=== PATIENT | male | born 1960 | race African-American/Black ===

== ENCOUNTER 2018-05-08 11:59 | Observation (INO) ==
[2018-05-08] MEDS ORDERED: SODIUM CHLORIDE 0.9% 1000ML 1,000 ML IV ONE (12:41)
[2018-05-08 13:14] LABS: Mean Corpuscular Hgb Conc 33.6 g/dL (32-36)
[2018-05-08 13:21] LABS: Hematocrit (blood only) 40.8 % (42-52); Hemoglobin 13.7 g/dL (14.0-18.0); Mean Corpuscular Volume 80.6 fL (80-100); RDW Coefficient of Variation 14.5 % (11.5-14.5); RDW Standard Deviation 42.2 fL (36.4-46.3); Red Blood Count 5.06 M/uL (4.7-6.1); White Blood Count 4.34 K/uL (4.8-10.8)
[2018-05-08 13:29] LABS: Basophils # (auto) 0.01 K/uL (0-0.2); Basophils % (auto) 0.2 %; Eosinophils # (auto) 0.16 K/uL (0-0.5); Eosinophils % (auto) 3.7 %; Giant Platelets 1+; Immature Granulocytes # (auto) 0.01 K/uL (0.00-0.02); Immature Granulocytes % (auto) 0.2 %; Lymphocytes # (auto) 1.26 K/uL (1.2-3.4); Monocytes # (auto) 0.36 K/uL (0.11-0.59); Monocytes % (auto) 8.3 %; Neutrophils # (auto) 2.54 K/uL (1.4-6.5); Neutrophils % (auto) 58.6 %; Platelet Count 57 K/uL (130-400); Platelet Estimate Decreased (Normal)
[2018-05-08 13:32] LABS: Albumin Level 3.3 gm/dl (3.4-5.0); BUN Creatinine Ratio 5.2 (10-20); Calcium 8.5 mg/dl (8.5-10.1); Creatinine Clr Calc Pharmacy 68.1 ml/min; Est GFR (African American) 62.3; Est GFR (Non-African American) 53.8; Potassium 2.7 mmol/L (3.5-5.1)
[2018-05-08 13:33] LABS: Globulin 3.4 gm/dl (2.5-4.0); Total Protein 6.7 gm/dl (6.4-8.2)
--- NOTE | 2018-05-08 13:42 | XRay Report ---
XR chest 1V portable CLINICAL HISTORY: 58 years-old Male presenting with pain, dysphagia. TECHNIQUE: PA view of the chest was obtained. COMPARISON: 09/24/2013. FINDINGS: Cardiac silhouette top normal in size. Lungs and pleural spaces clear. Osseous structures normal. Upp er abdomen normal. IMPRESSION: 1. No acute cardiopulmonary disease. Electronically signed by: Miguel Angel Sanchez M.D. 05/08/2018 1:40 PM
--- NOTE | 2018-05-08 13:50 | XRay Report ---
XR soft tissue neck CLINICAL HISTORY: dysphagia COMPARISON STUDY: No previous studies for comparison. FINDINGS: The retropharyngeal soft tissues appear normal. The epiglottis appears normal. Degenerative changes are present within the cervical spine most pronounced at the IMPRESSION: No significant soft tissue abnormalities identified on conventional radiographic imaging Electronically signed by: Mehul Hermosillo M.D. 05/08/2018 1:48 PM
--- NOTE | 2018-05-08 14:41 | Emergency Department Note ---
History of Present Illness General Chief Complaint: Throat Pain Stated Complaint: TROUBLE SWALLOWING Source: patient Mode of arrival: ambulatory Limitations: no limitations History of Present Illness Provider Complaint: other (dysphagia) Onset (ago): 3 week(s) Pain Consistency: intermittent Maximum Pain Intensity: 8 Current Pain Intensity: 8 Quality: + dull Exacerbated By: + eating Associated Symptoms: + nausea and + vomiting This 58-year-old male patient presents emergency department today from [facility]. The patient has been experiencing dysphagia for the past 2-3 weeks. He states he is having difficulty swallowing water and food and feels that he is choking with eating or drinking. He reports a 40 pound weight loss in the past 2 months. He reports pain in the back of his throat with attempts at swallowing. He states it feels "like needles or extremely bad heartburn". The patient was admitted to the [facility] week for IV fluids due to dehydration from the inability to swallow. He was switched to a liquid diet, but continued to have difficulty keeping down liquids. The patient states he has been successful with some food and liquids and ate cream of wheat this morning without difficulty. The patient reports history of similar symptoms back in 2003. He states he had an EGD done at that time which was negative. He states the symptoms ultimately got better on his own, does not recall needing any further workup or medications. The patient states he has not been on any medications for heartburn or reflux. He rates his pain 8/10. He has been unable to get scheduled with gastroenterology for an EGD until July, per the group home system providers. Home Medications Home Medications Medication Instructions Recorded Confirmed Type amlodipine 10 mg PO QAM 05/08/18 05/08/18 History aspirin 81 mg PO HS 05/08/18 05/08/18 History atorvastatin 40 mg PO HS 05/08/18 05/08/18 History levothyroxine 50 mcg PO QAM 05/08/18 05/08/18 History risperidone 3 mg PO BID 05/08/18 05/08/18 History sulfamethoxazole-trimethoprim 10 ml PO QID 05/08/18 05/08/18 History [Sulfatrim] trazodone 50 mg PO HS 05/08/18 05/08/18 History Allergies Allergy/AdvReac Type Severity Reaction Status Date / Time No Known Allergies Allergy Unverified 05/08/18 13:29 Past Med/Surg History Medical History Hepatitis C Paranoid schizophrenia (Chronic) HTN (hypertension) (Chronic) Surgical History History of shoulder surgery Family History Other Family history non-contributory Social History Current Living Situation Comment: incarcerated- [facility] Feels Safe at Home: Yes Smoking Status: Former smoker Hx Alcohol Use: No Hx Substance Use: No Preferred Language: Chinese Review of Systems A total of 10 systems reviewed and were otherwise negative Physical Exam Vital Signs: Vital Signs - 24 hr 05/08/18 12:08 05/08/18 12:12 05/08/18 13:13 Temperature 37.1 C Temperature Source Oral Sepsis Recent Feve r Within 48 Hours No Sepsis New/Unexpla ined Change in Men varghese Status No Sepsis Action Take n by Nursing No Action Required Pulse Rate 141 H Pulse Rate [Left F mir] Respiratory Rate 18 Respiratory Effort / Characteristics Non-Labored Sponta neous Respiratory Depth Normal Respiratory Patter n Regular Blood Pressure 114/88 Blood Pressure [Le ft Arm] Blood Pressure [Ri ght Arm] Blood Pressure Stephanie n 96 Blood Pressure Stephanie n [Left Arm] Blood Pressure Stephanie n [Right Arm] Blood Pressure Pos ition Sitting Blood Pressure Pos ition [Right Arm] Pulse Oximetry 97 97 94 Oxygen Delivery Me thod Room Air Room Air 05/08/18 13:14 05/08/18 16:00 05/08/18 19:09 Temperature Temperature Source Sepsis Recent Feve r Within 48 Hours Sepsis New/Unexpla ined Change in Men varghese Status Sepsis Action Take n by Nursing Pulse Rate 81 Pulse Rate [Left F mir] 95 H 80 Respiratory Rate 18 20 20 Respiratory Effort / Characteristics Respiratory Depth Respiratory Patter n Blood Pressure 174/114 H Blood Pressure [Le ft Arm] 142/96 H 153/114 H Blood Pressure [Ri ght Arm] Blood Pressure Stephanie n Blood Pressure Stephanie n [Left Arm] 111 127 Blood Pressure Stephanie n [Right Arm] Blood Pressure Pos ition Blood Pressure Pos ition [Right Arm] Pulse Oximetry 95 95 96 Oxygen Delivery Me thod Room Air Room Air Room Air 05/08/18 19:39 Temperature 36.7 C Temperature Source Oral Sepsis Recent Feve r Within 48 Hours Sepsis New/Unexpla ined Change in Men varghese Status Sepsis Action Take n by Nursing Pulse Rate Pulse Rate [Left F mir] 83 Respiratory Rate 18 Respiratory Effort / Characteristics Respiratory Depth Respiratory Patter n Blood Pressure Blood Pressure [Le ft Arm] Blood Pressure [Ri ght Arm] 160/114 H Blood Pressure Stephanie n Blood Pressure Stephanie n [Left Arm] Blood Pressure Stephanie n [Right Arm] 129 Blood Pressure Pos ition Blood Pressure Pos ition [Right Arm] Lying Pulse Oximetry 98 Oxygen Delivery Me thod Room Air Physical Exam: VITALS: Vitals are noted on the nurse's note and reviewed by myself. Vital signs stable. GENERAL: This is a 4-year-old black male, in no acute distress, nondiaphoretic, well-developed well-nourished. SKIN: The skin was without rashes, erythema, edema, or bruising. There is no tenting of the skin. Capillary reflex less than 2 seconds. HEAD: Normocephalic atraumatic. EARS: External auditory canals clear, tympanic membranes pearly pelaez without erythema or effusion bilaterally. EYES: Pupils equal round and reactive to light and accommodation. Conjunctivae without injection, sclerae without icterus. Extraocular movements intact. NOSE: Patent, turbinates without inflammation or discharge. No sinus tenderness. MOUTH: Mucous membranes moist. Tonsils are not enlarged. Pharynx without erythema or exudate. Uvula midline. Airway patent. Tongue does not deviate. NECK: Supple without nuchal rigidity. No lymphadenopathy. Cervical spine is nontender. No JVD. HEART: Regular rate and rhythm without murmurs gallops or rubs. LUNGS: Clear to auscultation bilaterally without wheezes, rales or rhonchi. No dullness to percussion. No retractions or accessory muscle use. ABDOMEN: Positive bowel sounds x 4. Normal tympanic percussion. Soft, nontender, without masses or organomegaly. Proctor sign negative. No guarding or rebound tenderness. MUSCULOSKELETAL: No muscle atrophy, erythema, or edema noted. Full range of motion without joint tenderness in all extremities. No tenderness to palpation. Normal gait. Strength 5/5 throughout. NEURO: Patient was alert and oriented to person place and time. Normal sensation to light and sharp touch. No focal neurological deficits. Course The patient was seen and evaluated as above. IV access obtained, labs drawn. Imaging performed and reviewed by myself and radiologist as above. Labs reviewed by myself. I discussed the findings with the patient at bedside. I consulted with GI configuration manager. Spoke with Phyllis Jaimes. She did agree to see and evaluate the patient. GI recommended outpatient EGD, but does not feel that the patient requires admission. They did request a RUQ ultrasound to evaluate for cirrhosis. The patient was given IV Protonix. I contacted Dr. Cueto, the Physician at [facility]. He became extremely agitated that the patient would not be admitted because "he was extremely dehydrated over the weekend" and feels that he will not be able to manage the patient's fluid status at the group home to await an outpatient EGD, though it was suggested that this would likely happen soon. He advised that the patient has not tolerated any food or fluids, despite the patient telling us he tolerated Cream of wheat and fluids just prior to arrival at the ED without vomiting. He did speak with Dr. Flanagan who advised him that the patient does not meet admission criteria. He insists that I speak with the internal medicine physician regarding a PICC line for admission. I discussed the case with Dr. Orozco. She agrees that the patient does not meet admission criteria. Dr. Cueto called back and expresses irritation that he called [facility] and was told there was no order for the EGD, so the patient could not be scheduled. He would like me to speak with GI and ask that they place the order. He did speak with Dr. Orozco regarding patient condition. I spoke with HEAVEN Olson again. She contacted the outpatient office and asked if an order could be placed and the patient scheduled. She was having difficulty getting the patient scheduled outpatient and asked that the patient be admitted overnight for outpatient EGD. I discussed the case with Dr. Orozco. She does agree to the admission. I called Dr. Cueto back to advise him that the patient would be admitted. I discussed the case with my attending. The patient's potassium and Magnesium were replaced. Please see hospitalist dictation regarding ongoing management. Administered Medications Discontinued Medications Sodium Chloride (Nss 1000ml) 1,000 mls @ 999 mls/hr IV .Q1H1M ONE Stop: 05/08/18 13:41 Last Infusion: 05/08/18 14:16 Dose: 0 mls/hr Admin: 05/08/18 13:12 Dose: 999 mls/hr Pantoprazole Sodium 40 mg/ (Syringe) 10 mls @ 5 mls/min IV NOW ONE Stop: 05/08/18 15:33 Last Admin: 05/08/18 16:28 Dose: 5 mls/min Potassium Chloride (K Tc / Wtr) 10 meq in 100 mls @ 100 mls/hr IV Q1H PRATEEK Stop: 05/08/18 19:29 Last Infusion: 05/08/18 19:51 Dose: 0 mls/hr Admin: 05/08/18 18:18 Dose: 100 mls/hr Potassium Chloride (Klor-Con M10) 20 meq PO NOW STA Stop: 05/08/18 15:33 Last Admin: 05/08/18 16:15 Dose: Not Given Medical Decision Making Differential Diagnosis + peptic ulcer disease, + biliary pathology, + UTI, + obstruction, + mesenteric ischemia, + aortic pathology, + infections, + inflammatory bowel disease, + renal colic, + torsion (male), + epididymitis (male), + pelvic inflammatory disease (female), + abdominal pain, + appendicitis, + calculus of kidney, + constipation, + diverticulitis, + endometriosis, + gastroenteritis, + pancreatitis and + small bowel obstruction Food bolus, achalasia, reflux, malignancy, and others Medical Records Attestation: I reviewed the patient's medical records. Home Medications Current Medication List: was personally reviewed by me Laboratory Data Attestation: I reviewed the patient's lab results. Mild anemia with a hemoglobin of 13.7. No leukocytosis. No thrombocytopenia. The patient's renal, hepatic function without significant abnormality. The patient was hypokalemic with potassium of 2.7. Magnesium 1.7. Lipase 100. Urinalysis without evidence of blood or infection. Positive for 1+ protein and 2+ ketones. Result diagrams: 05/08/18 13:00 05/08/18 13:00 Lab Results 05/08/18 05/08/18 05/08/18 Range/Units 13:00 13:00 13:00 WBC 4.34 L (4.8-10.8) K/uL RBC 5.06 (4.7-6.1) M/uL Hgb 13.7 L (14.0-18.0) g/dL Hct 40.8 L (42-52) % MCV 80.6 (80-100) fL MCH 27.1 (25-34) pg MCHC 33.6 (32-36) g/dL RDW Std Deviation 42.2 (36.4-46.3) fL RDW Coeff of Franck 14.5 (11.5-14.5) % Plt Count 57 L (130-400) K/uL Immature Gran % (Auto) 0.2 % Neut % (Auto) 58.6 % Lymph % (Auto) 29.0 % Toole % (Auto) 8.3 % Eos % (Auto) 3.7 % Baso % (Auto) 0.2 % Immature Gran # (Auto) 0.01 (0.00-0.02) K/uL Neut # (Auto) 2.54 (1.4-6.5) K/uL Lymph # (Auto) 1.26 (1.2-3.4) K/uL Toole # (Auto) 0.36 (0.11-0.59) K/uL Eos # (Auto) 0.16 (0-0.5) K/uL Baso # (Auto) 0.01 (0-0.2) K/uL Platelet Estimate Decreased (Normal) Giant Platelets 1+ Sodium 138 (136-145) mmol/L Potassium 2.7 L (3.5-5.1) mmol/L Chloride 103 (98-107) mmol/L Carbon Dioxide 28 (21-32) mmol/L Anion Gap 7.0 (3-11) BUN 7 (7-18) mg/dl Creatinine 1.41 H (0.6-1.4) mg/dl Est Cr Clr Drug Dosing 68.1 ml/min Est GFR ( Amer) 62.3 Est GFR (Non-Af Amer) 53.8 BUN/Creatinine Ratio 5.2 L (10-20) Glucose 128 H (70-99) mg/dl Calcium 8.5 (8.5-10.1) mg/dl Phosphorus Magnesium 1.7 L Cancelled (1.8-2.4) mg/dl Total Bilirubin 1.0 (0.2-1) mg/dl AST 32 (15-37) U/L ALT 43 (12-78) U/L Alkaline Phosphatase 76 (45-117) U/L Total Protein 6.7 (6.4-8.2) gm/dl Albumin 3.3 L (3.4-5.0) gm/dl Globulin 3.4 (2.5-4.0) gm/dl Albumin/Globulin Ratio 1.0 (0.9-2) Lipase 100 (73-393) U/L Urine Color Urine Appearance (Clear) Urine pH (4.5-7.5) Ur Specific [place]vue (1.000-1.030) Urine Protein (Negative) Urine Glucose (UA) (Negative) Urine Ketones (Negative) Urine Blood (Negative) Urine Nitrite (Negative) Urine Bilirubin (Negative) Urine Urobilinogen (Negative) Ur Leukocyte Esterase (Negative) Urine WBC (Auto) (0-5) /hpf Urine RBC (Auto) (0-4) /hpf U Hyaline Cast (Auto) (0-5) /lpf U Epithel Cells (Auto) (0-5) /lpf Urine Bacteria (Auto) (Negative) 05/08/18 05/08/18 Range/Units 13:00 14:30 WBC (4.8-10.8) K/uL RBC (4.7-6.1) M/uL Hgb (14.0-18.0) g/dL Hct (42-52) % MCV (80-100) fL MCH (25-34) pg MCHC (32-36) g/dL RDW Std Deviation (36.4-46.3) fL RDW Coeff of Franck (11.5-14.5) % Plt Count (130-400) K/uL Immature Gran % (Auto) % Neut % (Auto) % Lymph % (Auto) % Toole % (Auto) % Eos % (Auto) % Baso % (Auto) % Immature Gran # (Auto) (0.00-0.02) K/uL Neut # (Auto) (1.4-6.5) K/uL Lymph # (Auto) (1.2-3.4) K/uL Toole # (Auto) (0.11-0.59) K/uL Eos # (Auto) (0-0.5) K/uL Baso # (Auto) (0-0.2) K/uL Platelet Estimate (Normal) Giant Platelets Sodium (136-145) mmol/L Potassium (3.5-5.1) mmol/L Chloride (98-107) mmol/L Carbon Dioxide (21-32) mmol/L Anion Gap (3-11) BUN (7-18) mg/dl Creatinine (0.6-1.4) mg/dl Est Cr Clr Drug Dosing ml/min Est GFR ( Amer) Est GFR (Non-Af Amer) BUN/Creatinine Ratio (10-20) Glucose (70-99) mg/dl Calcium (8.5-10.1) mg/dl Phosphorus Cancelled Magnesium (1.8-2.4) mg/dl Total Bilirubin (0.2-1) mg/dl AST (15-37) U/L ALT (12-78) U/L Alkaline Phosphatase (45-117) U/L Total Protein (6.4-8.2) gm/dl Albumin (3.4-5.0) gm/dl Globulin (2.5-4.0) gm/dl Albumin/Globulin Ratio (0.9-2) Lipase (73-393) U/L Urine Color Yellow Urine Appearance Clear (Clear) Urine pH 6.5 (4.5-7.5) Ur Specific [place] 1.020 (1.000-1.030) Urine Protein 1+ H (Negative) Urine Glucose (UA) Negative (Negative) Urine Ketones 2+ H (Negative) Urine Blood Negative (Negative) Urine Nitrite Negative (Negative) Urine Bilirubin Negative (Negative) Urine Urobilinogen Negative (Negative) Ur Leukocyte Esterase Negative (Negative) Urine WBC (Auto) 1-5 (0-5) /hpf Urine RBC (Auto) 0-4 (0-4) /hpf U Hyaline Cast (Auto) 1-5 (0-5) /lpf U Epithel Cells (Auto) 10-20 H (0-5) /lpf Urine Bacteria (Auto) Negative (Negative) Imaging Data Radiologist's Impression: XR soft tissue neck CLINICAL HISTORY: dysphagia COMPARISON STUDY: No previous studies for comparison. FINDINGS: The retropharyngeal soft tissues appear normal. The epiglottis appears normal. Degenerative changes are present within the cervical spine most pronounced at the IMPRESSION: No significant soft tissue abnormalities identified on conventional radiographic imaging Electronically signed by: Mehul Hermosillo M.D. 05/08/2018 1:48 PM XR chest 1V portable CLINICAL HISTORY: 58 years-old Male presenting with pain, dysphagia. TECHNIQUE: PA view of the chest was obtained. COMPARISON: 09/24/2013. FINDINGS: Cardiac silhouette top normal in size. Lungs and pleural spaces clear. Osseous structures normal. Upper abdomen normal. IMPRESSION: 1. No acute cardiopulmonary disease. Electronically signed by: Miguel Angel Sanchez M.D. 05/08/2018 1:40 PM ULTRASOUND RIGHT UPPER QUADRANT ABDOMEN CLINICAL HISTORY: Right upper quadrant abdominal pain. COMPARISON STUDY: No priors. TECHNIQUE: Real-time, grayscale, and color flow sonography of the right upper quadrant of the abdomen was performed. Images are reviewed in the transverse and longitudinal planes. FINDINGS: Liver: The liver is normal in size and echotexture. There is no intrahepatic biliary ductal dilatation. The main portal vein is patent. Gallbladder: The gallbladder is normal in appearance. No gallstones are identified. There is no gallbladder wall thickening or pericholecystic fluid. A sonographic Proctor's sign is reportedly absent. The common bile duct measures up to 0.5 cm in diameter. Pancreas: Not well visualized due to overlying bowel gas. Right kidney: Survey images of the right kidney demonstrate normal size and echotexture. There is no hydronephrosis. Ascites: None. IMPRESSION: Unremarkable sonographic assessment of the right upper quadrant. No gallstones are identified. Electronically signed by: Dionte Franklin M.D. 05/08/2018 5:18 PM ECG Data Attestation: I personally reviewed and interpreted this ECG as follows: Indication: other (hypokalemia) Rate (beats per minute): 68 Rhythm: normal sinus Findings: no acute ischemic change and no ectopy Comparison ECG Date: from (09/26/13) Change: no significant change Blood Pressure Blood Pressure Findings: Elevated blood pressure Blood Pressure Disposition: elevated BP felt to be situational MDM Narrative This 58-year-old male patient [facility] evaluation of 2-3-week long history of dysphasia. The patient was apparently severely dehydrated over the weekend and [place] IV fluids in [place]. He has been feeling better since the IV fluids, however continues to experience intermittent dysphasia. He states he was able to tolerate cream of wheat earlier today without vomiting it up. The patient was seen and evaluated by gastroenterology who felt that the patient could be appropriately worked up as an outpatient with an EGD. When I advised the infirmary physician of this recommendation, he became extremely agitated and requests that the patient be admitted under the internal medicine/hospitalist team due to the dehydration last week and inability to swallow. I did discuss this with the medicine team, who did not feel that the patient will require admission. Ultimately, there was difficulty getting the patient scheduled for the outpatient EGD and the [facility] physician called back multiple times into the emergency department advising that the order was not placed and he would like the order placed within the next 15 minutes. This was not possible. The gastroenterology team ultimately decided that the patient could be admitted and added onto the schedule for an EGD tomorrow. The patient was ultimately admitted under the medicine service and will be scheduled for EGD tomorrow. While here in the ED, the patient's potassium and magnesium were replaced due to hypokalemia and slight hypomagnesemia. The patient did not tolerate the IV K+ well, and it needed to be slowed. The patient's electrolytes will continue to be replaced through the night per the hospitalist team. The chart was completed utilizing [id number] Speech voice recognition software. Grammatical errors, random word insertions, pronoun errors, and incomplete sentences are an occasional consequence of this system due to software limitations, ambient noise, and hardware issues. Any formal questions or concerns about the content, text, or information contained within the body of this dictation should be directly addressed to the provider for clarification. Impression & Plan Dysphagia, Hypokalemia, Hypomagnesemia Discharge Plan Visit Data *Final* Discharge Date/Time: 05/08/18 19:09 Chief Complaint: Throat Pain Stated Complaint: TROUBLE SWALLOWING ED Provider: Erick Lewis ED Midlevel Provider: Thea Martinez Discharge Problem: Dysphagia, Hypokalemia, Hypomagnesemia Patient Disposition: Admitted As Inpatient Condition: Good Discharge Instructions Interventions: ED Discharge Assessment Last Done: 05/08/18 19:09
[2018-05-08 15:04] LABS: Appearance Urine Clear (Clear); Bacteria Urine Automated Negative (Negative); Bilirubin Urine Negative (Negative); Blood Urine Negative (Negative); Color Urine Yellow; Glucose Urine UA Negative (Negative); Ketones Urine 2+ (Negative); Leukocyte Esterase Urine Negative (Negative); Nitrite Urine Negative (Negative); Protein Urine 1+ (Negative); RBC Urine Automated 0-4 /hpf (0-4); Urobilinogen Urine Negative (Negative); pH Urine 6.5 (4.5-7.5)
--- NOTE | 2018-05-08 15:15 | Gastrointestinal Consultation ---
Date of Consultation May 08, 2018 Assessment & Plan (1) Dysphagia: Dysphagia, likely esophageal spasm or esophagitis though malignancy should also be ruled out in light of weight loss. EGD later this week at [facility]. Soft food and liquids until then. BID PPI, po Our office will call [facility] to arrange. (2) Odynophagia: Supervising Physician Co-Signing Physician Notes I discussed the patient's management with HEAVEN Olson. 58 yo male, prisoner, chronic dysphagia reportedly- prior egd in 2003 in [facility] is normal, now here today for reported dysphagia. No difficulty swallowing currently and able to tolerate liquids. Slightly low K, ckdz - stable cr, low platelets. Abd sundar. Outpt EGD PPI twice daily. Discussed with the alf doctor. History of Present Illness Reason for Consultation: Dysphagia, weight loss Requesting Physician: Dr. Marie Attending Physician: Dr. Flanagan History of Present Illness Mr. Osmani Thompson is a 58 yr old male inmate at [facility] who was brought to the ED on 05/04, 05/06, and again today for dysphagia, vomiting, weight loss. He reports that he has had these symptoms intermittently, in 2010. He also recalls undergoing EGD in 2003 in [place] w/o abnormalities. He describes his symptoms, "as soon as I try to eat something, it feels like it gets stuck, hurts like a needle and comes back up."He also sometimes gets this feeling o f upper chest/lower throat sharp knife like pain that he induced vomiting, with mostly liquid emesis. When asked, he reports that two weeks ago, he had constipation then BMs with bright red black. No loose black BMs. He reports loosing about 40 lbs in the past month. Sometimes LLQ abdomen pain but does not mention any epigastric pain. On arrival, Hb 13.7, Hct 40.8. BUN 7, Cr 1.1. He is AAO and hemodynamically stable. Allergies Allergy/AdvReac Type Severity Reaction Status Date / Time No Known Allergies Allergy Unverified 05/08/18 13:29 Home Medications Home Medications Medication Instructions Recorded Confirmed Type amlodipine 10 mg PO QAM 05/08/18 05/08/18 History aspirin 81 mg PO HS 05/08/18 05/08/18 History atorvastatin 40 mg PO HS 05/08/18 05/08/18 History levothyroxine 50 mcg PO QAM 05/08/18 05/08/18 History risperidone 3 mg PO BID 05/08/18 05/08/18 History sulfamethoxazole-trimethoprim 10 ml PO QID 05/08/18 05/08/18 History [Sulfatrim] trazodone 50 mg PO HS 05/08/18 05/08/18 History Patient History Medical History Hepatitis C Paranoid schizophrenia (Chronic) HTN (hypertension) (Chronic) Social History Feels Safe at Home: Yes Smoking Status: Former smoker Preferred Language: Mexican Review of Systems Constitutional: + body aches (lower back); no fever, no chills and no sweats Ear, Nose, Mouth, Throat: + dry mouth and + sore throat (sometimes ); no dizziness Respiratory: + cough and + chest congestion (sometimes chest pressure); no pain with cough Cardiovascular: + chest pain (sometimes with eating - not currently); no syncope and no edema Gastrointestinal: + abdominal pain (intermittent LLQ discomfort ); no bloating and no nausea Genitourinary (Male): no dysuria, no difficulty urinating and no hematuria no jaundice Neurologic: + unsteadiness (sometimes "off balance"); no falls severe headaches (not currently) Hematologic / Lymphatic: no easy bleeding, no easy bruising, no coagulopathy and no lymphadenopathy Physical Exam 2 Vital Signs (Past 24 Hours): Last Vital Signs Temp 37.1 C 05/08/18 12:08 Pulse 95 H 05/08/18 13:14 Resp 18 05/08/18 13:14 BP 142/96 H 05/08/18 13:14 Pulse Ox 95 05/08/18 13:14 Constitutional: WD/WN, vitals as above well developed, well nourished and healthy appearing; no acute distress some figitingy motions Eyes: PERRL, conjunctivae normal, anicteric sclerae EOMS intact w/o nystagmus Neck: trachea midline, no thyromegaly Respiratory: mild wheeze on forced exp, otherwise normal w/o crackes Cardiovascular: RRR, no murmur, no edema Gastrointestinal (Abdomen): normal bowel sounds, soft, nontender, no hepatosplenomegaly Neurologic: PERRL, EOMI, accommodation nl, no face palsy, no dysarthria Psychiatric: Orientation: oriented x 3 Eye Contact: good eye contact Affect: + depressed affect (slightly) Results & Data Laboratory Results WBC 4.34, Hb 13.7, Hct 48, Platelets 57, BUN 7. Cr 1.41, K 2.7. Diagnostic Findings Neck US: No significant soft tissue abnormalities identified on conventional radiographic imaging CXR: No acute cardiopulmonary disease.
[2018-05-08] MEDS ORDERED: PANTOprazole 40 MG in SYRINGE 0 ML IV ONE (15:32)
[2018-05-08] MEDS ORDERED: POTASSIUM CHLORIDE 10 MEQ TABCR PO STA (15:32)
[2018-05-08 17:15] LABS: Magnesium 1.7 mg/dl (1.8-2.4)
--- NOTE | 2018-05-08 17:19 | Ultrasound Report ---
ULTRASOUND RIGHT UPPER QUADRANT ABDOMEN CLINICAL HISTORY: Right upper quadrant abdominal pain. COMPARISON STUDY: No priors. TECHNIQUE: Real-time, grayscale, and color flow sonography of the right upper quadrant of the abdomen was performed. Images are reviewed in the transverse and longitudinal planes. FINDINGS: Liver: The liver is normal in size and echotexture. There is no intrahepatic biliary ductal dilatatio n. The main portal vein is patent. Gallbladder: The gallbladder is normal in appearance. No gallstones are identified. There is no gallb ladder wall thickening or pericholecystic fluid. A sonographic Proctor's sign is reportedly absent. Th e common bile duct measures up to 0.5 cm in diameter. Pancreas: Not well visualized due to overlying bowel gas. Right kidney: Survey images of the right kidney demonstrate normal size and echotexture. There is no hydronephrosis. Ascites: None. IMPRESSION: Unremarkable sonographic assessment of the right upper quadrant. No gallstones are identi fied. Electronically signed by: Dionte Franklin M.D. 05/08/2018 5:18 PM
[2018-05-08] MEDS ORDERED: MAGNESIUM SULFATE / D5W 1 GM/100 ML BAG IV ONE ×2 (17:25→20:00)
[2018-05-08] MEDS: POTASSIUM CHLORIDE / WTR 10 MEQ/100 ML PLCT IV SCH ×3 (18:18→21:37)
[2018-05-08] MEDS ORDERED: ONDANSETRON INJ 2 MG/ML 2 ML VIAL IV PRN (19:38)
[2018-05-08] MEDS ORDERED: POTASSIUM CHLORIDE PWD 20 MEQ PACK PO ONE (19:45)
--- NOTE | 2018-05-08 20:04 | History & Physical Report ---
Date of Service May 08, 2018 Assessment & Plan (1) Dysphagia: Patient with reported dysphagia to solids and liquids associated with a 40 # unintentional weight loss. Also with reported odynophagia. Patient with history of similar presentation in the past. Ddx to include GERD, stricture, esophageal spasm, malignancy is a concern given weight loss and pancytopenia. May consider infectious etiology, esophagitis as well. Patient was initially to be discharged to [facility] with plans for outpatient EGD, however, this was difficult to coordinate so it was recommended by GI to admit patient for EGD inpatient. -Observation to medical floor -Protonix 40mg IV daily -Full liquid diet as tolerated -NPO after midnight -GI consultation - appreciate assistance with this case. Possible EGD in AM (2) Odynophagia: Patient reports occasional sharp pain with swallowing. Denies mouth sores /thrush. OP exam unremarkable -workup as above (3) Pancytopenia: Patient with pancytopenia. Normochromic/normocytic anemia, Plt=57, WBC= 4.34. He had leukopenia and thrombocytopenia in the past. Broad differential to include infectious etiology, autoimmune, malignancy. -Will order iron studies -Peripheral smear -Consider HIV and autoimmune labs -Consider Hematology consultation (4) HTN (hypertension): Blood pressure mildly elevated at present -Continue Amlodipine (5) Paranoid schizophrenia: Chronic. Stable -Continue Risperdal -Continue Trazodone (6) Dehydration: Patient with VERONICA now improved -LR at 125mL/hr x 2 liters -Electrolyte repletion with Mag and K -Continue to monitor (7) Hypothyroid: Chronic -Continue Synthroid (8) UTI (urinary tract infection): Patient is on Bactrim for suspected UTI -Continue 20mL po BID F/E/N - LR at 125mL/hr, monitor electrolytes and replete as needed, full liquid diet as tolerated, NPO after midnight for possible procedure in AM Ppx - SCDs, Protonix 40mg IV daily Code - Full Dispo - Observation to floor History of Present Illness Chief Complaint: dysphagia Primary Care Provider: [facility] Mr. Thompson is a 58yo AA male presenting with dysphagia and odynophagia x 3 weeks. Patient states that his symptoms occur intermittently. Unable to swallow solids or liquids. Also with occasional sharp pain and burning in his throat and globus sensation. He reports vomiting almost immediately after eating - undigested food. Patient is an inmate at [facility]. Spoke with Dr. Cueto who reports that patient has lost approximately 40# since February with this issue. Patient reports not tolerating food for 6-7 days at a time. He was recently in the [facility] for IVF and electrolyte repletion. Patient states that he had similar symptoms in 2003 - he was evaluated at [facility] in [place] with what sounds to be an EGD. Patient reports that they didn't explain the findings or start any new medications at that time. He reports similar episode in 2010 that resolved on its own. ER Course: KCl 10mEq, Protonix 40mg, KCL 20meq PO, NSS Allergies Allergy/AdvReac Type Severity Reaction Status Date / Time No Known Allergies Allergy Unverified 05/08/18 13:29 Home Medications Home Medications Medication Instructions Recorded Confirmed Type amlodipine 10 mg PO QAM 05/08/18 05/08/18 History aspirin 81 mg PO HS 05/08/18 05/08/18 History atorvastatin 40 mg PO HS 05/08/18 05/08/18 History levothyroxine 50 mcg PO QAM 05/08/18 05/08/18 History risperidone 3 mg PO BID 05/08/18 05/08/18 History sulfamethoxazole-trimethoprim 10 ml PO QID 05/08/18 05/08/18 History [Sulfatrim] trazodone 50 mg PO HS 05/08/18 05/08/18 History Past Med/Surg History Medical History Hepatitis C Paranoid schizophrenia (Chronic) HTN (hypertension) (Chronic) Dysphagia Pancytopenia UTI (urinary tract infection) Surgical History History of shoulder surgery Family History Other Family history non-contributory Social History Current Living Situation Comment: incarcerated- [facility] Feels Safe at Home: Yes Smoking Status: Former smoker Hx Alcohol Use: No Hx Substance Use: No Preferred Language: Sinhala Review of Systems All systems reviewed & are unremarkable except as noted in HPI & below Patient reports occasional constipation, nausea and dry cough Denies mouth sores, thrush, fevers, chills, sweats Physical Exam 2 Vital Signs (Past 24 Hours): Last Vital Signs Temp 36.7 C 05/08/18 19:39 Pulse 83 05/08/18 19:39 Resp 18 05/08/18 19:39 BP 160/114 H 05/08/18 19:39 Pulse Ox 98 05/08/18 19:39 Physical Exam: General: patient resting comfortably, NAD, non-toxic in appearance, AA&O x 4 Skin: warm, dry, intact, no rashes or lesions HEENT: NC/AT, PERRL, EOMI, anicteric sclera, conjunctiva without injection, external ear normal to inspection and nontender, nares patent, moist mucus membranes, dentition intact, no oropharyngeal lesions, neck supple, trachea midline, no LAD, no thyromegaly, no JVD Heart: +S1/S2, regular, no m/r/g Lungs: equal air entry bilaterally, no rales/rhonchi/wheezes Abd: +BS, soft, NT/ND, no masses/organomegaly/ascites Ext: warm, 2+ pulses in UE/LE bilaterally, no clubbing/cyanosis or edema Neuro: nonfocal, patient AA&O x 4, speech intact, no facial droop, moving all extremities on command with equal strength 5/5 Results & Data Laboratory Results Lab Results 05/08/18 05/08/18 05/08/18 Range/Units 13:00 13:00 13:00 WBC 4.34 L (4.8-10.8) K/uL RBC 5.06 (4.7-6.1) M/uL Hgb 13.7 L (14.0-18.0) g/dL Hct 40.8 L (42-52) % MCV 80.6 (80-100) fL MCH 27.1 (25-34) pg MCHC 33.6 (32-36) g/dL RDW Std Deviation 42.2 (36.4-46.3) fL RDW Coeff of Franck 14.5 (11.5-14.5) % Plt Count 57 L (130-400) K/uL Immature Gran % (Auto) 0.2 % Neut % (Auto) 58.6 % Lymph % (Auto) 29.0 % Grand % (Auto) 8.3 % Eos % (Auto) 3.7 % Baso % (Auto) 0.2 % Immature Gran # (Auto) 0.01 (0.00-0.02) K/uL Neut # (Auto) 2.54 (1.4-6.5) K/uL Lymph # (Auto) 1.26 (1.2-3.4) K/uL Grand # (Auto) 0.36 (0.11-0.59) K/uL Eos # (Auto) 0.16 (0-0.5) K/uL Baso # (Auto) 0.01 (0-0.2) K/uL Platelet Estimate Decreased (Normal) Giant Platelets 1+ Sodium 138 (136-145) mmol/L Potassium 2.7 L (3.5-5.1) mmol/L Chloride 103 (98-107) mmol/L Carbon Dioxide 28 (21-32) mmol/L Anion Gap 7.0 (3-11) BUN 7 (7-18) mg/dl Creatinine 1.41 H (0.6-1.4) mg/dl Est Cr Clr Drug Dosing 68.1 ml/min Est GFR ( Amer) 62.3 Est GFR (Non-Af Amer) 53.8 BUN/Creatinine Ratio 5.2 L (10-20) Glucose 128 H (70-99) mg/dl Calcium 8.5 (8.5-10.1) mg/dl Phosphorus 1.6 L (2.5-4.9) mg/dl Magnesium 1.7 L Cancelled (1.8-2.4) mg/dl Total Bilirubin 1.0 (0.2-1) mg/dl AST 32 (15-37) U/L ALT 43 (12-78) U/L Alkaline Phosphatase 76 (45-117) U/L Total Protein 6.7 (6.4-8.2) gm/dl Albumin 3.3 L (3.4-5.0) gm/dl Globulin 3.4 (2.5-4.0) gm/dl Albumin/Globulin Ratio 1.0 (0.9-2) Lipase 100 (73-393) U/L Urine Color Urine Appearance (Clear) Urine pH (4.5-7.5) Ur Specific [place] (1.000-1.030) Urine Protein (Negative) Urine Glucose (UA) (Negative) Urine Ketones (Negative) Urine Blood (Negative) Urine Nitrite (Negative) Urine Bilirubin (Negative) Urine Urobilinogen (Negative) Ur Leukocyte Esterase (Negative) Urine WBC (Auto) (0-5) /hpf Urine RBC (Auto) (0-4) /hpf U Hyaline Cast (Auto) (0-5) /lpf U Epithel Cells (Auto) (0-5) /lpf Urine Bacteria (Auto) (Negative) 05/08/18 05/08/18 Range/Units 13:00 14:30 WBC (4.8-10.8) K/uL RBC (4.7-6.1) M/uL Hgb (14.0-18.0) g/dL Hct (42-52) % MCV (80-100) fL MCH (25-34) pg MCHC (32-36) g/dL RDW Std Deviation (36.4-46.3) fL RDW Coeff of Franck (11.5-14.5) % Plt Count (130-400) K/uL Immature Gran % (Auto) % Neut % (Auto) % Lymph % (Auto) % Grand % (Auto) % Eos % (Auto) % Baso % (Auto) % Immature Gran # (Auto) (0.00-0.02) K/uL Neut # (Auto) (1.4-6.5) K/uL Lymph # (Auto) (1.2-3.4) K/uL Grand # (Auto) (0.11-0.59) K/uL Eos # (Auto) (0-0.5) K/uL Baso # (Auto) (0-0.2) K/uL Platelet Estimate (Normal) Giant Platelets Sodium (136-145) mmol/L Potassium (3.5-5.1) mmol/L Chloride (98-107) mmol/L Carbon Dioxide (21-32) mmol/L Anion Gap (3-11) BUN (7-18) mg/dl Creatinine (0.6-1.4) mg/dl Est Cr Clr Drug Dosing ml/min Est GFR ( Amer) Est GFR (Non-Af Amer) BUN/Creatinine Ratio (10-20) Glucose (70-99) mg/dl Calcium (8.5-10.1) mg/dl Phosphorus Cancelled (2.5-4.9) mg/dl Magnesium (1.8-2.4) mg/dl Total Bilirubin (0.2-1) mg/dl AST (15-37) U/L ALT (12-78) U/L Alkaline Phosphatase (45-117) U/L Total Protein (6.4-8.2) gm/dl Albumin (3.4-5.0) gm/dl Globulin (2.5-4.0) gm/dl Albumin/Globulin Ratio (0.9-2) Lipase (73-393) U/L Urine Color Yellow Urine Appearance Clear (Clear) Urine pH 6.5 (4.5-7.5) Ur Specific [place] 1.020 (1.000-1.030) Urine Protein 1+ H (Negative) Urine Glucose (UA) Negative (Negative) Urine Ketones 2+ H (Negative) Urine Blood Negative (Negative) Urine Nitrite Negative (Negative) Urine Bilirubin Negative (Negative) Urine Urobilinogen Negative (Negative) Ur Leukocyte Esterase Negative (Negative) Urine WBC (Auto) 1-5 (0-5) /hpf Urine RBC (Auto) 0-4 (0-4) /hpf U Hyaline Cast (Auto) 1-5 (0-5) /lpf U Epithel Cells (Auto) 10-20 H (0-5) /lpf Urine Bacteria (Auto) Negative (Negative) Diagnostic Findings XR chest 1V portable CLINICAL HISTORY: 58 years-old Male presenting with pain, dysphagia. TECHNIQUE: PA view of the chest was obtained. COMPARISON: 09/24/2013. FINDINGS: Cardiac silhouette top normal in size. Lungs and pleural spaces clear. Osseous structures normal. Upper abdomen normal. IMPRESSION: 1. No acute cardiopulmonary disease. Electronically signed by: Miguel Angel Sanchez M.D. 05/08/2018 1:40 PM Dictated: 05/08/18 1339 Transcribed: 05/08/18 1339 XR soft tissue neck CLINICAL HISTORY: dysphagia COMPARISON STUDY: No previous studies for comparison. FINDINGS: The retropharyngeal soft tissues appear normal. The epiglottis appears normal. Degenerative changes are present within the cervical spine most pronounced at the IMPRESSION: No significant soft tissue abnormalities identified on conventional radiographic imaging Electronically signed by: Mehul Hermosillo M.D. 05/08/2018 1:48 PM Dictated: 05/08/18 1339 Transcribed: 05/08/18 1339 ULTRASOUND RIGHT UPPER QUADRANT ABDOMEN CLINICAL HISTORY: Right upper quadrant abdominal pain. COMPARISON STUDY: No priors. TECHNIQUE: Real-time, grayscale, and color flow sonography of the right upper quadrant of the abdomen was performed. Images are reviewed in the transverse and longitudinal planes. FINDINGS: Liver: The liver is normal in size and echotexture. There is no intrahepatic biliary ductal dilatation. The main portal vein is patent. Gallbladder: The gallbladder is normal in appearance. No gallstones are identified. There is no gallbladder wall thickening or pericholecystic fluid. A sonographic Proctor's sign is reportedly absent. The common bile duct measures up to 0.5 cm in diameter. Pancreas: Not well visualized due to overlying bowel gas. Right kidney: Survey images of the right kidney demonstrate normal size and echotexture. There is no hydronephrosis. Ascites: None. IMPRESSION: Unremarkable sonographic assessment of the right upper quadrant. No gallstones are identified. Electronically signed by: Dionte Franklin M.D. 05/08/2018 5:18 PM Dictated: 05/08/18 1717 Transcribed: 05/08/18 171 ECG Additional Comments: The study shows NSR at 68bpm, normal axis and intervals, no evidence of acute ischemia Code Status & VTE Plan Code Status full VTE Prophylaxis Plan VTE Prophylaxis will be ordered: Yes Critical Care Time Critical Care Time: No _ (1) Dysphagia Dysphagia type: unspecified Qualified Code(s): R13.10 - Dysphagia, unspecified (2) HTN (hypertension) Hypertension type: essential hypertension Qualified Code(s): I10 - Essential (primary) hypertension (3) Hypothyroid Hypothyroidism type: unspecified Qualified Code(s): E03.9 - Hypothyroidism, unspecified
[2018-05-08 20:12] LABS: Phosphorus 1.6 mg/dl (2.5-4.9)
[2018-05-08] MEDS: LACTATED RINGER'S 1,000 ML IV SCH (20:29)
[2018-05-08] MEDS: risperiDONE 3 MG TABLET PO SCH (20:42)
[2018-05-08] MEDS: SULFA/TRIMETH SUSP 800/160MG 20ML UDC PO SCH (20:50)
[2018-05-08] MEDS ORDERED: SULFA/TRIMETH SUSP 800/160MG 20ML UDC PO SCH (21:00)
[2018-05-08] MEDS ORDERED: TRAZODONE HCL 50 MG TAB PO SCH (21:00)
[2018-05-08] MEDS ORDERED: ATORVASTATIN 40 MG TAB PO SCH (21:00)
[2018-05-09] MEDS: POTASSIUM CHLORIDE / WTR 10 MEQ/100 ML PLCT IV SCH (00:49)
[2018-05-09] MEDS: LACTATED RINGER'S 1,000 ML IV SCH (04:33)
[2018-05-09] MEDS ORDERED: LEVOTHYROXINE SODIUM 50 MCG TABLET PO SCH (06:30)
[2018-05-09 07:52] LABS: Hematocrit (blood only) 37.9 % (42-52); Hemoglobin 12.6 g/dL (14.0-18.0); Mean Corpuscular Hgb Conc 33.2 g/dL (32-36); Mean Corpuscular Volume 82.6 fL (80-100); RDW Coefficient of Variation 14.7 % (11.5-14.5); RDW Standard Deviation 44.1 fL (36.4-46.3); Red Blood Count 4.59 M/uL (4.7-6.1); White Blood Count 3.97 K/uL (4.8-10.8)
[2018-05-09] MEDS: risperiDONE 3 MG TABLET PO SCH (08:14)
[2018-05-09] MEDS: SULFA/TRIMETH SUSP 800/160MG 20ML UDC PO SCH (08:15)
[2018-05-09 08:21] LABS: Platelet Count 70 K/uL (130-400)
[2018-05-09 08:23] LABS: Eosinophils # (auto) 0.19 K/uL (0-0.5); Eosinophils % (auto) 4.8 %; Giant Platelets 2+; Lymphocytes # (auto) 1.34 K/uL (1.2-3.4); Lymphocytes % (auto) 33.8 %; Monocytes # (auto) 0.46 K/uL (0.11-0.59); Monocytes % (auto) 11.6 %; Neutrophils # (auto) 1.98 K/uL (1.4-6.5); Neutrophils % (auto) 49.8 %
[2018-05-09 08:26] LABS: BUN Creatinine Ratio 4.5 (10-20); Calcium 8.2 mg/dl (8.5-10.1); Creatinine Clr Calc Pharmacy 78.1 ml/min; Est GFR (African American) 73.5; Est GFR (Non-African American) 63.4; Potassium 3.2 mmol/L (3.5-5.1)
[2018-05-09 08:30] LABS: Ferritin 244.3 ng/ml (8-388)
[2018-05-09] MEDS ORDERED: AMLODIPINE BESYLATE 5 MG TAB PO SCH (09:00)
[2018-05-09] MEDS ORDERED: PANTOprazole 40 MG in SYRINGE 0 ML IV SCH (11:00)
--- NOTE | 2018-05-09 11:53 | Anesthesiology Consultation ---
Date of Service May 09, 2018 Assessment & Plan (1) Encounter for pre-operative examination: Chart Review Chart Review: Acceptable Risk for Surgery and Patient NOT seen in Pre Admission Testing Consults Requested none ASA ASA2 Proposed Anesthesia Anesthesia Type: MAC NPO Date Last Intake of Fluids: 05/08/18 Time Last Intake of Fluids: 22:00 Date Last Intake of Solids: 05/08/18 Time Last Intake of Solids: 22:00 History Surgery Operation Date: 05/09/18 10:00 Proposed Procedures p Esophagogastroduodenoscopy Dr. Panchito Flanagan M.D. Height/Weight Height: 6 ft Weight: 99.8 kg Allergies Allergy/AdvReac Type Severity Reaction Status Date / Time No Known Allergies Allergy Verified 05/09/18 11:35 Medications Home Medications Medication Instructions Recorded Confirmed Last Taken amlodipine 10 mg PO QAM 05/08/18 05/08/18 05/08/18 aspirin 81 mg PO HS 05/08/18 05/08/18 05/07/18 atorvastatin 40 mg PO HS 05/08/18 05/08/18 05/07/18 levothyroxine 50 mcg PO QAM 05/08/18 05/08/18 05/08/18 risperidone 3 mg PO BID 05/08/18 05/08/18 05/08/18 sulfamethoxazole-trimethoprim 10 ml PO QID 05/08/18 05/08/18 05/08/18 [Sulfatrim] trazodone 50 mg PO HS 05/08/18 05/08/18 05/07/18 Active Medications Generic Name Dose Route Start Last Admin Trade Name Roqueq PRN Reason Stop Dose Admin Amlodipine Besylate 10 mg 05/09/18 09:00 05/09/18 08:14 Norvasc PO 06/08/18 08:59 10 mg QAM PRATEEK Administration Atorvastatin Calcium 40 mg 05/08/18 21:00 05/08/18 20:42 Lipitor PO 06/07/18 20:59 40 mg HS PRATEEK Administration Pantoprazole Sodium 40 mg/ 10 mls @ 5 mls/min 05/09/18 11:00 05/09/18 11:14 Syringe IV 06/08/18 10:59 5 mls/min DAILY@1100 PRATEEK Administration Levothyroxine Sodium 50 mcg 05/09/18 06:30 05/09/18 05:51 Synthroid PO 06/08/18 06:29 50 mcg DAILYBB PRATEEK Administration Risperidone 3 mg 05/08/18 21:00 05/09/18 08:14 Risperdal PO 06/07/18 20:59 3 mg BID PRATEEK Administration Trazodone HCl 50 mg 05/08/18 21:00 05/08/18 20:42 Desyrel PO 06/07/18 20:59 50 mg HS PRATEEK Administration Trimethoprim/Sulfamethoxazole 20 ml 05/08/18 21:00 05/09/18 08:15 Septra Susp 200mg/40mg/5ml PO 05/13/18 20:59 20 ml BID PRATEEK Administration Past Medical History Medical History Hepatitis C Paranoid schizophrenia (Chronic) HTN (hypertension) (Chronic) Dysphagia Pancytopenia UTI (urinary tract infection) Past Family History Family History Other Family history non-contributory Past Surgical History Surgical History History of shoulder surgery Social History Smoking Status: Former smoker Hx Alcohol Use: No Hx Substance Use: No Physical Exam Vital Signs Last Vital Signs Temp 36.8 C 05/09/18 11:46 Pulse 79 05/09/18 11:46 Resp 16 05/09/18 11:46 BP 145/83 H 05/09/18 11:46 Pulse Ox 97 05/09/18 11:46 Testing Laboratory Results 05/09/18 07:27 05/09/18 07:27 Urine Color Yellow 05/08/18 14:30 Urine Appearance Clear (Clear) 05/08/18 14:30 Urine pH 6.5 (4.5-7.5) 05/08/18 14:30 Ur Specific [place] 1.020 (1.000-1.030) 05/08/18 14:30 Urine Protein 1+ (Negative) H 05/08/18 14:30 Urine Glucose (UA) Negative (Negative) 05/08/18 14:30 Urine Ketones 2+ (Negative) H 05/08/18 14:30 Urine Nitrite Negative (Negative) 05/08/18 14:30 Ur Leukocyte Esterase Negative (Negative) 05/08/18 14:30 Urine WBC (Auto) 1-5 /hpf (0-5) 05/08/18 14:30 Urine RBC (Auto) 0-4 /hpf (0-4) 05/08/18 14:30 U Hyaline Cast (Auto) 1-5 /lpf (0-5) 05/08/18 14:30 U Epithel Cells (Auto) 10-20 /lpf (0-5) H 05/08/18 14:30 Urine Bacteria (Auto) Negative (Negative) 05/08/18 14:30
[2018-05-09] MEDS ORDERED: ePHEDrine sulfate 50 MG/ML AMP IV PRN (11:56)
[2018-05-09] MEDS ORDERED: ATROPINE SULFATE 0.1 MG/ML 10ML SYR IV PRN (11:56)
[2018-05-09] MEDS ORDERED: MIDAZOLAM HCL 1 MG/ML 2ML VIAL ONE (12:02)
--- NOTE | 2018-05-09 12:02 | History & Physical Bridge Note ---
Date of Service May 09, 2018 History & Physical Bridge Note I have examined the patient, reviewed the History & Physical and in the interval since the performance of the History & Physical I have noted the following changes of clinical significance: no changes noted EGD for evaluation of dysphagia
[2018-05-09] MEDS ORDERED: ONDANSETRON INJ 2 MG/ML 2 ML VIAL ONE (12:18)
[2018-05-09] MEDS ORDERED: LIDOCAINE HCL 2% 2 ML VIAL/AMP(20MG/ML) INFIL ONE (12:18)
[2018-05-09] MEDS ORDERED: PROPOFOL IV EMULSION 10 MG/ML 20 ML VIAL IV ONE (12:18)
--- NOTE | 2018-05-09 12:18 | GI REPORT ---
Patient Name: Osmani Thompson Procedure Date: 05/09/2018 11:56 AM Date of : 1960 Admit Type: Inpatient Age: 58 Gender: Male Attending MD: Lucy Flanagan M.d. Procedure: Upper GI endoscopy Providers: Lucy Flanagan M.d. Referring MD: Robin Quiles Indications: Dysphagia Medicines: Per anesthesia record Complications: No immediate complications. Estimated Blood Loss: Estimated blood loss: none. Procedure: Pre-Anesthesia Assessment: - Patient identification and proposed procedure were verified prior to the procedure by the physician and the nurse. The procedure was verified in the pre-procedure area. - Prior to the procedure, a History and Physical was performed, and patient medications, allergies and sensitivities were reviewed. The patient's tolerance of previous anesthesia was reviewed. - The risks and benefits of the procedure and the sedation options and risks were discussed with the patient. All questions were answered and informed consent was obtained. - ASA Grade Assessment: II - A patient with mild systemic disease. After obtaining informed consent, the endoscope was passed under direct vision. Throughout the procedure, the patient's blood pressure, pulse, and oxygen saturations were monitored continuously. The scope was introduced through the mouth, and advanced to the second part of duodenum. The upper GI endoscopy was accomplished without difficulty. The patient tolerated the procedure well. Findings: The examined esophagus appeared normal. LA Grade A (one or more mucosal breaks less than 5 mm, not extending between tops of 2 mucosal folds) esophagitis without bleeding was found in the distal esophagus. No evidence of narrowing or a ring was noted. The scope passed quite easily into the stomach. Th examined stomach appeared normal. The duodenal bulb and second portion of the duodenum appeared normal. Impression: - Normal esophagus. - LA Grade A esophagitis. - Normal stomach. - Normal duodenal bulb and second portion of the duodenum. - No specimens collected. Recommendation: - PPI twice daily (40 mg for 8 weeks, then once daily thereafter). - Return to the floor. Jyoti Agustin M.d. 05/09/2018 12:17:25 PM This report has been signed electronically. Note Initiated On: 05/09/2018 11:56 AM Number of Addenda: 0 I attest to the content of the Intraoperative Record and orders documented therein, exceptions below {[id number]}
--- NOTE | 2018-05-09 14:11 | Anesthesiology Progress Note ---
Date of Service May 09, 2018 Anesthesia Post Procedure Vital Signs Vital Signs: Temp Pulse Pulse Resp BP BP BP 05/09/18 13:46 36.8 C 92 H 18 145/108 H 145/108 H 05/09/18 13:33 98 H 20 136/103 H 05/09/18 12:51 92 H 18 145/108 H 145/108 H 05/09/18 12:37 94 H 18 100/70 100/70 05/09/18 11:46 36.8 C 79 16 145/83 H 05/09/18 07:25 36.8 C 74 18 148/98 H 05/08/18 19:39 36.7 C 83 18 160/114 H 05/08/18 19:09 81 20 174/114 H 05/08/18 16:00 80 20 153/114 H Pulse Ox 05/09/18 13:46 94 05/09/18 13:33 99 05/09/18 12:51 94 05/09/18 12:37 95 05/09/18 11:46 97 05/09/18 07:25 94 05/08/18 19:39 98 05/08/18 19:09 96 05/08/18 16:00 95 Notes Mental Status: alert / awake / arousable Patient Amnestic to Procedure: Yes Nausea / Vomiting: adequately controlled Pain: adequately controlled Airway Patency, RR, SpO2: stable & adequate BP & HR: stable & adequate Hydration State: stable & adequate Anesthetic Complications: no major complications apparent and Pt Satisfied with anesthetic care
--- NOTE | 2018-05-09 23:34 | Discharge Summary ---
Date of Service May 09, 2018 Admission HPI Per Admitting Provider Mr. Thompson is a 58yo AA male presenting with dysphagia and odynophagia x 3 weeks. Patient states that his symptoms occur intermittently. Unable to swallow solids or liquids. Also with occasional sharp pain and burning in his throat and globus sensation. He reports vomiting almost immediately after eating - undigested food. Patient is an inmate at [facility]. Spoke with Dr. Cueto who reports that patient has lost approximately 40# since February with this issue. Patient reports not tolerating food for 6-7 days at a time. He was recently in the [facility] for IVF and electrolyte repletion. Patient states that he had similar symptoms in 2003 - he was evaluated at [facility] in [place] with what sounds to be an EGD. Patient reports that they didn't explain the findings or start any new medications at that time. He reports similar episode in 2010 that resolved on its own. ER Course: KCl 10mEq, Protonix 40mg, KCL 20meq PO, NSS Admission Exam Per Admitting Provider General: patient resting comfortably, NAD, non-toxic in appearance, AA&O x 4 Skin: warm, dry, intact, no rashes or lesions HEENT: NC/AT, PERRL, EOMI, anicteric sclera, conjunctiva without injection, external ear normal to inspection and nontender, nares patent, moist mucus membranes, dentition intact, no oropharyngeal lesions, neck supple, trachea midline, no LAD, no thyromegaly, no JVD Heart: +S1/S2, regular, no m/r/g Lungs: equal air entry bilaterally, no rales/rhonchi/wheezes Abd: +BS, soft, NT/ND, no masses/organomegaly/ascites Ext: warm, 2+ pulses in UE/LE bilaterally, no clubbing/cyanosis or edema Neuro: nonfocal, patient AA&O x 4, speech intact, no facial droop, moving all extremities on command with equal strength 5/5 Principal Diagnosis Esophagitis Discharge Exam Constitutional WD/WN, vitals as above Eyes PERRL, conjunctivae normal, anicteric sclerae ENMT external ear and nose normal, oropharynx normal Neck trachea midline, no thyromegaly Respiratory normal respiratory effort, lungs clear to auscultation Cardiovascular RRR, no murmur, no edema Gastrointestinal (Abdomen) normal bowel sounds, soft, nontender, no hepatosplenomegaly Musculoskeletal no cyanosis or clubbing, extremities motor strength 5/5 Skin no rashes, warm and dry Neurologic patellar DTR's 2+ bilat, sensation intact and PERRL, EOMI, accommodation nl, no face palsy, no dysarthria Psychiatric A+Ox3, euthymic affect Lymphatic no cervical or axillary lymphadenopathy Discharge Data Allergies Allergy/AdvReac Type Severity Reaction Status Date / Time No Known Allergies Allergy Verified 05/09/18 11:35 Consultations 05/08/18 19:38 Consult Gastroenterology Routine Procedures Performed Operation Date: 05/09/18 10:00 Actual Procedures p Esophagogastroduodenoscopy - Lucy Flanagan M.D. Ordered Studies 05/08/18 15:32 US abdomen limited Stat Hospital Course (1) Dysphagia: Patient with reported dysphagia to solids and liquids associated with a 40 # unintentional weight loss. Also with reported odynophagia. Patient with history of similar presentation in the past. Ddx to include GERD, stricture, esophageal spasm, malignancy is a concern given weight loss and pancytopenia. May consider infectious etiology, esophagitis as well. Patient was initially to be discharged to [facility] with plans for outpatient EGD, however, this was difficult to coordinate so it was recommended by GI to admit patient for EGD inpatient. EGD on 05/09 showed esophagitis in distal third, mild no mass, no stricture, no ring stomach and duodenum normal recommend PPI BID x 8 weeks then daily afterwards (2) Odynophagia: Patient reports occasional sharp pain with swallowing. Denies mouth sores /thrush. OP exam unremarkable likely due to esophagitis, no other etiologies seen treat with PPI BID as above (3) Pancytopenia: Patient with pancytopenia. Normochromic/normocytic anemia, Plt=57, WBC= 4.34. He had leukopenia and thrombocytopenia in the past. Broad differential to include infectious etiology, autoimmune, malignancy. - iron studies normal -Peripheral smear: counts have been stable since 2014 possible MDS? lack of dysplasia argues against this medications could also be considered as a cause thus, condition stable, can consider hematology referral as outpatient but not urgent WBC 3.9, Hb 12.6, plts 70 on discharge (4) HTN (hypertension): -Continue Amlodipine (5) Paranoid schizophrenia: Chronic. Stable -Continue Risperdal -Continue Trazodone (6) Dehydration: Patient with VERONICA, resolved, Cr down to 1.23 K is 3.4 (7) Hypothyroid: Chronic -Continue Synthroid (8) UTI (urinary tract infection): Patient is on Bactrim for suspected UTI -Continue 20mL po BID Total Time Total Time Spent Total Time Spent (In Minutes): 31 minutes Total Time Includes: Examination of the Patient, Discharge Planning, Medication Reconciliation and Communication With Other Providers (gastroenterology) Discharge Plan Discharge Items [facility]position[facility] Reason For Visit: DYSPHAGIA/ODYNOPHAGIA Discharge Diagnosis: Mild esophagitis Condition: Good Discharge Goals: Decrease discomfort and Improve function Activity: Resume your previous activity Lifting: None Bathing: No limitations Exercise/Sports: None Non-emergency contact: Primary Care Provider Call non-emergency contact if: you have any medication questions, your symptoms worsen and you have a fever Diet: Regular Addtl Provider Instructions: Medications: - PROTONIX: new medication, take twice a day for 8 weeks and then once a day after that Dysphagia, painful swallowing EGD on 05/09 showed no stricture, no rings, no mass in esophagus there was mild esophagitis at the distal portion, stomach and duodenum were normal GI recommends Protonix twice a day for 8 weeks and then continue daily Pancytopenia: counts are low but stable ferritin, iron levels normal continue to monitor, can consider referral to hematology as outpatient, no need for inpatient consultation Prescriptions: New pantoprazole [Protonix] 40 mg tablet,delayed release (DR/EC) 40 mg PO BID Qty: 60 RF: 2 Continue atorvastatin 40 mg Tablet 40 mg PO HS RF: 0 trazodone 50 mg Tablet 50 mg PO HS RF: 0 aspirin 81 mg Tablet,Delayed Release (Dr/Ec) 81 mg PO HS RF: 0 risperidone 3 mg Tablet 3 mg PO BID RF: 0 amlodipine 10 mg Tablet 10 mg PO QAM RF: 0 levothyroxine 50 mcg Tablet 50 mcg PO QAM RF: 0 sulfamethoxazole-trimethoprim [Sulfatrim] 200-40 mg/5 mL Suspension 10 ml PO QID RF: 0 Admission Data Admit Date/Time: 05/08/18 18:56 Attending Provider: Robin Jaimes Admit Provider: Kell Orozco Primary Care Provider: Artur FLANAGAN Other Providers: Phyllis Jaimesameto,Genci ; Zulay Cruz ; Jalil Ramos ; Dolores Tripp ; Yoselyn Cardona ; Twyla Peña ; Emanuel Lopez ; Lacho Cantu ; Diane Mendez ; Mariam Shi ; Hannah Nguyen ; Lucy Flanagan ; Rickie Johnston Service: Medical Other Interventions: Discharge Summary Assessment (RN) Last Done: 05/09/18 13:46 DC Date/Time DO NOT enter until pt leaves facility: 05/09/18 14:45
== END 2018-05-09 14:45 ==
LOC: ED 11:59 → 4W 11:59 → SUATTDRO 18:56 → 4W 19:09

== ENCOUNTER 2019-08-12 13:05 | Inpatient (IN) ==
[2019-08-12] MEDS ORDERED: SODIUM CHLORIDE 0.9% 1000ML 2,000 ML IV ONE (13:19)
[2019-08-12] MEDS ORDERED: cefTRIAXone SODIUM 1,000 MG/50 ML BAG IV STA (13:19)
--- NOTE | 2019-08-12 13:53 | XRay Report ---
XR chest 1V portable CLINICAL HISTORY: SEPSIS dyspnea COMPARISON STUDY: 05/08/2018 FINDINGS: Diffuse interstitial prominence throughout both hemithoraces. No well-defined focal infiltr ate. Diaphragms are smooth. IMPRESSION: Nonspecific interstitial change throughout both hemithoraces. ACT 112: Negative or not required by law. The above report was generated using voice recognition software. It may contain grammatical, syntax or spelling errors. Electronically signed by: Ziggy Ferguson M.D. 08/12/2019 1:52 PM
[2019-08-12 13:56] LABS: Mean Corpuscular Hgb Conc 32.2 g/dL (32-36)
[2019-08-12 14:00] LABS: Hematocrit (blood only) 48.1 % (42-52); Hemoglobin 15.5 g/dL (14.0-18.0); Mean Corpuscular Hemoglobin 27.7 pg (25-34); RDW Coefficient of Variation 14.6 % (11.5-14.5); Red Blood Count 5.59 M/uL (4.7-6.1); White Blood Count 8.58 K/uL (4.8-10.8)
[2019-08-12 14:03] LABS: iSTAT Creatinine 1.7 mg/dl (0.6-1.3); iSTAT Ionized Calcium 1.21 mmol/l (1.12-1.32); iSTAT Potassium 3.8 mmol/L (3.3-5.0)
[2019-08-12] MEDS ORDERED: IOVERSOL 100ml IV PRN (14:04)
[2019-08-12 14:07] LABS: INR 1.1 (0.9-1.1); Partial Thromboplastin Time 27.9 Seconds (21.0-31.0); Prothrombin Time 11.1 Seconds (9.0-12.0)
[2019-08-12 14:08] LABS: Appearance Urine Clear (Clear); Bacteria Urine Automated Negative (Negative); Blood Urine Negative (Negative); Cast Urine Automated 0 /lpf (0-5); Color Urine Dark Yellow; Epithelial Cell Urine Auto 0-5 /lpf (0-5); Glucose Urine UA Negative (Negative); Ketones Urine 2+ (Negative); Leukocyte Esterase Urine Negative (Negative); Nitrite Urine Negative (Negative); Protein Urine 2+ (Negative); RBC Urine Automated 0-4 /hpf (0-4); Specific Gravity Urine 1.039 (1.000-1.030); Urobilinogen Urine Negative (Negative); WBC Urine Automated 0 /hpf (0-5)
--- NOTE | 2019-08-12 14:11 | Emergency Department Note ---
Impression & Plan VERONICA (acute kidney injury), Abdominal pain, Vomiting, Weakness, Fever ED Provider Note NAME: FALGUNI [id number] GARCIA AGE: 59 SEX: M : 1960 ARRIVES VIA: Ambulance INFORMANT: Patient ED PROVIDER(S): Salazar Sibley DO CHIEF COMPLAINT: Confusion HPI: Patient is a 59-year-old male with extensive psychiatric history that presents the ER for generalized weakness. They note that he was last known normal was earlier this morning. He has been confused with tremors and the concern for possible tardive Dyskinesia as he is on psychiatric meds. He has been unable to walk. He was found to be febrile to present. He also has been having nausea and vomiting for the past 3 days. Patient complains of diffuse abdominal pain. Notes that he threw up just prior to coming in here. He denies any headache change in vision chest pain shortness of breath dysuria urgency or frequency. ROS: See above HPI for pertinent positives & negatives. A total of 10 systems reviewed and were otherwise negative. PAST MEDICAL HISTORY:See Below PAST SURGICAL HISTORY:See Below FAMILY HISTORY:See Below SOCIAL HISTORY:See Below HOME MEDICATIONS:See Below ALLERGIES:See Below VITALS:See Below PHYSICAL EXAMINATION: GENERAL: Sitting up in bed, alert, chronically ill-appearing with tremors in the upper and lower extremities, upper and lower extremities are shackled together EYE EXAM: normal conjunctiva. PERRL and EOM's grossly intact. OROPHARYNX: no exudate, no erythema, lips, buccal mucosa, and tongue normal and mucous membranes are moist NECK: supple, no nuchal rigidity, no adenopathy, non-tender LUNGS: Clear to auscultation. Normal chest wall mechanics HEART: no murmurs, S1 normal and S2 normal ABDOMEN: abdomen soft, non-tender, normo-active bowel sounds, no masses, no r ebound or guarding. BACK: Back is symmetrical on inspection and there is no deformity, no midline t enderness, no CVA tenderness. SKIN: no rashes and no bruising UPPER EXTREMITIES: upper extremities are grossly normal. LOWER EXTREMITIES: No pitting edema. NEURO EXAM: Normal sensorium, oriented to person, place and year as well as the day, cranial nerves II-XII grossly intact, normal speech, no gross weakness of arms, no gross weakness of legs. MEDICAL DECISION MAKING: Patient is a 59-year-old male with extensive psychiatric history who presents the ER for altered mental status associated with weakness and fever. He is oriented to person place and time during my exam. He denies any headache or neck pain. There is no signs of meningitis. IV was established blood work was obtained. Labs show no significant leukocytosis or anemia. INR was unremarkable. BMP with a slightly elevated sodium. Creatinine was up 1.7. Baseline appears to be slightly lower. Lactate was normal. LFTs bilirubin was unremarkable. Troponin was detectable but not positive. UA with ketones but no signs of infection. Chest x-ray with some peribronchial thickening. CT abdomen pelvis was unremarkable. Patient denies any cough congestion or upper respiratory symptoms. Present has no history of any COVID. Patient was discussed with hospitalist for further evaluation of the weakness as well as his fever and abdominal pain. Triage Nursing notes reviewed. Prior medical records reviewed Vital Signs: reviewed and remarkable for febrile and hypertensive Differential diagnosis: Differential diagnosis includes etiologies such as sepsis, UTI, pneumonia, metabolic, electrolyte abnormalities, cardiac sources, intracerebral event, toxicologic, neurological, as well as others were entertained. ER treatment provided: See below Diagnostics interpreted by me: ECG: Sinus rhythm rate 82 Normal axis Incomplete right bundle branch block No PVCs Normal QTC Cardiac Monitoring: An order was placed for continuous cardiac monitoring. The monitor shows a rate of 85 with sinus rhythm. Laboratory studies: As stated above and show below. Imaging studies: CT abdomen pelvis was unremarkable for any acute pathology. Portable AP upright 1 view of the chest shows no focal infiltrate. Consultation(s): Discussed with Dr. Hubert quiles. ED COURSE: Procedures: none Critical Care: None Past Med/Surg History Social History Preferred Language: Tristanian Communication Ability: Effective Sampler Pickup Required: No Beliefs That Will Affect Care: None Current Living Situation: Other Current Living Situation Comment: inmate at [facility] Other Information That Helps Us Care for You: No Feels Safe at Home: Yes Safety Concerns: Feels Safe At This Time Smoking Status: Former smoker Do You Dip or Chew Tobacco: No ; Second Hand Exposure: No ; Tobacco Cessation Education Requested by Patient: No Hx Alcohol Use: No Hx Substance Use: No Allergies Allergies Allergy/AdvReac Type Severity Reaction Status Date / Time No Known Allergies Allergy Verified 08/12/19 15:05 Home Meds Home Medications Medication Instructions Recorded Confirmed amlodipine [Norvasc] 10 mg PO HS 05/08/18 08/12/19 aspirin 81 mg PO HS 05/08/18 08/12/19 atorvastatin [Lipitor] 40 mg PO HS 05/08/18 08/12/19 levothyroxine [Synthroid] 50 mcg PO QAM 05/08/18 08/12/19 aripiprazole [Abilify] 15 mg PO QAM 07/28/19 08/12/19 mirtazapine [Remeron] 15 mg PO HS 07/28/19 08/12/19 Results & Data (ED) Vital Signs Vital Signs - 24 hr 08/12/19 13:12 08/12/19 13:13 08/12/19 13:15 Temperature 38.0 C H Temperature Source Oral Pulse Rate 93 H 96 H 90 Pulse Rate from SpO2 Sensor 92 H 96 H Respiratory Rate 29 H 24 18 Blood Pressure 122/87 122/87 Blood Pressure Mean 92 98 Blood Pressure Position Lying Pulse Oximetry 94 94 94 Oxygen Delivery Method Room Air Sepsis Recent Fever Within 48 Hours Yes Sepsis New/Unexplained Change in Mental Status No Sepsis Action Taken by Nursing No Action Required 08/12/19 13:20 08/12/19 13:30 08/12/19 13:40 Temperature Temperature Source Pulse Rate 87 78 89 Pulse Rate from SpO2 Sensor 87 81 90 Respiratory Rate 23 19 26 H Blood Pressure Blood Pressure Mean Blood Pressure Position Pulse Oximetry 95 95 94 Oxygen Delivery Method Sepsis Recent Fever Within 48 Hours Sepsis New/Unexplained Change in Mental Status Sepsis Action Taken by Nursing 08/12/19 13:47 08/12/19 13:50 Temperature Temperature Source Pulse Rate 77 73 Pulse Rate from SpO2 Sensor 76 73 Respiratory Rate 20 21 Blood Pressure 141/95 H Blood Pressure Mean 101 Blood Pressure Position Pulse Oximetry 92 94 Oxygen Delivery Method Sepsis Recent Fever Within 48 Hours Sepsis New/Unexplained Change in Mental Status Sepsis Action Taken by Nursing Laboratory Data Result diagrams: 08/12/19 13:40 08/12/19 13:40 Lab Results 08/12/19 08/12/19 08/12/19 Range/Units 13:38 13:40 13:40 WBC 8.58 (4.8-10.8) K/uL RBC 5.59 (4.7-6.1) M/uL Hgb 15.5 (14.0-18.0) g/dL POC Hgb (14.0-18.0) g/dl Hct 48.1 (42-52) % POC Hct (42-52) % MCV 86.0 (80-100) fL MCH 27.7 (25-34) pg MCHC 32.2 (32-36) g/dL RDW Std Deviation 46.0 (36.4-46.3) fL RDW Coeff of Franck 14.6 H (11.5-14.5) % Plt Count 148 (130-400) K/uL Immature Gran % (Auto) 0.2 % Neut % (Auto) 73.4 % Lymph % (Auto) 15.5 % [place] % (Auto) 9.8 % Eos % (Auto) 1.0 % Baso % (Auto) 0.1 % Immature Gran # (Auto) 0.02 (0.00-0.02) K/uL Neut # (Auto) 6.29 (1.4-6.5) K/uL Lymph # (Auto) 1.33 (1.2-3.4) K/uL [place] # (Auto) 0.84 H (0.11-0.59) K/uL Eos # (Auto) 0.09 (0-0.5) K/uL Baso # (Auto) 0.01 (0-0.2) K/uL Platelet Estimate Normal (Normal) PT 11.1 (9.0-12.0) Seconds INR 1.1 (0.9-1.1) APTT 27.9 (21.0-31.0) Seconds PTT Ratio 1.0 POC Sodium (135-144) mmol/L Sodium (136-145) mmol/L POC Potassium (3.3-5.0) mmol/L Potassium (3.5-5.1) mmol/L POC Chloride (101-112) mmol/L Chloride (98-107) mmol/L Carbon Dioxide (21-32) mmol/L POC Total CO2 (24-31) mmol/L Anion Gap (3-11) POC Anion Gap (16-25) mmol/L POC BUN (7-18) mg/dl BUN (7-18) mg/dl Creatinine (0.6-1.4) mg/dl POC Creatinine (0.6-1.3) mg/dl Est Cr Clr Drug Dosing ml/min Est GFR ( Amer) Est GFR (Non-Af Amer) BUN/Creatinine Ratio (10-20) Glucose (70-99) mg/dl POC Glucose (other) (70-99) mg/dl Lactate (0.4-2.0) mmol/L Calcium (8.5-10.1) mg/dl POC Ioniz Calcium Harsh (1.12-1.32) mmol/l Magnesium (1.8-2.4) mg/dl Total Bilirubin (0.2-1) mg/dl AST (15-37) U/L ALT (12-78) U/L Alkaline Phosphatase (45-117) U/L Total Creatine Kinase (39-308) U/L Troponin I (0-0.045) ng/ml Total Protein (6.4-8.2) gm/dl Albumin (3.4-5.0) gm/dl Globulin (2.5-4.0) gm/dl Albumin/Globulin Ratio (0.9-2) Urine Color Dark Yellow Urine Appearance Clear (Clear) Urine pH 6.0 (4.5-7.5) Ur Specific [place] 1.039 H (1.000-1.030) Urine Protein 2+ H (Negative) Urine Glucose (UA) Negative (Negative) Urine Ketones 2+ H (Negative) Urine Blood Negative (Negative) Urine Nitrite Negative (Negative) Urine Bilirubin Negative (Negative) Urine Urobilinogen Negative (Negative) Ur Leukocyte Esterase Negative (Negative) Urine WBC (Auto) 0 (0-5) /hpf Urine RBC (Auto) 0-4 (0-4) /hpf U Hyaline Cast (Auto) 0 (0-5) /lpf U Epithel Cells (Auto) 0-5 (0-5) /lpf Urine Bacteria (Auto) Negative (Negative) SARS-CoV-2 RNA (RT-PCR) 08/12/19 08/12/19 08/12/19 Range/Units 13:40 13:40 13:51 WBC (4.8-10.8) K/uL RBC (4.7-6.1) M/uL Hgb (14.0-18.0) g/dL POC Hgb 17.0 (14.0-18.0) g/dl Hct (42-52) % POC Hct 50 (42-52) % MCV (80-100) fL MCH (25-34) pg MCHC (32-36) g/dL RDW Std Deviation (36.4-46.3) fL RDW Coeff of Franck (11.5-14.5) % Plt Count (130-400) K/uL Immature Gran % (Auto) % Neut % (Auto) % Lymph % (Auto) % [place] % (Auto) % Eos % (Auto) % Baso % (Auto) % Immature Gran # (Auto) (0.00-0.02) K/uL Neut # (Auto) (1.4-6.5) K/uL Lymph # (Auto) (1.2-3.4) K/uL [place] # (Auto) (0.11-0.59) K/uL Eos # (Auto) (0-0.5) K/uL Baso # (Auto) (0-0.2) K/uL Platelet Estimate (Normal) PT (9.0-12.0) Seconds INR (0.9-1.1) APTT (21.0-31.0) Seconds PTT Ratio POC Sodium 147 H (135-144) mmol/L Sodium 145 (136-145) mmol/L POC Potassium 3.8 (3.3-5.0) mmol/L Potassium 3.7 (3.5-5.1) mmol/L POC Chloride 108 (101-112) mmol/L Chloride 111 H (98-107) mmol/L Carbon Dioxide 27 (21-32) mmol/L POC Total CO2 24 (24-31) mmol/L Anion Gap 7.0 (3-11) POC Anion Gap 20.0 (16-25) mmol/L POC BUN 21 H (7-18) mg/dl BUN 21 H (7-18) mg/dl Creatinine 1.69 H (0.6-1.4) mg/dl POC Creatinine 1.7 H (0.6-1.3) mg/dl Est Cr Clr Drug Dosing 55.4 ml/min Est GFR ( Amer) 49.7 Est GFR (Non-Af Amer) 42.9 BUN/Creatinine Ratio 12.2 (10-20) Glucose 92 (70-99) mg/dl POC Glucose (other) 99 (70-99) mg/dl Lactate 1.5 (0.4-2.0) mmol/L Calcium 9.3 (8.5-10.1) mg/dl POC Ioniz Calcium Harsh 1.21 (1.12-1.32) mmol/l Magnesium 2.4 (1.8-2.4) mg/dl Total Bilirubin 1.0 (0.2-1) mg/dl AST 20 (15-37) U/L ALT 44 (12-78) U/L Alkaline Phosphatase 100 (45-117) U/L Total Creatine Kinase 59 (39-308) U/L Troponin I 0.019 (0-0.045) ng/ml Total Protein 7.9 (6.4-8.2) gm/dl Albumin 3.7 (3.4-5.0) gm/dl Globulin 4.2 H (2.5-4.0) gm/dl Albumin/Globulin Ratio 0.9 (0.9-2) Urine Color Urine Appearance (Clear) Urine pH (4.5-7.5) Ur Specific [place] (1.000-1.030) Urine Protein (Negative) Urine Glucose (UA) (Negative) Urine Ketones (Negative) Urine Blood (Negative) Urine Nitrite (Negative) Urine Bilirubin (Negative) Urine Urobilinogen (Negative) Ur Leukocyte Esterase (Negative) Urine WBC (Auto) (0-5) /hpf Urine RBC (Auto) (0-4) /hpf U Hyaline Cast (Auto) (0-5) /lpf U Epithel Cells (Auto) (0-5) /lpf Urine Bacteria (Auto) (Negative) SARS-CoV-2 RNA (RT-PCR) 08/12/19 Range/Units 15:35 WBC (4.8-10.8) K/uL RBC (4.7-6.1) M/uL Hgb (14.0-18.0) g/dL POC Hgb (14.0-18.0) g/dl Hct (42-52) % POC Hct (42-52) % MCV (80-100) fL MCH (25-34) pg MCHC (32-36) g/dL RDW Std Deviation (36.4-46.3) fL RDW Coeff of Franck (11.5-14.5) % Plt Count (130-400) K/uL Immature Gran % (Auto) % Neut % (Auto) % Lymph % (Auto) % [place] % (Auto) % Eos % (Auto) % Baso % (Auto) % Immature Gran # (Auto) (0.00-0.02) K/uL Neut # (Auto) (1.4-6.5) K/uL Lymph # (Auto) (1.2-3.4) K/uL [place] # (Auto) (0.11-0.59) K/uL Eos # (Auto) (0-0.5) K/uL Baso # (Auto) (0-0.2) K/uL Platelet Estimate (Normal) PT (9.0-12.0) Seconds INR (0.9-1.1) APTT (21.0-31.0) Seconds PTT Ratio POC Sodium (135-144) mmol/L Sodium (136-145) mmol/L POC Potassium (3.3-5.0) mmol/L Potassium (3.5-5.1) mmol/L POC Chloride (101-112) mmol/L Chloride (98-107) mmol/L Carbon Dioxide (21-32) mmol/L POC Total CO2 (24-31) mmol/L Anion Gap (3-11) POC Anion Gap (16-25) mmol/L POC BUN (7-18) mg/dl BUN (7-18) mg/dl Creatinine (0.6-1.4) mg/dl POC Creatinine (0.6-1.3) mg/dl Est Cr Clr Drug Dosing ml/min Est GFR ( Amer) Est GFR (Non-Af Amer) BUN/Creatinine Ratio (10-20) Glucose (70-99) mg/dl POC Glucose (other) (70-99) mg/dl Lactate (0.4-2.0) mmol/L Calcium (8.5-10.1) mg/dl POC Ioniz Calcium Harsh (1.12-1.32) mmol/l Magnesium (1.8-2.4) mg/dl Total Bilirubin (0.2-1) mg/dl AST (15-37) U/L ALT (12-78) U/L Alkaline Phosphatase (45-117) U/L Total Creatine Kinase (39-308) U/L Troponin I (0-0.045) ng/ml Total Protein (6.4-8.2) gm/dl Albumin (3.4-5.0) gm/dl Globulin (2.5-4.0) gm/dl Albumin/Globulin Ratio (0.9-2) Urine Color Urine Appearance (Clear) Urine pH (4.5-7.5) Ur Specific [place] (1.000-1.030) Urine Protein (Negative) Urine Glucose (UA) (Negative) Urine Ketones (Negative) Urine Blood (Negative) Urine Nitrite (Negative) Urine Bilirubin (Negative) Urine Urobilinogen (Negative) Ur Leukocyte Esterase (Negative) Urine WBC (Auto) (0-5) /hpf Urine RBC (Auto) (0-4) /hpf U Hyaline Cast (Auto) (0-5) /lpf U Epithel Cells (Auto) (0-5) /lpf Urine Bacteria (Auto) (Negative) SARS-CoV-2 RNA (RT-PCR) Cancelled Administered Medications Ioversol (Optiray 320 100ml) 94 ml IV ONCE PRN PRN Reason: Interaction Checking Stop: 08/16/19 14:03 Last Admin: 08/12/19 14:04 Dose: 94 ml Documented by: [id number] Discontinued Medications Sodium Chloride (Nss 1000ml) 2,000 mls @ 999 mls/hr IV .Q2H1M ONE Stop: 08/12/19 15:19 Last Infusion: 08/12/19 15:52 Dose: 0 mls/hr Documented by: [id number] Admin: 08/12/19 13:50 Dose: 999 mls/hr Documented by: [id number] Ceftriaxone Sodium (Rocephin) 1,000 mg in 50 mls @ 100 mls/hr IV NOW STA Stop: 08/12/19 13:48 Last Infusion: 08/12/19 14:41 Dose: 0 mls/hr Documented by: [id number] Admin: 08/12/19 13:50 Dose: 100 mls/hr Documented by: [id number] Discharge Plan Visit Data Chief Complaint: Illness ED Provider: Salazar Sibley Discharge Problem: VERONICA (acute kidney injury), Abdominal pain, Vomiting, Weakness, Fever Forms Stand Alone Forms: My [facility] Prescriptions Prescriptions: No Action atorvastatin [Lipitor] 40 mg Tablet 40 mg PO HS RF: 0 aspirin 81 mg Tablet,Delayed Release (Dr/Ec) 81 mg PO HS RF: 0 amlodipine [Norvasc] 10 mg Tablet 10 mg PO HS RF: 0 levothyroxine [Synthroid] 50 mcg Tablet 50 mcg PO QAM RF: 0 mirtazapine [Remeron] 15 mg Tablet 15 mg PO HS RF: 0 aripiprazole [Abilify] 15 mg Tablet 15 mg PO QAM RF: 0 Discharge Problem: Abdominal pain Qualifiers: Abdominal location: unspecified location Qualified Code(s): R10.9 - Unspecified abdominal pain Vomiting Qualifiers: Vomiting type: unspecified Vomiting Intractability: unspecified Nausea presence: unspecified Qualified Code(s): R11.10 - Vomiting, unspecified Fever Qualifiers: Fever type: unspecified Qualified Code(s): R50.9 - Fever, unspecified
--- NOTE | 2019-08-12 14:11 | CT Scan Report ---
CT abd pelvis IV con only CT DOSE: 518.68 mGy.cm HISTORY: Pain abd pain and febrile TECHNIQUE: Multiaxial CT images of the abdomen and pelvis were performed following the use of intrave nous contrast. A dose lowering technique was utilized adhering to the principles of ALARA. COMPARISON STUDY: 07/28/2019 FINDINGS: The lung bases are clear. The liver, spleen, gallbladder, pancreas, kidneys, and adrenal gl ands are within normal limits. No bowel wall thickening or obstruction. The pelvic organs are unremar kable. No suspicious lytic or blastic osseous lesions. IMPRESSION: No significant abnormality identified within the abdomen or pelvis. Nonobstructive bowel pattern. Nor mal appendix. ACT 112: Negative or not required by law. The above report was generated using voice recognition software. It may contain grammatical, syntax or spelling errors. Electronically signed by: Ziggy Ferguson M.D. 08/12/2019 2:10 PM
[2019-08-12 14:12] LABS: Bilirubin Urine Negative (Negative); Ictotest Urine Negative (Negative)
[2019-08-12 14:13] LABS: Albumin Level 3.7 gm/dl (3.4-5.0); BUN Creatinine Ratio 12.2 (10-20); Calcium 9.3 mg/dl (8.5-10.1); Creatinine Clr Calc Pharmacy 55.4 ml/min; Est GFR (African American) 49.7; Est GFR (Non-African American) 42.9; Magnesium 2.4 mg/dl (1.8-2.4); Potassium 3.7 mmol/L (3.5-5.1)
[2019-08-12 14:17] LABS: Basophils # (auto) 0.01 K/uL (0-0.2); Basophils % (auto) 0.1 %; Eosinophils # (auto) 0.09 K/uL (0-0.5); Immature Granulocytes # (auto) 0.02 K/uL (0.00-0.02); Immature Granulocytes % (auto) 0.2 %; Lymphocytes # (auto) 1.33 K/uL (1.2-3.4); Lymphocytes % (auto) 15.5 %; Monocytes # (auto) 0.84 K/uL (0.11-0.59); Monocytes % (auto) 9.8 %; Neutrophils # (auto) 6.29 K/uL (1.4-6.5); Neutrophils % (auto) 73.4 %; Platelet Count 148 K/uL (130-400); Platelet Estimate Normal (Normal)
[2019-08-12 14:18] LABS: Albumin Globulin Ratio 0.9 (0.9-2); Globulin 4.2 gm/dl (2.5-4.0); Total Protein 7.9 gm/dl (6.4-8.2); Troponin I 0.019 ng/ml (0-0.045)
[2019-08-12] MEDS ORDERED: ONDANSETRON INJ 2 MG/ML 2 ML VIAL IV STA (17:15)
--- NOTE | 2019-08-12 17:24 | History & Physical Report ---
Date of Service August 12, 2019 Assessment & Plan (1) Fever of unknown origin: CXR WNL although given recurrent vomiting high risk of aspiration UA not suggestive of infection (notable history of this) although given difficult to take a history will send for culture regardless No diarrhea, abdominal pain to suggest c. diff Possible NMS as below given this has come on with a movement disorder Ceftriaxone given in ER but will defer further antibiotics pending findings a source of infection (2) Neuroleptic malignant syndrome: Possible. Fits history of current fever with new movement disorder as per [facility] notes although history very difficult to take and patient feels his movements have been going on for much longer. CK normal. Consult psychiatry - will continue his usual medications for now. (3) Vomiting: Notable history of this with esophagitis on recent EGD. Ondansetron and Phenegran PRN for vomiting. Avoid Compazine given concern for NMS as above. Appears to resolve spontaneously on prior admissions (4) HTN (hypertension): Continue amlodipine 10mg PO HS (5) Paranoid schizophrenia: Continue Abilify pending psychiatry review (6) Dysphagia: Noted history of this. None reported recently by patient (7) Weakness: Generalized weakness reported by patient. Suddenly not able to move. Action tremor present with increased reflexes, clonus on right ankle but generally difficult to examine. No rigidity. PT eval (8) Hypothyroid: Continue levothyroxine 50 mcg PO daily (9) Dehydration: Free water deficit 1.3L. Recurrent issue due to patient not eating/drinking ?due to nausea vs. schizophrenia. D5W 125ml/hr for 2L Trend Na in AM (10) DVT prophylaxis: Lovenox 40mg SQ daily Admission and Anticipated Discharge Date Admission Date: 08/12/2019 History of Present Illness Chief Complaint: Unable to move Primary Care Provider: [facility] Osmani Thompson is a 59 year old male who present to the ER from [facility] due to movement disorder. Patient denies any problems moving at this time but does note am action tremor especially on his right side which he thinks has been present for around 9 months and he relates to his antipsychotics. As per written note provided with patient: unable to ambulate, poor historian, hand tremors, schizophrenia history, denies pain, poor speech is baseline. As discussed with [facility] at [facility] the patient was just about to end a 14 day quarantine after recent ER visit for hypernatremia, nausea and vomiting. Doctor asked the patient to come to the door and he said he couldn't move. He said he wasn't able to move for the last 3 days but was noted by nursing he was getting up and walking around without assistance the day before to get his medications. He was noticed to have decorticate posturing with rigidity at the correction. He had all his usual medications this morning. She reports the tremors are new for him. He was discharged from the ER on July 27 for hypernatremia, nausea and vomiting. At [facility] apparently the nausea and vomiting resolved and believe is occurred due to him not receiving his PPI after esophagitis diagnosed in April for the same intractable nausea and vomiting. The patient is currently in the ER have vomiting of a lot of mucus despite ondansetron use. He is generally a difficult historian as he gets timelines confused as per previously notes. Allergies Allergy/AdvReac Type Severity Reaction Status Date / Time No Known Allergies Allergy Verified 08/12/19 15:05 Home Medications Home Medications Medication Instructions Recorded Confirmed Type amlodipine [Norvasc] 10 mg PO HS 05/08/18 08/12/19 History aspirin 81 mg PO HS 05/08/18 08/12/19 History atorvastatin [Lipitor] 40 mg PO HS 05/08/18 08/12/19 History levothyroxine [Synthroid] 50 mcg PO QAM 05/08/18 08/12/19 History aripiprazole [Abilify] 15 mg PO QAM 07/28/19 08/12/19 History mirtazapine [Remeron] 15 mg PO HS 07/28/19 08/12/19 History Past Med/Surg History Medical History (Updated 08/13/19 @ 07:10 by Hubert Tena MD) Dysphagia Hepatitis C HTN (hypertension) (Chronic) Hypomagnesemia (Inactive) Pancytopenia Paranoid schizophrenia (Chronic) UTI (urinary tract infection) Surgical History History of shoulder surgery Social History Preferred Language: [place]guill[place] Communication Ability: Effective 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 Beliefs That Will Affect Care: None Current Living Situation: Other Current Living Situation Comment: inmate at [facility] Other Information That Helps Us Care for You: No Feels Safe at Home: Yes Safety Concerns: Feels Safe At This Time Smoking Status: Former smoker Do You Dip or Chew Tobacco: No ; Second Hand Exposure: No ; Tobacco Cessation Education Requested by Patient: No Hx Alcohol Use: No Hx Substance Use: No Review of Systems Review of Systems: All systems reviewed & are unremarkable except as noted in HPI & below Physical Exam Constitutional: + acute distress (vomiting) and + overweight Eyes: PERRL, conjunctivae normal, anicteric sclerae + conjunctival abnormality (injected b/l) Neck: trachea midline, no thyromegaly Respiratory: normal respiratory effort, lungs clear to auscultation (poor inspiratory effort) Cardiovascular: RRR, no murmur, no edema Gastrointestinal (Abdomen): normal bowel sounds, soft, nontender, no hepatosplenomegaly Skin: dry peeling skin on right hand Neurologic: moves all extremities and awake; no focal motor deficits and not confused Motor/Sensory: + tremor (intermittent action tremor RUE > LUE) Cranial Nerves: PERRL, EOM intact bilaterally, normal facial strength, able to rotate head bilaterally, able to elevate shoulders bilaterally and no nystagmus Comatose Patient: no decerebrate rigidity and no decorticate rigidity DTR of knees b/l 3+, ankle clonus on right, downgoing plantars, unable to perform adequate biceps/triceps reflex due to patient vomiting. Psychiatric: Orientation: alert; + not oriented x 3 (patient vomitinf limited exam, no longer was talking to me) Results & Data Results & Data ([facility]) Vital Signs (Past 12 Hours) Vital Signs Temp Pulse Resp BP Pulse Ox 08/12/19 16:31 80 19 90 08/12/19 16:30 84 18 160/105 H 94 08/12/19 16:20 81 17 08/12/19 16:10 81 20 94 08/12/19 16:01 80 23 95 08/12/19 16:00 81 17 133/96 96 08/12/19 15:50 87 18 98 08/12/19 15:40 78 19 96 08/12/19 15:31 80 13 97 08/12/19 15:30 75 19 160/100 H 08/12/19 15:20 81 19 93 08/12/19 15:10 78 19 94 05/31/20 15:01 71 17 95 08/12/19 15:00 75 21 148/94 H 96 08/12/19 14:50 81 16 93 08/12/19 14:40 80 20 94 08/12/19 14:31 71 22 98 08/12/19 14:30 78 18 159/103 H 97 08/12/19 14:20 74 17 96 08/12/19 14:10 74 21 95 08/12/19 14:09 74 23 149/89 H 96 08/12/19 14:08 79 21 95 08/12/19 13:50 73 21 94 08/12/19 13:47 77 20 141/95 H 92 08/12/19 13:40 89 26 H 94 08/12/19 13:30 78 19 95 08/12/19 13:20 87 23 95 08/12/19 13:15 38.0 C H 90 18 122/87 94 08/12/19 13:13 96 H 24 94 08/12/19 13:12 93 H 29 H 122/87 94 Diagnostic Findings XR chest 1V portable IMPRESSION: Nonspecific interstitial change throughout both hemithoraces. CT abd pelvis IV con only IMPRESSION: No significant abnormality identified within the abdomen or pelvis. Nonobst ructive bowel pattern. Normal appendix. ECG Indication: altered mental status Rate (beats per minute): 82 Rhythm: normal sinus Findings: no acute ischemic change Comparison ECG Date: from (05/08/2019) Change: no significant change Code Status & VTE Plan Code Status Full VTE Prophylaxis Plan VTE Prophylaxis will be ordered: Yes PG Care Time/CCT Total # of Minutes Spent Total Time Spent with Patient: Total time spent is greater than 50% in coordination of care (as documented) at patient's floor/unit and/or counseling patient: Coding Level of Care Code 23829 OBS Care - Level 3 Diagnoses Fever of unknown origin R50.9 Neuroleptic malignant syndrome G21.0 Vomiting R11.10 Nausea presence: unspecified Vomiting Intractability: unspecified Vomiting type: unspecified HTN (hypertension) I10 Hypertension type: essential hypertension Paranoid schizophrenia F20.0 Dysphagia R13.10 Dysphagia type: unspecified Weakness R53.1 Hypothyroid E03.9 Hypothyroidism type: unspecified Dehydration E86.0 DVT prophylaxis Z29.9 (1) Dysphagia Dysphagia type: unspecified Qualified Code(s): R13.10 - Dysphagia, unspecified (2) Hypothyroid Hypothyroidism type: unspecified Qualified Code(s): E03.9 - Hypothyroidism, unspecified (3) HTN (hypertension) Hypertension type: essential hypertension Qualified Code(s): I10 - Essential (primary) hypertension (4) Vomiting Nausea presence: unspecified Vomiting Intractability: unspecified Vomiting type: unspecified Qualified Code(s): R11.10 - Vomiting, unspecified
[2019-08-12] MEDS ORDERED: FAMOTIDINE 20MG IV PUSH 20 MG/5 ML SYR IV STA (18:02)
[2019-08-12] MEDS: PROMETHAZINE HCL 12.5 MG in SODIUM CHLORIDE 0.9% 50 ML IV PRN (18:14)
[2019-08-12] MEDS ORDERED: ACETAMINOPHEN 1,000 MG/100 ML VIAL IV PRN (21:41)
[2019-08-12] MEDS: ASPIRIN 81 MG ECTAB PO SCH (22:45)
[2019-08-12] MEDS: ATORVASTATIN 40 MG TAB PO SCH (22:45)
[2019-08-12] MEDS: MIRTAZAPINE TAB 15 MG TAB PO SCH (22:46)
[2019-08-12] MEDS: AMLODIPINE BESYLATE 5 MG TAB PO SCH (22:46)
[2019-08-12] MEDS: DEXTROSE 5% 1,000 ML IV SCH (22:57)
[2019-08-13] MEDS: LEVOTHYROXINE SODIUM 50 MCG TABLET PO SCH (05:38)
[2019-08-13] MEDS: DEXTROSE 5% 1,000 ML IV SCH (05:38)
[2019-08-13 07:24] LABS: Hematocrit (blood only) 46.5 % (42-52); Hemoglobin 14.9 g/dL (14.0-18.0); Mean Corpuscular Volume 87.4 fL (80-100); RDW Coefficient of Variation 14.9 % (11.5-14.5); RDW Standard Deviation 47.5 fL (36.4-46.3); Red Blood Count 5.32 M/uL (4.7-6.1); White Blood Count 7.52 K/uL (4.8-10.8)
[2019-08-13 07:57] LABS: Albumin Level 3.2 gm/dl (3.4-5.0); BUN Creatinine Ratio 8.2 (10-20); Calcium 8.3 mg/dl (8.5-10.1); Est GFR (African American) 60.3
[2019-08-13 08:00] LABS: Albumin Globulin Ratio 0.8 (0.9-2); Globulin 4.1 gm/dl (2.5-4.0); Platelet Count 129 K/uL (130-400); Thyroid Stimulating Hormone 3.01 uIu/ml (0.300-4.500); Total Protein 7.3 gm/dl (6.4-8.2)
[2019-08-13 08:01] LABS: Basophils # (auto) 0.01 K/uL (0-0.2); Basophils % (auto) 0.1 %; Eosinophils % (auto) 1.3 %; Giant Platelets 1+; Immature Granulocytes # (auto) 0.01 K/uL (0.00-0.02); Immature Granulocytes % (auto) 0.1 %; Lymphocytes # (auto) 1.42 K/uL (1.2-3.4); Lymphocytes % (auto) 18.9 %; Monocytes # (auto) 0.84 K/uL (0.11-0.59); Monocytes % (auto) 11.2 %; Neutrophils # (auto) 5.14 K/uL (1.4-6.5); Neutrophils % (auto) 68.4 %; Platelet Estimate Decreased (Normal)
[2019-08-13] MEDS ORDERED: POTASSIUM CHLORIDE 10 MEQ / 100ML WTR IV STA (08:25)
--- NOTE | 2019-08-13 08:25 | Hospitalist Progress Note ---
Date of Service August 13, 2019 Assessment & Plan (1) Fever of unknown origin: CXR WNL although given recurrent vomiting high risk of aspiration UA not suggestive of infection (notable history of this) although given difficult to take a history will send for culture regardless No diarrhea, abdominal pain to suggest c. diff Ceftriaxone given in ER but will defer further antibiotics pending findings a source of infection negative covid testing in er 08/11 Temperature is low-grade (2) Weakness: Generalized weakness reported by patient. Patient says is been unable to walk for the last few days. He denies recent trauma radicular pain or focal neurological deficits. Patient's tremors not classic for resting or action tremor but is present at rest. There is no other signs of parkinsonism such as cogwheeling or rigidity. Will check serology for Lyme B12 folic acid we will check a sed rate Given bilateral lower extremity weakness we will check an MRI of his lumbar spine May consider neurology evaluation PT eval (3) HTN (hypertension): Continue amlodipine 10mg PO HS (4) Paranoid schizophrenia: Continue Abilify And Remeron continue per psychiatric recommendations. 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 Pt has generalized weakness of lower extremities, no focal loss or radicular pain component Review of Systems Review of Systems: Mild distress and fatigue no headache, blurry or double vision no speech or swallowing issues no chest pain, pressure or palpitations no shortness of breath, cough or wheezes no abdominal pain, nausea or vomiting, diarrhea or constipation no dysuria, hematuria or frequency no focal joint pain or swelling no back pain, CVA tenderness or radicular pain no bruising, bleeding or rashes c/o weakness in legs and tremor no complaints or anxiety or depression Physical Exam Physical Exam: The patient appeared well nourished and normally developed. Vital signs as documented. Head exam is normocephalic atraumatic no scleral icterus Neck is without JVD, thyromegaly, or carotid bruits. Lungs are clear to auscultation, no focal loss of breath sounds Cardiac exam, Rhythm is regular.. No murmurs, rubs or gallops. Abdominal exam reveals normal bowel sounds, soft non tender, no masses Extremities are nonedematous and both pedal pulses are normal. Neurologic exam is alert and oriented, Patient has a resting tremor no cogwheeling or other rigidity does have fairly expressionless face and does have a weakness bilateral lower extremities without dermatomal or neurological distribution. Does have intact sensation Psychologically is without concerns for anxiety or depression Results & Data Results & Data ([facility]) Vital Signs (Past 12 Hours) Vital Signs Temp Pulse Pulse Resp BP Pulse Ox 08/13/19 08:12 99.5 F 74 18 133/90 97 08/13/19 07:37 77 08/13/19 03:52 99.5 F 76 16 136/92 94 08/13/19 00:09 92 H 08/12/19 23:27 99.7 F H 60 16 162/89 H 95 PG Care Time/CCT Total # of Minutes Spent Total Time Spent with Patient: Total time spent is greater than 50% in c oordination of care (as documented) at patient's floor/unit and/or counseling patient: Coding Level of Care Code 29798 Subseq Hosp Care Lvl 3 Diagnoses Fever of unknown origin R50.9 Weakness R53.1 HTN (hypertension) I10 Hypertension type: essential hypertension Paranoid schizophrenia F20.0 Hypothyroid E03.9 Hypothyroidism type: unspecified DVT prophylaxis Z29.9 (1) Hypothyroid Hypothyroidism type: unspecified Qualified Code(s): E03.9 - Hypothyroidism, unspecified (2) HTN (hypertension) Hypertension type: essential hypertension Qualified Code(s): I10 - Essential (primary) hypertension
[2019-08-13] MEDS: ARIPiprazole 15 MG TAB PO SCH (08:56)
[2019-08-13] MEDS: FAMOTIDINE 20 MG in SYRINGE 3 ML IV SCH ×2 (08:56→20:26)
[2019-08-13] MEDS ORDERED: MAGNESIUM SULFATE / D5W 1 GM/100 ML BAG IV ONE (09:00)
[2019-08-13] MEDS: POTASSIUM CHLORIDE 20 MEQ TABCR PO SCH ×2 (09:01→20:28)
[2019-08-13] MEDS: POTASSIUM CHLORIDE / WTR 10 MEQ/100 ML PLCT IV SCH ×3 (09:05→11:34)
[2019-08-13] MEDS: ENOXAPARIN INJ 40 MG/0.4 ML SYR SQ SCH (09:08)
--- NOTE | 2019-08-13 11:00 | Psychiatric Consultation ---
Date of Consultation August 13, 2019 Impression / Recommendations Impression Dr. Mela Fernadnez was directly involved in review and discussion of the patient's case and participated in medical decision making regarding treatment recommendations. RECOMMENDATIONS: 08/12 - Low suspicion for NMS as patient is lacking several diagnostic criteria for the condition. Patient's symptoms are not consistent with usual signs of the syndrome: fever (only low-grade, and brief episode), rigidity (intermittent tremor observed, but no rigidity), dysautonomia (episodes of tachycardia and hypertension, but not as marked as one would expect with NMS), and AMS ([facility] reporting limited change in mental status prior to hospital transfer). In addition, CK is not elevated to suggest breakdown of muscle tissue, another common feature of NMS. - In addition to limited criteria for NMS presently, aripiprazole is a partial agonist at D2 receptors making it unlikely to contribute to NMS when compared to antipsychotic medications with potent D2 receptor antagonists. Pt has also been on these medications for at least 4 months, if not longer - making NMS a less likely explanation. - It seems appropriate to continue aripiprazole and mirtazapine at this time, as they are unlikely to be significant contributing factors in patient's current presentation. - Recommend continuing to explore alternative causes to explain patient's presentation, as there is low likelihood patient is experiencing NMS. Ongoing monitoring of temperature, dysautonomia, rigidity, and AMS would be suggested. - Suggest ongoing psychiatric medication management when patient returns to [facility] (1) Paranoid schizophrenia: Psych History Identifying Data 59-year-old male admitted medically on 08/12/2019 after presenting to the ED from [facility] with report that he is "unable to move" - pt report an upper extremity tremor that he claims has been present for 9 months. Pt had recently presented to the ED on 07/28/2019 for recurrent nausea, vomiting, and hypernatremia. Psychiatric consultation was requested to evaluate patient for possible NMS based on low-grade fever and recent changes in motor movements. Chief Complaint "I'm terrible. I'm here because I couldn't keep nothing down." History of Present Illness Osmani Thompson is a 59-year-old male admitted medically on 08/12/2019 after presenting to the ED from [facility] with reports of inability to move. It was reported that patient had been demonstrating new motor movements including tremor and reported episodes of posturing by [facility] staff. Pt, however, reporting these have been ongoing for 9 months. Pt was recently seen in the ED on 07/28/2019 for recurrent nausea, vomiting, and hypernatremia and was discharged back to the [facility]. Pt does have a reported history of schizophrenia and is taking aripiprazole 15mg and mirtazapine 15mg daily. Psychiatric consultation was requested, as patient was found to have a low-grade fever. Input was requested to evaluate patient for possible NMS. Pt was cooperative with psychiatric assessment. He states that he is "terrible" today, reporting he is in the hospital because "I couldn't keep nothing down." Pt reports that this has been ongoing for the past month. When asked about the left sided arm/hand tremor that began during our conversations, patient states "this has been happening for about 9 months now, it just happens." Once we began discussing the tremor, it did resolve briefly - and restarted again when we moved on to another topic. Pt then demonstrated a similar tremor in his right arm, which was intermittent as well. Pt states that he was diagnosed with "paranoid schizophrenia" in 1977, stating he has been "on and off medications since I was 16." Pt does believe that his current medication regimen is helpful. Pt states "the medications have helped me be more stable, help me concentrate." He initially claims he has been taking aripiprazole since 04/2018, but then later says the year was 2017. Pt denies any perceived changes in his mental status, reporting he does not feel confused or clouded. Pt is alert and oriented to person, and time. He initially states the city is "[facility]", but later believes he is in "[place]. [place], [place]." Pt denies auditory/visual hallucinations. When he is unstable, patient states "I start to believe people are doing witchcraft on me. That people are trying to kill me. They know who they are." Pt reports feeling stable presently. He denies SI/HI. He states he has been hospitalized psychiatrically in the past, but is unable to recall the timeline of these events. He denies any history of NMS related to prior medication trials. He denies other needs or concerns at this time. Past Psychiatric History Current Psychiatric Diagnosis: Paranoid Schizophrenia Outpatient Services: Pt is followed by the team of psychiatric provider at [facility] Previous Psych Admissions: Reports 3-4 inpatient psychiatric admissions at [facility], the most recent lasting ~2 weeks. History of Previous Suicide Attempt: No Past Medication Trials: Per patient reports - includes, but not limited to: 1. Risperdal 2. Stelazine 3. Cogentin 4. Seroquel 5. Haldol 6. Abilify 7. Remeron Allergies Allergy/AdvReac Type Severity Reaction Status Date / Time No Known Allergies Allergy Verified 08/12/19 15:05 Home Medications Home Medications Medication Instructions Recorded Confirmed Type amlodipine [Norvasc] 10 mg PO HS 05/08/18 08/12/19 History aspirin 81 mg PO HS 05/08/18 08/12/19 History atorvastatin [Lipitor] 40 mg PO HS 05/08/18 08/12/19 History levothyroxine [Synthroid] 50 mcg PO QAM 05/08/18 08/12/19 History aripiprazole [Abilify] 15 mg PO QAM 07/28/19 08/12/19 History mirtazapine [Remeron] 15 mg PO HS 07/28/19 08/12/19 History Family History Pt reports schizophrenia "runs in my family" - notes his mother, nephew, nieces, and cousins have the disorder. Pt believes his brother is an alcoholic. Substance Abuse History Denies tobacco use. Denies getting ahold of or using illicit substances while in [facility]. Personal History Living Arrangements: [facility] Highest Grade Completed: Did Not Graduate High School (stopped schooling in the 10th grade) Marital Status: Single Number Of Children: 1 child History of Legal Problems: Presently incarcerated at [facility] - has been an inmate there since 10/2012. 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 Current Living Situation: Other Current Living Situation Comment: inmate at [facility] Other Information That Helps Us Care for You: No Feels Safe at Home: Yes Safety Concerns: Feels Safe At This Time Smoking Status: Former smoker Do You Dip or Chew Tobacco: No ; Second Hand Exposure: No ; Tobacco Cessation Education Requested by Patient: No Hx Alcohol Use: No Hx Substance Use: No Physical Exam Psychiatric: Orientation: alert, oriented to person, oriented to time and cooperative; + not oriented to place (Initially believes he is in the city "[facility]", then [place]) Apperance: appropriately dressed, + disheveled and appeared stated age Overweight-appearing male, laying in bed in no acute distress - right arm and both legs secured to bed with handcuffs. Pt appears unkempt, but appropriately dressed in a t-shirt underneath his hospital gown. Eye Contact: + fair eye contact Motor Behavior: + tremor (intermittent tremor observed in both arms/hands, severity fluctuates) Speech: normal rate/rhythm/volume of speech (somewhat muffled) Affect: + flat affect Mood: + depressed mood ("Terrible", reports this is related to recent medical issues) Thought Process: goal directed thought process and + concrete thought process Thought Content: + paranoid ([facility] reports this is somewhat increased from baseline) and + delusions (reports chronic delusions involving witchcraft ) Suicidal Thoughts: denies suicidal thoughts and denies suicidal intent Homicidal Thoughts: denies homicidal thoughts Hallucinations: no auditory hallucinations and no visual hallucinations Cognition: attention grossly intact and language grossly intact; + recent memory not intact (timelines reported are inconsistent) Insight: + limited insight Judgement: + limited judgement Vital Signs (Past 24 Hours): Last Vital Signs Temp 37.5 C 08/13/19 08:12 Pulse 74 08/13/19 08:12 Resp 18 08/13/19 08:12 BP 133/90 08/13/19 08:12 Pulse Ox 97 08/13/19 08:12 Review of Systems Constitutional: denied Cardiovascular: reports feeling as though his heart rate is elevated Respiratory: denied Gastrointestinal: denies nausea/vomiting - though COs report recent episodes of emesis Neurological: denied Psychiatric: denies symptoms other than stated above Total of at least 10 systems reviewed, pertinent positives as above and in HPI. Results & Data (PSY) Medications Administered Amlodipine Besylate (Norvasc) 10 mg PO [facility] Stop: 09/11/19 20:59 Last Admin: 08/12/19 22:46 Dose: Not Given Documented by: [id number] [facility]) [facility] Stop: 09/12/19 08:59 Last Admin: 08/13/19 08:56 Dose: 15 mg Documented by: [id number] Aspirin (Ecotrin Ectab) 81 mg PO [facility] Stop: 09/11/19 20:59 Last Admin: 08/12/19 22:45 Dose: Not Given Documented by: [id number] Atorvastatin Calcium (Lipitor) 40 mg PO [facility] Stop: 09/11/19 20:59 Last Admin: 08/12/19 22:45 Dose: Not Given Documented by: [id number] Enoxaparin Sodium (Lovenox) 40 mg SQ [facility] Stop: 09/12/19 08:59 Last Admin: 08/13/19 09:08 Dose: 40 mg Documented by: [id number] Promethazine HCl 12.5 mg/ (Sodium Chloride) 50.5 mls @ 202 mls/hr IV Q6H PRN PRN Reason: Nausea And Vomiting Stop: 09/11/19 18:14 Last Infusion: 08/12/19 18:34 Dose: 0 mls/hr Documented by: [id number] Admin: 08/12/19 18:14 Dose: 202 mls/hr Documented by: [id number] Dextrose (D5w) 1,000 mls @ 150 mls/hr IV .Q6H40M [facility] Stop: 08/13/19 11:04 Last Admin: 08/13/19 05:38 Dose: 150 mls/hr Documented by: [id number] Infusion: 08/13/19 05:38 Dose: 150 mls/hr Documented by: [id number] Admin: 08/12/19 22:57 Dose: 150 mls/hr Documented by: [id number] Famotidine 20 mg/ Syringe 5 mls @ 2.5 mls/min IV BID [facility] Stop: 09/12/19 08:59 Last Admin: 08/13/19 08:56 Dose: 2.5 mls/min Documented by: [id number] Potassium Chloride (K Tc / Wtr) 10 meq in 100 mls @ 100 mls/hr IV Q1H [facility] Stop: 08/13/19 11:59 Last Infusion: 08/13/19 10:58 Dose: 0 mls/hr Documented by: [id number] Admin: 08/13/19 09:55 Dose: 100 mls/hr Documented by: [id number] Infusion: 08/13/19 09:55 Dose: 100 mls/hr Documented by: [id number] Admin: 08/13/19 09:05 Dose: 100 mls/hr Documented by: [id number] Ioversol (Optiray 320 100ml) 94 ml IV ONCE PRN PRN Reason: Interaction Checking Stop: 08/16/19 14:03 Last Admin: 08/12/19 14:04 Dose: 94 ml Documented by: [id number] Levothyroxine Sodium (Synthroid) 50 mcg PO DAILYBB [facility] Stop: 09/12/19 06:29 Last Admin: 08/13/19 05:38 Dose: 50 mcg Documented by: [id number] Mirtazapine (Remeron) 15 mg PO HS [facility] Stop: 09/11/19 20:59 Last Admin: 08/12/19 22:46 Dose: Not Given Documented by: [id number] Potassium Chloride (Klor-Con M20) 20 meq PO BID [facility] Stop: 08/14/19 09:01 Last Admin: 08/13/19 09:01 Dose: 20 meq Documented by: [id number] Coding Level of Care Code 81027 U Intl Hosp Care Lvl 3 Diagnoses Paranoid schizophrenia F20.0
--- NOTE | 2019-08-13 16:11 | Electrocardiogram Report ---
Test Reason : Blood Pressure : / mmHG Vent. Rate : 082 BPM Atrial Rate : 082 BPM P-R Int : 134 ms QRS Dur : 094 ms QT Int : 390 ms P-R-T Axes : -10 053 031 degrees QTc Int : 455 ms Normal sinus rhythm Normal ECG When compared with ECG of 08-MAY-2018 16:16, No significant change was found Confirmed by Bandar Coronel ([id number]) on 08/13/2019 4:11:23 PM Referred By: [facility] Confirmed By:Bandar Coronel
[2019-08-13] MEDS ORDERED: LORazepam 0.5 MG TAB PO PRN (16:30)
[2019-08-13] MEDS: ASPIRIN 81 MG ECTAB PO SCH (20:27)
[2019-08-13] MEDS: AMLODIPINE BESYLATE 5 MG TAB PO SCH (20:28)
[2019-08-13] MEDS: ATORVASTATIN 40 MG TAB PO SCH (20:28)
[2019-08-13] MEDS: MIRTAZAPINE TAB 15 MG TAB PO SCH (20:28)
[2019-08-13] MEDS: PROMETHAZINE HCL 12.5 MG in SODIUM CHLORIDE 0.9% 50 ML IV PRN (21:44)
[2019-08-14] MEDS: LEVOTHYROXINE SODIUM 50 MCG TABLET PO SCH ×2 (05:36→05:44)
[2019-08-14 07:05] LABS: BUN Creatinine Ratio 7.3 (10-20); Calcium 8.9 mg/dl (8.5-10.1); Creatinine Clr Calc Pharmacy 71.5 ml/min; Est GFR (African American) 67.6; Est GFR (Non-African American) 58.3; Magnesium 2.4 mg/dl (1.8-2.4); Potassium 3.3 mmol/L (3.5-5.1)
[2019-08-14 07:42] LABS: Folate (Folic Acid) 16.89 ng/ml (>5.38)
--- NOTE | 2019-08-14 08:29 | Magnetic Resonance Report ---
MRI OF THE LUMBAR SPINE WITHOUT IV CONTRAST CLINICAL HISTORY: Lower extremity weakness. COMPARISON STUDY: Abdominal CT dated 08/12/2019. TECHNIQUE: MRI of the lumbar spine is performed utilizing various T1 and T2-weighted sequences in the axial and sagittal planes. IV contrast was not administered for this examination. FINDINGS: Lumbar spine: Marrow signal intensity is heterogeneous. There is a mild chronic superior endplate com pression deformity of L4. Vertebral body height is otherwise maintained throughout the lumbar spine. Alignment is preserved. Small anterior and lateral marginal osteophytes are seen throughout. Chronic degenerative endplate change is seen at all levels from L3 to L4 through L5-S1. Minimal endplate guevara a is noted at L4-L5. The transverse and spinous processes appear intact. There is no evidence of spon dylolysis. No destructive bony lesion is identified. Intervertebral discs: Degenerative disc desiccation is seen throughout the upper lumbar spine. There is moderate loss of height at L5-S1. Mild loss of height is seen at the remaining lumbar levels. Spinal cord: The partially imaged spinal cord is normal in morphology. The conus medullaris terminate s at the T12-L1 interspace. The nerve roots of the cauda equina are normal in morphology. L1-L2: Unremarkable. L2-L3: There is broad-based posterior disc bulge eccentric to the left with annular fissure. This cau ses mild acquired compromise of the central canal with a minimum AP diameter of 9 mm. There is left-s ided subarticular stenosis, and this likely impinges on the exiting left L2 nerve root. This also abu ts the transiting left-sided nerve root. In conjunction with facet arthropathy there is mild left-manny ed neural foraminal stenosis. L3-L4: There is broad-based posterior disc bulge. This causes minimal acquired compromise of the cent ral canal with a minimum AP diameter of 9 mm. There is bilateral subarticular stenosis, which may abu t the exiting bilateral L3 nerve roots. Facet arthropathy causes moderate right greater than left gissell ral foraminal narrowing. L4-L5: There is a tiny posterior disc osteophyte complex. The central canal is clear. There is mild b ilateral subarticular stenosis. Facet arthropathy causes moderate to severe right and mild left neura l foraminal stenosis. L5-S1: There is a small posterior disc osteophyte complex. The central canal is clear. Facet arthropa thy is of no consequence. The neural foramina are patent. Sacrum: The visualized sacrum is normal in morphology and signal intensity noting mild fatty change. Soft tissues: The paraspinous soft tissues are within normal limits. The partially imaged retroperito craig structures are grossly unremarkable but incompletely evaluated. Bladder distention is incidental ly noted. IMPRESSION: 1. Multilevel lumbosacral spondylosis as above. See discussion for detailed level by level analysis. 2. There is no high-grade central canal stenosis identified. 3. There is a chronic compression deformity of L4. Dictated: 08/14/2019 7:46 AM Transcribed: 08/14/2019 8:12 AM Rhonda [id number] [facility] Electronically signed by: Dionte Franklin M.D. 08/14/2019 8:27 AM
[2019-08-14] MEDS: ENOXAPARIN INJ 40 MG/0.4 ML SYR SQ SCH (09:09)
[2019-08-14] MEDS: POTASSIUM CHLORIDE 20 MEQ TABCR PO SCH ×3 (09:09→20:41)
[2019-08-14] MEDS: ARIPiprazole 15 MG TAB PO SCH (09:09)
[2019-08-14 09:21] LABS: Lyme Ab IgG w/WB Rflx Negative (Negative); Lyme Ab IgM w/WB Rflx Negative (Negative)
[2019-08-14] MEDS: FAMOTIDINE 20 MG in SYRINGE 3 ML IV SCH ×2 (09:41→20:38)
--- NOTE | 2019-08-14 16:38 | Hospitalist Progress Note ---
Date of Service August 14, 2019 Assessment & Plan (1) Fever: Resolved. Source of fever is questionable as patient had negative chest x-ray in the ER, negative urine analysis, negative COVID testing. We will continue to watch for signs and symptoms although since his fevers resolved this is suggestive this is transient could have been viral illness (2) Weakness: Generalized weakness reported by patient. Reportedly too weak to walk Patient says is been unable to walk for the last few days. He denies recent trauma radicular pain or focal neurological deficits. Patient's tremors not classic for resting or action tremor but is present at rest. There is no other signs of parkinsonism such as cogwheeling or rigidity. Lyme serology negative, B12 folic acid are appropriate, recent TSH is normal. And sed rate although elevated is not out of alignment for generalized inflammation MRI of his lumbar spine without focal canal narrowing or foraminal narrowing Potassium remains low this will be augmented may have some playing in his weakness. consider neurology evaluation PT eval (3) HTN (hypertension): Continue amlodipine 10mg PO HS (4) Paranoid schizophrenia: Continue Abilify And Remeron continue per psychiatric recommendations. If this is tardive dyskinesia may consider adding an agent to combat this (5) Hypothyroid: Continue levothyroxine 50 mcg PO daily (6) DVT prophylaxis: Lovenox 40mg SQ daily Admission and Anticipated Discharge Date Admission Date: August 12, 2019 Subjective Patient looks much improved today over 1 day prior. He still has masklike feces but much less resting tremor. He claims of lower extremity weakness which is difficult to gauge as he shackled in bed. He has no hyperreflexia noted he says he feels better. Review of Systems Review of Systems: Mild distress and fatigue no headache, blurry or double vision no speech or swallowing issues no chest pain, pressure or palpitations no shortness of breath, cough or wheezes no abdominal pain, patient did have some nausea and vomiting with breakfast no dysuria, hematuria or frequency no focal joint pain or swelling no back pain, CVA tenderness or radicular pain no bruising, bleeding or rashes Patient complains of lower extremity weakness with inability to walk and some shakiness which today is much less apparent no complaints or anxiety or depression Physical Exam Physical Exam: The patient appeared without facial expression does not volunteer much information Vital signs as documented. Blood pressure slightly elevated no longer febrile Head exam is normocephalic atraumatic no scleral icterus Neck is without JVD, thyromegaly, or carotid bruits. Lungs are clear to auscultation, no focal loss of breath sounds Cardiac exam, Rhythm is regular.. No murmurs, rubs or gallops. Abdominal exam reveals normal bowel sounds, soft non tender, no masses (despite having vomiting earlier in the day) Extremities are nonedematous and both pedal pulses are normal. Neurologic exam is alert and oriented, no focal loss of strength or sensation Skin is without bruises or rashes Results & Data Results & Data ([facility]) Vital Signs (Past 12 Hours) Vital Signs Temp Pulse Pulse Resp BP BP Pulse Ox 08/14/19 16:00 88 08/14/19 15:15 98.8 F 91 H 18 164/88 H 94 08/14/19 11:24 97.7 F 87 16 118/87 93 08/14/19 08:00 94 H 08/14/19 07:29 98.2 F 91 H 18 126/92 92 08/14/19 05:44 140/95 08/14/19 05:02 98.4 F 92 H 20 147/101 H 93 PG Care Time/CCT Total # of Minutes Spent Total Time Spent with Patient: Total time spent is greater than 50% in coordination of care (as documented) at patient's floor/unit and/or counseling patient: Coding Level of Care Code 55899 Subseq Hosp Care Lvl 2 Diagnoses Fever R50.9 Fever type: unspecified Weakness R53.1 HTN (hypertension) I10 Hypertension type: essential hypertension Paranoid schizophrenia F20.0 Hypothyroid E03.9 Hypothyroidism type: unspecified DVT prophylaxis Z29.9 (1) HTN (hypertension) Hypertension type: essential hypertension Qualified Code(s): I10 - Essential (primary) hypertension (2) Hypothyroid Hypothyroidism type: unspecified Qualified Code(s): E03.9 - Hypothyroidism, unspecified (3) Fever Fever type: unspecified Qualified Code(s): R50.9 - Fever, unspecified
--- NOTE | 2019-08-14 16:40 | Neurology Consultation ---
Date of Consultation August 14, 2019 Assessment & Plan (1) VERONICA (acute kidney injury): (2) Weakness: Osmani Thompson is a 59 yo man w/ PMH of treated HCV, HTN, hypothyroidism, paranoid schizophrenia and pancytopenia who p/t [facility] on 08/12/19 with generalized weakness, confusion, N/V x3 days, fever and difficulty ambulating. # Generalized weakness: symptoms appear to be localized to bilateral lower extremity proximal muscles with minimal upper extremity weakness observed. Ddx includes weakness 2/2 electrolyte abnormalities/poor PO intake vs myopathy (inflammatory vs medication induced) vs autoimmune cause - recommend send TERRIE screen, ANCA screen, HIV, hepatitis panel, A1c, cryoglobulin - continue supportive treatment repleting lytes prn -Obtain MRI cervical spine (preferably with contrast) -If persist on discharge, can have outpatient EMG -Does not have typical symptoms for statin induced myopathy with normal CK on 2 checks Thank you for this interesting consult. Plan of care discussed with primary team. Please call or text with questions. (3) Hepatitis C: (4) HTN (hypertension): (5) Paranoid schizophrenia: History of Present Illness Attending Physician: Theodore Demarco MD History of Present Illness Osmani Thompson is a 59 yo man w/ PMH of HCV, HTN, hypothyroidism, paranoid schizophrenia and pancytopenia who p/t [facility] on 08/12/19 with generalized weakness, confusion, N/V x3 days, fever and difficulty ambulating. In the ED, patient febrile to 38 Celsius, BP 122/87, heart rate 90, satting 94% on room air. Labs show WBC 8.58, hemoglobin 15.5, platelets 148, sodium 145, BUN 21, creatinine 1.69, glucose 92, INR 1.1, UA positive for protein and ketones but no infection. Calcium/magnesium within normal, troponin 0 0.019, CK 59, LFTs within normal. Is given IV fluids and started on ceftriaxone. He was seen by psychiatry who thinks that this is not NMS. Further testing this admission includes Lyme negative, B12 1050, folate 16.89, ESR 70, TSH WNL, COVID negative. MRI L-spine shows multilevel degenerative changes with minimal central canal stenosis at L2-L3, multilevel neuroforaminal stenosis most notably at R L4-L5, chronic compression deformity at L4, no clear presses lesion on the cauda equina however contrast not given. Incidental note of bladder distention. He recently had a CT head on 07/28/2019 showed no hemorrhage or hypodensity. Blood and urine cultures are no growth to date. On examination today, he reports that his biggest issues are inability to keep food down and back pain related to the hospital bed. He denied having any new numbness, tingling, saddle anesthesia, headache, dizziness or vision changes. He did endorse having generalized weakness in all muscle groups. Reports severe constipation (no BM for several weeks). Allergies Allergy/AdvReac Type Severity Reaction Status Date / Time No Known Allergies Allergy Verified 08/12/19 15:05 Home Medications Home Medications Medication Instructions Recorded Confirmed Type amlodipine [Norvasc] 10 mg PO HS 05/08/18 08/12/19 History aspirin 81 mg PO HS 05/08/18 08/12/19 History atorvastatin [Lipitor] 40 mg PO HS 05/08/18 08/12/19 History levothyroxine [Synthroid] 50 mcg PO QAM 05/08/18 08/12/19 History aripiprazole [Abilify] 15 mg PO QAM 07/28/19 08/12/19 History mirtazapine [Remeron] 15 mg PO HS 07/28/19 08/12/19 History Patient History Medical History Dysphagia Hepatitis C HTN (hypertension) (Chronic) Hypomagnesemia (Inactive) Pancytopenia Paranoid schizophrenia (Chronic) UTI (urinary tract infection) Surgical History History of shoulder surgery Family History Other Family history non-contributory Social History Preferred Language: [place] Communication Ability: Effective 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 Other Information That Helps Us Care for You: No Feels Safe at Home: Yes Safety Concerns: Feels Safe At This Time Smoking Status: Former smoker Do You Dip or Chew Tobacco: No ; Second Hand Exposure: No ; Tobacco Cessation Education Requested by Patient: No Hx Alcohol Use: No Hx Substance Use: No Review of Systems Review of Systems: 14 point review of systems completed and negative except as in HPI. Exam (Neuro) Physical Exam: General Exam: GEN: NAD, sitting in bed. HEENT: No conjunctival injection, no rhinorrhea. CV: RRR, no peripheral edema PULM: Nonlabored respirations on room air. Neuro Exam: MS: Awake and Alert. Oriented to person, place, and month/year. Speech fluent and appropriate without dysarthria or paraphasic errors. Language intact including naming, comprehension, repetition. Cognition and memory grossly intact. Attention intact. No neglect. CN: Visual harris full. No extinction to double simultaneous stimuli. Unable to perform fundoscopic exam (would not keep eyes open). PERRLA OU. EOMI without nystagmus. Facial sensation intact to LT. Facial muscles full and symmetric. Hearing intact to conversation. Uvula midline with symmetric palatal elevation. Shoulder shrug normal. Tongue midline. MOTOR: Normal bulk and tone. No pronator drift. BUE strength 5-/5 at deltoids, biceps, triceps, wrist flexors and extensors, and hand grasp bilaterally. BLE strength 2/5 at iliopsoas, 4/5 hamstrings, 4/5 quadriceps, 5/5 tibialis anterior, and 5/5 gastrocnemius bilaterally. REFLEXES: 2+ at biceps, triceps, brachioradialis, 1+ patella and trace Achilles bilaterally. Flexor plantar responses bilaterally. SENSORY: Intact to LT without extinction to double simultaneous stimuli. COORDINATION: No dysmetria or ataxia on [id number] in the LUE (RUE was attached to the bed with handcuff). Normal Mica bilaterally. GAIT: deferred, pt handcuffed to bed Results & Data ([facility]) Vital Signs (Past 12 Hours) Vital Signs Temp Pulse Pulse Resp BP BP Pulse Ox 08/14/19 16:00 88 08/14/19 15:15 37.1 C 91 H 18 164/88 H 94 08/14/19 11:24 36.5 C 87 16 118/87 93 08/14/19 08:00 94 H 08/14/19 07:29 36.8 C 91 H 18 126/92 92 08/14/19 05:44 140/95 06/02/20 05:02 36.9 C 92 H 20 147/101 H 93 PG Care Time/CCT Total # of Minutes Spent Total Time Spent with Patient: Total time spent is greater than 50% in coordination of care (as documented) at patient's floor/unit and/or counseling patient: Coding Level of Care Code 43769 Inpt Consult Level 5 Diagnoses VERONICA (acute kidney injury) N17.9 Weakness R53.1 Hepatitis C B19.20 HTN (hypertension) I10 Hypertension type: essential hypertension Paranoid schizophrenia F20.0 (1) HTN (hypertension) Hypertension type: essential hypertension Qualified Code(s): I10 - Essential (primary) hypertension
[2019-08-14] MEDS: ASPIRIN 81 MG ECTAB PO SCH (20:41)
[2019-08-14] MEDS: MIRTAZAPINE TAB 15 MG TAB PO SCH (20:42)
[2019-08-14] MEDS: AMLODIPINE BESYLATE 5 MG TAB PO SCH (20:42)
[2019-08-14] MEDS: ATORVASTATIN 40 MG TAB PO SCH (20:42)
[2019-08-15] MEDS: LEVOTHYROXINE SODIUM 50 MCG TABLET PO SCH (05:59)
--- NOTE | 2019-08-15 07:20 | Hospitalist Progress Note ---
Date of Service August 15, 2019 Assessment & Plan (1) Fever: Occasional low-grade fever source of fever is questionable as patient had negative chest x-ray in the ER, negative urine analysis, negative COVID testing. We will continue to watch for signs and symptoms although since his fevers Initially patient has Abilify and Remeron held these were restarted subsequently his symptoms have returned we will therefore stop his Remeron to see if this has any impact on his symptoms (2) Weakness: Generalized weakness reported by patient. Reportedly too weak to walk. PT evaluation Patient says is been unable to walk for the last few days. He denies recent trauma radicular pain or focal neurological deficits. Patient's tremors not classic for resting or action tremor but is present at rest. There is no other signs of parkinsonism such as cogwheeling or rigidity. Lyme serology negative, B12 folic acid are appropriate, recent TSH is normal. And sed rate although elevated is not out of alignment for generalized inflammation MRI of his lumbar spine without focal canal narrowing or foraminal narrowing Potassium remains low this will be augmented may have some playing in his weakness. Neurology evaluation does not feel there is any specific focal issue recommended some generalized testing most tests are sent to a test, preliminarily does have a positive hepatitis C (3) HTN (hypertension): Continue amlodipine 10mg PO HS, adding lisinpril for additional control (4) Paranoid schizophrenia: Continue Abilify And hold Remeron seems to have resume symptoms and fever with initiation of Remeron therapy (5) Hypothyroid: Continue levothyroxine 50 mcg PO daily (6) DVT prophylaxis: Lovenox 40mg SQ daily Admission and Anticipated Discharge Date Admission Date: August 12, 2019 Subjective Difficult case as patient is not forthright with coming to discussion of his physical ailments. Patient did have transient provement when his schizophrenic medications were held now he is back to about the same place. He complains of having nausea especially postprandially he did vomit some liquid material. An x-ray shows possibly a small ileus. However he had a fairly extensive work-up for infectious etiologies so far being negative. Subsequently considerations could be his psychiatric medications causing low-grade temperatures nausea and abdominal discomfort. Because the patient is already received his Abilify for the day we will focus on holding his mirtazapine in hopes that this will help improve his symptomatology while not unmasking worsened mental health behavior Review of Systems Review of Systems: Mild distress and fatigue mostly complaining of abdominal discomfort and nausea no headache, blurry or double vision no speech or swallowing issues no chest pain, pressure or palpitations no shortness of breath, cough or wheezes Generalized abdominal pain, plus associated nausea or vomiting, no dysuria, hematuria or frequency no focal joint pain or swelling no back pain, CVA tenderness or radicular pain no bruising, bleeding or rashes no focal signs of weakness or numbness or altered sensation no complaints or anxiety or depression. Physical Exam Physical Exam: The patient appeared well nourished and normally developed. He had flat affect and masklike faces Vital signs as documented. Head exam is normocephalic atraumatic no scleral icterus Neck is without JVD, thyromegaly, or carotid bruits. Lungs are clear to auscultation, no focal loss of breath sounds Cardiac exam, Rhythm is regular.. No murmurs, rubs or gallops. Abdominal exam reveals normal bowel sounds, soft non tender, no masses Extremities are nonedematous and both pedal pulses are normal. Neurologic exam is alert and oriented, no focal loss of strength or sensation Skin is without bruises or rashes Psychologically is without concerns for anxiety or depression Results & Data Results & Data ([facility]) Vital Signs (Past 12 Hours) Vital Signs Temp Pulse Pulse Resp BP Pulse Ox 08/15/19 07:11 98.6 F 100 H 16 150/100 H 92 08/14/19 22:20 94 H 08/14/19 22:15 99.3 F 08/14/19 19:49 99.7 F H 86 18 141/97 H 92 PG Care Time/CCT Total # of Minutes Spent Total Time Spent with Patient: Total time spent is greater than 50% in coordination of care (as documented) at patient's floor/unit and/or counseling patient: Coding Level of Care Code 91082 Subseq Hosp Care Lvl 3 Diagnoses Fever R50.9 Fever type: unspecified Weakness R53.1 HTN (hypertension) I10 Hypertension type: essential hypertension Paranoid schizophrenia F20.0 Hypothyroid E03.9 Hypothyroidism type: unspecified DVT prophylaxis Z29.9 (1) Fever Fever type: unspecified Qualified Code(s): R50.9 - Fever, unspecified (2) Hypothyroid Hypothyroidism type: unspecified Qualified Code(s): E03.9 - Hypothyroidism, unspecified (3) HTN (hypertension) Hypertension type: essential hypertension Qualified Code(s): I10 - Essential (primary) hypertension
[2019-08-15 07:49] LABS: Estimated Average Glucose 117 mg/dl; Hemoglobin A1C 5.7 % (4.5-5.6)
[2019-08-15 08:17] LABS: BUN Creatinine Ratio 9.7 (10-20); Calcium 8.7 mg/dl (8.5-10.1); Creatinine Clr Calc Pharmacy 74.7 ml/min; Est GFR (African American) 70.2; Est GFR (Non-African American) 60.6; Magnesium 2.3 mg/dl (1.8-2.4)
[2019-08-15 08:30] LABS: Hematocrit (blood only) 47.6 % (42-52); Hemoglobin 15.7 g/dL (14.0-18.0); Mean Corpuscular Hemoglobin 28.1 pg (25-34); Mean Corpuscular Volume 85.3 fL (80-100); RDW Coefficient of Variation 14.6 % (11.5-14.5); RDW Standard Deviation 45.7 fL (36.4-46.3); Red Blood Count 5.58 M/uL (4.7-6.1); White Blood Count 6.93 K/uL (4.8-10.8)
[2019-08-15 08:39] LABS: Platelet Count 138 K/uL (130-400); Platelet Estimate Decreased (Normal)
[2019-08-15 08:50] LABS: Hepatitis B Surface Antigen Neg (Neg)
[2019-08-15] MEDS: POTASSIUM CHLORIDE 20 MEQ TABCR PO SCH (08:50)
[2019-08-15] MEDS: ARIPiprazole 15 MG TAB PO SCH (08:50)
[2019-08-15] MEDS: FAMOTIDINE 20 MG in SYRINGE 3 ML IV SCH ×2 (08:51→21:27)
[2019-08-15] MEDS: ENOXAPARIN INJ 40 MG/0.4 ML SYR SQ SCH (08:51)
[2019-08-15] MEDS: lisinopriL 5 MG TAB PO SCH (10:23)
--- NOTE | 2019-08-15 12:46 | XRay Report ---
CHEST AND ABDOMEN 2 VIEWS HISTORY: eval for ileus pt is vomiting COMPARISON: Abdomen and pelvis CT 08/12/2019 and chest x-ray 08/12/2019. FINDINGS: The lungs are clear. The cardiomediastinal silhouette is borderline enlarged. This remains unchanged. There is no pneumoperitoneum or pneumatosis. Small to moderate amount of well-formed stool seen withi n the proximal colon and rectum. No renal or ureteral calculi. A few mildly dilated gas-filled loops of large and small bowel. The small bowel measures up to 4.3 cm in diameter. The colon measures up to 9 cm in diameter. IMPRESSION: 1. Stable borderline cardiac megaly. Otherwise, no acute process within the chest. 2. A few mildly dilated gas-filled loops of large or small bowel seen within the abdomen. This favors a mild ileus. ACT 112: Negative or not required by law. Electronically signed by: Bhavin Billings M.D. 08/15/2019 12:44 PM
--- NOTE | 2019-08-15 14:21 | Neurology Progress Note ---
Date of Service August 15, 2019 Assessment & Plan (1) EVRONICA (acute kidney injury): (2) Weakness: Osmani Thompson is a 59 yo man w/ PMH of treated HCV, HTN, hypothyroidism, paranoid schizophrenia and pancytopenia who p/t [facility] on 08/12/19 with generalized weakness, confusion, N/V x3 days, fever and difficulty ambulating. # Generalized weakness: symptoms appear to be localized to bilateral lower extremity proximal muscles with minimal upper extremity weakness observed. Ddx includes weakness 2/2 electrolyte abnormalities/poor PO intake vs myopathy (inflammatory vs medication induced) vs autoimmune cause vs functional. Also cannot rule out early GBS in setting of likely recent viral illness. Unlikely to be statin induced myopathy. Pending: TERRIE, ANCA, HAV/HBV/HCV viral load, cryoglobulins Workup thus far: A1c 5.7, hepatitis panel positive HCV antibody - continue supportive treatment repleting lytes prn - Obtain MRI cervical spine (preferably with contrast) given symptoms in upper extremities as well - PT evaluation - Recommend LP to r/o GBS (absent reflexes with new subacute onset of LE weakness following viral illness) - If persist on discharge and no other cause identified, can have outpatient EMG Thank you for this interesting consult. Plan of care discussed with primary team. Please call or text with questions. (3) Hepatitis C: (4) HTN (hypertension): (5) Paranoid schizophrenia: Admission and Anticipated Discharge Date Admission Date: August 15, 2019 Subjective NAEs overnight. He reports that he feels about the same in terms of weakness. Nausea a little better but has not eaten much. Review of Systems Review of Systems: 14 point review of systems completed and negative except as in HPI. Results & Data ([facility]) Vital Signs (Past 12 Hours) Vital Signs Temp Pulse Pulse Resp BP Pulse Ox 08/15/19 11:15 37.3 C 96 H 16 144/99 H 93 08/15/19 07:44 103 H 08/15/19 07:11 37 C 100 H 16 150/100 H 92 Exam (Neuro) Physical Exam: General Exam: GEN: NAD, lying in bed. HEENT: No conjunctival injection, no rhinorrhea. CV: RRR, no peripheral edema PULM: Nonlabored respirations on room air. Neuro Exam: MS: Awake and Alert. Oriented to person, place, and month/year. Speech fluent an d appropriate without dysarthria or paraphasic errors. Language intact including naming, comprehension, repetition. Cognition and memory grossly intact. Attention intact. No neglect. CN: Visual harris full. No extinction to double simultaneous stimuli. Unable to perform fundoscopic exam (would not keep eyes open). PERRLA OU. EOMI without nystagmus. Facial sensation intact to LT. Facial muscles full and symmetric. Hearing intact to conversation. Uvula midline with symmetric palatal elevation. Shoulder shrug normal. Tongue midline. MOTOR: Normal bulk and tone. No pronator drift. BUE strength 4+/5 at deltoids, 5/5 biceps, 5/5 triceps, and 5-/5 hand grasp bilaterally. BLE strength 3/5 at iliopsoas, 4/5 hamstrings, 4/5 quadriceps, 3/5 tibialis anterior, and 5/5 gastrocnemius bilaterally. REFLEXES: trace to 1+ at biceps, triceps, brachioradialis; absent patella and absent Achilles bilaterally. Flexor plantar responses bilaterally. SENSORY: Intact to LT/vibration/temperature without extinction to double simultaneous stimuli. COORDINATION: No dysmetria or ataxia on [id number] in BUEs. Normal Mica bilaterally. GAIT: deferred, pt handcuffed to bed PG Care Time/CCT Total # of Minutes Spent Total Time Spent with Patient: Total time spent is greater than 50% in coordination of care (as documented) at patient's floor/unit and/or counseling patient: Coding Level of Care Code 92830 Subseq Hosp Care Lvl 3 Diagnoses VERONICA (acute kidney injury) N17.9 Weakness R53.1 Hepatitis C B19.20 HTN (hypertension) I10 Hypertension type: essential hypertension Paranoid schizophrenia F20.0 (1) HTN (hypertension) Hypertension type: essential hypertension Qualified Code(s): I10 - Essential (primary) hypertension
[2019-08-15] MEDS: ASPIRIN 81 MG ECTAB PO SCH (20:47)
[2019-08-15] MEDS: AMLODIPINE BESYLATE 5 MG TAB PO SCH (20:47)
[2019-08-15] MEDS: NAPHAZOLIN/PHENIRAMIN OPH SOLN 75 DROPS/5 ML BTL OP SCH (20:47)
[2019-08-16] MEDS: LEVOTHYROXINE SODIUM 50 MCG TABLET PO SCH (05:24)
[2019-08-16 06:45] LABS: BUN Creatinine Ratio 11.3 (10-20); Creatinine Clr Calc Pharmacy 80.4 ml/min; Est GFR (African American) 76.7; Est GFR (Non-African American) 66.2; Potassium 3.6 mmol/L (3.5-5.1)
[2019-08-16] MEDS: ENOXAPARIN INJ 40 MG/0.4 ML SYR SQ SCH (09:05)
[2019-08-16] MEDS: NAPHAZOLIN/PHENIRAMIN OPH SOLN 75 DROPS/5 ML BTL OP SCH ×3 (09:07→21:46)
[2019-08-16] MEDS: lisinopriL 5 MG TAB PO SCH (09:07)
[2019-08-16] MEDS: ARIPiprazole 15 MG TAB PO SCH (09:07)
[2019-08-16 09:08] LABS: Basophils # (auto) 0.02 K/uL (0-0.2); Basophils % (auto) 0.3 %; Eosinophils # (auto) 0.23 K/uL (0-0.5); Hematocrit (blood only) 48.9 % (42-52); Immature Granulocytes # (auto) 0.01 K/uL (0.00-0.02); Immature Granulocytes % (auto) 0.1 %; Lymphocytes # (auto) 1.52 K/uL (1.2-3.4); Lymphocytes % (auto) 19.5 %; Mean Corpuscular Hemoglobin 27.9 pg (25-34); Mean Corpuscular Hgb Conc 32.7 g/dL (32-36); Mean Corpuscular Volume 85.2 fL (80-100); Monocytes # (auto) 0.66 K/uL (0.11-0.59); Monocytes % (auto) 8.5 %; Neutrophils # (auto) 5.34 K/uL (1.4-6.5); Neutrophils % (auto) 68.6 %; Platelet Count 152 K/uL (130-400); RDW Coefficient of Variation 14.6 % (11.5-14.5); RDW Standard Deviation 45.5 fL (36.4-46.3); Red Blood Count 5.74 M/uL (4.7-6.1); White Blood Count 7.78 K/uL (4.8-10.8)
[2019-08-16] MEDS: FAMOTIDINE 20 MG in SYRINGE 3 ML IV SCH ×2 (09:10→21:47)
[2019-08-16 10:35] LABS: Appearance CSF Clear; CSF Count Tube # 3; CSF Xanthrochromic No xanthochromia; Color CSF Colorless; Red Blood Cell CSF (A) 0 /uL (0-); Red Blood Cell CSF (B) 0 /uL (0-); White Blood Cell CSF (A) 0 /uL (0-5); White Blood Cell CSF (B) 0 /uL (0-5)
--- NOTE | 2019-08-16 11:37 | Fluoroscopy Report ---
FLUOROSCOPICALLY GUIDED LUMBAR PUNCTURE CLINICAL HISTORY: concern for progressive weakness, neurology FLUOROSCOPY TIME: 0.5 minutes. A single fluoroscopic spot images submitted. PROCEDURE: The procedure, risks and benefits were discussed with the patient including the risk of s gulshan headache, bleeding and infection. The patient agreed to the procedure and informed written cons ent was obtained. The procedure was performed by Dr. Billings following a timeout. The left L4-5 int erlaminar space was targeted. Skin overlying the space was prepped and draped in the usual sterile fa shion and local anesthesia was achieved with 1% lidocaine. Under intermittent fluoroscopic guidance, a 20-gauge x 3 1/2 in. Sprotte needle was inserted into the thecal sac. A total of 10 cc of clear, co lorless cerebral spinal fluid was obtained and spread amongst 4 vials. The patient tolerated the proc edure well. There were no immediate complications. The specimens were sent to the laboratory at the [facility] of the referring physician. IMPRESSION: Successful fluoroscopic guided lumbar puncture with removal of 10 cc of clear, colorless cerebral spinal fluid. No immediate complications. Opening pressure was 18 cm of H2O. ACT 112: Negative or not required by law. Electronically signed by: Bhavin Billings M.D. 08/16/2019 11:36 AM
[2019-08-16 12:04] LABS: Cryptococcus neoformans/ga PCR Not Detected (NotDetected); Cytomegalovirus PCR Not Detected (NotDetected); Enterovirus PCR Not Detected (NotDetected); Escherichia coli K1 PCR Not Detected (NotDetected); Haemophilius influenzae PCR Not Detected (NotDetected); Herpes Simplex Virus 1 PCR Not Detected (NotDetected); Herpes Simplex Virus 2 PCR Not Detected (NotDetected); Human Herpes Virus 6 PCR Not Detected (NotDetected); Human Parechovirus PCR Not Detected (NotDetected); Listeria monocytogenes PCR Not Detected (NotDetected); Neisseria meningitidis PCR Not Detected (NotDetected); Streptococcus agalactiae PCR Not Detected (NotDetected); Streptococcus pneumoniae PCR Not Detected (NotDetected); Varicella Zoster Virus PCR Not Detected (NotDetected)
--- NOTE | 2019-08-16 14:18 | Hospitalist Progress Note ---
Date of Service August 16, 2019 Assessment & Plan (1) Fever: Occasional low-grade fever source of fever is questionable as patient had negative chest x-ray in the ER, negative urine analysis, negative COVID testing. We will continue to watch for signs and symptoms although since his fevers Initially patient has Abilify and Remeron held these were restarted subsequently his symptoms have returned we will therefore stop his Remeron to see if this has any impact on his symptoms Pt had LP recommended by neurology, does not have elevated wbc, does have elevated protein( not diagnostically high but certainly abnormal) see neurologies recommendation below (2) Weakness: Generalized weakness reported by patient. Reportedly too weak to walk. PT evaluation Patient says is been unable to walk for the last few days. He denies recent trauma radicular pain or focal neurological deficits. Patient's tremors not classic for resting or action tremor but is present at rest. There is no other signs of parkinsonism such as cogwheeling or rigidity. Lyme serology negative, B12 folic acid are appropriate, recent TSH is normal. And sed rate although elevated is not out of alignment for generalized inflammation MRI of his lumbar spine without focal canal narrowing or foraminal narrowing Potassium remains low this will be augmented may have some playing in his weakness. does have a positive hepatitis C in light of csf higher protein level, Neurology recommends->MRI c spine and brain with contrast, CSF West Nile virus and send the following labs: SSA/SSB, serum DAVID, ESR/CRP, thiamine level (B1), copper level, vitamin E level, vitamin B6 level, heavy metal screen - if above workup unremarkable for GBS mimics or any new respiratory difficulties, would recommend starting IVIG 0.4mg/kg/day over 5 days (3) HTN (hypertension): Continue amlodipine 10mg PO HS, added lisinpril for additional control (4) Paranoid schizophrenia: Continue Abilify And hold Remeron seems to have resume symptoms and fever with initiation of Remeron therapy so holding at this time (5) Hypothyroid: Continue levothyroxine 50 mcg PO daily (6) DVT prophylaxis: Lovenox 40mg SQ daily Admission and Anticipated Discharge Date Admission Date: August 15, 2019 Subjective pt is complaining of some pain in his lower back after the LP. He does look somewhat brighter today with stopping remeron Review of Systems Review of Systems: Mild distress and fatigue mostly complaining of abdominal discomfort and nausea no headache, blurry or double vision no speech or swallowing issues no chest pain, pressure or palpitations no shortness of breath, cough or wheezes Generalized abdominal pain, plus associated nausea or vomiting, no dysuria, hematuria or frequency no focal joint pain or swelling no back pain, CVA tenderness or radicular pain no bruising, bleeding or rashes c/o weakness in lower extremities no complaints or anxiety or depression. Physical Exam Physical Exam: The patient appeared well nourished and normally developed. He had flat affect and masklike faces Vital signs as documented. Head exam is normocephalic atraumatic no scleral icterus Neck is without JVD, thyromegaly, or carotid bruits. Lungs are clear to auscultation, no focal loss of breath sounds Cardiac exam, Rhythm is regular.. No murmurs, rubs or gallops. Abdominal exam reveals normal bowel sounds, soft non tender, no masses Extremities are nonedematous and both pedal pulses are normal. Neurologic exam is alert and oriented, decreased strength to le and decreased reflexes Skin is without bruises or rashes Psychologically is without concerns for anxiety or depression Results & Data Results & Data ([facility]) Vital Signs (Past 12 Hours) Vital Signs Temp Pulse Resp BP Pulse Ox 08/16/19 10:30 97.5 F L 95 H 16 124/85 94 08/16/19 07:16 98.6 F 93 H 16 129/89 93 PG Care Time/CCT Total # of Minutes Spent Total Time Spent with Patient: Total time spent is greater than 50% in coordination of care (as documented) at patient's floor/unit and/or counseling patient: Coding Level of Care Code 74899 Subseq Hosp Care Lvl 2 Diagnoses Fever R50.9 Fever type: unspecified Weakness R53.1 HTN (hypertension) I10 Hypertension type: essential hypertension Paranoid schizophrenia F20.0 Hypothyroid E03.9 Hypothyroidism type: unspecified DVT prophylaxis Z29.9 (1) Fever Fever type: unspecified Qualified Code(s): R50.9 - Fever, unspecified (2) Hypothyroid Hypothyroidism type: unspecified Qualified Code(s): E03.9 - Hypothyroidism, unspecified (3) HTN (hypertension) Hypertension type: essential hypertension Qualified Code(s): I10 - Essential (primary) hypertension
--- NOTE | 2019-08-16 16:00 | Neurology Progress Note ---
Date of Service August 16, 2019 Assessment & Plan (1) VERONICA (acute kidney injury): (2) Weakness: Osmani Thompson is a 59 yo man w/ PMH of treated HCV, HTN, hypothyroidism, paranoid schizophrenia and pancytopenia who p/t [facility] on 08/12/19 with generalized weakness, confusion, N/V x3 days, fever and difficulty ambulating. Pending: TERRIE, ANCA, HAV/HBV/HCV viral load, cryoglobulins Workup thus far: - A1c 5.7, hepatitis panel positive HCV antibody - CSF: 0 WBC, 0 RBC, 50 glucose, 103 protein. CSF biofire negative. # Generalized weakness: symptoms appear to be localized to bilateral lower extremity proximal muscles with minimal upper extremity weakness observed. Ddx i ncludes weakness 2/2 electrolyte abnormalities/poor PO intake vs myopathy (inflammatory vs medication induced) vs autoimmune cause vs functional. Also cannot rule out early GBS in setting of likely recent viral illness. Unlikely to be statin induced myopathy. - continue supportive treatment repleting lytes prn - Obtain MRI cervical spine (preferably with contrast) given symptoms in upper extremities as well - PT evaluation to determine if rehab or SNF candidate - would add on CSF West Nile virus and send the following labs: SSA/SSB, serum DAVID, ESR/CRP, thiamine level (B1), copper level, vitamin E level, vitamin B6 level, heavy metal screen - if above workup unremarkable for GBS mimics or any new respiratory difficulties, would recommend starting IVIG 0.4mg/kg/day over 5 days - If persist on discharge and no other cause identified, can have outpatient EMG Thank you for this interesting consult. Plan of care discussed with primary team. Please call or text with questions. (3) Hepatitis C: (4) HTN (hypertension): (5) Paranoid schizophrenia: Admission and Anticipated Discharge Date Admission Date: August 15, 2019 Subjective NAEs overnight. Had LP this morning, results notable for elevated protein in the setting of zero WBC (cyto-albuminologic dissociation) which can be seen in GBS but not 100% diagnostic for this. CSF biofire negative. He continues to have a poor appetite and not eat much. Denies any new numbness, feels like weakness is about the same. No SOB. Review of Systems Review of Systems: 14 point review of systems completed and negative except as in HPI. Results & Data ([facility]) Vital Signs (Past 12 Hours) Vital Signs Temp Pulse Resp BP Pulse Ox 08/16/19 15:07 37.3 C 102 H 22 131/98 92 08/16/19 10:30 36.4 C L 95 H 16 124/85 94 08/16/19 07:16 37 C 93 H 16 129/89 93 Exam (Neuro) Physical Exam: General Exam: GEN: NAD, lying in bed. HEENT: No conjunctival injection, no rhinorrhea. CV: RRR, no peripheral edema PULM: Nonlabored respirations on room air. Neuro Exam: MS: Awake and Alert. Oriented to person, place, and month/year. Speech fluent and appropriate without dysarthria or paraphasic errors. Language intact includ ing naming, comprehension, repetition. Cognition grossly intact, poor historian. Attention intact. No neglect. CN: Visual harris full. No extinction to double simultaneous stimuli. Unable to perform fundoscopic exam (would not keep eyes open). PERRLA OU. Eyes moved minimally from midline but not clear if this is volitional or not as they moved during our conversation. Facial sensation intact to LT. Facial muscles full and symmetric. Hearing intact to conversation. Uvula midline with symmetric palatal elevation. Shoulder shrug normal. Tongue midline. MOTOR: Normal bulk and tone. No pronator drift. BUE strength 4+/5 at deltoids, 5-/5 biceps, 5-/5 triceps, and 5-/5 hand grasp bilaterally. BLE strength 3/5 at iliopsoas, 4/5 hamstrings, 4/5 quadriceps, 4/5 tibialis anterior, and 4/5 gastrocnemius bilaterally. REFLEXES: trace to 1+ at biceps, triceps, brachioradialis; absent patella and absent Achilles bilaterally. Flexor plantar responses bilaterally. SENSORY: Intact to LT/vibration/temperature without extinction to double simultaneous stimuli. COORDINATION: No dysmetria or ataxia on [id number] in BUEs. Normal Mica bilaterally. GAIT: deferred, pt handcuffed to bed PG Care Time/CCT Total # of Minutes Spent Total Time Spent with Patient: Total time spent is greater than 50% in coor dination of care (as documented) at patient's floor/unit and/or counseling patient: Coding Level of Care Code 41491 Subseq Hosp Care Lvl 3 Diagnoses VERONICA (acute kidney injury) N17.9 Weakness R53.1 Hepatitis C B19.20 HTN (hypertension) I10 Hypertension type: essential hypertension Paranoid schizophrenia F20.0 (1) HTN (hypertension) Hypertension type: essential hypertension Qualified Code(s): I10 - Essential (primary) hypertension
[2019-08-16] MEDS ORDERED: MoRPHine SULFATE 4 MG/ML 1 ML CARP\\VIAL IV PRN (16:24)
[2019-08-16] MEDS ORDERED: MoRPHine SULFATE 2 MG/ML CARP IV PRN (16:24)
[2019-08-16] MEDS: ONDANSETRON 4 MG OD TAB PO PRN (16:45)
[2019-08-16] MEDS: ASPIRIN 81 MG ECTAB PO SCH (21:46)
[2019-08-16] MEDS: AMLODIPINE BESYLATE 5 MG TAB PO SCH (21:46)
[2019-08-17] MEDS: GADOBUTROL 65ML VIAL IV PRN ×2 (02:07→22:57)
[2019-08-17] MEDS: LEVOTHYROXINE SODIUM 50 MCG TABLET PO SCH (05:52)
[2019-08-17 06:59] LABS: Hematocrit (blood only) 48.5 % (42-52); Hemoglobin 15.5 g/dL (14.0-18.0); Mean Corpuscular Hemoglobin 27.4 pg (25-34); Mean Corpuscular Volume 85.7 fL (80-100); Mean Platelet Volume 12.8 fL (7.4-10.4); Platelet Count 179 K/uL (130-400); RDW Coefficient of Variation 14.6 % (11.5-14.5); RDW Standard Deviation 46.6 fL (36.4-46.3); Red Blood Count 5.66 M/uL (4.7-6.1); White Blood Count 7.53 K/uL (4.8-10.8)
--- NOTE | 2019-08-17 07:01 | Magnetic Resonance Report ---
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 TECHNIQUE: Utilizing a 1.5 Chela magnet and dedicated coil, multiplanar, multiecho imaging of the br ain was performed pre and postcontrast administration. IV administration of [address] was uneventful. FINDINGS: Diffusion images are normal. No evidence for an acute ischemic process. Signal characteristics of the cerebellar as well as cerebral hemispheres are unremarkable. There are findings of mild age-related atrophy and chronic small vessel change. Postcontrast images are considered negative for enhancing lesion. IMPRESSION: Normal study. ACT 112: Negative or not required by law. The above report was generated using voice recognition software. It may contain grammatical, syntax or spelling errors. Electronically signed by: Ziggy Ferguson M.D. 08/17/2019 7:00 AM
[2019-08-17 07:32] LABS: BUN Creatinine Ratio 13.2 (10-20); Calcium 9.1 mg/dl (8.5-10.1); Creatinine Clr Calc Pharmacy 66.8 ml/min; Est GFR (African American) 61.3; Est GFR (Non-African American) 52.9; Potassium 3.8 mmol/L (3.5-5.1)
--- NOTE | 2019-08-17 08:43 | Hospitalist Progress Note ---
Date of Service August 17, 2019 Assessment & Plan (1) Fever: Occasional low-grade fever source of fever is questionable as patient had negative chest x-ray in the ER, negative urine analysis, negative COVID testing. We will continue to watch for signs and symptoms although since his fevers Initially patient has Abilify and Remeron held these were restarted subsequently his symptoms have returned. did stop his Remeron but pt remains with little facial expression Pt had LP recommended by neurology, does not have elevated wbc, does have elevated protein( not diagnostically high but certainly abnormal) see neurologies recommendation below (2) Weakness: Generalized weakness reported by patient. Reportedly too weak to walk. PT evaluation There is no other signs of parkinsonism such as cogwheeling or rigidity. Lyme serology negative, B12 folic acid are appropriate, recent TSH is normal. And sed rate although elevated is not out of alignment for generalized inflammation MRI of his lumbar spine without focal canal narrowing or foraminal narrowing MRI C spine also without changes to explain his issues does have a positive hepatitis C in light of csf higher protein level, Neurology recommends->MRI c spine and brain with contrast is normal 08/16 , CSF West Nile virus and send the following labs: SSA/SSB, serum DAVID, ESR/CRP, thiamine level (B1), copper level, vitamin E level, vitamin B6 level, heavy metal screen - if above workup unremarkable for GBS mimics or any new respiratory difficulties, would recommend starting IVIG 0.4mg/kg/day over 5 days (3) HTN (hypertension): Continue amlodipine 10mg PO HS, added lisinpril for additional control (4) Paranoid schizophrenia: Continue Abilify And hold Remeron seems to have resume symptoms and fever with initiation of Remeron therapy so holding at this time (5) Hypothyroid: Continue levothyroxine 50 mcg PO daily (6) DVT prophylaxis: Lovenox 40mg SQ daily Admission and Anticipated Discharge Date Admission Date: August 15, 2019 Subjective this pt has little interaction, he is grunting to speak, the long term guards at the bedside say he has coughing with some mucus production. So far there is no explanation of why he has poor appetite and some nausea, was on H2 blockers that are transitioned to ppi. Review of Systems Review of Systems: Mild distress and fatigue mostly complaining of abdominal discomfort and nausea no headache, blurry or double vision pt does not want to eat, coughing of mucus no chest pain, pressure or palpitations no shortness of breath, cough or wheezes continues with Generalized abdominal pain, plus associated nausea or vomiting, no dysuria, hematuria or frequency no focal joint pain or swelling no back pain, CVA tenderness or radicular pain no bruising, bleeding or rashes c/o weakness in lower extremities no complaints or anxiety or depression. Physical Exam Physical Exam: The patient appeared well nourished and normally developed. He had flat affect and masklike faces Vital signs as documented. Head exam is normocephalic atraumatic no scleral icterus Neck is without JVD, thyromegaly, or carotid bruits. Lungs are clear to auscultation, no focal loss of breath sounds Cardiac exam, Rhythm is regular.. No murmurs, rubs or gallops. Abdominal exam reveals normal bowel sounds, soft non tender, no masses Extremities are nonedematous and both pedal pulses are normal. Neurologic exam is alert and oriented, decreased strength to le and decreased reflexes Skin is without bruises or rashes Psychologically is without concerns for anxiety or depression Results & Data Results & Data ([facility]) Vital Signs (Past 12 Hours) Vital Signs Temp Pulse Resp BP BP Pulse Ox 08/17/19 05:47 98.1 F 100 H 18 134/91 91 08/16/19 22:17 76 18 121/85 95 PG Care Time/CCT Total # of Minutes Spent Total Time Spent with Patient: Total time spent is greater than 50% in coordination of care (as documented) at patient's floor/unit and/or counseling patient: Coding Level of Care Code 87404 Subseq Hosp Care Lvl 2 Diagnoses Fever R50.9 Fever type: unspecified Weakness R53.1 HTN (hypertension) I10 Hypertension type: essential hypertension Paranoid schizophrenia F20.0 Hypothyroid E03.9 Hypothyroidism type: unspecified DVT prophylaxis Z29.9 (1) Fever Fever type: unspecified Qualified Code(s): R50.9 - Fever, unspecified (2) Hypothyroid Hypothyroidism type: unspecified Qualified Code(s): E03.9 - Hypothyroidism, unspecified (3) HTN (hypertension) Hypertension type: essential hypertension Qualified Code(s): I10 - Essential (primary) hypertension
[2019-08-17] MEDS: ENOXAPARIN INJ 40 MG/0.4 ML SYR SQ SCH (09:05)
--- NOTE | 2019-08-17 09:07 | Magnetic Resonance Report ---
MRI OF THE CERVICAL SPINE WITHOUT IV CONTRAST CLINICAL HISTORY: Vomiting. COMPARISON STUDY: No priors. TECHNIQUE: MRI of the cervical spine is performed utilizing various T1 and T2-weighted sequences in t he axial and sagittal planes. IV contrast was not administered for this examination. The examination is degraded by motion artifact. FINDINGS: Cervical spine: Vertebral body height is maintained throughout the cervical spine. There is minimal r etrolisthesis at C4-C5 and C5-C6. Alignment is otherwise preserved. There is straightening of the cer vical lordosis. The atlantodental articulation is maintained. The spinous processes are intact. Chron ic degenerative endplate change is seen at C3-C4, C5-C6, and C6-C7. No destructive bony process is id entified. Intervertebral discs: Degenerative disc desiccation is noted throughout the cervical spine. There is mild to moderate loss of height at C6-C7. Minimal loss of height is seen at C3-C4. Spinal cord: The cervical spinal cord is normal in morphology and signal intensity. C2-C3: Predominant facet arthropathy causes mild right-sided neural foraminal stenosis. The central c anal is clear. C3-C4: A posterior disc osteophyte complex abuts the ventral cord. Prominent uncovertebral arthropath y causes mild right-sided neural foraminal stenosis. C4-C5: A posterior disc osteophyte complex eccentric to the right abuts the ventral cord. Uncovertebr al and facet arthropathy cause moderate right and minimal left-sided neural foraminal stenosis. C5-C6: A posterior disc osteophyte complex effaces the ventral subarachnoid space. Uncovertebral and facet arthropathy cause moderate right and mild left neural foraminal stenosis. C6-C7: A posterior disc osteophyte complex effaces the ventral subarachnoid space. Uncovertebral and facet arthropathy cause moderate to severe bilateral neural foraminal stenosis. C7-T1: Unremarkable. Soft tissues: The prevertebral and paraspinous soft tissues are normal as imaged. Brain parenchyma: Partially visualized brain parenchyma at the skull base is normal in appearance. Th e cerebellar tonsils are normal in configuration. IMPRESSION: 1. Mild multilevel cervical spondylosis as above. See discussion for detailed level by level analysis . 2. There is no high-grade central canal stenosis identified. 3. The cervical spinal cord is normal in morphology and signal intensity. Dictated: 08/17/2019 7:56 AM Transcribed: 08/17/2019 8:39 AM Rhonda [id number] CLAIRE_Sugar Electronically signed by: Dionte Franklin M.D. 08/17/2019 9:06 AM
[2019-08-17] MEDS: NAPHAZOLIN/PHENIRAMIN OPH SOLN 75 DROPS/5 ML BTL OP SCH ×3 (09:56→21:16)
[2019-08-17] MEDS: FAMOTIDINE 20 MG in SYRINGE 3 ML IV SCH (09:56)
[2019-08-17] MEDS: lisinopriL 5 MG TAB PO SCH (12:07)
[2019-08-17] MEDS: ARIPiprazole 15 MG TAB PO SCH (12:07)
[2019-08-17] MEDS: ONDANSETRON 4 MG OD TAB PO PRN (14:04)
[2019-08-17] MEDS: SODIUM CHLORIDE 0.9% 1000ML 1,000 ML IV SCH (17:36)
--- NOTE | 2019-08-17 18:15 | Neurology Progress Note ---
Date of Service August 17, 2019 Assessment & Plan (1) VERONICA (acute kidney injury): (2) Weakness: Osmani Thompson is a 59 yo man w/ PMH of treated HCV, HTN, hypothyroidism, paranoid schizophrenia and pancytopenia who p/t [facility] on 08/12/19 with generalized weakness, confusion, N/V x3 days, fever and difficulty ambulating. Pending: TERRIE, ANCA, HAV/HBV/HCV viral load, cryoglobulins, heavy metal scree, CSF Lyme/VDRL, vit E, DAVID, vit B1/B6 Workup thus far: - A1c 5.7, hepatitis panel positive HCV antibody, ESR 70 -> 63, B12 1050 - CSF: 0 WBC, 0 RBC, 50 glucose, 103 protein. CSF biofire negative. - MRI brain: Minimal small vessel disease, left medial temporal lobe cyst - MRI C-spine: Mild degenerative changes without cervical spinal stenosis, clear infarct or area of T2 hyperintensity # Generalized weakness: symptoms have been slowly varying day to day. Yesterday had more upper extremity weakness. Today he seems overall better. Ddx includes weakness 2/2 electrolyte abnormalities/poor PO intake vs myopathy (inflammatory vs medication induced) vs autoimmune cause vs functional. Despite elevated protein in CSF, given that his weakness has varied so much day to day and does not seem to be progressing, believe GBS to be less likely at this time. Unlikely to be statin induced myopathy. - continue supportive treatment repleting lytes prn - PT evaluation to determine if rehab or SNF candidate - Recommend outpatient EMG Thank you for this interesting consult. Plan of care discussed with primary team. Please call or text with questions. (3) Hepatitis C: (4) HTN (hypertension): (5) Paranoid schizophrenia: Admission and Anticipated Discharge Date Admission Date: August 15, 2019 Subjective No acute events overnight. Osmani reports that he actually feels a little bit better and a little bit stronger. He was unable to eat anything for lunch and had an episode of emesis after completion of examination. He denied any other complaints at this time. Review of Systems Review of Systems: 14 point review of systems completed and negative except as in HPI. Results & Data ([facility]) Vital Signs (Past 12 Hours) Vital Signs Temp Pulse Resp BP Pulse Ox 08/17/19 15:38 36.5 C 92 H 16 144/93 H 93 06/05/20 11:34 96 Exam (Neuro) Physical Exam: General Exam: GEN: NAD, lying in bed. HEENT: No conjunctival injection, no rhinorrhea. CV: RRR, no peripheral edema PULM: Nonlabored respirations on room air. Neuro Exam: MS: Awake and Alert. Oriented to person, place, and month/year. Speech fluent and appropriate without dysarthria or paraphasic errors. Language intact including naming, comprehension, repetition. Cognition grossly intact, poor historian. Attention intact. No neglect. CN: Visual harris full. No extinction to double simultaneous stimuli. Unable to perform fundoscopic exam (would not keep eyes open). PERRLA OU. Eyes moved minimally from midline but not clear if this is volitional or not as they moved during our conversation. Facial sensation intact to LT. Facial muscles full and symmetric. Hearing intact to conversation. Uvula midline with symmetric palatal elevation. Shoulder shrug normal. Tongue midline. MOTOR: Normal bulk and tone. No pronator drift. BUE strength 5-/5 at deltoids, 5-/5 biceps, 5-/5 triceps, and 5-/5 hand grasp bilaterally. BLE strength 4-/5 at iliopsoas, 4/5 hamstrings, 4/5 quadriceps, 4/5 tibialis anterior, and 4/5 gastrocnemius bilaterally. REFLEXES: trace to 1+ at biceps, triceps, brachioradialis; 1+ patella and absent Achilles bilaterally. Flexor plantar responses bilaterally. SENSORY: Intact to LT/vibration/temperature without extinction to double simultaneous stimuli. COORDINATION: No dysmetria or ataxia on [id number] in BUEs. Normal Mica bilaterally. GAIT: deferred, pt handcuffed to bed PG Care Time/CCT Total # of Minutes Spent Total Time Spent with Patient: Total time spent is greater than 50% in coordination of care (as documented) at patient's floor/unit and/or counseling patient: Coding Level of Care Code 07484 Subseq Hosp Care Lvl 3 Diagnoses VERONICA (acute kidney injury) N17.9 Weakness R53.1 Hepatitis C B19.20 HTN (hypertension) I10 Hypertension type: essential hypertension Paranoid schizophrenia F20.0 (1) HTN (hypertension) Hypertension type: essential hypertension Qualified Code(s): I10 - Essential (primary) hypertension
[2019-08-17] MEDS: PANTOprazole 40 MG in SYRINGE 0 ML IV SCH (21:15)
[2019-08-17] MEDS: AMLODIPINE BESYLATE 5 MG TAB PO SCH (21:16)
[2019-08-17] MEDS: ASPIRIN 81 MG ECTAB PO SCH (21:16)
[2019-08-18] MEDS: SODIUM CHLORIDE 0.9% 1000ML 1,000 ML IV SCH ×4 (01:58→20:28)
[2019-08-18] MEDS: LEVOTHYROXINE SODIUM 50 MCG TABLET PO SCH (06:03)
[2019-08-18 06:43] LABS: BUN Creatinine Ratio 13.5 (10-20); Calcium 8.4 mg/dl (8.5-10.1); Creatinine Clr Calc Pharmacy 78.4 ml/min; Est GFR (African American) 74.4; Est GFR (Non-African American) 64.2; Potassium 3.7 mmol/L (3.5-5.1)
--- NOTE | 2019-08-18 07:50 | Magnetic Resonance Report ---
MR thoracic spine wo/w con CLINICAL HISTORY: Weakness. Possible transverse myelitis. COMPARISON STUDY: No previous studies for comparison. FINDINGS: Imaging was performed with sagittal, and axial planes, before and after the administration of 10 cc of intravenous Gadavist. There is superior endplate T11 marrow edema which is felt to be secondary to a mild superior endplate T11 compression deformity. There are no areas of marrow replacement suspicious for metastatic diseas e. No intrinsic thoracic cord lesions are visualized. There is no evidence of spinal stenosis. No paraspinal masses are visualized. Postcontrast images reveal no pathologically enhancing epidural or cord lesions. There is mild enhanc ement of the superior T11 endplate, likely on a posttraumatic basis IMPRESSION: 1. Superior endplate T11 marrow edema, likely secondary to a compression fracture 2. No intrinsic cord lesions identified. No evidence of pathologic cord enhancement 3. No evidence of spinal stenosis ACT 112: Negative or not required by law. Electronically signed by: Mehul Hermosillo M.D. 08/18/2019 7:49 AM
[2019-08-18] MEDS: ARIPiprazole 15 MG TAB PO SCH (08:44)
[2019-08-18] MEDS: NAPHAZOLIN/PHENIRAMIN OPH SOLN 75 DROPS/5 ML BTL OP SCH ×3 (08:44→20:35)
[2019-08-18] MEDS: lisinopriL 5 MG TAB PO SCH (08:44)
[2019-08-18] MEDS: ENOXAPARIN INJ 40 MG/0.4 ML SYR SQ SCH (08:44)
[2019-08-18] MEDS: PANTOprazole 40 MG in SYRINGE 0 ML IV SCH ×2 (08:45→20:28)
--- NOTE | 2019-08-18 11:27 | Neurology Progress Note ---
Date of Service August 18, 2019 Assessment & Plan (1) VERONICA (acute kidney injury): (2) Weakness: Osmani Thompson is a 59 yo man w/ PMH of treated HCV, HTN, hypothyroidism, paranoid schizophrenia and pancytopenia who p/t [facility] on 08/12/19 with generalized weakness, confusion, N/V x3 days, fever and difficulty ambulating. Pending: TERRIE, ANCA, HAV/HBV/HCV viral load, cryoglobulins, heavy metal screen, CSF Lyme/VDRL, vit E, DAVID, vit B1/B6 Workup thus far: - A1c 5.7, hepatitis panel positive HCV antibody, ESR 70 -> 63, B12 1050 - CSF: 0 WBC, 0 RBC, 50 glucose, 103 protein. CSF biofire negative. - MRI brain: Minimal small vessel disease, left medial temporal lobe cyst - MRI C-spine: Mild degenerative changes without cervical spinal stenosis, clear infarct or area of T2 hyperintensity - MRI T-spine: Mild endplate edema associated with mild compression fracture at T11, no spinal cord lesions. # Generalized weakness: symptoms have been slowly varying day to day. Yesterday had more upper extremity weakness. Today he seems overall better. Ddx includes weakness 2/2 electrolyte abnormalities/poor PO intake vs myopathy (inflammatory vs medication induced) vs autoimmune cause vs functional. Despite elevated protein in CSF, given that his weakness has varied so much day to day and does not seem to be progressing, believe GBS to be less likely at this time. Unlikely to be statin induced myopathy. - continue supportive treatment repleting lytes prn - PT evaluation to determine if rehab or SNF candidate - Recommend outpatient EMG - Follow-up in neurology clinic in 6 to 8 weeks after completion of EMG Thank you for this interesting consult. Plan of care discussed with primary team. Please call or text with questions. (3) Hepatitis C: (4) HTN (hypertension): (5) Paranoid schizophrenia: Admission and Anticipated Discharge Date Admission Date: August 15, 2019 Subjective NAEs overnight. Reports that he is doing well this morning. Denies any back pain. Reports that he was able to get up and walk around the room with the help of a walker yesterday afternoon. Overall muscle strength has improved, however he is still having difficulties with taking p.o. Review of Systems Review of Systems: 10 point review of systems completed and negative except as in HPI. Results & Data ([facility]) Vital Signs (Past 12 Hours) Vital Signs Temp Pulse Resp BP Pulse Ox 08/18/19 08:27 37.0 C 88 16 144/92 H 95 Exam (Neuro) Physical Exam: General Exam: GEN: NAD, lying in bed. HEENT: No conjunctival injection, no rhinorrhea. CV: RRR, no peripheral edema PULM: Nonlabored respirations on room air. Neuro Exam: MS: Awake and Alert. Oriented to person, place, and month/year. Speech fluent and appropriate without dysarthria or paraphasic errors, +paucity of speech. Language intact including naming, comprehension, repetition. Cognition grossly intact, poor historian. Attention intact. No neglect. CN: Visual harris full. No extinction to double simultaneous stimuli. Unable to perform fundoscopic exam (would not keep eyes open). PERRLA OU. EOMI without nystagmus. Facial sensation intact to LT. Facial muscles full and symmetric. Hearing intact to conversation. Uvula midline with symmetric palatal elevation. Shoulder shrug normal. Tongue midline. MOTOR: Normal bulk and tone. No pronator drift. BUE strength 5-/5 at deltoids, 5/5 biceps, 5/5 triceps, and 5/5 hand grasp bilaterally. BLE strength 4-/5 at iliopsoas, 5-/5 hamstrings, 5-/5 quadriceps, 5/5 tibialis anterior, and 5/5 gastrocnemius bilaterally. REFLEXES: trace to 1+ at biceps, triceps, brachioradialis; 1+ patella and absent Achilles bilaterally. Flexor plantar responses bilaterally. SENSORY: Intact to LT/vibration without extinction to double simultaneous stimuli. COORDINATION: No dysmetria or ataxia on [id number] in BUEs. Normal Mica bilaterally. GAIT: deferred, pt handcuffed to bed PG Care Time/CCT Total # of Minutes Spent Total Time Spent with Patient: Total time spent is greater than 50% in coordination of care (as documented) at patient's floor/unit and/or counseling patient: Coding Level of Care Code 94599 Subseq Hosp Care Lvl 3 Diagnoses VERONICA (acute kidney injury) N17.9 Weakness R53.1 Hepatitis C B19.20 HTN (hypertension) I10 Hypertension type: essential hypertension Paranoid schizophrenia F20.0 (1) HTN (hypertension) Hypertension type: essential hypertension Qualified Code(s): I10 - Essential (primary) hypertension
[2019-08-18] MEDS ORDERED: methylPREDNISolone 125 MG in SYRINGE 0 ML IV ONE (16:00)
--- NOTE | 2019-08-18 16:10 | Hospitalist Progress Note ---
Date of Service August 18, 2019 Assessment & Plan (1) Fever: fever has now resolved, negative chest x-ray in the ER, negative urine analysis, negative COVID testing. Pt had LP recommended by neurology, does not have elevated wbc, does have elevated protein( not diagnostically high but certainly abnormal) see neurologies recommendation below negative lyme, two negative urine cultures, two negative blood cultures and negative LP culture including LP biofire panel and HIV initial abd/pelvis CT without suggestion of source or pathology, serial LFT and lipase had been normal also (2) Weakness: Generalized weakness reported by patient. Reportedly too weak to walk. PT evaluation does support weakness There is no other signs of parkinsonism such as cogwheeling or rigidity. Lyme serology negative, B12 folic acid are appropriate, recent TSH is normal. And sed rate although elevated is not out of alignment for generalized inflammation MRI of his lumbar spine without focal canal narrowing or foraminal narrowing t spine with age indeterminate t11 comp fracture c spine mri without stenosis does have a positive hepatitis C in light of csf higher protein level, Neurology recommends->MRI c spine and brain with contrast is normal 08/16 , CSF West Nile virus and send the following labs: SSA/SSB, serum DAVID, ESR/CRP, thiamine level (B1), copper level, vitamin E level, vitamin B6 level, heavy metal screen - if above workup unremarkable for GBS mimics or any new respiratory difficulties,neurolgoy is considering IVIG 0.4mg/kg/day over 5 days given lack of eating and progression to participate in his care will try one dose of steiods, marinol and restart remeron 08/18/19 dietary supplement (3) HTN (hypertension): Continue amlodipine 10mg PO HS, added lisinpril for additional control with good result (4) Paranoid schizophrenia: Continue Abilify And Remeron (5) Hypothyroid: Continue levothyroxine 50 mcg PO daily (6) DVT prophylaxis: Lovenox 40mg SQ daily Admission and Anticipated Discharge Date Admission Date: August 15, 2019 Subjective this pt has very different presentations to myself and the neurologist. According to the guards he has been more robust in the half-way system, I feel that he shuts down when I see and speak to him and maybe more forthcoming to the neurologist who is woman. I will try some maneuvers to encourage his appetite. Review of Systems Review of Systems: Mild to moderate distress and fatigue not eating and now concerned for constipation no headache, blurry or double vision pt does not want to eat,no longer coughing no chest pain, pressure or palpitations no shortness of breath, cough or wheezes no further abdominal pain, soft on exam now with complaints of constipation no dysuria, hematuria or frequency no focal joint pain or swelling no back pain, CVA tenderness or radicular pain no bruising, bleeding or rashes c/o weakness in lower extremities, no further tremor flat affect Physical Exam Physical Exam: The patient appeared well nourished and normally developed. He had flat affect and masklike faces Vital signs as documented. Head exam is normocephalic atraumatic no scleral icterus Neck is without JVD, thyromegaly, or carotid bruits. Lungs are clear to auscultation, no focal loss of breath sounds Cardiac exam, Rhythm is regular.. No murmurs, rubs or gallops. Abdominal exam reveals normal bowel sounds, soft non tender, no masses Extremities are nonedematous and both pedal pulses are normal. Neurologic exam is alert and oriented, decreased strength to le and decreased reflexes Skin is without bruises or rashes Psychologically is withextremely flat affect Results & Data Results & Data ([facility]) Vital Signs (Past 12 Hours) Vital Signs Temp Pulse Resp BP Pulse Ox 08/18/19 15:36 98.4 F 91 H 18 142/88 H 93 08/18/19 08:27 98.6 F 88 16 144/92 H 95 PG Care Time/CCT Total # of Minutes Spent Total Time Spent with Patient: Total time spent is greater than 50% in coordination of care (as documented) at patient's floor/unit and/or counseling patient: Coding Level of Care Code 21834 Subseq Hosp Care Lvl 3 Diagnoses Fever R50.9 Fever type: unspecified Weakness R53.1 HTN (hypertension) I10 Hypertension type: essential hypertension Paranoid schizophrenia F20.0 Hypothyroid E03.9 Hypothyroidism type: unspecified DVT prophylaxis Z29.9 (1) Fever Fever type: unspecified Qualified Code(s): R50.9 - Fever, unspecified (2) HTN (hypertension) Hypertension type: essential hypertension Qualified Code(s): I10 - Essential (primary) hypertension (3) Hypothyroid Hypothyroidism type: unspecified Qualified Code(s): E03.9 - Hypothyroidism, unspecified
[2019-08-18] MEDS: POLYETHYLENE (MIRALAX) 17 GM PACK PO SCH (17:08)
[2019-08-18] MEDS ORDERED: bisacodyL 10 MG SUPP PR STA (17:11)
[2019-08-18] MEDS: ONDANSETRON 4 MG OD TAB PO PRN (18:14)
[2019-08-18] MEDS: ASPIRIN 81 MG ECTAB PO SCH ×2 (20:34→20:36)
[2019-08-18] MEDS: MIRTAZAPINE SOLTAB 15 MG PO SCH ×2 (20:34→20:37)
[2019-08-18] MEDS: AMLODIPINE BESYLATE 5 MG TAB PO SCH ×2 (20:34→20:36)
[2019-08-19] MEDS: SODIUM CHLORIDE 0.9% 1000ML 1,000 ML IV SCH ×3 (04:13→20:28)
[2019-08-19 05:57] LABS: Hematocrit (blood only) 42.6 % (42-52); Mean Corpuscular Hgb Conc 32.9 g/dL (32-36); Mean Corpuscular Volume 85.2 fL (80-100); Mean Platelet Volume 12.7 fL (7.4-10.4); Platelet Count 154 K/uL (130-400); RDW Coefficient of Variation 14.4 % (11.5-14.5); White Blood Count 5.56 K/uL (4.8-10.8)
[2019-08-19 06:24] LABS: BUN Creatinine Ratio 14.6 (10-20); Calcium 8.5 mg/dl (8.5-10.1); Creatinine Clr Calc Pharmacy 86.3 ml/min; Est GFR (African American) 83.5; Est GFR (Non-African American) 72.1
[2019-08-19] MEDS: LEVOTHYROXINE SODIUM 50 MCG TABLET PO SCH (06:31)
[2019-08-19] MEDS: PANTOprazole 40 MG in SYRINGE 0 ML IV SCH ×2 (09:33→20:55)
[2019-08-19] MEDS: lisinopriL 5 MG TAB PO SCH ×2 (09:39→09:44)
[2019-08-19] MEDS: POLYETHYLENE (MIRALAX) 17 GM PACK PO SCH (09:40)
[2019-08-19] MEDS: ENOXAPARIN INJ 40 MG/0.4 ML SYR SQ SCH (09:41)
[2019-08-19] MEDS: NAPHAZOLIN/PHENIRAMIN OPH SOLN 75 DROPS/5 ML BTL OP SCH ×3 (09:41→20:54)
[2019-08-19] MEDS: ARIPiprazole 15 MG TAB PO SCH ×2 (09:42→09:44)
[2019-08-19] MEDS ORDERED: methylPREDNISolone 40 MG in SYRINGE 0 ML IV STA (13:25)
--- NOTE | 2019-08-19 13:32 | Hospitalist Progress Note ---
Date of Service August 19, 2019 Assessment & Plan (1) Fever: fever has now resolved, negative chest x-ray in the ER, negative urine analysis, negative COVID testing. Pt had LP recommended by neurology, does not have elevated wbc, does have elevated protein( not diagnostically high but certainly abnormal) see neurologies recommendation below negative lyme, two negative urine cultures, two negative blood cultures and negative LP culture including LP biofire panel and HIV initial abd/pelvis CT without suggestion of source or pathology, serial LFT and lipase had been normal also (2) Weakness: Generalized weakness reported by patient. Reportedly too weak to walk. PT evaluation does support weakness There is no other signs of parkinsonism such as cogwheeling or rigidity. Lyme serology negative, B12 folic acid are appropriate, recent TSH is normal. And sed rate although elevated is not out of alignment for generalized inflammation MRI of his lumbar spine without focal canal narrowing or foraminal narrowing t spine MRI with age indeterminate t11 comp fracture c spine mri without stenosis does have a positive hepatitis C in light of csf higher protein level, Neurology recommends->MRI c spine and brain with contrast is normal 08/16 , CSF West Nile virus and send the following labs: SSA/SSB, serum DAVDI, ESR/CRP, thiamine level (B1), copper level, vitamin E level, vitamin B6 level, heavy metal screen - if above workup unremarkable for GBS mimics or any new respiratory difficulties,neurolgoy is considering IVIG 0.4mg/kg/day over 5 days. HOwever given lack of progress I did give one dose of solumedrol 125 in the pm of 08/17, h e is improved on am of 08/18, will check am cortisol on 08/19 and then order po prednisione given lack of eating and progression to participate in his care will try one dose of steroids, marinol and restart remeron 08/18/19 dietary supplement (3) HTN (hypertension): Continue amlodipine 10mg PO HS, added lisinpril for additional control with good result (4) Paranoid schizophrenia: Continue Abilify And Remeron (5) Hypothyroid: Continue levothyroxine 50 mcg PO daily (6) DVT prophylaxis: Lovenox 40mg SQ daily Admission and Anticipated Discharge Date Admission Date: August 15, 2019 Subjective this pt previously has very different presentations to myself and the neurologist. According to the guards he has been more robust in the correction system, I feel that he shuts down when I see and speak to him. after one dose of solumedrol the pt is not speaking to me but still only has variable po intake, nursing feels his lack of eating maybe more volutional Review of Systems Review of Systems: Mild distress and fatigue in the am of 08/18 he says he pearl "try to eat" no headache, blurry or double vision pt does not want to eat,no longer coughing no chest pain, pressure or palpitations no shortness of breath, cough or wheezes no further abdominal pain, soft on exam no dysuria, hematuria or frequency no focal joint pain or swelling no back pain, CVA tenderness or radicular pain no bruising, bleeding or rashes c/o weakness in lower extremities, no further tremor flat affect Physical Exam Physical Exam: The patient appeared well nourished and normally developed. He had flat affect and masklike faces Vital signs as documented. Head exam is normocephalic atraumatic no scleral icterus Neck is without JVD, thyromegaly, or carotid bruits. Lungs are clear to auscultation, no focal loss of breath sounds Cardiac exam, Rhythm is regular.. No murmurs, rubs or gallops. Abdominal exam reveals normal bowel sounds, soft non tender, no masses Extremities are nonedematous and both pedal pulses are normal. Neurologic exam is alert and oriented, decreased strength to le and decreased reflexes Skin is without bruises or rashes Psychologically is withextremely flat affect Results & Data Results & Data ([facility]) Vital Signs (Past 12 Hours) Vital Signs Temp Pulse Resp BP Pulse Ox 08/19/19 07:54 98.1 F 82 16 150/99 H 96 PG Care Time/CCT Total # of Minutes Spent Total Time Spent with Patient: Total time spent is greater than 50% in coordination of care (as documented) at patient's floor/unit and/or counseling patient: Coding Level of Care Code 08764 Subseq Hosp Care Lvl 3 Diagnoses Fever R50.9 Fever type: unspecified Weakness R53.1 HTN (hypertension) I10 Hypertension type: essential hypertension Paranoid schizophrenia F20.0 Hypothyroid E03.9 Hypothyroidism type: unspecified DVT prophylaxis Z29.9 (1) Fever Fever type: unspecified Qualified Code(s): R50.9 - Fever, unspecified (2) HTN (hypertension) Hypertension type: essential hypertension Qualified Code(s): I10 - Essential (primary) hypertension (3) Hypothyroid Hypothyroidism type: unspecified Qualified Code(s): E03.9 - Hypothyroidism, unspecified
[2019-08-19] MEDS: ASPIRIN 81 MG ECTAB PO SCH (20:52)
[2019-08-19] MEDS: MIRTAZAPINE SOLTAB 15 MG PO SCH (20:52)
[2019-08-19] MEDS: AMLODIPINE BESYLATE 5 MG TAB PO SCH (20:52)
[2019-08-19 22:46] LABS: ANCA Screen Negative (Negative); Anti Nuclear Antibody Screen NEGATIVE (NEGATIVE); Hepatitis A Antibody IgM NON-REACTIVE (NON-REACTIVE); Hepatitis B Core Antibody IgM NON-REACTIVE (NON-REACTIVE)
[2019-08-20] MEDS: SODIUM CHLORIDE 0.9% 1000ML 1,000 ML IV SCH (04:33)
[2019-08-20] MEDS: LEVOTHYROXINE SODIUM 50 MCG TABLET PO SCH (06:39)
[2019-08-20] MEDS: POLYETHYLENE (MIRALAX) 17 GM PACK PO SCH (08:35)
[2019-08-20] MEDS: ARIPiprazole 15 MG TAB PO SCH (08:36)
[2019-08-20] MEDS: lisinopriL 5 MG TAB PO SCH (08:36)
[2019-08-20] MEDS: ENOXAPARIN INJ 40 MG/0.4 ML SYR SQ SCH (08:37)
[2019-08-20] MEDS: NAPHAZOLIN/PHENIRAMIN OPH SOLN 75 DROPS/5 ML BTL OP SCH ×3 (08:38→21:00)
[2019-08-20] MEDS ORDERED: predniSONE 20 MG TAB PO SCH (09:00)
--- NOTE | 2019-08-20 15:01 | Hospitalist Progress Note ---
Date of Service August 20, 2019 Assessment & Plan (1) Weakness: Generalized weakness reported by patient. Reportedly too weak to walk initially, and PT evaluation does support weakness. There is no signs of Parkinsonism such as cogwheeling or rigidity. Lyme serology negative, B12 & folic acid are appropriate, recent TSH is normal. MRIs of his cervical, thoracic, and lumbar spines all without acute stenosis or issues. TERRIE and ANCA were both negative. - LP on 08/15 was notable only for high protein which is non-specific. - Cryoglobulin, acetylcholine receptor anti-bodies (for myasthenia gravis), and heavy metal toxins (lead, mercury, copper, and aresnic) all pending. - Plan for neurology to perform an outpatient EMG. - Improved on 08/19 with ability to walk around the halls. (2) Fever: Single fever on admission at 100.4. Now resolved. CXR, Covid, and UA all negative. Lyme negative. Blood cultures negative. CT a/p negative for acute pathology. - Uncertain cause (3) HTN (hypertension): BP 160/95 today. - Continue amlodipine & lisinopril (4) Paranoid schizophrenia: Appears controlled today. - Continue Abilify And Remeron (5) Hypothyroid: TSH on 08/12 was 3.0. - Continue levothyroxine 50 mcg PO daily (6) DVT prophylaxis: Lovenox 40mg SQ daily Admission and Anticipated Discharge Date Admission Date: August 15, 2019 Subjective Feels fairly well today. Overall, he is stronger and feels better. Was able to walk around some. Reports no fevers/chills, chest pain, shortness of breath, abdominal pain, nausea, or vomiting. Physical Exam Constitutional: WD/WN, vitals as above Eyes: EOM intact bilaterally; no conjunctival abnormality ENMT: external ear and nose normal, oropharynx normal Neck: trachea midline, no thyromegaly normal visual inspection Respiratory: normal respiratory effort, lungs clear to auscultation no respiratory distress Cardiovascular: RRR, no murmur, no edema Gastrointestinal (Abdomen): Inspection/Auscultation: abdomen normal to inspection; abdomen not distended Musculoskeletal: no cyanosis or clubbing, extremities motor strength 5/5 Skin: no rashes, warm and dry Neurologic: moves all extremities and awake Psychiatric: Orientation: alert, oriented to person and cooperative Results & Data Results & Data ([facility]) Vital Signs (Past 12 Hours) Vital Signs Temp Pulse Resp BP Pulse Ox 08/20/19 07:51 36.8 C 95 H 18 158/95 H 95 PG Care Time/CCT Total # of Minutes Spent Total Time Spent with Patient: Total time spent is greater than 50% in coordination of care (as documented) at patient's floor/unit and/or counseling patient: Coding Level of Care Code 42373 Subseq Hosp Care Lvl 2 Diagnoses Weakness R53.1 Fever R50.9 Fever type: unspecified HTN (hypertension) I10 Hypertension type: essential hypertension Paranoid schizophrenia F20.0 Hypothyroid E03.9 Hypothyroidism type: unspecified DVT prophylaxis Z29.9 (1) Fever Fever type: unspecified Qualified Code(s): R50.9 - Fever, unspecified (2) HTN (hypertension) Hypertension type: essential hypertension Qualified Code(s): I10 - Essential (primary) hypertension (3) Hypothyroid Hypothyroidism type: unspecified Qualified Code(s): E03.9 - Hypothyroidism, unspecified
[2019-08-20] MEDS: AMLODIPINE BESYLATE 5 MG TAB PO SCH (20:58)
[2019-08-20] MEDS: ASPIRIN 81 MG ECTAB PO SCH (20:58)
[2019-08-20] MEDS: MIRTAZAPINE SOLTAB 15 MG PO SCH (21:00)
[2019-08-21] MEDS: HydrALAZINE HCL 20 MG/ML VIAL IV PRN ×2 (02:05→07:43)
[2019-08-21] MEDS: lisinopriL 5 MG TAB PO SCH (03:30)
[2019-08-21] MEDS: LEVOTHYROXINE SODIUM 50 MCG TABLET PO SCH (05:51)
[2019-08-21] MEDS: ARIPiprazole 15 MG TAB PO SCH (08:19)
[2019-08-21] MEDS: POLYETHYLENE (MIRALAX) 17 GM PACK PO SCH (08:19)
[2019-08-21] MEDS: ENOXAPARIN INJ 40 MG/0.4 ML SYR SQ SCH (08:19)
[2019-08-21] MEDS: NAPHAZOLIN/PHENIRAMIN OPH SOLN 75 DROPS/5 ML BTL OP SCH (08:20)
[2019-08-21] MEDS: ONDANSETRON 4 MG OD TAB PO PRN ×2 (10:15→13:40)
[2019-08-21] MEDS ORDERED: LORazepam 0.5 MG/1 ML VIAL IV PRN (14:43)
[2019-08-21 14:44] LABS: % Cryocrit DNR; Cryoglobulin, QL Negative (Negative)
--- NOTE | 2019-08-21 14:49 | Hospitalist Progress Note ---
Date of Service August 21, 2019 Assessment & Plan (1) Nausea & vomiting: Ongoing issue for him. EGD in 04/2018 only showed esophagitis. - On 08/20, he indicates that he feels like "he is going to swallow his tongue." and is dry heaving. - Will get gastric emptying study tomorrow as he reports sensation post- prandial. (2) Weakness: Generalized weakness reported by patient. Reportedly too weak to walk initially, and PT evaluation does support weakness. There is no signs of Parkinsonism such as cogwheeling or rigidity. Lyme serology negative, B12 & folic acid are appropriate, recent TSH is normal. MRIs of his cervical, thoracic, and lumbar spines all without acute stenosis or issues. TERRIE and ANCA were both negative. - LP on 08/15 was notable only for high protein which is non-specific. - Cryoglobulin, acetylcholine receptor anti-bodies (for myasthenia gravis), and heavy metal toxins (lead, mercury, copper, and aresnic) all pending. - Plan for neurology to perform an outpatient EMG. - Improved on 08/19 with ability to walk around the halls. Still able to walk on 08/20. (3) Fever: Single fever on admission at 100.4. Now resolved. CXR, Covid, and UA all negative. Lyme negative. Blood cultures negative. CT a/p negative for acute pathology. - Uncertain cause (4) HTN (hypertension): BP 160/95 today. - Continue amlodipine & lisinopril (5) Paranoid schizophrenia: Appears controlled today. - Continue Abilify And Remeron (6) Hypothyroid: TSH on 08/12 was 3.0. - Continue levothyroxine 50 mcg PO daily (7) Hepatitis C: HCV Ab was positive, but no RNA detected. Unclear whether he was treated or cleared on his own. - No inpatient needs (8) DVT prophylaxis: Lovenox 40mg SQ daily Admission and Anticipated Discharge Date Admission Date: August 15, 2019 Subjective Visited twice today; first in the morning. Was doing well in the morning. Had a mild amount of emesis after breakfast, but nothing major and was able to tolerate most of his food. Around 2:30pm was contacted that the patient felt he was going to "swallow his tongue." Returned to see the patient who has a new tremor on the left and is having dry heaving with mild, mucusy emesis. Denies abdominal pain and even kind of denies nausea, just repeating "I think I'm going to swallow my tongue. Has volitional movement of the tongue however and able to open his mouth and stick the tongue out. Physical Exam Constitutional: WD/WN, vitals as above Eyes: EOM intact bilaterally; no conjunctival abnormality ENMT: external ear and nose normal, oropharynx normal Neck: trachea midline, no thyromegaly normal visual inspection Respiratory: normal respiratory effort, lungs clear to auscultation no respiratory distress Cardiovascular: RRR, no murmur, no edema Gastrointestinal (Abdomen): Inspection/Auscultation: abdomen normal to inspection; abdomen not distended Musculoskeletal: no cyanosis or clubbing, extremities motor strength 5/5 Skin: no rashes, warm and dry Neurologic: moves all extremities and awake Psychiatric: Orientation: alert, oriented to person and cooperative Results & Data Results & Data ([facility]) Vital Signs (Past 12 Hours) Vital Signs Temp Pulse Pulse Pulse Resp BP BP 08/21/19 14:01 120 H 18 136/98 08/21/19 13:51 37.7 C H 142 H 20 132/95 08/21/19 08:37 112 H 08/21/19 08:20 118 H 136/88 08/21/19 07:52 36.6 C 107 H 18 156/106 H 08/21/19 05:52 103 H 14 140/92 08/21/19 04:31 105 H 148/94 H 08/21/19 03:08 181/125 H 168/134 H Pulse Ox 08/21/19 14:01 96 08/21/19 13:51 08/21/19 08:37 08/21/19 08:20 08/21/19 07:52 97 08/21/19 05:52 08/21/19 04:31 95 08/21/19 03:08 PG Care Time/CCT Total # of Minutes Spent Total Time Spent with Patient: Total time spent is greater than 50% in coordination of care (as documented) at patient's floor/unit and/or counseling patient: Coding Level of Care Code 44595 Subseq Hosp Care Lvl 3 Diagnoses Nausea & vomiting R11.2 Weakness R53.1 Fever R50.9 Fever type: unspecified HTN (hypertension) I10 Hypertension type: essential hypertension Paranoid schizophrenia F20.0 Hypothyroid E03.9 Hypothyroidism type: unspecified Hepatitis C B19.20 DVT prophylaxis Z29.9 (1) Fever Fever type: unspecified Qualified Code(s): R50.9 - Fever, unspecified (2) HTN (hypertension) Hypertension type: essential hypertension Qualified Code(s): I10 - Essential (primary) hypertension (3) Hypothyroid Hypothyroidism type: unspecified Qualified Code(s): E03.9 - Hypothyroidism, unspecified
--- NOTE | 2019-08-21 15:00 | Billing Data ---
Date of Service August 21, 2019 Coding Level of Care Code 26857 Prolonged Care (int'l) Comment In room with patient from 9:00am to 9:15am and 2:30pm to 2:50pm.
--- NOTE | 2019-08-21 17:20 | Electrocardiogram Report ---
Test Reason : Blood Pressure : / mmHG Vent. Rate : 106 BPM Atrial Rate : 106 BPM P-R Int : 142 ms QRS Dur : 080 ms QT Int : 396 ms P-R-T Axes : 027 041 016 degrees QTc Int : 526 ms Sinus tachycardia Prolonged QT Nonspecific T wave abnormality Abnormal ECG When compared with ECG of 12-AUG-2019 13:31, QT has lengthened Confirmed by Yazan Duran ([id number]) on 08/21/2019 5:20:05 PM Referred By: [facility] Confirmed By:Yazan Duran
[2019-08-21] MEDS ORDERED: NORMOSOL-R 500 ML IV ONE (18:30)
--- NOTE | 2019-08-21 18:40 | XRay Report ---
XR chest 1V portable HISTORY: Tachycardia, hypoxemia COMPARISON: Chest 08/15/2019. FINDINGS: No pneumothorax. No pleural effusions. The heart remains mildly enlarged. There is mild desi tral pulmonary vascular congestion without overt edema. No new focal lung consolidations to suggest p neumonia. A patient is slightly rotated on this study. IMPRESSION: Mild central pulmonary vascular congestion without overt edema. ACT 112: Negative or not required by law. Electronically signed by: Bhavin Billings M.D. 08/21/2019 6:39 PM
[2019-08-21 19:29] LABS: Base Excess VBG 5.1 mEq/L; pH VBG 7.46 (7.36-7.41)
[2019-08-21 19:49] LABS: BUN Creatinine Ratio 9.4 (10-20); Creatinine Clr Calc Pharmacy 59.3 ml/min; Est GFR (African American) 53.1; Est GFR (Non-African American) 45.8; Potassium 2.8 mmol/L (3.5-5.1)
[2019-08-21 19:53] LABS: Troponin I 0.04 ng/ml (0-0.045)
[2019-08-21] MEDS ORDERED: METOPROLOL TARTRATE 1 MG/ML VIAL IV STA (19:55)
[2019-08-21] MEDS: POTASSIUM CHLORIDE 40 MEQ in SODIUM CHLORIDE 0.9% 1000ML 1,000 ML IV SCH (21:41)
[2019-08-21] MEDS: AMLODIPINE BESYLATE 5 MG TAB PO SCH (21:42)
[2019-08-21] MEDS: POTASSIUM CHLORIDE 20 MEQ TABCR PO SCH (21:42)
[2019-08-21] MEDS: MIRTAZAPINE SOLTAB 15 MG PO SCH (21:42)
[2019-08-21] MEDS: ASPIRIN 81 MG ECTAB PO SCH (21:42)
[2019-08-21 23:25] LABS: Lyme DNA PCR CSF or Synovial Not detected (Not Detected); Lyme DNA Source CSF; Lyme IgG Band Pattern CSF DNR; Lyme IgG CSF NO BANDS DETECTED; Lyme IgM Band Pattern CSF DNR; Lyme IgM CSF NO BANDS DETECTED; VDRL Qualitative CSF Nonreactive (Nonreactive)
[2019-08-22] MEDS: HydrALAZINE HCL 20 MG/ML VIAL IV PRN (00:11)
[2019-08-22 01:50] LABS: Appearance Urine Clear (Clear); Bacteria Urine Automated Negative (Negative); Bilirubin Urine Negative (Negative); Blood Urine Negative (Negative); Color Urine Yellow; Glucose Urine UA Negative (Negative); Ketones Urine 1+ (Negative); Leukocyte Esterase Urine Negative (Negative); Nitrite Urine Negative (Negative); Protein Urine Trace (Negative); RBC Urine Automated 0-4 /hpf (0-4); Specific Gravity Urine 1.019 (1.000-1.030); Urobilinogen Urine Negative (Negative); pH Urine 6.5 (4.5-7.5)
[2019-08-22] MEDS: LEVOTHYROXINE SODIUM 50 MCG TABLET PO SCH (07:19)
[2019-08-22 07:42] LABS: Mean Corpuscular Hgb Conc 33.8 g/dL (32-36)
[2019-08-22] MEDS: POTASSIUM CHLORIDE 40 MEQ in SODIUM CHLORIDE 0.9% 1000ML 1,000 ML IV SCH (07:43)
[2019-08-22 07:53] LABS: Hematocrit (blood only) 40.5 % (42-52); Hemoglobin 13.7 g/dL (14.0-18.0); Mean Corpuscular Hemoglobin 28.1 pg (25-34); Mean Corpuscular Volume 83.2 fL (80-100); RDW Coefficient of Variation 14.3 % (11.5-14.5); RDW Standard Deviation 43.7 fL (36.4-46.3); Red Blood Count 4.87 M/uL (4.7-6.1); White Blood Count 5.21 K/uL (4.8-10.8)
[2019-08-22 08:07] LABS: Mean Platelet Volume 13.3 fL (7.4-10.4); Platelet Count 137 K/uL (130-400); Platelet Estimate Decreased (Normal)
[2019-08-22 08:21] LABS: Albumin Level 2.9 gm/dl (3.4-5.0); BUN Creatinine Ratio 11.3 (10-20); Calcium 8.6 mg/dl (8.5-10.1); Creatinine Clr Calc Pharmacy 79.1 ml/min; Est GFR (Non-African American) 65.5; Magnesium 1.9 mg/dl (1.8-2.4); Potassium 3.2 mmol/L (3.5-5.1)
[2019-08-22 08:24] LABS: Albumin Globulin Ratio 0.8 (0.9-2); Globulin 3.8 gm/dl (2.5-4.0); Phosphorus 2.5 mg/dl (2.5-4.9); Total Protein 6.7 gm/dl (6.4-8.2)
--- NOTE | 2019-08-22 09:39 | Gastrointestinal Consultation ---
Date of Consultation August 22, 2019 Assessment & Plan (1) Dysphagia: Pt is a 59 y/o inmate seen for emesis, dysphagia or odynophagia. He does report dysphagia symptoms but no n/v, or painful swallowing. He had hx of LA Grade A reflux esophagitis seen on previous EGD which was done for dysphagia last year. Dsyphagia resolved w PPI therapy. Symptoms similar this time per his report. - Restart Protonix 40mg BID x 4 weeks for suspected dysphagia then conitnue once daily - Avoid NSAIDs - GERD precautions - Obtain KUB to r/o any obstructive pathology - F/U GES results - If symptoms not improved in next few days can consider Video swallow study to r/o dysmotility. Defer EGD at this time - GI will sign off; pls recall prn Supervising Physician Co-Signing Physician Notes [place] seen and examined the patient with HEAVEN Meyer whose note reflects our findings and plan. History of Present Illness Reason for Consultation: Emesis, dysphagia, odynophagia Requesting Physician: Dr. Andrew Valenzuela Attending Physician: Dr. Mariam Shi History of Present Illness Pt is a 59 y/o male inmate seen for ongoing emesis, dysphagia and odynophagia. Pt currently in middle of having gastric emptying study. He reports that he is not having nausea however feels that whenever he eats, he would cough up/regurgitate foods as they get stuck on mid throat. Denies painful swallowing. He denies abd pain. Last BM 3-4 days ago. He said symptoms are similar to last year which he ended up getting EGD for. EGD 04/[address] Flanagan showed LA grade A reflux esophagitis. He was placed on PPI BID afterwards and reports his symptoms were gone within 2 weeks. He is currently not on antiacids. Allergies Allergy/AdvReac Type Severity Reaction Status Date / Time No Known Allergies Allergy Verified 08/12/19 15:05 Home Medications Home Medications Medication Instructions Recorded Confirmed Type amlodipine [Norvasc] 10 mg PO HS 05/08/18 08/12/19 History aspirin 81 mg PO HS 05/08/18 08/12/19 History atorvastatin [Lipitor] 40 mg PO HS 05/08/18 08/12/19 History levothyroxine [Synthroid] 50 mcg PO QAM 05/08/18 08/12/19 History aripiprazole [Abilify] 15 mg PO QAM 07/28/19 08/12/19 History mirtazapine [Remeron] 15 mg PO HS 07/28/19 08/12/19 History Patient History Medical History Dysphagia Hepatitis C HTN (hypertension) (Chronic) Hypomagnesemia (Inactive) Pancytopenia Paranoid schizophrenia (Chronic) UTI (urinary tract infection) Surgical History History of shoulder surgery Family History Other Family history non-contributory Social History Preferred Language: Irish Communication Ability: Effective Food Stylist Required: No Current Living Situation: Other Current Living Situation Comment: inmate at [facility] Feels Safe at Home: Yes Smoking Status: Former smoker Second Hand Exposure: No ; Hx Alcohol Use: No Hx Substance Use: No Review of Systems Review of Systems: All systems reviewed & are unremarkable except as noted in HPI & below Physical Exam Constitutional: WD/WN, vitals as above well groomed, cooperative and comfortable Eyes: PERRL, conjunctivae normal, anicteric sclerae ENMT: external ear and nose normal, oropharynx normal Respiratory: normal respiratory effort, lungs clear to auscultation Cardiovascular: RRR, no murmur, no edema Gastrointestinal (Abdomen): normal bowel sounds, soft, nontender, no hepatosplenomegaly Skin: no rashes, warm and dry no jaundice Psychiatric: A+Ox3, euthymic affect Lymphatic: no lymphedema Results & Data ([facility]) Vital Signs (Past 12 Hours) Vital Signs Temp Pulse Pulse Pulse Resp BP Pulse Ox 08/22/19 06:58 36.9 C 93 H 19 132/89 94 08/22/19 04:07 36.8 C 85 18 124/84 95 08/22/19 01:44 90 08/22/19 00:51 36.8 C 97 H 18 114/77 94 08/21/19 23:00 37.1 C 98 H 20 155/106 H 96 (1) Dysphagia Dysphagia type: unspecified Qualified Code(s): R13.10 - Dysphagia, unspecified
[2019-08-22 10:09] LABS: Angiotensin Converting Enzyme 6 U/L (9-67); Arsenic Blood <3 mcg/L (<23); Copper, Serum 123 mcg/dL (70-175); Lead Blood 2 mcg/dL (<5); Mercury, blood <4 mcg/L (<=10); Vitamin E Beta-Gam Tocopherol <1.0 mg/L (<=4.3)
--- NOTE | 2019-08-22 12:51 | Nuclear Medicine Report ---
Nuclear gastric emptying study: CLINICAL HISTORY: Post-prandial nausea/emesis COMPARISON STUDY: CT of the abdomen and pelvis June 12, 2019. TECHNIQUE: Following the oral administration of 1.038 mCi of technetium 99m sulfur colloid in egg rodarte dwich and 8 ounces of water, static abdominal images were obtained anteriorly and posteriorly at 0 mi nutes, 1 hour, 2 hour, and 4 hour time intervals. Gastric emptying was calculated utilizing the geome tric mean method. FINDINGS: There is approximately 47% gastric activity remaining at the 1 hour time interval (normal i s less than 90%), 15% at the 2 hour time interval (normal is less than 60%), and 0% remaining at the 4 hour time interval (normal is less than 10%). IMPRESSION: No evidence of delayed gastric emptying. ACT 112: Negative or not required by law. Electronically signed by: Jovanni Hand M.D. 08/22/2019 12:49 PM
--- NOTE | 2019-08-22 12:55 | Hospitalist Progress Note ---
Date of Service August 22, 2019 Assessment & Plan (1) Nausea & vomiting: Ongoing issue for him. EGD in 04/2018 only showed esophagitis. - On 08/20, he indicates that he feels like "he is going to swallow his tongue." and is dry heaving. - Gastric emptying study today with report pending. 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 Seen by GI with plan for PPI BID and possible video swallow in a few days if there's no improvement. (2) Weakness: Generalized weakness reported by patient. Reportedly too weak to walk initially, and PT evaluation does support weakness. There is no signs of Parkinsonism such as cogwheeling or rigidity. Lyme serology negative, B12 & folic acid are appropriate, recent TSH is normal. MRIs of his cervical, thoracic, and lumbar spines all without acute stenosis or issues. TERRIE and ANCA were both negative. - LP on 08/15 was notable only for high protein which is non-specific. - Cryoglobulin, acetylcholine receptor anti-bodies (for myasthenia gravis), and heavy metal toxins (lead, mercury, copper, and aresnic) all pending. - Plan for neurology to perform an outpatient EMG. - Improved on 08/19 with ability to walk around the halls. Still able to walk on 08/20. (3) Fever: Single fever on admission at 100.4. Now resolved. CXR, Covid, and UA all negative. Lyme negative. Blood cultures negative. CT a/p negative for acute pathology. - Uncertain cause -> Still resolved as of 08/21. (4) HTN (hypertension): BP 120/85 today. - Continue amlodipine & lisinopril (5) Paranoid schizophrenia: Appears controlled today. - Continue Abilify And Remeron (6) Hypothyroid: TSH on 08/12 was 3.0. - Continue levothyroxine 50 mcg PO daily (7) Hepatitis C: HCV Ab was positive, but no RNA detected. Unclear whether he was treated or cleared on his own. - No inpatient needs (8) DVT prophylaxis: Lovenox 40mg SQ daily Admission and Anticipated Discharge Date Admission Date: August 15, 2019 Subjective Less complaints of nausea today. No emesis. Has been getting his emptying studying for most of the morning. Reports no fevers/chills, chest pain, shortness of breath, abdominal pain, nausea, or vomiting. Physical Exam Constitutional: WD/WN, vitals as above Eyes: EOM intact bilaterally; no conjunctival abnormality ENMT: external ear and nose normal, oropharynx normal Neck: trachea midline, no thyromegaly normal visual inspection Respiratory: normal respiratory effort, lungs clear to auscultation no respiratory distress Cardiovascular: RRR, no murmur, no edema Gastrointestinal (Abdomen): Inspection/Auscultation: abdomen normal to inspection; abdomen not distended Musculoskeletal: no cyanosis or clubbing, extremities motor strength 5/5 Skin: no rashes, warm and dry Neurologic: moves all extremities and awake Psychiatric: Orientation: alert, oriented to person and cooperative Results & Data Results & Data ([facility]) Vital Signs (Past 12 Hours) Vital Signs Temp Pulse Pulse Resp BP Pulse Ox 08/22/19 11:20 37.0 C 98 H 20 118/85 94 08/22/19 06:58 36.9 C 93 H 19 132/89 94 08/22/19 04:07 36.8 C 85 18 124/84 95 08/22/19 01:44 90 PG Care Time/CCT Total # of Minutes Spent Total Time Spent with Patient: Total time spent is greater than 50% in coordination of care (as documented) at patient's floor/unit and/or counseling patient: Coding Level of Care Code 77447 Subseq Hosp Care Lvl 2 Diagnoses Nausea & vomiting R11.2 Weakness R53.1 Fever R50.9 Fever type: unspecified HTN (hypertension) I10 Hypertension type: essential hypertension Paranoid schizophrenia F20.0 Hypothyroid E03.9 Hypothyroidism type: unspecified Hepatitis C B19.20 DVT prophylaxis Z29.9 (1) Fever Fever type: unspecified Qualified Code(s): R50.9 - Fever, unspecified (2) HTN (hypertension) Hypertension type: essential hypertension Qualified Code(s): I10 - Essential (primary) hypertension (3) Hypothyroid Hypothyroidism type: unspecified Qualified Code(s): E03.9 - Hypothyroidism, unspecified
[2019-08-22] MEDS: ENOXAPARIN INJ 40 MG/0.4 ML SYR SQ SCH (13:11)
[2019-08-22] MEDS: ARIPiprazole 15 MG TAB PO SCH (13:12)
[2019-08-22] MEDS: lisinopriL 5 MG TAB PO SCH (13:12)
[2019-08-22] MEDS: POTASSIUM CHLORIDE 20 MEQ TABCR PO SCH ×2 (13:12→21:58)
[2019-08-22] MEDS: POLYETHYLENE (MIRALAX) 17 GM PACK PO SCH (13:13)
--- NOTE | 2019-08-22 14:18 | XRay Report ---
KUB HISTORY: Generalized abdominal pain. r/o constipation/ileus COMPARISON: Chest and abdominal series 08/15/2019. FINDINGS: Moderate well-formed stool seen throughout the colon. No dilated loops of bowel to suggest an obstruction. No renal calculi. No ureteral calculi. No pneumoperitoneum or pneumatosis. IMPRESSION: 1. No evidence for bowel obstruction. 2. Moderate well-formed stool seen throughout the colon. ACT 112: Negative or not required by law. Electronically signed by: Bhavin Billings M.D. 08/22/2019 2:17 PM
[2019-08-22] MEDS: PANTOprazole 40 MG TAB PO SCH (21:39)
[2019-08-22] MEDS ORDERED: BENZTROPINE MESYLATE 1 MG/ML 2 ML AMP IM STA (21:53)
[2019-08-22] MEDS: ASPIRIN 81 MG ECTAB PO SCH (21:57)
[2019-08-22] MEDS: MIRTAZAPINE SOLTAB 15 MG PO SCH (21:58)
[2019-08-22] MEDS: AMLODIPINE BESYLATE 5 MG TAB PO SCH (21:58)
--- NOTE | 2019-08-23 05:48 | Electrocardiogram Report ---
Test Reason : Blood Pressure : / mmHG Vent. Rate : 091 BPM Atrial Rate : 091 BPM P-R Int : 144 ms QRS Dur : 082 ms QT Int : 378 ms P-R-T Axes : 063 043 010 degrees QTc Int : 464 ms Normal sinus rhythm Normal ECG When compared with ECG of 21-AUG-2019 11:42, QT has shortened Confirmed by Yazan Duran ([id number]) on 08/23/2019 5:48:36 AM Referred By: [facility] Confirmed By:Yazan Duran
[2019-08-23] MEDS: LEVOTHYROXINE SODIUM 50 MCG TABLET PO SCH (05:57)
[2019-08-23] MEDS: PANTOprazole 40 MG TAB PO SCH (08:19)
[2019-08-23] MEDS: POTASSIUM CHLORIDE 20 MEQ TABCR PO SCH (08:20)
[2019-08-23] MEDS: lisinopriL 5 MG TAB PO SCH (08:20)
[2019-08-23] MEDS: ARIPiprazole 15 MG TAB PO SCH (08:20)
[2019-08-23] MEDS: ENOXAPARIN INJ 40 MG/0.4 ML SYR SQ SCH (08:21)
[2019-08-23 08:27] LABS: BUN Creatinine Ratio 12.9 (10-20); Calcium 8.8 mg/dl (8.5-10.1); Creatinine Clr Calc Pharmacy 82.2 ml/min; Est GFR (African American) 79.2; Est GFR (Non-African American) 68.3; Magnesium 1.9 mg/dl (1.8-2.4); Phosphorus 2.3 mg/dl (2.5-4.9); Potassium 3.4 mmol/L (3.5-5.1)
[2019-08-23] MEDS: POLYETHYLENE (MIRALAX) 17 GM PACK PO SCH (08:32)
--- NOTE | 2019-08-23 16:15 | Discharge Summary ---
Date of Service August 23, 2019 Admission HPI Per Admitting Provider Osmani Thompson is a 59 year old male who present to the ER from [facility] due to movement disorder. Patient denies any problems moving at this time but does note am action tremor especially on his right side which he thinks has been present for around 9 months and he relates to his antipsychotics. As per written note provided with patient: unable to ambulate, poor historian, hand tremors, schizophrenia history, denies pain, poor speech is baseline. As discussed with [facility] Plaza at [facility] the patient was just about to end a 14 day quarantine after recent ER visit for hypernatremia, nausea and vomiting. Doctor asked the patient to come to the door and he said he couldn't move. He said he wasn't able to move for the last 3 days but was noted by nursing he was getting up and walking around without assistance the day before to get his medications. He was noticed to have decorticate posturing with rigidity at the mcc. He had all his usual medications this morning. She reports the tremors are new for him. He was discharged from the ER on July 27 for hypernatremia, nausea and vomiting. At [facility] apparently the nausea and vomiting resolved and believe is occurred due to him not receiving his PPI after esophagitis diagnosed in April for the same intractable nausea and vomiting. The patient is currently in the ER have vomiting of a lot of mucus despite ondansetron use. He is generally a difficult historian as he gets timelines confused as per previously notes. Principal Diagnosis Weakness -> Possible myasthenia gravis vs. other cause Trouble swallowing thought to be related to his antipsychotic Discharge Exam Constitutional WD/WN, vitals as above Eyes EOM intact bilaterally; no conjunctival abnormality ENMT external ear and nose normal, oropharynx normal Neck trachea midline, no thyromegaly normal visual inspection Respiratory normal respiratory effort, lungs clear to auscultation no respiratory distress Cardiovascular RRR, no murmur, no edema Gastrointestinal (Abdomen) Inspection/Auscultation: abdomen normal to inspection; abdomen not distended Musculoskeletal no cyanosis or clubbing, extremities motor strength 5/5 Skin no rashes, warm and dry Neurologic moves all extremities and awake Psychiatric Orientation: alert, oriented to person and cooperative Discharge Data Allergies Allergy/AdvReac Type Severity Reaction Status Date / Time No Known Allergies Allergy Verified 08/12/19 15:05 Consultations 05/31/20 14:25 ED Decision to Admit Stat 08/12/19 17:58 Consult Psychiatry Routine 08/14/19 12:12 Consult Neurology Routine 08/21/19 20:28 Consult Gastroenterology Routine Ordered Studies 08/12/19 13:19 CT abd pelvis IV con only Stat 08/13/19 16:30 MR lumbar spine wo con Routine 08/16/19 08:04 FL lumbar puncture diagnostic Routine 08/17/19 00:05 MR brain wo/w con Routine MR cervical spine wo con Routine 08/17/19 16:22 MR thoracic spine wo/w con Routine Hospital Course (1) Nausea & vomiting: Ongoing issue for him. EGD in 04/2018 only showed esophagitis. - Gastric emptying study on 08/21 was normal without any evidence of delayed transit from the stomach. - Seen by speech pathology who feel his tongue movements are slow and mildly limited, but overall chewing and swallowing well. However, he did subjectively tell the ROAD MENDER that he couldn't eat food which she then encouraged him to try and he did. We started him on a pureed diet which seemed to get less stuck in his mouth and allowed him to eat and drink more easily and with more confidence. - Also seen by GI who encourage a repeat trial of PPI PO BID for 4 weeks in case esophagitis or gastritis is playing a role. (2) Weakness: Generalized weakness reported by patient. Reportedly too weak to walk initially, and PT evaluation does support weakness. There is no signs of Parkinsonism such as cogwheeling or rigidity. Lyme serology negative, B12 & folic acid are appropriate, recent TSH is normal. MRIs of his cervical, thoracic, and lumbar spines all without acute stenosis or issues. TERRIE and ANCA were both negative. - LP on 08/15 was notable only for high protein which is non-specific. - Cryoglobulin, acetylcholine receptor anti-bodies (for myasthenia gravis), and heavy metal toxins (lead, mercury, copper, and aresnic) all pending. - Improved on 08/19 with ability to walk around the halls. Still able to walk on 08/22. - Plan for neurology to perform an outpatient EMG. (3) Fever: Single fever on admission at 100.4. Now resolved. CXR, Covid, and UA all negative. Lyme negative. Blood cultures negative. CT a/p negative for acute pathology. - Uncertain cause -> Still resolved as of 08/22. (4) HTN (hypertension): BP 120/85 today. - Continue amlodipine & lisinopril (5) Paranoid schizophrenia: Appears controlled today. - Continue Abilify And Remeron (6) Hypothyroid: TSH on 08/12 was 3.0. - Continue levothyroxine 50 mcg PO daily (7) Hepatitis C: HCV Ab was positive, but no RNA detected. Unclear whether he was treated or cleared on his own. - No inpatient needs (8) DVT prophylaxis: Lovenox 40mg SQ daily Total Time Total Time Spent Total Time Spent (In Minutes): 35 Discharge Plan Discharge Items [facility] Reason For Visit: FEVER, UNABLE TO AMBULATE Discharge Diagnosis: Weakness; nausea and vomiting Activity: Resume your previous activity Non-emergency contact: Primary Care Provider and Neurologist Call non-emergency contact if: your symptoms worsen Follow-up/Referrals: Christine Obrien MD [Physician] - 09/11/19 1:15 pm (Please, follow up at [facility] Neurology Office with Dr. Christine Obrien on TuesdaySeptember 10 at 1:15 pm. *This appointment will be for an electromyography (EMG). This is a diagnostic pr ocedure to assess the health of muscles and the nerve cells that control them. The office is located at [address] [place] [address] in [place]. If this appointment needs to be changed, the office phone number is [phone]. ) [facility] [Primary Care Provider] - Diet: Heart Healthy Diet Texture: Pureed (blended smooth) Addtl Attending Provider Instructions: Mr. Thompson was admitted to the hospital with weakness. The source of weakness was not entirely clear, but improved during admission. Testing for myasthenia gravis is outstanding, and the neurology team would like Mr. Thompson to get an EMG to better elucidate potential causes. He also had nausea and vomiting in the hospital. GI was consulted and recommended a twice-a-day PPI for him for at least 4 weeks, then daily after that. We had our speech team see him, and he was able to chew and swallow effectively without aspiration. He did have slow tongue movements (possibly due to his anti- psychotic medication) and a subjective sensation of not being able to swallow; however, with coaching, he was able to eat and drink without any issues. For the next few days, it is probably a good idea to do a pured diet, then can probably advance to a mechanical soft. Medications may need to be crushed and put in a carrier such as applesauce or pudding for ease of taking. Anything that can be a dissolvable tablet or chewable might be a good idea as well. Finally, a BMP should be check in about a week to be sure his potassium is remaining stable. It was low-normal here, and he needed a day or two of repletion to be sure it was ok. Pending Studies at Discharge: Yes Studies:: Myasthenia gravis labs; EMG scheduled, but not done yet. Stand-Alone Forms: [facility] Skilled Items Patient informed of condition?: Yes Discharge Level of Care: Other Communicable Disease: No Discharge Prognosis: Stable Lines: None Urinary Catheter: No Medications and DC Order Prescriptions: New pantoprazole 40 mg Tablet,Delayed Release (Dr/Ec) 40 mg PO BID Qty: 1 RF: 0 lisinopril [Zestril] 5 mg Tablet 5 mg PO QAM Qty: 1 RF: 0 Continued atorvastatin [Lipitor] 40 mg Tablet 40 mg PO HS RF: 0 aspirin 81 mg Tablet,Delayed Release (Dr/Ec) 81 mg PO HS RF: 0 amlodipine [Norvasc] 10 mg Tablet 10 mg PO HS RF: 0 levothyroxine [Synthroid] 50 mcg Tablet 50 mcg PO QAM RF: 0 mirtazapine [Remeron] 15 mg Tablet 15 mg PO HS RF: 0 aripiprazole [Abilify] 15 mg Tablet 15 mg PO QAM RF: 0 Discharge Orders: Discharge Order (Routine); Ordered 08/23/19 Ordered By: Andrew Valenzuela Admission Data Admit Date/Time: 08/15/19 13:44 Attending Provider: Andrew Valenzuela Admit Provider: Hubert Tena Primary Care Provider: Artur FLANAGAN Other Providers: Andrew Valenzuela ; Hubert Tena ; Mela Fernandez ; Christine Obrien ; Lucy Flanagan Other Interventions: Discharge Summary Assessment (RN) Last Done: 08/23/19 12:54 DC Date/Time DO NOT enter until pt leaves facility: 08/23/19 15:14 Coding Level of Care Code D/C Day Management >30 mins Diagnoses Nausea & vomiting R11.2 Weakness R53.1 Fever R50.9 Fever type: unspecified HTN (hypertension) I10 Hypertension type: essential hypertension Paranoid schizophrenia F20.0 Hypothyroid E03.9 Hypothyroidism type: unspecified Hepatitis C B19.20 DVT prophylaxis Z29.9
--- NOTE | 2019-08-23 23:08 | Electrocardiogram Report ---
Test Reason : Blood Pressure : / mmHG Vent. Rate : 103 BPM Atrial Rate : 103 BPM P-R Int : 142 ms QRS Dur : 080 ms QT Int : 412 ms P-R-T Axes : 037 068 001 degrees QTc Int : 539 ms Sinus tachycardia with occasional Premature ventricular complexes Nonspecific T wave abnormality Prolonged QT Abnormal ECG When compared with ECG of 22-AUG-2019 07:43, Premature ventricular complexes are now Present QT has lengthened Confirmed by Yazan Duran ([id number]) on 08/23/2019 11:08:10 PM Referred By: [facility] Confirmed By:Yazan Duran
[2019-09-05 20:22] LABS: Acetylcholine Recep Modulating 20; Acetylcholine Recept Blocking <15 (<15); Receptor Binding Ab <0.30 nmol/L
== END 2019-08-23 15:14 | DRG 948 ==
LOC: 2N 13:05 → ED 13:05 → SUATTDRO 16:54 → 2N 17:30 → SUATTDRO 08-15 13:44 → 3E 08-17 05:42 → 2W 08-21 15:48

== ENCOUNTER 2019-08-27 00:01 | Observation (INO) ==
[2019-08-27 01:09] LABS: Mean Corpuscular Hgb Conc 32.6 g/dL (32-36)
[2019-08-27 01:22] LABS: Albumin Level 3.3 gm/dl (3.4-5.0); Calcium 8.4 mg/dl (8.5-10.1); Creatinine Clr Calc Pharmacy 78.5 ml/min; Est GFR (Non-African American) 65.5; Magnesium 1.8 mg/dl (1.8-2.4)
[2019-08-27 01:27] LABS: Hematocrit (blood only) 43.8 % (42-52); Hemoglobin 14.3 g/dL (14.0-18.0); Mean Corpuscular Hemoglobin 27.5 pg (25-34); Mean Corpuscular Volume 84.2 fL (80-100); RDW Coefficient of Variation 14.3 % (11.5-14.5); RDW Standard Deviation 44.5 fL (36.4-46.3); White Blood Count 5.79 K/uL (4.8-10.8)
[2019-08-27 01:33] LABS: Albumin Globulin Ratio 0.8 (0.9-2); Bilirubin,Total 1.1 mg/dl (0.2-1); Globulin 3.9 gm/dl (2.5-4.0); Thyroid Stimulating Hormone 5.55 uIu/ml (0.300-4.500); Total Protein 7.2 gm/dl (6.4-8.2); Troponin I 0.041 ng/ml (0-0.045)
[2019-08-27 01:37] LABS: Platelet Count 140 K/uL (130-400)
[2019-08-27 01:44] LABS: Basophils # (auto) 0.01 K/uL (0-0.2); Basophils % (auto) 0.2 %; Echinocytes 1+; Eosinophils # (auto) 0.13 K/uL (0-0.5); Eosinophils % (auto) 2.2 %; Giant Platelets 1+; Immature Granulocytes # (auto) 0.03 K/uL (0.00-0.02); Immature Granulocytes % (auto) 0.5 %; Lymphocytes # (auto) 1.24 K/uL (1.2-3.4); Lymphocytes % (auto) 21.4 %; Monocytes # (auto) 0.68 K/uL (0.11-0.59); Monocytes % (auto) 11.7 %; Ovalocytes 1+; Platelet Estimate Normal (Normal)
[2019-08-27 01:46] LABS: T4 Free Thyroxine 1.49 ng/dl (0.8-1.6)
--- NOTE | 2019-08-27 02:02 | Emergency Department Note ---
History of Present Illness General Chief complaint: Recheck/Abnormal Lab/Rx Stated complaint: LOW POTASSIOUM/HASN'T BEEN EATING Time Seen by Provider: 08/27/19 00:49 History of Present Illness This is a 59-year-old male that presents to the emergency department via police officer crime prevention escort from [facility] where the patient currently is incarcerated with complaints of "low potassium, has not been eating". The patient states that for the past 4 days he has not been able to eat or drink anything and noting that when he swallows the drink comes right back up. He states that he has had this happen before in the past, last of which was about 1 year ago and he states that he had an endoscopy done at that time. The patient feels as though if he swallows anything he begins to choke. He was referred here from the [facility] noting he had a potassium decreased from 3.83.2 in the setting of not eating or drinking anything despite IV fluids. Patient notes that last time he ate or drank anything was on Tuesday and was chicken and mashed potatoes. The patient denies any oral trauma or injury. He denies any pain at this time. No history of esophageal impaction that he is aware of. No fevers, chills, chest pain, shortness of breath, speech trouble or weakness. Home Medications Home Medications Medication Instructions Recorded Confirmed Type amlodipine [Norvasc] 10 mg PO HS 05/08/18 08/27/19 History aspirin 81 mg PO HS 05/08/18 08/27/19 History atorvastatin [Lipitor] 40 mg PO HS 05/08/18 08/27/19 History levothyroxine [Synthroid] 50 mcg PO QAM 05/08/18 08/27/19 History mirtazapine [Remeron] 15 mg PO HS 07/28/19 08/27/19 History pantoprazole 40 mg PO BID #1 tab 08/23/19 08/27/19 Rx aripiprazole 20 mg PO DAILY 08/27/19 08/27/19 History lactulose 30 g PO TID PRN 08/27/19 08/27/19 History Allergies Allergy/AdvReac Type Severity Reaction Status Date / Time No Known Allergies Allergy Verified 08/27/19 00:38 Past Med/Surg History Medical History Dysphagia Hepatitis C HTN (hypertension) (Chronic) Hypomagnesemia (Inactive) Pancytopenia Paranoid schizophrenia (Chronic) UTI (urinary tract infection) Surgical History History of shoulder surgery Family History Other Family history non-contributory Social History Preferred Language: [place]orese Communication Ability: Effective 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 Current Living Situation: Other Current Living Situation Comment: inmate at [facility] Feels Safe at Home: Yes Smoking Status: Unknown if ever smoked Hx Alcohol Use: No Hx Substance Use: No Review of Systems A total of 10 systems reviewed and were otherwise negative Physical Exam Vital Signs Vital Signs - 24 hr 08/27/19 00:14 08/27/19 01:08 08/27/19 02:52 Temperature 37 C Temperature Source Oral Pulse Rate 90 Pulse Rate [Right Finger] 85 68 Pulse Rhythm [Right Finger] Regular Pulse Strength [Right Finger] Normal Respiratory Rate 19 21 16 Respiratory Effort / Characteristics Non-Labored Spontaneous Respiratory Depth Normal Blood Pressure 159/113 H Blood Pressure [Right Arm] 146/87 H 151/99 H Blood Pressure Mean 128 Blood Pressure Mean [Right Arm] 106 116 Blood Pressure Position [Right Arm] Lying Pulse Oximetry 95 95 98 Oxygen Delivery Method Room Air Sepsis Recent Fever Within 48 Hours No Sepsis Action Taken by Nursing No Action Required VITAL SIGNS - Vital signs and nursing notes were reviewed. Stable and afebrile. GENERAL -59-year-old male appearing his stated age who is in no acute distress. Communicates well with provider and answers questions appropriately. SKIN - Without rashes. No meningeal or petechial rash HEAD - NC/AT. EYES - PERRL with EOMI bilaterally. Sclera anicteric. EARS - No deformities of external structures noted on gross examination bilaterally. NOSE - Midline and without cyanosis. No epistaxis or purulent drainage noted. MOUTH/OROPHARYNX - Without perioral cyanosis. Buccal mucosa pink and moist and without leukoplakia. Tongue midline with equal elevation of palate bilaterally. No tonsillar hypertrophy, erythema, or exudates noted. [] dentition noted. The patient does have oral secretions building up in the mouth noting saliva pooling around the tongue as the patient is not swallowing. NECK - Neck with FROM. Supple to palpation. No lymphadenopathy noted. No nuchal rigidity. LUNGS - Chest wall symmetric without accessory muscle use, intercostals retractions, or central cyanosis. Normal vesicular breath sounds CTA B/L. No wheezes, rales, or rhonchi appreciated. CARDIAC - RRR with S1/S2. No murmur, rubs, or gallops appreciated. ABDOMEN - Abdominal contour normal without pulsations or visible masses. BS normoactive all four quadrants. No tenderness, palpable masses, hepatosplenomegaly, or ascites noted. EXTREMITIES - No clubbing or peripheral cyanosis. No pretibial edema present. +5/5 strength noted in UE/LE bilaterally. NEUROLOGIC - Cranial nerves II through XII grossly intact. Sensory intact to light touch throughout. PSYCH - A&O, and cooperates fully with examiner. Pt is very pleasant and interacts well with examiner. Course Administered Medications Discontinued Medications Sodium Chloride (Nss 1000ml) 1,000 mls @ 999 mls/hr IV .Q1H1M PRATEEK Stop: 08/27/19 03:45 Last Infusion: 08/27/19 03:54 Dose: 0 mls/hr Documented by: [id number] Admin: 08/27/19 02:52 Dose: 999 mls/hr Documented by: [id number] Medical Decision Making Laboratory Data Result diagrams: 08/27/19 00:10 08/27/19 00:10 Lab Results 08/27/19 08/27/19 Range/Units 00:10 00:10 WBC 5.79 (4.8-10.8) K/uL RBC 5.20 (4.7-6.1) M/uL Hgb 14.3 (14.0-18.0) g/dL Hct 43.8 (42-52) % MCV 84.2 (80-100) fL MCH 27.5 (25-34) pg MCHC 32.6 (32-36) g/dL RDW Std Deviation 44.5 (36.4-46.3) fL RDW Coeff of Franck 14.3 (11.5-14.5) % Plt Count 140 (130-400) K/uL Immature Gran % (Auto) 0.5 % Neut % (Auto) 64.0 % Lymph % (Auto) 21.4 % Lamb % (Auto) 11.7 % Eos % (Auto) 2.2 % Baso % (Auto) 0.2 % Immature Gran # (Auto) 0.03 H (0.00-0.02) K/uL Neut # (Auto) 3.70 (1.4-6.5) K/uL Lymph # (Auto) 1.24 (1.2-3.4) K/uL Lamb # (Auto) 0.68 H (0.11-0.59) K/uL Eos # (Auto) 0.13 (0-0.5) K/uL Baso # (Auto) 0.01 (0-0.2) K/uL Platelet Estimate Normal (Normal) Giant Platelets 1+ Ovalocytes 1+ Echinocytes 1+ Sodium 139 (136-145) mmol/L Potassium 3.0 L (3.5-5.1) mmol/L Chloride 105 (98-107) mmol/L Carbon Dioxide 26 (21-32) mmol/L Anion Gap 8.0 (3-11) BUN 6 L (7-18) mg/dl Creatinine 1.19 (0.6-1.4) mg/dl Est Cr Clr Drug Dosing 78.5 ml/min Est GFR ( Amer) 76.0 Est GFR (Non-Af Amer) 65.5 BUN/Creatinine Ratio 5.0 L (10-20) Glucose 87 (70-99) mg/dl Calcium 8.4 L (8.5-10.1) mg/dl Magnesium 1.8 (1.8-2.4) mg/dl Total Bilirubin 1.1 H (0.2-1) mg/dl AST 46 H (15-37) U/L ALT 66 (12-78) U/L Alkaline Phosphatase 93 (45-117) U/L Troponin I 0.041 (0-0.045) ng/ml Total Protein 7.2 (6.4-8.2) gm/dl Albumin 3.3 L (3.4-5.0) gm/dl Globulin 3.9 (2.5-4.0) gm/dl Albumin/Globulin Ratio 0.8 L (0.9-2) Lipase 119 (73-393) U/L TSH 5.550 H (0.300-4.500) uIu/ml Free T4 1.49 (0.8-1.6) ng/dl Imaging Data My Impression: No change compared to previous. No acute process ECG Data Additional Comments: EKG per my interpretation reveals normal sinus rhythm at a rate of 79 bpm. No ectopy or ischemic change. QTc is elongated and 497. No evidence of STEMI. When compared to previous EKG QTC is improved. MDM Narrative Patient was seen and evaluated as above in room B9. Review was performed of nursing notes and vital signs. I did review pertinent previous visits and patient history. After obtaining a thorough history and physical examination the above work up was performed. He presents to us today with trouble swallowing. Specifically I will note that the patient is able to swallow but once he swallows food and drink come back up. Presentation is similar to that of esophageal impaction. Vital signs stable. CBC reveals no leukocytosis or anemia. No emergent metabolic disturbance other than potassium 3.0, calcium 8.4, T bili 1.1 with AST of 46. TSH 5.5 with free T4 1.49. Patient was given 1 L of normal saline here. P.o. fluid trial was attempted but I would note that the patient did swallow and then a few seconds later the water seem to come back up and he spit this out. I do believe that further evaluation and management is warranted here in the inpatient setting and I will note that I did thoroughly review his previous visits and consultations. I do believe the patient could benefit from GI assessment. I also discussed patient presentation with the [facility] and verified his symptoms. Case discussed with the hospitalist as well as attending physician. Please refer to further documentation regarding his stay. In the evaluation and treatment of this patient the following differential diagnoses were entertained: Esophageal impaction, esophageal dysmotility, esophageal stricture, achalasia, among others. Impression & Plan Dysphagia Discharge Plan Visit Data Chief Complaint: Recheck/Abnormal Lab/Rx Stated Complaint: LOW POTASSIOUM/HASN'T BEEN EATING ED Provider: Humaira Rangel ED Midlevel Provider: Isaac Augustin Discharge Problem: Dysphagia Patient Disposition: Admitted As Inpatient Condition: Good Discharge Instructions Interventions: ED Discharge Assessment Last Done: 08/27/19 03:54
[2019-08-27] MEDS ORDERED: SODIUM CHLORIDE 0.9% 1000ML 1,000 ML IV SCH (02:45)
--- NOTE | 2019-08-27 03:30 | History & Physical Report ---
Date of Service August 27, 2019 Assessment & Plan (1) Dysphagia: 59 yo M PMHx HTN, hypothyroidism, Hepatitis C here for continued dysphagia causing 4 days of poor to no PO intake following discharge 4 days ago. Dysphagia and Malnutrition: - Ongoing issue for him. EGD in 04/2018 only showed esophagitis. - Gastric emptying study on 08/21 was normal without any evidence of delayed transit from the stomach. - Given patient unable to tolerate PO, will hold home medications at this time, make NPO. - NSS with KCl 20 meq added @ 150cc/hr. - Speech consult, may need swallow study. Pending that may need GI evaluation. - last admission GI started on PPI BID for presumed esophagitis without imp rovement of symptoms. - Zofran PRN nausea, though pt not currently nauseous. - aripiprazole has ADR of dysphagia, pt currently on high dose in outpatient setting. Possible this is contributing to dysphagia. - Can consider parenteral nutrition given 3-4 days of poor to no PO intake and hypokalemia (though mild) this admission. Weakness: - Generalized weakness reported by patient on last admission and without significant change since discharge, however able to walk since discharge after several days of PT. No signs of Parkinsonism such as cogwheeling or rigidity. Lyme serology negative, B12 & folic acid are appropriate, recent TSH is normal. MRIs of his cervical, thoracic, and lumbar spines all without acute stenosis or issues. TERRIE and ANCA were both negative. - LP on 08/15 was notable only for high protein which is non-specific. - Cryoglobulin and heavy metal levels negative / within normal limits, acetylcholine receptor anti-bodies (for myasthenia gravis) pending. - Plan for neurology to perform an outpatient EMG. HTN: - hold PO meds now. - continue to monitor BP. Schizophrenia: - in outpatient setting on aripiprzole 20mg daily, mirtazapine 15mg daily. - hold PO meds at this time as patient cannot tolerate PO. - possible his antipsychotics are contributing to his dysphagia. Hypothyroidism: - on levothyroxine 50 mcg daily in outpatient setting. - TSH elevated on admission to 5.5, T4 normal. - holding PO meds at this time. Hypokalemia: - K 3.0 today. - NSS with KCl 20 meq @ 150cc/hr. - continue to follow BMP. Code Status: FULL CODE FEN/GI: NPO, NSS with KCl 20 meq @ 150cc/hr DVT ppx: Heparin 5000u SQ q12h Dispo: med/surg (2) Malnutrition: (3) Hypothyroid: History of Present Illness Chief Complaint: dysphagia, malnutrition Primary Care Provider: MASHA Siddiqui 59 yo M PMHx hypothyroidism, HTN, Hepatitis C, schizophrenia presenting from [facility] with 4 days of poor PO intake due to difficulty swallowing. Recently discharged from [facility] 08/22 for weakness and difficulty swallowing with plan for outpatient follow up and PPI for presumed esophagitis. States that since then has been unable to tolerate PO intake because whenever he swallows anything he "feels like the food just sits there and gets stuck and he will choke". Has had issues swallowing for "over 20 years", in April 2018 was found to have esophagitis and started on BID PPI with relief. Patient notes that his current symptoms have been worsening over the last several months first with solids and now to the point that he has to spit his saliva as it "will not go down". In the ED was trialed on PO liquid and vomited. Reports no nausea, just a sense of "stuck fluid". No fevers or chills, no abdominal pain, diarrhea, constipation. No worsening of the weakness he reported last admission. No chest pain, SOB, dizziness, headaches. No visual changes, incontinence of bowels or bladder. Has been on antipsychotic medication for several years for a history of schizophrenia. No sick contacts at the correctional facility to his knowledge. Endorses increasing fatigue 2/2 not being able to tolerate food. Allergies Allergy/AdvReac Type Severity Reaction Status Date / Time No Known Allergies Allergy Verified 08/27/19 00:38 Home Medications Home Medications Medication Instructions Recorded Confirmed Type amlodipine [Norvasc] 10 mg PO HS 05/08/18 08/27/19 History aspirin 81 mg PO HS 05/08/18 08/27/19 History atorvastatin [Lipitor] 40 mg PO HS 05/08/18 08/27/19 History levothyroxine [Synthroid] 50 mcg PO QAM 05/08/18 08/27/19 History mirtazapine [Remeron] 15 mg PO HS 07/28/19 08/27/19 History pantoprazole 40 mg PO BID #1 tab 08/23/19 08/27/19 Rx aripiprazole 20 mg PO DAILY 08/27/19 08/27/19 History lactulose 30 g PO TID PRN 08/27/19 08/27/19 History Past Med/Surg History Medical History Dysphagia Hepatitis C HTN (hypertension) (Chronic) Hypomagnesemia (Inactive) Pancytopenia Paranoid schizophrenia (Chronic) UTI (urinary tract infection) Surgical History History of shoulder surgery Family History Other Family history non-contributory Social History Preferred Language: Sami Communication Ability: Effective Neon Pumper Required: No Beliefs That Will Affect Care: None marital status: Single Current Living Situation: Other Current Living Situation Comment: [facility] Other Information That Helps Us Care for You: No Feels Safe at Home: Yes Safety Concerns: Feels Safe At This Time Smoking Status: Former smoker Do You Dip or Chew Tobacco: No ; Second Hand Exposure: No ; Tobacco Cessation Education Requested by Patient: No Hx Alcohol Use: No Hx Substance Use: No Review of Systems Review of Systems: All systems reviewed & are unremarkable except as noted in HPI & below Constitutional: no fever, no chills and no malaise Eyes: no diplopia and no worsening vision Ear, Nose, Mouth, Throat: + dysphagia; no mouth lesions and no dental pain Respiratory: no cough, no dyspnea and no wheezing Cardiovascular: no chest pain, no palpitations, no syncope and no edema Gastrointestinal: + vomiting (due to sensation of food/fluids getting stuck); no abdominal pain, no nausea, no constipation and no diarrhea/loose stools Genitourinary: no dysuria and no hematuria Musculoskeletal: no back pain and no muscle weakness Integumentary: no rash Neurologic: + tremor(s) (resting, chronic); no dizziness and no headache(s) Psychiatric: no behavioral changes Endocrine: + fatigue Physical Exam Constitutional: WD/WN, vitals as above Eyes: PERRL, conjunctivae normal, anicteric sclerae ENMT: external ear and nose normal, oropharynx normal Neck: normal visual inspection Respiratory: normal respiratory effort, lungs clear to auscultation Cardiovascular: RRR, no murmur, no edema Gastrointestinal (Abdomen): normal bowel sounds, soft, nontender, no hepatosplenomegaly Musculoskeletal: no cyanosis or clubbing, extremities motor strength 5/5 Skin: no rashes, warm and dry Neurologic: AAOx3, normal speech. PERRLA, EOMI, no nystagmus. Normal visual acuity bilaterally. Bilateral UE, LE, and face without sensory or motor deficits. II-XII intact bilaterally. No pronator drift. Resting tremor. Psychiatric: A+Ox3, euthymic affect Results & Data Results & Data ([facility]) Vital Signs (Past 12 Hours) Vital Signs Temp Pulse Pulse Resp BP BP Pulse Ox 08/27/19 02:52 68 16 151/99 H 98 08/27/19 01:08 85 21 146/87 H 95 08/27/19 00:14 37 C 90 19 159/113 H 95 Code Status & VTE Plan VTE Prophylaxis Plan VTE Prophylaxis will be ordered: Yes Supervising Physician Co-Signing Physician Notes Attending addendum: I have physically seen this patient, have supervised the medical residents activities, and agree with the H&P unless as otherwise noted. Assessment and Plan: Severe dysphagia/generalized weakness Speech therapy consult for video swallow study. EGD on 05/02 showed grade 1 esophagitis. Gastric emptying study on 08/21/2018 was negative. Patient unable to tolerate oral intake since recent discharge on 08/23/2019. Consider adjustment of dose and/or stopping Zyprexa as potential side effect of severe dysphagia. NSS + KCl 20 mEq 150 mils per hour. Large work-up at previous hospitalization would not be repeated. Follow-up results of pending acetylcholine receptor antibody testing. Remainder of orders and notations as noted. Resident Activity Tracking Resident Involvement: Resident Care Provided Care Provided: Adult Hospital Medicine (1) Dysphagia Dysphagia type: unspecified Qualified Code(s): R13.10 - Dysphagia, unspecified (2) Hypothyroid Hypothyroidism type: unspecified Qualified Code(s): E03.9 - Hypothyroidism, unspecified
[2019-08-27] MEDS ORDERED: ONDANSETRON INJ 2 MG/ML 2 ML VIAL IV PRN (04:23)
[2019-08-27] MEDS: NSS + 20MEQ KCL 20 MEQ/1,000 ML BAG IV SCH ×3 (04:40→18:02)
[2019-08-27 06:34] LABS: Appearance Urine Clear (Clear); Bilirubin Urine Negative (Negative); Blood Urine Negative (Negative); Color Urine Yellow; Glucose Urine UA Negative (Negative); Ketones Urine 1+ (Negative); Leukocyte Esterase Urine Negative (Negative); Nitrite Urine Negative (Negative); Protein Urine Negative (Negative); Specific Gravity Urine 1.012 (1.000-1.030); Urobilinogen Urine Negative (Negative); pH Urine 7.5 (4.5-7.5)
--- NOTE | 2019-08-27 07:20 | XRay Report ---
XR chest 1V portable CLINICAL HISTORY: cannot swallow COMPARISON STUDY: 08/21/2019 FINDINGS: The heart is mildly enlarged. There is mild central vascular prominence without evidence of overt failure. There is no lobar consolidation. There are no significant pleural effusions. Indistin ctness the left heart border remains unchanged.[ IMPRESSION: Mild central vascular prominence without evidence of overt failure. No evidence of lobar consolidation. No evidence of pneumomediastinum. ACT 112: Negative or not required by law. Electronically signed by: Mehul Hermosillo M.D. 08/27/2019 7:19 AM
[2019-08-27] MEDS: HEPARIN SOD 5,000 UNIT/0.5 ML VIAL SQ SCH ×2 (09:04→20:59)
[2019-08-27] MEDS: POTASSIUM CHLORIDE / WTR 10 MEQ/100 ML PLCT IV SCH ×4 (11:13→15:24)
--- NOTE | 2019-08-27 11:18 | Gastrointestinal Consultation ---
Date of Consultation August 27, 2019 Assessment & Plan (1) Dysphagia: 59 year old male with chronic dysphagia without sensation of food sticking with swallowing or odynophagia, no GERD symptoms. Video swallow Barium swallow Repeat EGD +/- dilation pending swallow studies Start pantoprazole 40 mg daily Start a bowel regimen colace 10 mg twice daily miralax 1 capful daily Colonoscopy per OP recall Thank you for allowing us to participate in the care of this patient. Please call with any acute changes, questions or concerns. Please see addendum below with additional recommendation from my supervising physician. Attg add: I interviewed and examined pt, reviewed chart and labs. Pt with long history of dysphagia localized to mouth - pr reports that he has difficulty swallowing both liquids and solids. He also has reflux. On exam, he has a resting tremor of both hands and mild resting tremor of tongue. Suspect oropharyngeal rather than esophageal dysphagia (given h/o schizophrenia, possible drug induced Parkinsonism?). Plan as above. History of Present Illness Reason for Consultation: dysphagia Requesting Physician: Nagi Attending Physician: Fabiola Lazar MD History of Present Illness 59 year old male with history of HTN, hypothyroidism, schizophrenia, HCV admitted through the ED w/ weakness, difficulty swallowing. Of note she was recently admitted with similar and underwent GES at that time. He notes he has had chronic dysphagia dating back to 4/5 years. Has been worsening over the past 1-2 years. Specifically in the past few months. Suggests he has difficulty moving bolus of food in his mouth. He denies to me any painful swallowing. Denies any sensation of food sticking. No GERD type symptoms. He does tell me he will have emesis post-prandial. Feels like this is stuck in the back of his throat blocking airway so will self induce emesis. No abdominal pain. Moving bowels okay - has had some constipation. No black or bloody stools. No weight loss. No fever, chills, CP, SOB No family history of GI malignancy He denies any history of CVA, TIA or MN in himself KUB 2020: moderate stool GES 2020: normal EGD 2019: reflux esophagitis Allergies Allergy/AdvReac Type Severity Reaction Status Date / Time No Known Allergies Allergy Verified 08/27/19 00:38 Home Medications Home Medications Medication Instructions Recorded Confirmed Type amlodipine [Norvasc] 10 mg PO HS 05/08/18 08/27/19 History aspirin 81 mg PO HS 05/08/18 08/27/19 History atorvastatin [Lipitor] 40 mg PO HS 05/08/18 08/27/19 History levothyroxine [Synthroid] 50 mcg PO QAM 05/08/18 08/27/19 History mirtazapine [Remeron] 15 mg PO HS 07/28/19 08/27/19 History pantoprazole 40 mg PO BID #1 tab 08/23/19 08/27/19 Rx aripiprazole 20 mg PO DAILY 08/27/19 08/27/19 History lactulose 30 g PO TID PRN 08/27/19 08/27/19 History Patient History Medical History Dysphagia Hepatitis C HTN (hypertension) (Chronic) Hypomagnesemia (Inactive) Pancytopenia Paranoid schizophrenia (Chronic) UTI (urinary tract infection) Surgical History History of shoulder surgery Family History Other Family history non-contributory Social History Preferred Language: Khmer Communication Ability: Effective 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 Other Information That Helps Us Care for You: No Feels Safe at Home: Yes Safety Concerns: Feels Safe At This Time Smoking Status: Former smoker Do You Dip or Chew Tobacco: No ; Second Hand Exposure: No ; Tobacco Cessation Education Requested by Patient: No Hx Alcohol Use: No Hx Substance Use: No Review of Systems Constitutional: no fever and no chills Respiratory: no cough and no dyspnea Cardiovascular: no chest pain and no dyspnea Gastrointestinal: + vomiting and + dysphagia; no abdominal pain, no nausea, no blood in stools and no melena Physical Exam Constitutional: well developed and well nourished; no acute distress Neck: trachea midline Respiratory: normal respiratory effort, lungs clear to auscultation Gastrointestinal (Abdomen): normal bowel sounds, soft, nontender, no hepatosplenomegaly Results & Data ([facility]) Vital Signs (Past 12 Hours) Vital Signs Temp Pulse Pulse Resp BP BP Pulse Ox 08/27/19 10:48 83 161/107 H 96 08/27/19 07:55 36.8 C 76 18 164/105 H 95 08/27/19 04:11 37.2 C 78 16 152/96 H 96 08/27/19 02:52 68 16 151/99 H 98 08/27/19 01:08 85 21 146/87 H 95 08/27/19 00:14 37 C 90 19 159/113 H 95 Laboratory Results 08/27/19 08/27/19 08/27/19 Range/Units Unknown 06:25 00:10 WBC (4.8-10.8) K/uL RBC (4.7-6.1) M/uL Hgb (14.0-18.0) g/dL Hct (42-52) % MCV (80-100) fL MCH (25-34) pg MCHC (32-36) g/dL RDW Std Deviation (36.4-46.3) fL RDW Coeff of Franck (11.5-14.5) % Plt Count (130-400) K/uL Immature Gran % (Auto) % Neut % (Auto) % Lymph % (Auto) % Price % (Auto) % Eos % (Auto) % Baso % (Auto) % Immature Gran # (Auto) (0.00-0.02) K/uL Neut # (Auto) (1.4-6.5) K/uL Lymph # (Auto) (1.2-3.4) K/uL Price # (Auto) (0.11-0.59) K/uL Eos # (Auto) (0-0.5) K/uL Baso # (Auto) (0-0.2) K/uL Platelet Estimate (Normal) Giant Platelets Ovalocytes Echinocytes Sodium 139 (136-145) mmol/L Potassium 3.0 L (3.5-5.1) mmol/L Chloride 105 (98-107) mmol/L Carbon Dioxide 26 (21-32) mmol/L Anion Gap 8.0 (3-11) BUN 6 L (7-18) mg/dl Creatinine 1.19 (0.6-1.4) mg/dl Est Cr Clr Drug Dosing 78.5 ml/min Est GFR ( Amer) 76.0 Est GFR (Non-Af Amer) 65.5 BUN/Creatinine Ratio 5.0 L (10-20) Glucose 87 (70-99) mg/dl Calcium 8.4 L (8.5-10.1) mg/dl Magnesium 1.8 (1.8-2.4) mg/dl Total Bilirubin 1.1 H (0.2-1) mg/dl AST 46 H (15-37) U/L ALT 66 (12-78) U/L Alkaline Phosphatase 93 (45-117) U/L Troponin I 0.041 (0-0.045) ng/ml Total Protein 7.2 (6.4-8.2) gm/dl Albumin 3.3 L (3.4-5.0) gm/dl Globulin 3.9 (2.5-4.0) gm/dl Albumin/Globulin Ratio 0.8 L (0.9-2) Lipase 119 (73-393) U/L TSH 5.550 H (0.300-4.500) uIu/ml Free T4 1.49 (0.8-1.6) ng/dl Urine Color Yellow Urine Appearance Clear (Clear) Urine pH 7.5 (4.5-7.5) Ur Specific [place] 1.012 (1.000-1.030) Urine Protein Negative (Negative) Urine Glucose (UA) Negative (Negative) Urine Ketones 1+ H (Negative) Urine Blood Negative (Negative) Urine Nitrite Negative (Negative) Urine Bilirubin Negative (Negative) Urine Urobilinogen Negative (Negative) Ur Leukocyte Esterase Negative (Negative) Nasal Screen MRSA (PCR) Negative (Negative) 08/27/19 Range/Units 00:10 WBC 5.79 (4.8-10.8) K/uL RBC 5.20 (4.7-6.1) M/uL Hgb 14.3 (14.0-18.0) g/dL Hct 43.8 (42-52) % MCV 84.2 (80-100) fL MCH 27.5 (25-34) pg MCHC 32.6 (32-36) g/dL RDW Std Deviation 44.5 (36.4-46.3) fL RDW Coeff of Franck 14.3 (11.5-14.5) % Plt Count 140 (130-400) K/uL Immature Gran % (Auto) 0.5 % Neut % (Auto) 64.0 % Lymph % (Auto) 21.4 % Price % (Auto) 11.7 % Eos % (Auto) 2.2 % Baso % (Auto) 0.2 % Immature Gran # (Auto) 0.03 H (0.00-0.02) K/uL Neut # (Auto) 3.70 (1.4-6.5) K/uL Lymph # (Auto) 1.24 (1.2-3.4) K/uL Price # (Auto) 0.68 H (0.11-0.59) K/uL Eos # (Auto) 0.13 (0-0.5) K/uL Baso # (Auto) 0.01 (0-0.2) K/uL Platelet Estimate Normal (Normal) Giant Platelets 1+ Ovalocytes 1+ Echinocytes 1+ Sodium (136-145) mmol/L Potassium (3.5-5.1) mmol/L Chloride (98-107) mmol/L Carbon Dioxide (21-32) mmol/L Anion Gap (3-11) BUN (7-18) mg/dl Creatinine (0.6-1.4) mg/dl Est Cr Clr Drug Dosing ml/min Est GFR ( Amer) Est GFR (Non-Af Amer) BUN/Creatinine Ratio (10-20) Glucose (70-99) mg/dl Calcium (8.5-10.1) mg/dl Magnesium (1.8-2.4) mg/dl Total Bilirubin (0.2-1) mg/dl AST (15-37) U/L ALT (12-78) U/L Alkaline Phosphatase (45-117) U/L Troponin I (0-0.045) ng/ml Total Protein (6.4-8.2) gm/dl Albumin (3.4-5.0) gm/dl Globulin (2.5-4.0) gm/dl Albumin/Globulin Ratio (0.9-2) Lipase (73-393) U/L TSH (0.300-4.500) uIu/ml Free T4 (0.8-1.6) ng/dl Urine Color Urine Appearance (Clear) Urine pH (4.5-7.5) Ur Specific [place] (1.000-1.030) Urine Protein (Negative) Urine Glucose (UA) (Negative) Urine Ketones (Negative) Urine Blood (Negative) Urine Nitrite (Negative) Urine Bilirubin (Negative) Urine Urobilinogen (Negative) Ur Leukocyte Esterase (Negative) Nasal Screen MRSA (PCR) (Negative) (1) Dysphagia Dysphagia type: unspecified Qualified Code(s): R13.10 - Dysphagia, unspecified
[2019-08-27] MEDS: THIAMINE HCL 200 MG in SODIUM CHLORIDE 0.9% 50 ML IV SCH ×2 (12:18→21:01)
--- NOTE | 2019-08-27 12:31 | Electrocardiogram Report ---
Test Reason : Blood Pressure : / mmHG Vent. Rate : 079 BPM Atrial Rate : 079 BPM P-R Int : 138 ms QRS Dur : 092 ms QT Int : 434 ms P-R-T Axes : 051 022 023 degrees QTc Int : 497 ms Normal sinus rhythm Prolonged QT Abnormal ECG When compared with ECG of 23-AUG-2019 07:30, Premature ventricular complexes are no longer Present Minimal criteria for Inferior infarct are no longer Present Nonspecific T wave abnormality no longer evident in Lateral leads Confirmed by Fredi Abdul ([id number]) on 08/27/2019 12:31:08 PM Referred By: [facility] Confirmed By:Jim Abdul
--- NOTE | 2019-08-27 14:18 | Fluoroscopy Report ---
FL barium swallow CLINICAL HISTORY: 59 years-old Male with dysphagia. TECHNIQUE: Barium contrast and effervescent crystals were administered to the patient under fluorosco pic examination. Multiple images were obtained and submitted for review. FLUOROSCOPY TIME: 0.5 minutes. 17 images were submitted. Comparison: Chest radiograph 08/27/2019 Findings: During deglutition, contrast material flowed freely through the cervical esophagus. No filling defec t or mucosal abnormality is identified. No abnormal stricturing or mass effect is seen. The mid to distal esophagus is well coated and distended. No abnormal stricturing or mucosal abnormality is tom ntified. No significant reflux or hiatal hernia was demonstrated during the exam. The GE junction i s normal in appearance. Mild distal esophageal dysmotility. The study was only partially completed. T he patient refused to continue the exam. The study was then terminated. Impression: Limited esophagram secondary to patient unable to complete the exam. Mild esophageal dys motility is noted with otherwise unremarkable study. ACT 112: Negative or not required by law. The above report was generated using voice recognition software. It may contain grammatical, syntax o r spelling errors. Electronically signed by: Ahmet Kirby M.D. 08/27/2019 2:17 PM
--- NOTE | 2019-08-27 17:10 | History & Physical Bridge Note ---
Date of Service August 27, 2019 History & Physical Bridge Note I have examined the patient, reviewed the History & Physical and in the interval since the performance of the History & Physical I have noted the following changes of clinical significance: Discussed case with GI and Speech Therapy and reviewed chart. Pt reports he walked around [facility][1] and feels stronger than his previous hospitalization, but just cannot tolerate any po.He went for his barium swallow today and could not complete the test due to trouble swallowing. He had barium down the front of his gown when I saw him. Plan is for EGD tomorrow. Replace K+ with IV KCl -ok to restart home po meds but will hold Remeron in case making too drowsy or difficulty with swallowing. -also, thiamine is undetectable from previous admission----> start IV thiamine 200mg bid -follow lytes and magnesium in the AM -NPO after midnight but can trial pureed diet now -f/u Anti-muscuranic abs for MG workup which are still pending from previous
[2019-08-27] MEDS ORDERED: LACTULOSE SYRUP 30 GM/45 ML UDP PO PRN (19:46)
[2019-08-27] MEDS: PANTOprazole 40 MG TAB PO SCH ×2 (20:59→21:09)
[2019-08-27] MEDS: ASPIRIN 81 MG ECTAB PO SCH ×2 (20:59→21:09)
[2019-08-27] MEDS: ATORVASTATIN 40 MG TAB PO SCH ×2 (20:59→21:09)
[2019-08-27] MEDS: amLODIPine BESYLATE 5 MG TAB PO SCH (21:09)
--- NOTE | 2019-08-27 23:10 | Billing Data ---
Date of Service August 27, 2019 Coding Level of Care Code 16771 Initial Inpt Care Lvl 3
--- NOTE | 2019-08-27 23:19 | Communication Note ---
Date of Service: August 27, 2019 Notified that pt was unable to take his nightly meds due to his dysphagia. Switched his protonix to IV form, held home PO version. Ordered PRN IV Hydralazine 10mg q4h with BP parameters as he was unable to take his nightly amlodipine. 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
[2019-08-28] MEDS ORDERED: hydrALAZINE HCL 20 MG/ML VIAL IV PRN (00:07)
[2019-08-28] MEDS ORDERED: hydrALAZINE HCL 20 MG/ML VIAL ONE (00:25)
[2019-08-28] MEDS: PANTOprazole 40 MG in SYRINGE 0 ML IV SCH ×2 (00:27→08:52)
[2019-08-28] MEDS: NSS + 20MEQ KCL 20 MEQ/1,000 ML BAG IV SCH ×4 (01:44→21:22)
[2019-08-28 06:22] LABS: Creatinine Clr Calc Pharmacy 102.6 ml/min; Est GFR (African American) 105.1; Est GFR (Non-African American) 90.6; Magnesium 1.8 mg/dl (1.8-2.4); Potassium 3.4 mmol/L (3.5-5.1)
[2019-08-28] MEDS: LEVOTHYROXINE SODIUM 50 MCG TABLET PO SCH (06:22)
[2019-08-28 07:12] LABS: Basophils # (auto) 0.01 K/uL (0-0.2); Basophils % (auto) 0.2 %; Echinocytes 1+; Eosinophils # (auto) 0.08 K/uL (0-0.5); Eosinophils % (auto) 1.4 %; Hematocrit (blood only) 40.6 % (42-52); Hemoglobin 13.4 g/dL (14.0-18.0); Lymphocytes % (auto) 20.9 %; Mean Corpuscular Hemoglobin 27.5 pg (25-34); Mean Corpuscular Volume 83.4 fL (80-100); Monocytes # (auto) 0.59 K/uL (0.11-0.59); Monocytes % (auto) 10.3 %; Neutrophils # (auto) 3.86 K/uL (1.4-6.5); Neutrophils % (auto) 67.2 %; Platelet Count 130 K/uL (130-400); Platelet Estimate Decreased (Normal); RDW Coefficient of Variation 14.5 % (11.5-14.5); RDW Standard Deviation 44.3 fL (36.4-46.3); Red Blood Count 4.87 M/uL (4.7-6.1); White Blood Count 5.74 K/uL (4.8-10.8)
--- NOTE | 2019-08-28 08:09 | Gastroenterology Progress Note ---
Date of Service August 28, 2019 Assessment & Plan (1) Dysphagia: 59 year old male with chronic dysphagia without sensation of food sticking with swallowing or odynophagia, no GERD symptoms. NPO for EGD Start pantoprazole 40 mg daily Start a bowel regimen colace 10 mg twice daily miralax 1 capful daily Colonoscopy per OP recall Work up of resting tremor, new x 3 months Thank you for allowing us to participate in the care of this patient. Please call with any acute changes, questions or concerns. Please see addendum below with additional recommendation from my supervising physician. Attg add: I interviewed and examined pt, reviewed chart and labs. Pt with long history of dysphagia localized to mouth - pr reports that he has difficulty swallowing both liquids and solids. He also has reflux. On exam, he has a resting tremor of both hands and mild resting tremor of tongue. Suspect oropharyngeal rather than esophageal dysphagia (given h/o schizophrenia, possible drug induced Parkinsonism?). Plan as above. Admission and Anticipated Discharge Date Admission Date: August 27, 2019 Subjective Pt was seen and evaluated, chart reviewed. No acute concerns overnight. No change in symptoms. Esophagram reviewed. Review of Systems Constitutional: no fever and no fatigue Respiratory: no cough and no dyspnea Cardiovascular: no chest pain and no dyspnea Gastrointestinal: + dysphagia; no abdominal pain, no coffee ground emesis, no hematemesis, no blood in stools and no melena Physical Exam Constitutional: no acute distress Neck: trachea midline Respiratory: normal respiratory effort Cardiovascular: Rate/Rhythm: regular rate and regular rhythm Gastrointestinal (Abdomen): normal bowel sounds, soft, nontender, no hepatosplenomegaly Results & Data ([facility]) Vital Signs (Past 12 Hours) Vital Signs Temp Pulse Resp BP BP Pulse Ox 08/28/19 06:57 36.9 C 81 18 153/99 H 97 08/28/19 03:57 137/94 146/96 H 08/28/19 01:08 133/91 142/94 H 08/28/19 00:49 82 159/96 H 155/106 H 08/28/19 00:00 37.1 C 84 16 176/118 H 158/115 H 97 Laboratory Results 08/28/19 08/28/19 Range/Units 05:34 05:34 WBC 5.74 (4.8-10.8) K/uL RBC 4.87 (4.7-6.1) M/uL Hgb 13.4 L (14.0-18.0) g/dL Hct 40.6 L (42-52) % MCV 83.4 (80-100) fL MCH 27.5 (25-34) pg MCHC 33.0 (32-36) g/dL RDW Std Deviation 44.3 (36.4-46.3) fL RDW Coeff of Franck 14.5 (11.5-14.5) % Plt Count 130 (130-400) K/uL Immature Gran % (Auto) 0.0 % Neut % (Auto) 67.2 % Lymph % (Auto) 20.9 % [place] % (Auto) 10.3 % Eos % (Auto) 1.4 % Baso % (Auto) 0.2 % Immature Gran # (Auto) 0.00 (0.00-0.02) K/uL Neut # (Auto) 3.86 (1.4-6.5) K/uL Lymph # (Auto) 1.20 (1.2-3.4) K/uL [place] # (Auto) 0.59 (0.11-0.59) K/uL Eos # (Auto) 0.08 (0-0.5) K/uL Baso # (Auto) 0.01 (0-0.2) K/uL Platelet Estimate Decreased L (Normal) Echinocytes 1+ Sodium 139 (136-145) mmol/L Potassium 3.4 L (3.5-5.1) mmol/L Chloride 108 H (98-107) mmol/L Carbon Dioxide 24 (21-32) mmol/L Anion Gap 7.0 (3-11) BUN 5 L (7-18) mg/dl Creatinine 0.91 (0.6-1.4) mg/dl Est Cr Clr Drug Dosing 102.6 ml/min Est GFR ( Amer) 105.1 Est GFR (Non-Af Amer) 90.6 BUN/Creatinine Ratio 5.0 L (10-20) Glucose 69 L (70-99) mg/dl Calcium 8.0 L (8.5-10.1) mg/dl Magnesium 1.8 (1.8-2.4) mg/dl (1) Dysphagia Dysphagia type: unspecified Qualified Code(s): R13.10 - Dysphagia, unspecified
[2019-08-28] MEDS: ARIPiprazole 10 MG TAB PO SCH (08:52)
[2019-08-28] MEDS: HEPARIN SOD 5,000 UNIT/0.5 ML VIAL SQ SCH ×2 (08:52→21:24)
[2019-08-28] MEDS: THIAMINE HCL 200 MG in SODIUM CHLORIDE 0.9% 50 ML IV SCH ×2 (09:07→21:23)
[2019-08-28] MEDS ORDERED: MAGNESIUM SULFATE / D5W 1 GM/100 ML BAG IV ONE (10:15)
[2019-08-28] MEDS: POTASSIUM CHLORIDE / WTR 10 MEQ/100 ML PLCT IV SCH ×2 (10:24→11:39)
[2019-08-28] MEDS ORDERED: LIDOCAINE 2% 2 ML VIAL/AMP(20MG/ML) INFIL ONE (12:51)
[2019-08-28] MEDS ORDERED: MIDAZOLAM HCL 1 MG/ML 2ML VIAL ONE (12:51)
[2019-08-28] MEDS ORDERED: PROPOFOL IV EMULSION 10 MG/ML 20 ML VIAL IV ONE (12:51)
--- NOTE | 2019-08-28 13:00 | Anesthesiology Consultation ---
Date of Service August 28, 2019 Assessment & Plan Chart Review Chart Review: Acceptable Risk for Surgery Consults Requested none History Surgery Operation Date: 08/28/19 16:00 Proposed Procedures p Esophagogastroduodenoscopy Dr Juwan Cardona Height/Weight Height: 6 ft Weight: 96.3 kg Allergies Allergy/AdvReac Type Severity Reaction Status Date / Time No Known Allergies Allergy Verified 08/27/19 00:38 Medications Home Medications Medication Instructions Recorded Confirmed Last Taken amlodipine [Norvasc] 10 mg PO HS 05/08/18 08/27/19 08/11/19 18:30 aspirin 81 mg PO HS 05/08/18 08/27/19 08/11/19 18:30 atorvastatin [Lipitor] 40 mg PO HS 05/08/18 08/27/19 08/11/19 18:30 levothyroxine [Synthroid] 50 mcg PO QAM 05/08/18 08/27/19 08/12/19 06:30 mirtazapine [Remeron] 15 mg PO HS 07/28/19 08/27/19 08/11/19 18:30 pantoprazole 40 mg PO BID #1 tab 08/23/19 08/27/19 Unknown aripiprazole 20 mg PO DAILY 08/27/19 08/27/19 Unknown lactulose 30 g PO TID PRN 08/27/19 08/27/19 Unknown Active Medications Generic Name Dose Route Start Last Admin Trade Name Freq PRN Reason Stop Dose Admin Amlodipine Besylate 10 mg 08/27/19 21:00 08/27/19 21:09 Norvasc PO 09/26/19 20:59 Not Given HS PRATEEK Aripiprazole 20 mg 08/28/19 09:00 08/28/19 08:52 Abilify PO 09/27/19 08:59 20 mg DAILY PRATEEK Administration Aspirin 81 mg 08/27/19 21:00 08/27/19 21:09 Ecotrin Ectab PO 09/26/19 20:59 Not Given HS PRATEEK Atorvastatin Calcium 40 mg 08/27/19 21:00 08/27/19 21:09 Lipitor PO 09/26/19 20:59 Not Given HS PRATEEK Heparin Sodium (Porcine) 5,000 units 08/27/19 09:00 08/28/19 08:52 Heparin Sodium (Porcine) SQ 09/26/19 08:59 5,000 units Q12 PRATEEK Administration Hydralazine HCl 10 mg 08/28/19 00:07 08/28/19 00:27 Hydralazine Hcl IV 09/27/19 00:06 10 mg Q4H PRN Administration Hypertension Potassium Chloride/Sodium Chloride 20 meq in 1,000 mls @ 150 mls/hr 08/27/19 04:23 08/28/19 07:32 Normal Saline W/20 Meq Kcl IV 09/26/19 04:22 150 mls/hr .Q6H40M PRATEEK Administration Thiamine HCl 200 mg/ Sodium 52 mls @ 208 mls/hr 08/27/19 11:00 08/28/19 09:22 Chloride IV 09/26/19 10:59 Infused BID PRATEEK Infusion Pantoprazole Sodium 40 mg/ 10 mls @ 5 mls/min 08/27/19 23:15 08/28/19 08:52 Syringe IV 09/26/19 23:14 5 mls/min BID PRATEEK Administration Levothyroxine Sodium 50 mcg 08/28/19 06:30 08/28/19 06:22 Synthroid PO 09/27/19 06:29 50 mcg DAILYBB PRATEEK Administration Pantoprazole Sodium 40 mg 08/27/19 21:00 08/27/19 21:09 Protonix PO 09/26/19 20:59 Not Given BID PRATEEK NPO Date Last Intake of Fluids: 08/28/19 Time Last Intake of Fluids: 00:01 Date Last Intake of Solids: 09/03/19 Time Last Intake of Solids: 14:00 Past Medical History Medical History Dysphagia (Acute) Hepatitis C HTN (hypertension) (Chronic) Hypomagnesemia (Inactive) Pancytopenia Paranoid schizophrenia (Chronic) UTI (urinary tract infection) Past Family History Family History Other Family history non-contributory Past Surgical History Surgical History History of shoulder surgery Social History Smoking Status: Former smoker Do You Dip or Chew Tobacco: No Hx Alcohol Use: No Hx Substance Use: No substance use type: does not use Physical Exam Vital Signs Last Vital Signs Temp 36.7 C 08/28/19 12:43 Pulse 86 08/28/19 12:43 Resp 16 08/28/19 12:43 BP 164/107 H 08/28/19 12:43 Pulse Ox 97 08/28/19 12:43 Testing Laboratory Results 08/28/19 05:34 08/28/19 05:34 Urine Color Yellow 08/27/19 06:25 Urine Appearance Clear (Clear) 08/27/19 06:25 Urine pH 7.5 (4.5-7.5) 08/27/19 06:25 Ur Specific [place] 1.012 (1.000-1.030) 08/27/19 06:25 Urine Protein Negative (Negative) 08/27/19 06:25 Urine Glucose (UA) Negative (Negative) 08/27/19 06:25 Urine Ketones 1+ (Negative) H 08/27/19 06:25 Urine Nitrite Negative (Negative) 08/27/19 06:25 Ur Leukocyte Esterase Negative (Negative) 08/27/19 06:25
[2019-08-28] MEDS ORDERED: ATROPINE SULFATE 0.1 MG/ML 10ML SYR IV PRN (13:09)
[2019-08-28] MEDS ORDERED: ePHEDrine sulfate 50 MG/ML AMP IV PRN (13:09)
[2019-08-28] MEDS ORDERED: ONDANSETRON INJ 2 MG/ML 2 ML VIAL IV PRN (13:09)
--- NOTE | 2019-08-28 13:41 | GI REPORT ---
Patient Name: Osmani Thompson Procedure Date: 08/28/2019 12:46 PM Date of : 1960 Admit Type: Inpatient Age: 59 Gender: Male Attending MD: Yoselyn Cardona MD Procedure: Upper GI endoscopy Providers: Yoselyn Cardona MD Referring MD: Artur FLANAGAN Indications: Dysphagia Medicines: See the Anesthesia note for documentation of the administered medications Complications: No immediate complications. Estimated Blood Loss: Estimated blood loss: none. Procedure: Pre-Anesthesia Assessment: - ASA Grade Assessment: III - A patient with severe systemic disease. After obtaining informed consent, the endoscope was passed under direct vision. Throughout the procedure, the patient's blood pressure, pulse, and oxygen saturations were monitored continuously. The Endoscope was introduced through the mouth, and advanced to the second part of duodenum. The upper GI endoscopy was accomplished without difficulty. The patient tolerated the procedure well. Findings: The body of the esophagus was normal. The GE junction was at 40 cm. There was LA Class A esophagitis. There was a small hiatal hernia. The gastroesophageal flap valve was visualized endoscopically and classified as Hill Grade II (fold present, opens with respiration). The stomach was normal. Biopsies were taken with a cold forceps in the entire examined stomach for histology. There was a small clean based punctate ulcer in the duodenal bulb. The remainder of the duodenum was normal. The GE junction was biopsied. A guidewire was placed and the scope was withdrawn. Dilation was performed at the gastroesophageal junction with a Savary dilator with no resistance at 18 mm. There was a mucosal disruption in the proximal esophagus after passage of the Savary dilator, suggesting a possible web. Impression: Mucosal disruption proximal esophagus with passage of large bore dilator, suggesting a proximal web. Suspect that his report of dysphagia may be by a somatoform disorder; alternatively, he may have oropharyngeal dysphagia, related to Parkinsonism (med related?). It may be possible that he has esophageal dysfunction, related to reflux, contributing to his symptoms as well. Small clean based duodenal ulcer. Recommendation: Discharge pt to floor. Given absence of aspiration on speech pathology evaluation, would give pt trial of "easy to chew" diet. BID PPI for 8 weeks, then once daily PPI indefinitely, for treatment of duodenal ulcer and reflux esophagitis. This also will serve as trial of therapy to see if reflux is causing his globus and dysphagia. Yoselyn Cardona M.D. Yoselyn Cardona MD 08/28/2019 1:40:54 PM This report has been signed electronically. Note Initiated On: 08/28/2019 12:46 PM Number of Addenda: 0 I attest to the content of the Intraoperative Record and orders documented therein, exceptions below {[id number]}
--- NOTE | 2019-08-28 13:54 | Anesthesiology Progress Note ---
Date of Service August 28, 2019 Anesthesia Post Procedure Vital Signs Vital Signs: Temp Pulse Resp BP BP Pulse Ox 08/28/19 12:43 36.7 C 86 16 164/107 H 97 08/28/19 06:57 36.9 C 81 18 153/99 H 97 08/28/19 03:57 137/94 146/96 H 08/28/19 01:08 133/91 142/94 H 08/28/19 00:49 82 159/96 H 155/106 H 08/28/19 00:00 37.1 C 84 16 176/118 H 158/115 H 97 08/27/19 16:31 37.1 C 92 H 18 131/90 97 Transfer of Care Handoff Completed per policy Notes Mental Status: alert / awake / arousable and participated in evaluation Patient Amnestic to Procedure: Yes Nausea / Vomiting: adequately controlled Pain: adequately controlled Airway Patency, RR, SpO2: stable & adequate BP & HR: stable & adequate Hydration State: stable & adequate Anesthetic Complications: no major complications apparent and Pt Satisfied with anesthetic care
--- NOTE | 2019-08-28 15:30 | Hospitalist Progress Note ---
Date of Service August 28, 2019 Assessment & Plan (1) Dysphagia: This pt is a 59 yo M PMHx HTN, hypothyroidism, Hepatitis C, paranoid schizophrenia here for continued dysphagia causing 4 days of poor to no PO intake following discharge 4 days prior. He was previously admitted for 11 days for significant lower extremity weakness and poor po intake. He had a fever then and had a very thorough workup for neurological disorders including multiple MRIs and LP, labs. Dysphagia and Malnutrition: - Ongoing issue for him. EGD in 04/2018 only showed esophagitis. - Gastric emptying study on 08/21 was normal without any evidence of delayed transit from the stomach. Barium swallow here with mild esophageal dysmotility but could not complete study after he felt like he couldn't swallow the barium -EGD with class A esophagitis, possible web and had esophagus dilatation, small nonbleeding duodenal ulcer -now improved since esophageal dilation, tolerating easy to chew diet -suspect a psychogenic component as well and could also be difficulty swallowing due to medication side effect, Parkinsonism. Also with severe thiamine deficiency which may be contributing Appreciate GI and Speech Therapy evaluations -continue IVFs but decrease rate to 75mL/hr - last admission GI started on PPI BID for presumed esophagitis --now GI recommends continuing on PPI bid x 8 weeks - aripiprazole has possible side effect of dysphagia; pt currently on high dose in outpatient setting. Possible this is contributing to dysphagia, but given schizophrenia, would not hold this medication -hold Remeron in case worsening condition -started IV thiamine (2) Duodenal ulcer: small and nonbleeding, found on EGD -continue PPI bid x 8 weeks (3) Thiamine deficiency: B1 level undetectable from last admission could explain his significant weakness -started IV thiamine 200mg IV bid and then convert to po meds upon discharge (4) Hypokalemia: Improving with replacement; 2/2 poor po intake -replace again today with IV KCL 20meq - continue NSS with KCl 20 meq - continue to follow BMP (5) Weakness: - Generalized weakness reported by patient on last admission, however able to walk now after several days of PT.Lyme serology negative, B12 & folic acid are appropriate, recent TSH is normal. MRIs of his cervical, thoracic, and lumbar spines all without acute stenosis or issues. TERRIE and ANCA were both negative. - LP on 08/15 was notable only for high protein which is non-specific. BioFire of CSF negative - Cryoglobulin and heavy metal levels negative / within normal limits, acetylcholine receptor anti-bodies (for myasthenia gravis) pending. -Vitamin B1 levels severely low and now being replaced Overall strength is much improved - Plan for neurology to perform an outpatient EMG. (6) Hypertension: refusing hs dose of amlodipine -change amlodipine to AM dose IV hydralazine prn BPs currently controlled to high at times (7) Paranoid schizophrenia: - in outpatient setting on aripiprzole 20mg daily, mirtazapine 15mg daily. - possible his antipsychotics are contributing to his dysphagia as above -continue Abilify, hold Remeron (8) Tremor: resting tremor, both hands x 9 months -possibly medication related -f/u with Neuro or Psych (9) Hypothyroid: - on levothyroxine 50 mcg daily in outpatient setting. - TSH elevated on admission to 5.5, T4 normal. - give po LT4 (10) Malnutrition: Has not been eating -encourage po intake today (11) DVT prophylaxis: Code Status: FULL CODE DVT ppx: Heparin 5000u SQ q12h Dispo: med/surg Admission and Anticipated Discharge Date Admission Date: August 27, 2019 Anticipated date of discharge: 08/29/19 Subjective Pt seen right after returning from his EGD. He was found to have a possible web, had small nonbleeding ulcer in duodenum, class A esophagitis, and had esophagus dilated. He reports since then, he has had no problems eating his dinner. Denies chest pain or SOB, no abd pain. No BM in many days but has not eaten much. Feels weak in his legs but is able to walk around. Has been refusing evening medications. He reports he has had the tremor in his hands for about 9 months now. Review of Systems Review of Systems: All systems reviewed & are unremarkable except as noted in HPI & below Physical Exam Constitutional: WD/WN, vitals as above Eyes: + anicteric sclerae ENMT: external ear and nose normal, oropharynx normal Neck: trachea midline, no thyromegaly Respiratory: normal respiratory effort, lungs clear to auscultation Cardiovascular: RRR, no murmur, no edema Chest (Breasts): Chest: normal inspection of chest Gastrointestinal (Abdomen): normal bowel sounds, soft, nontender, no hepatosplenomegaly Musculoskeletal: Extremities: extremities normal to inspection; no cyanosis and no clubbing Skin: no rashes, warm and dry Neurologic: moves all extremities and awake; no focal motor deficits (5/5 sterngth in UEs and LEs throughout bilat) and not confused Psychiatric: A+Ox3, euthymic affect Lymphatic: no lymphedema Results & Data Results & Data ([facility]) Vital Signs (Past 12 Hours) Vital Signs Temp Pulse Resp BP BP Pulse Ox 08/28/19 15:10 36.6 C 86 16 137/95 99 08/28/19 14:36 36.3 C L 81 18 126/87 97 08/28/19 14:19 95 H 16 129/88 98 08/28/19 14:04 96 H 16 117/86 95 08/28/19 13:49 95 H 15 106/72 94 08/28/19 12:43 36.7 C 86 16 164/107 H 97 08/28/19 06:57 36.9 C 81 18 153/99 H 97 08/28/19 03:57 137/94 146/96 H Laboratory Results 08/28/19 08/28/19 Range/Units 05:34 05:34 WBC 5.74 (4.8-10.8) K/uL RBC 4.87 (4.7-6.1) M/uL Hgb 13.4 L (14.0-18.0) g/dL Hct 40.6 L (42-52) % MCV 83.4 (80-100) fL MCH 27.5 (25-34) pg MCHC 33.0 (32-36) g/dL RDW Std Deviation 44.3 (36.4-46.3) fL RDW Coeff of Frankc 14.5 (11.5-14.5) % Plt Count 130 (130-400) K/uL Immature Gran % (Auto) 0.0 % Neut % (Auto) 67.2 % Lymph % (Auto) 20.9 % Otero % (Auto) 10.3 % Eos % (Auto) 1.4 % Baso % (Auto) 0.2 % Immature Gran # (Auto) 0.00 (0.00-0.02) K/uL Neut # (Auto) 3.86 (1.4-6.5) K/uL Lymph # (Auto) 1.20 (1.2-3.4) K/uL Otero # (Auto) 0.59 (0.11-0.59) K/uL Eos # (Auto) 0.08 (0-0.5) K/uL Baso # (Auto) 0.01 (0-0.2) K/uL Platelet Estimate Decreased L (Normal) Echinocytes 1+ Sodium 139 (136-145) mmol/L Potassium 3.4 L (3.5-5.1) mmol/L Chloride 108 H (98-107) mmol/L Carbon Dioxide 24 (21-32) mmol/L Anion Gap 7.0 (3-11) BUN 5 L (7-18) mg/dl Creatinine 0.91 (0.6-1.4) mg/dl Est Cr Clr Drug Dosing 102.6 ml/min Est GFR ( Amer) 105.1 Est GFR (Non-Af Amer) 90.6 BUN/Creatinine Ratio 5.0 L (10-20) Glucose 69 L (70-99) mg/dl Calcium 8.0 L (8.5-10.1) mg/dl Magnesium 1.8 (1.8-2.4) mg/dl PG Care Time/CCT Total # of Minutes Spent Total Time Spent with Patient: Total time spent is greater than 50% in coordination of care (as documented) at patient's floor/unit and/or counseling patient: Coding Level of Care Code 96960 Subseq Hosp Care Lvl 3 Diagnoses Dysphagia R13.10 Dysphagia type: unspecified Duodenal ulcer K26.9 Thiamine deficiency E51.9 Hypokalemia E87.6 Weakness R53.1 Hypertension I10 Paranoid schizophrenia F20.0 Tremor R25.1 Hypothyroid E03.9 Hypothyroidism type: unspecified Malnutrition E46 DVT prophylaxis Z29.9 (1) Dysphagia Dysphagia type: unspecified Qualified Code(s): R13.10 - Dysphagia, unspecified (2) Hypothyroid Hypothyroidism type: unspecified Qualified Code(s): E03.9 - Hypothyroidism, unspecified
[2019-08-28] MEDS ORDERED: PANTOprazole 40 MG TAB PO SCH (21:00)
[2019-08-28] MEDS: ATORVASTATIN 40 MG TAB PO SCH (21:23)
[2019-08-28] MEDS: amLODIPine BESYLATE 5 MG TAB PO SCH (21:23)
--- NOTE | 2019-08-28 22:24 | Communication Note ---
Date of Service: August 28, 2019 Notified once more overnight, pt refusing PO meds due to dysphagia. PO protonix held once more and pt transitioned to IV Protonix. 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
[2019-08-28] MEDS ORDERED: PANTOprazole 40 MG in SYRINGE 0 ML IV SCH (22:30)
--- NOTE | 2019-08-28 23:17 | Communication Note ---
Date of Service: August 28, 2019 Notified by nursing that pt was having a penile bleed. No Hx of almonte use. Held his heparin. Also ordered a UA with reflex culture. Placed AM consult to urology. 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
[2019-08-29 01:47] LABS: Appearance Urine Clear (Clear); Bacteria Urine Automated Negative (Negative); Bilirubin Urine Negative (Negative); Blood Urine 2+ (Negative); Color Urine Yellow; Glucose Urine UA Negative (Negative); Ketones Urine 1+ (Negative); Leukocyte Esterase Urine Negative (Negative); Nitrite Urine Negative (Negative); Protein Urine Negative (Negative); Specific Gravity Urine 1.012 (1.000-1.030); Urobilinogen Urine Negative (Negative)
[2019-08-29] MEDS: LEVOTHYROXINE SODIUM 50 MCG TABLET PO SCH (04:54)
[2019-08-29 05:13] LABS: Mean Corpuscular Hgb Conc 33.2 g/dL (32-36)
[2019-08-29 05:24] LABS: Hematocrit (blood only) 39.5 % (42-52); Hemoglobin 13.1 g/dL (14.0-18.0); Mean Corpuscular Hemoglobin 27.9 pg (25-34); RDW Coefficient of Variation 14.9 % (11.5-14.5); RDW Standard Deviation 45.5 fL (36.4-46.3); White Blood Count 5.59 K/uL (4.8-10.8)
[2019-08-29 05:33] LABS: Platelet Count 136 K/uL (130-400)
[2019-08-29 05:34] LABS: Basophils # (auto) 0.01 K/uL (0-0.2); Basophils % (auto) 0.2 %; Echinocytes 1+; Eosinophils # (auto) 0.12 K/uL (0-0.5); Eosinophils % (auto) 2.1 %; Giant Platelets 1+; Immature Granulocytes # (auto) 0.02 K/uL (0.00-0.02); Immature Granulocytes % (auto) 0.4 %; Lymphocytes # (auto) 1.12 K/uL (1.2-3.4); Monocytes # (auto) 0.66 K/uL (0.11-0.59); Monocytes % (auto) 11.8 %; Neutrophils # (auto) 3.66 K/uL (1.4-6.5); Neutrophils % (auto) 65.5 %; Ovalocytes 1+; Platelet Estimate Decreased (Normal)
[2019-08-29 05:45] LABS: BUN Creatinine Ratio 5.3 (10-20); Calcium 8.2 mg/dl (8.5-10.1); Creatinine Clr Calc Pharmacy 77.2 ml/min; Est GFR (African American) 74.4; Est GFR (Non-African American) 64.2; Magnesium 2.1 mg/dl (1.8-2.4); Potassium 3.8 mmol/L (3.5-5.1)
--- NOTE | 2019-08-29 08:17 | Anesthesiology Progress Note ---
Date of Service August 29, 2019 Anesthesia Post Procedure Vital Signs Vital Signs: Temp Pulse Resp BP BP Pulse Ox 08/29/19 08:05 36.4 C L 82 16 160/101 H 94 08/29/19 04:08 36.9 C 87 16 141/93 H 98 08/29/19 00:41 37.2 C 83 16 152/103 H 160/111 H 97 08/28/19 21:42 86 133/85 08/28/19 15:10 36.6 C 86 16 137/95 99 08/28/19 14:36 36.3 C L 81 18 126/87 97 08/28/19 14:19 95 H 16 129/88 98 08/28/19 14:04 96 H 16 117/86 95 08/28/19 13:49 95 H 15 106/72 94 08/28/19 12:43 36.7 C 86 16 164/107 H 97 Notes Mental Status: alert / awake / arousable and participated in evaluation Patient Amnestic to Procedure: Yes Nausea / Vomiting: adequately controlled Pain: adequately controlled Airway Patency, RR, SpO2: stable & adequate BP & HR: stable & adequate Hydration State: stable & adequate Anesthetic Complications: no major complications apparent
[2019-08-29] MEDS: ATORVASTATIN 40 MG TAB PO SCH (10:08)
[2019-08-29] MEDS: PANTOprazole 40 MG TAB PO SCH ×2 (10:08→21:37)
[2019-08-29] MEDS: amLODIPine BESYLATE 5 MG TAB PO SCH (10:08)
[2019-08-29] MEDS: ARIPiprazole 10 MG TAB PO SCH (10:08)
[2019-08-29] MEDS: THIAMINE HCL 200 MG in SODIUM CHLORIDE 0.9% 50 ML IV SCH ×2 (10:12→21:37)
[2019-08-29] MEDS: NSS + 20MEQ KCL 20 MEQ/1,000 ML BAG IV SCH (10:13)
--- NOTE | 2019-08-29 12:11 | Urology Consultation ---
Date of Consultation August 29, 2019 Assessment & Plan (1) Gross hematuria: Gross hematuria? His urine is completely clear at present, he has microscopic blood on UA He has not experienced prior gross hematuria nor is he shown blood on prior UAs in the recent past He had a CT in July which was reviewedno kidney stones, no masses, no hydronephrosis, prostate is not massively enlarged Given the lack of current symptoms I think the best bet would be observation and a repeat UA in several weeks If persistent microscopic hematuria I would recommend completing the work-up with a cystoscopy This work-up can occur as an outpatient Please contact us if further inpatient assistance is required History of Present Illness Attending Physician: Fabiola Lazar MD History of Present Illness 59-year-old prisoner with a multitude of medical issues who is hospitalized for non- issues but developed some hematuria overnight He has never experienced gross hematuria previously He has a remote history of a UTI He has had numerous UAs over the past 1 to 2 yearsno blood in any of the UAs prior to todaymicroscopic blood only today He reports that there was some blood coming from the tip of the penis overnightno trauma, no recent catheterization It is somewhat unclear to me whether this was true hematuria with blood filling the urinal versus urethral or penile bleedinghe was not particularly clear in his history of this He has a condom catheter on at present and no blood visible within the urinecrystal-clear Allergies Allergy/AdvReac Type Severity Reaction Status Date / Time No Known Allergies Allergy Verified 08/27/19 00:38 Home Medications Home Medications Medication Instructions Recorded Confirmed Type amlodipine [Norvasc] 10 mg PO HS 05/08/18 08/27/19 History aspirin 81 mg PO HS 05/08/18 08/27/19 History atorvastatin [Lipitor] 40 mg PO HS 05/08/18 08/27/19 History levothyroxine [Synthroid] 50 mcg PO QAM 05/08/18 08/27/19 History mirtazapine [Remeron] 15 mg PO HS 07/28/19 08/27/19 History pantoprazole 40 mg PO BID #1 tab 08/23/19 08/27/19 Rx aripiprazole 20 mg PO DAILY 08/27/19 08/27/19 History lactulose 30 g PO TID PRN 08/27/19 08/27/19 History Patient History Medical History Duodenal ulcer Dysphagia (Acute) Hepatitis C HTN (hypertension) (Chronic) Hypomagnesemia (Inactive) Pancytopenia Paranoid schizophrenia (Chronic) Thiamine deficiency Tremor UTI (urinary tract infection) Surgical History History of shoulder surgery Family History Other Family history non-contributory Social History Preferred Language: Frisian Communication Ability: Effective Bag Bundler Required: No Beliefs That Will Affect Care: None marital status: Single Current Living Situation: Other Current Living Situation Comment: [facility] Other Information That Helps Us Care for You: No Feels Safe at Home: Yes Safety Concerns: Feels Safe At This Time Smoking Status: Former smoker Do You Dip or Chew Tobacco: No ; Second Hand Exposure: No ; Tobacco Cessation Education Requested by Patient: No Hx Alcohol Use: No Hx Substance Use: No Review of Systems Constitutional: no fever, no chills and no fatigue Eyes: no worsening vision Ear, Nose, Mouth, Throat: no facial pain and no pain with swallowing Respiratory: no cough and no dyspnea Cardiovascular: no chest pain and no palpitations Gastrointestinal: + abdominal pain and + nausea; no vomiting Genitourinary: no dysuria, no urinary frequency and no nocturia Musculoskeletal: no back pain Integumentary: no rash and no urticaria Neurologic: no gait abnormality and no unsteadiness Psychiatric: no behavioral changes and no depression Endocrine: no fatigue Physical Exam Physical Exam: Condom catheter in placeclear urine with no blood or discoloration No visible trauma to the external portion of the penis or meatus Abdomen soft, nontender, no rebound Constitutional: well developed and well nourished Neck: neck nontender Respiratory: normal respiratory effort; no respiratory distress and does not use accessory muscles Cardiovascular: Rate/Rhythm: regular rate Vessels: radial pulses present Extremities: no edema Gastrointestinal (Abdomen): Inspection/Auscultation: abdomen normal to inspection Percussion/Palpation: abdomen soft; abdomen nontender and no guarding Musculoskeletal: Head/Neck/Chest: normocephalic and head atraumatic Extremities: extremities normal to inspection Skin: no rashes and no lesions Trauma: no evidence of skin trauma Neurologic: awake; not obtunded Speech / Cognition: normal speech Motor/Sensory: no tremor Psychiatric: Orientation: alert and oriented x 3 Genitourinary: no CVA tenderness Lymphatic: no lymphadenopathy Results & Data Vital Signs (Past 12 Hours) Vital Signs Temp Pulse Resp BP BP Pulse Ox 08/29/19 08:05 36.4 C L 82 16 160/101 H 94 08/29/19 04:08 36.9 C 87 16 141/93 H 98 08/29/19 00:41 37.2 C 83 16 152/103 H 160/111 H 97 08/28/19 21:42 86 133/85 PG Care Time/CCT Total # of Minutes Spent Total Time Spent with Patient: Total time spent is greater than 50% in coordination of care (as documented) at patient's floor/unit and/or counseling patient: Coding Level of Care Code 47030 Inpt Consult Level 3 Diagnoses Gross hematuria R31.0
--- NOTE | 2019-08-29 12:52 | Psychiatric Consultation ---
Date of Consultation August 29, 2019 Impression / Recommendations Impression Dr. Mela Fernandez was directly involved in review and discussion of the patient's case and participated in medical decision making regarding treatment recommendations. RECOMMENDATIONS: 08/28 - Medical records obtained and reviewed from [facility], which outline patient's history of dysphagia and refusal to eat multiple times in the past. On two occasions, 04/2018 and 07/2019 patient was started on short course of clonazepam to assist with and anxiety related to eating. Records indicate that dysphagia likely stemmed from legitimate medical conditions (esophagitis) initially, but anxiety/paranoia further prolonged patient's symptoms and refusal to eat. 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 - Given this history, would suggest another short course of clonazepam 0.25mg TID prior to meals to reduce anxiety at mealtime. Recommend 5-days course as has been done previously, and patient can be reassessed to determine if there is need for further use based on progress. Would suggest coordination with the facility to determine if this process can be managed [facility] or if patient would require ongoing inpatient hospitalization. - As patient does reports paranoia/delusions as a contributing factor for his inability/unwillingness to eat or drink, would also recommend titration of aripiprazole to 25mg and change his dosing to HS for consistency with longterm records. As patient has been on these medications for over a year without significant incident, it seems very unlikely that his psychotropic medications are directly contributing to his dysphagia. Given concern for anxiety, it is appropriate to continue mirtazapine at bedtime and we will resume home dose of 15mg qHS. - Partial AIMS assessment completed (scoring does not account for repetitive/rhythmic tremors, which is observed in hands bilaterally) - patient scored a 1 for fasciculation of tongue, which was minimal and may be an extreme normal. No observation of abnormal perioral movements or abnormalities of muscles of facial expression. Full assessment could not be completed as patient 's lower extremities are restrained to the bed for security purposes. Psych History Identifying Data 59-year-old male inmate from [facility] admitted medically on 08/27/2019 after presenting to the ED from the longterm due to dysphagia and malnutrition. Pt was recently hospitalized for similar concerns from 08/12/2019 - 08/23/2019. Psychiatric consultation was requested to evaluate patient for possibility that psychotropic medications were contributing to dysphagia. Chief Complaint "I'm here for the same thing. I can't keep nothing down." History of Present Illness Osmani Thompson is a 59-year-old male inmate from [facility] who was admitted medically on 08/27/2019 after presenting to the ED from longterm due to dysphagia and malnutrition. Pt was hospitalized at [facility] for similar concerns from 08/12/2019 - 08/23/2019. Gastroenterology has been consulted for assistance. Psychiatric consultation was requested to evaluate patient for possibility that psychotropic medications were contributing to his dysphagia. Pt was superficially cooperative with psychiatric evaluation. He informed this provider that he is admitted to the hospital for "the same thing. I can't keep nothing down." Pt states that he has struggled with this concern intermittently for "25 years", but admits it has recently worsened in the last "month and a half." Pt does admit that his symptoms were improved yesterday, reporting he was able to eat lunch and dinner without any issues. Pt states "it got worse around 6am this morning, just bam, out of nowhere." This provider began asking the patient if he felt anxiety may be contributing to his difficulty swallowing, attempting to determine if there was fear related to choking sensation. Pt interrupted this provider mid-sentence, and stated "it's not a mental thing, it's a physical thing." Pt is initially unsure about what may be contributing to his physical symptoms, but later states "someone is doing this to me, I know someone is making this happen." Pt states "I don't know the guys, but I know of them", when asked who he believes is causing this. Pt then shares the only reason he was able to eat yesterday was "I was able to overpower them." This provider again clarified patient's belief that his symptoms are not related to his psychiatric diagnosis. Pt does confirm a diagnosis of schizophrenia, stating he was diagnosed at age 16 as "I believed there were people that were after me." Even with concrete prompting, patient is unable to recognize how those statements are similar to the statements he is making now. He denies any perceived delusions at this time, stating he believes him being targeted is "reality, it's fact." Pt denies auditory or visual hallucinations at this time. He denies SI/HI or current safety concerns. He again informs this provider that "I know this is true, this is reality!" Patient was educated on the topic of antipsychotic medications occasionally causing abnormal motor movements. He denies any previous concerns related to aripiprazole or other psychotropic medications and states "this isn't a medication thing, my medications are fine." Pt was initially compliant with a partial AIMS assessment - unable to complete full assessment as patient's lower extremities are restrained to the bed for security purposes. Pt was cooperative with requested oral movements, but was unwilling to allow this provider to examine any passive rage of motion. After denying this request, patient refused to answer any additional questions asked by this provider. Past Psychiatric History Current Psychiatric Diagnosis: Paranoid Schizophrenia Outpatient Services: Pt is followed by the psychiatric team of providers at [facility] - last evaluated on 08/01/2019. Previous Psych Admissions: 08/12 consultation, patient reported 3-4 inpatient psychiatric admissions at [facility], the most recent of these reportedly lasted ~2 weeks History of Previous Suicide Attempt: No Past Medication Trials: Per patient reports - includes, but not limited to: 1. Risperdal 2. Stelazine 3. Cogentin 4. Seroquel 5. Haldol 6. Abilify 7. Remeron Additional Notes: REVIEW OF RECENT PROGRESS NOTES FROM [facility]: 08/01/2019 - Psychiatric Assessment: Pt had reportedly been on his current regimen of aripiprazole 15mg and mirtazapine 15mg since April 2018. Pt was evaluated in 04/2018 for 30lb weight loss over the course of 2 months with suspicion for "somatoform spectrum type disorder." At that time, patient had been prescribed risperidone 3mg BID and trazodone 50mg qHS but was reportedly minimally compliant with these medications - taking only 30% and 19% of the time, respectively. It was reported in April 2018 that the patient was complaining of difficulty swallowing, which had reportedly occurred "off and on" for several years, but had worsened in the course of a few months. Statements made by the patient at that time led to suspicion of "anxiety associated with eating." It was believed that the esophagitis may have initially contributed to dysphagia, which led to increased anxiety which "ultimately led to the dysfunction being seen." Pt's medications were adjusted and he was started on aripiprazole 15mg and mirtazapine 15mg each evening. He was also started on a short-course of clonazepam 0.5mg in the morning and afternoon to assist with anxiety, which was later discontinued. Pt was assessed again on 08/01/2019 for similar concerns, as well as "patient seemed paranoid and was making odd statements." It was still believed that patient's inability to tolerate nutritional intake was related to "somatoform spectrum disorder." Aripiprazole was titrated to 20mg, mirtazapine was maintained at 15mg qHS, and patient was again started on a short course of clonazepam 0.25mg TID x 5 days for anxiety. 08/24/2019 - Medical Progress Note: No new concerns. Reported ability to swallow pills without choking. 08/25/2019 - Medial Progress Note: Seen due to "nursing concern that he's refusing to eat or drink or take meds x 1 day." Records from hospitalization were reviewed. Myasthenia gravis labs pending, as well as EMG study. Pt was observed to be "walking around with ease", but "next day reports he can't move at all." Protonix had recently been increased from 40mg qd to 40mg BID. Pt reported "he's doing alright." History reportedly limited. 08/26/2019 - Medical Progress Note: Seen again due to refusal to eat or drink. Patient stating he can't swallow. "This has been an intermittent issue dating back to at least 04/2019." EGD in 04/2019 "revealed severe gastritis." Reported that on 08/23 the patient started "to refuse to drink and eat or take meds due to concern of not being able to swallow." Pt was started on NSS for dehydration. Pt was reportedly agreeable to try to take his medications crushed during lunch. Allergies Allergy/AdvReac Type Severity Reaction Status Date / Time No Known Allergies Allergy Verified 08/27/19 00:38 Home Medications Home Medications Medication Instructions Recorded Confirmed Type amlodipine [Norvasc] 10 mg PO HS 05/08/18 08/27/19 History aspirin 81 mg PO HS 05/08/18 08/27/19 History atorvastatin [Lipitor] 40 mg PO HS 05/08/18 08/27/19 History levothyroxine [Synthroid] 50 mcg PO QA 05/08/18 08/27/19 History mirtazapine [Remeron] 15 mg PO HS 07/28/19 08/27/19 History pantoprazole 40 mg PO BID #1 tab 08/23/19 08/27/19 Rx aripiprazole 20 mg PO DAILY 08/27/19 08/27/19 History lactulose 30 g PO TID PRN 08/27/19 08/27/19 History Family History 08/12 consultation - patient reported schizophrenia "runs in my family" - reported his mother, nephew, nieces, and cousins have the disorder. Pt believes his brother is an alcoholic. Substance Abuse History 08/12 consultation - denies tobacco use, denies having access to alcohol or other illicit substances while incarcerated. Personal History Living Arrangements: Inmate at [facility] Highest Grade Completed: Did Not Graduate High School (stopped schooling in the 10th grade) Marital Status: Single Number Of Children: 1 child History of Legal Problems: Presently incarcerated at [facility] - has been an inmate at this facility since 10/2012 Psychological Trauma History Comment: Denied at 08/12 consultation Patient History Medical History Duodenal ulcer Dysphagia (Acute) Hepatitis C HTN (hypertension) (Chronic) Hypomagnesemia (Inactive) Pancytopenia Paranoid schizophrenia (Chronic) Thiamine deficiency Tremor UTI (urinary tract infection) Surgical History History of shoulder surgery Family History Other Family history non-contributory Social History Preferred Language: Icelandic Communication Ability: Effective Tonsorial Artist Required: No marital status: Single [facility] Sit[facility] Other Information That Helps Us Care for You: No Feels Safe at Home: Yes Safety Concerns: Feels Safe At This Time Smoking Status: Former smoker Do You Dip or Chew Tobacco: No ; Second Hand Exposure: No ; Tobacco Cessation Education Requested by Patient: No Hx Alcohol Use: No Hx Substance Use: No Physical Exam Psychiatric: Orientation: alert, oriented to person, oriented to place and cooperative Apperance: appropriately dressed, appropriately groomed and appeared stated age Eye Contact: + poor eye contact (generally avoids direct eye contact ) Motor Behavior: + tremor (observed in hands bilaterally) Speech: normal rate/rhythm/volume of speech (minimal, monotone) Affect: + flat affect and + irritable affect (when discussing believe he is being persecuted) Mood: no depressed mood and no anxious mood Thought Process: + concrete thought process Thought Content: + preoccupation (with perceived inability to eat/swallow), + paranoid, + delusions and + persecution; no hopelessness Suicidal Thoughts: denies suicidal thoughts, denies suicidal plan and denies suicidal intent Homicidal Thoughts: denies homicidal thoughts Hallucinations: no auditory hallucinations and no visual hallucinations Cognition: attention grossly intact and language grossly intact Insight: + limited insight (seems to be chronic) Judgement: + impaired judgement (seems to be chronic) Vital Signs (Past 24 Hours): Last Vital Signs Temp 36.8 C 08/29/19 10:35 Pulse 76 08/29/19 10:35 Resp 16 08/29/19 10:35 BP 143/94 H 08/29/19 10:35 Pulse Ox 97 08/29/19 10:35 Review of Systems Constitutional: denied HEENT: reports difficulty with eating/swallowing Cardiovascular: denied Respiratory: denied Gastrointestinal: denied Neurological: denied Psychiatric: denies symptoms other than stated above Total of at least 10 systems reviewed, pertinent positives as above and in HPI. Results & Data (PSY) Medications Administered [facility]odip[facility] ([facility]) [facility] [place]: 09/28/19 08:59 Last Admin: 08/29/19 10:08 Dose: Not Given Documented by: [id number] Aripiprazole (Abilify) 20 mg PO DAILY [facility] Stop: 09/27/19 08:59 Last Admin: 08/29/19 10:08 Dose: Not Given Documented by: [id number] Admin: 08/28/19 08:52 Dose: 20 mg Documented by: [id number] Atorvastatin Calcium (Lipitor) 40 mg PO QAM [facility] Stop: 09/28/19 08:59 Last Admin: 08/29/19 10:08 Dose: Not Given Documented by: [id number] Heparin Sodium (Porcine) (Heparin Sodium (Porcine)) 5,000 units SQ Q12 [facility] Stop: 09/26/19 08:59 Last Admin: 08/28/19 21:24 Dose: 5,000 units Documented by: [id number] Cosigned by: [id number] Admin: 08/28/19 08:52 Dose: 5,000 units Documented by: [id number] Cosigned by: [id number] Admin: 08/27/19 20:59 Dose: 5,000 units Documented by: [id number] Cosigned by: [id number] Admin: 08/27/19 09:04 Dose: 5,000 units Documented by: [id number] Cosigned by: [id number] Hydralazine HCl (Hydralazine Hcl) 10 mg IV Q4H PRN PRN Reason: Hypertension Stop: 09/27/19 00:06 Last Admin: 08/28/19 00:27 Dose: 10 mg Documented by: [id number] Potassium Chloride/Sodium Chloride (Normal Saline W/20 Meq Kcl) 20 meq in 1,000 mls @ 75 mls/hr IV .[id number] PRATEEK Stop: 09/26/19 04:22 Last Admin: 08/29/19 10:13 Dose: 75 mls/hr Documented by: [id number] Infusion: 08/29/19 10:13 Dose: 75 mls/hr Documented by: [id number] Infusion: 08/29/19 05:59 Dose: 75 mls/hr Documented by: [id number] Admin: 08/28/19 21:22 Dose: 75 mls/hr Documented by: [id number] Infusion: 08/28/19 21:22 Dose: 75 mls/hr Documented by: [id number] Infusion: 08/28/19 20:03 Dose: 75 mls/hr Documented by: [id number] Admin: 08/28/19 16:53 Dose: 150 mls/hr Documented by: [id number] Infusion: 08/28/19 16:53 Dose: 150 mls/hr Documented by: [id number] Infusion: 08/28/19 14:45 Dose: 150 mls/hr Documented by: [id number] Infusion: 08/28/19 12:00 Dose: 0 mls/hr Documented by: [id number] Admin: 08/28/19 07:32 Dose: 150 mls/hr Documented by: [id number] Infusion: 08/28/19 07:32 Dose: 150 mls/hr Documented by: [id number] Admin: 08/28/19 01:44 Dose: 150 mls/hr Documented by: [id number] Infusion: 08/28/19 00:43 Dose: 150 mls/hr Documented by: [id number] Admin: 08/27/19 18:02 Dose: 150 mls/hr Documented by: [id number] Infusion: 08/27/19 17:26 Dose: 150 mls/hr Documented by: [id number] Admin: 08/27/19 10:45 Dose: 150 mls/hr Documented by: [id number] Infusion: 08/27/19 10:45 Dose: 150 mls/hr Documented by: [id number] Infusion: 08/27/19 06:47 Dose: 150 mls/hr Documented by: [id number] Admin: 08/27/19 04:40 Dose: 150 mls/hr Documented by: [id number] Thiamine HCl 200 mg/ Sodium (Chloride) 52 mls @ 208 mls/hr IV BID PRATEEK Stop: 09/26/19 10:59 Last Infusion: 08/29/19 10:33 Dose: 0 mls/hr Documented by: [id number] Admin: 08/29/19 10:12 Dose: 208 mls/hr Documented by: [id number] Infusion: 08/28/19 21:57 Dose: 0 mls/hr Documented by: [id number] Admin: 08/28/19 21:23 Dose: 208 mls/hr Documented by: [id number] Infusion: 08/28/19 09:22 Dose: 0 mls/hr Documented by: [id number] Admin: 08/28/19 09:07 Dose: 208 mls/hr Documented by: [id number] Infusion: 08/27/19 21:42 Dose: 0 mls/hr Documented by: [id number] Admin: 08/27/19 21:01 Dose: 208 mls/hr Documented by: [id number] Infusion: 08/27/19 12:33 Dose: 0 mls/hr Documented by: [id number] Admin: 08/27/19 12:18 Dose: 208 mls/hr Documented by: [id number] Levothyroxine Sodium (Synthroid) 50 mcg PO DAILYBB PRATEEK Stop: 09/27/19 06:29 Last Admin: 08/29/19 04:54 Dose: Not Given Documented by: [id number] Admin: 08/28/19 06:22 Dose: 50 mcg Documented by: [id number] Pantoprazole Sodium (Protonix) 40 mg PO BID [facility] Stop: 09/28/19 08:59 Last Admin: 08/29/19 10:08 Dose: Not Given Documented by: [id number] Coding Level of Care Code 61253 [facility] Intl Hosp Care Lvl 2
[2019-08-29] MEDS ORDERED: ARIPiprazole 10 MG TAB PO SCH (16:30)
[2019-08-29] MEDS: clonazePAM 0.25 MG TAB PO SCH ×2 (17:16→18:36)
--- NOTE | 2019-08-29 18:49 | Hospitalist Progress Note ---
Date of Service August 29, 2019 Assessment & Plan (1) Dysphagia: This pt is a 59 yo M PMHx HTN, hypothyroidism, Hepatitis C, paranoid schizophrenia here for continued dysphagia causing 4 days of poor to no PO intake following discharge 4 days prior. He was previously admitted for 11 days for significant lower extremity weakness and poor po intake. He had a fever then and had a very thorough workup for neurological disorders including multiple MRIs and LP, labs. Dysphagia and Malnutrition: - Ongoing issue for him. EGD in 04/2018 only showed esophagitis. - Gastric emptying study on 08/21 was normal without any evidence of delayed transit from the stomach. Barium swallow here with mild esophageal dysmotility but could not complete study after he felt like he couldn't swallow the barium -EGD with class A esophagitis, possible web and had esophagus dilatation, small nonbleeding duodenal ulcer -was improved right after esophageal dilation, tolerating easy to chew diet on eveing of 08/27---> NOW refusing all food and drink and pills today -strongly suspect a psychogenic component and jail Psych notes a dx of somatoform disorder--> Psych here says not likely a side effect of medication. Conazepam has been beneficial in the past for his anxiety with swallowing Also with severe thiamine deficiency which may be contributing Appreciate GI and Speech Therapy evaluations -continue IVFs until taking better po - GI recommends continuing on PPI bid x 8 weeks - ok to continue Abilify and restart Remeron as per Psych -trial of clonazepam with meals but pt refusing all po meds right now -continue IV thiamine (2) Duodenal ulcer: small and nonbleeding, found on EGD -continue PPI bid x 8 weeks (3) Thiamine deficiency: B1 level undetectable from last admission could explain his significant weakness -started IV thiamine 200mg IV bid and then convert to po meds upon discharge (4) Hypokalemia: Improved with replacement; 2/2 poor po intake - continue NSS with KCl 20 meq - continue to follow BMP (5) Weakness: - Generalized weakness reported by patient on last admission, however able to walk now after several days of PT.Lyme serology negative, B12 & folic acid are appropriate, recent TSH is normal. MRIs of his cervical, thoracic, and lumbar spines all without acute stenosis or issues. TERRIE and ANCA were both negative. - LP on 08/15 was notable only for high protein which is non-specific. BioFire of CSF negative - Cryoglobulin and heavy metal levels negative / within normal limits, acetylcholine receptor anti-bodies (for myasthenia gravis) pending. -Vitamin B1 levels severely low and now being replaced Overall strength is much improved - Plan for neurology to perform an outpatient EMG. (6) Hypertension: refusing hs dose of amlodipine IV hydralazine prn BPs currently controlled to high at times (7) Paranoid schizophrenia: - in outpatient setting on aripiprzole 20mg daily, mirtazapine 15mg daily. -continue Abilify and Psych recommends increasing to 25mg, ok to restart Remeron -add clonazepam as above (8) Tremor: resting tremor, both hands x 9 months -possibly medication related -f/u with Neuro or Psych (9) Hypothyroid: - on levothyroxine 50 mcg daily in outpatient setting. - TSH elevated on admission to 5.5, T4 normal. - give po LT4 (10) Malnutrition: Has not been eating -encourage po intake today (11) Gross hematuria: small amount noted by nursing coming from [facility]atus on evening of 08/27 None since then. no sign of UTI or stones, recent abd imaging of abd/pel ok. -observe -hold heparin SQ -repeat UA in 3 weeks to see if persistent Appreciate Urol consult (12) DVT prophylaxis: Code Status: FULL CODE DVT ppx: Heparin 5000u SQ q12h placed on hold for hematuria Dispo: med/surg Admission and Anticipated Discharge Date Admission Date: August 28, 2019 Subjective Pt has been refusing to eat and refusing all pills today. He c/o SOB to the RN earlier but not when I saw him. Feels weak all over but is able to move all extremities. I discussed his care with the guest services ambassadoroperations liaison and reviewed Psych consultation which was very helpful. After I explained what the clonazepam was for to help him swallow, he told me he was agreeable to trying it. Then when the RN brought it to him to take, he again refused it. He apparently had some blood coming from his penis last night. No recent Jose catheterization since 2 weeks ago he reports. No dysuria. No abd or flank pain. Review of Systems Review of Systems: All systems reviewed & are unremarkable except as noted in HPI & below Physical Exam Constitutional: WD/WN, vitals as above Eyes: + anicteric sclerae Neck: trachea midline, no thyromegaly Respiratory: normal respiratory effort, lungs clear to auscultation Cardiovascular: RRR, no murmur, no edema Chest (Breasts): Chest: normal inspection of chest Gastrointestinal (Abdomen): normal bowel sounds, soft, nontender, no hepatosplenomegaly Musculoskeletal: Extremities: extremities normal to inspection; no cyanosis and no clubbing Skin: no rashes, warm and dry Neurologic: moves all extremities and awake; no focal motor deficits (5/5 sterngth in UEs and LEs throughout bilat) and not confused Psychiatric: Orientation: alert, oriented to person and cooperative Eye Contact: + fair eye contact Speech: normal rate/rhythm/volume of speech Affect: + flat affect Lymphatic: no lymphedema Results & Data Results & Data ([facility]) Vital Signs (Past 12 Hours) Vital Signs Temp Pulse Resp BP BP Pulse Ox 08/29/19 15:39 36.9 C 75 16 152/99 H 97 08/29/19 10:35 36.8 C 76 16 143/94 H 97 08/29/19 09:19 82 150/98 H 97 08/29/19 08:05 36.4 C L 82 16 160/101 H 94 Laboratory Results 08/29/19 08/29/19 08/29/19 Range/Units 04:51 04:51 00:15 WBC 5.59 (4.8-10.8) K/uL RBC 4.70 (4.7-6.1) M/uL Hgb 13.1 L (14.0-18.0) g/dL Hct 39.5 L (42-52) % MCV 84.0 (80-100) fL MCH 27.9 (25-34) pg MCHC 33.2 (32-36) g/dL RDW Std Deviation 45.5 (36.4-46.3) fL RDW Coeff of Franck 14.9 H (11.5-14.5) % Plt Count 136 (130-400) K/uL MPV 13.0 H (7.4-10.4) fL Immature Gran % (Auto) 0.4 % Neut % (Auto) 65.5 % Lymph % (Auto) 20.0 % [place] % (Auto) 11.8 % Eos % (Auto) 2.1 % Baso % (Auto) 0.2 % Immature Gran # (Auto) 0.02 (0.00-0.02) K/uL Neut # (Auto) 3.66 (1.4-6.5) K/uL Lymph # (Auto) 1.12 L (1.2-3.4) K/uL [place] # (Auto) 0.66 H (0.11-0.59) K/uL Eos # (Auto) 0.12 (0-0.5) K/uL Baso # (Auto) 0.01 (0-0.2) K/uL Platelet Estimate Decreased L (Normal) Giant Platelets 1+ Ovalocytes 1+ Echinocytes 1+ Sodium 141 (136-145) mmol/L Potassium 3.8 (3.5-5.1) mmol/L Chloride 109 H (98-107) mmol/L Carbon Dioxide 27 (21-32) mmol/L Anion Gap 5.0 (3-11) BUN 6 L (7-18) mg/dl Creatinine 1.21 D (0.6-1.4) mg/dl Est Cr Clr Drug Dosing 77.2 ml/min Est GFR ( Amer) 74.4 Est GFR (Non-Af Amer) 64.2 BUN/Creatinine Ratio 5.3 L (10-20) Glucose 79 (70-99) mg/dl Calcium 8.2 L (8.5-10.1) mg/dl Magnesium 2.1 (1.8-2.4) mg/dl Urine Color Yellow Urine Appearance Clear (Clear) Urine pH 6.0 (4.5-7.5) Ur Specific [place] 1.012 (1.000-1.030) Urine Protein Negative (Negative) Urine Glucose (UA) Negative (Negative) Urine Ketones 1+ H (Negative) Urine Blood 2+ H (Negative) Urine Nitrite Negative (Negative) Urine Bilirubin Negative (Negative) Urine Urobilinogen Negative (Negative) Ur Leukocyte Esterase Negative (Negative) Urine WBC (Auto) 1-5 (0-5) /hpf Urine RBC (Auto) 5-10 H (0-4) /hpf U Hyaline Cast (Auto) 1-5 (0-5) /lpf U Epithel Cells (Auto) 5-10 H (0-5) /lpf Urine Bacteria (Auto) Negative (Negative) PG Care Time/CCT Total # of Minutes Spent Total Time Spent with Patient: Total time spent is greater than 50% in coordination of care (as documented) at patient's floor/unit and/or counseling patient: Coding Level of Care Code 87163 Subseq Hosp Care Lvl 3 Diagnoses Dysphagia R13.10 Dysphagia type: unspecified Duodenal ulcer K26.9 Thiamine deficiency E51.9 Hypokalemia E87.6 Weakness R53.1 Hypertension I10 Paranoid schizophrenia F20.0 Tremor R25.1 Hypothyroid E03.9 Hypothyroidism type: unspecified Malnutrition E46 Gross hematuria R31.0 DVT prophylaxis Z29.9 (1) Dysphagia Dysphagia type: unspecified Qualified Code(s): R13.10 - Dysphagia, unspecified (2) Hypothyroid Hypothyroidism type: unspecified Qualified Code(s): E03.9 - Hypothyroidism, unspecified
[2019-08-29] MEDS: MIRTAZAPINE TAB 15 MG TAB PO SCH (21:37)
[2019-08-30] MEDS: NSS + 20MEQ KCL 20 MEQ/1,000 ML BAG IV SCH (00:19)
[2019-08-30 05:50] LABS: Albumin Level 3.1 gm/dl (3.4-5.0); BUN Creatinine Ratio 5.1 (10-20); Bilirubin Direct 0.2 mg/dl (0-0.2); Calcium 8.5 mg/dl (8.5-10.1); Creatinine Clr Calc Pharmacy 77.8 ml/min; Est GFR (African American) 75.2; Est GFR (Non-African American) 64.9; Magnesium 2.1 mg/dl (1.8-2.4); Potassium 3.8 mmol/L (3.5-5.1)
[2019-08-30 05:58] LABS: Bilirubin,Total 0.6 mg/dl (0.2-1); Prealbumin 14.1 mg/dl (20-40); Total Protein 6.7 gm/dl (6.4-8.2)
[2019-08-30] MEDS: LEVOTHYROXINE SODIUM 50 MCG TABLET PO SCH (06:18)
[2019-08-30] MEDS: clonazePAM 0.25 MG TAB PO SCH ×4 (07:39→17:30)
[2019-08-30] MEDS: THIAMINE HCL 200 MG in SODIUM CHLORIDE 0.9% 50 ML IV SCH ×2 (08:56→21:22)
[2019-08-30] MEDS: ATORVASTATIN 40 MG TAB PO SCH (09:00)
[2019-08-30] MEDS: amLODIPine BESYLATE 5 MG TAB PO SCH (09:00)
[2019-08-30] MEDS: PANTOprazole 40 MG TAB PO SCH ×2 (09:01→21:23)
--- NOTE | 2019-08-30 11:34 | Psychiatric Progress Note ---
Date of Service August 30, 2019 Impression / Recommendations Impression Dr. Mela Fernandez was directly involved in review and discussion of the patient's case and participated in medical decision making regarding treatment recommendations. RECOMMENDATIONS: 08/28 - Records obtained from [facility], outlining a history of similar events. Records indicate that dysphagia likely stemmed from legitimate medical conditions (esophagitis) initially, but anxiety/paranoia further prolonged patient's symptoms and refusal to eat. Pt was suspected to have "somatoform spectrum disorder" and medications were adjusted on 08/01/2019 at the intermediate to assist with this. - Suggest another short course of clonazepam 0.25mg TID x 5 days prior to meals to reduce anxiety at mealtime. Aripiprazole was titrated to 25mg qHS and mirtazapine was resumed at 15mg qHS. It is unlikely that his psychotropic medications are contributing directly to his dysphagia, but rather titration of his antipsychotic and initiation of anxiolytics may improve appetite and assist with fear/anxious surrounding eating. 08/29 - Continue current treatment plan at this time. Pt reportedly took HS meds last evening and at 75% of breakfast this morning despite refusing scheduled doses of clonazepam. - Aripiprazole titrated to 25mg qHS to assist with ongoing delusions/paranoia. - Recommend re-offering medications as needed if patient refuses initially offered dose. He has frequently verbalized willingness to take medications, but documentation suggests he refuses them at times they are offered. Interval History Identifying Information 59-year-old male inmate from [facility] admitted medically on 08/27/2019 after presenting to the ED from the intermediate due to dysphagia and malnutrition. Pt was recently hospitalized for similar concerns from 08/12/2019 - 08/23/2019. Psychiatric consultation was requested to evaluate patient for possibility that psychotropic medications were contributing to dysphagia. Initially evaluated on 08/29/2019, seen today for follow-up. Chief Complaint "I ate breakfast today." Review of Systems Notes Constitutional: denied HEENT: reports intermittent difficulty swallowing Cardiovascular: denied Respiratory: denied Gastrointestinal: denied Genitourinary: reports feeling of resistance when urinating Neurological: denied Psychiatric: denies symptoms other than stated above Total of at least 10 systems reviewed, pertinent positives as above and in HPI. Subjective Subjective Patient's case was reviewed and discussed during morning report with supervising psychiatrist and psychiatric nurse liaison. Pt was evaluated yesterday due to ongoing reports of dysphagia and concern that his psychotropic medications may be contributing to difficulty chewing/swallowing. It appears that patient's difficulty is that there is associated anxiety/paranoia surrounding eating at this time, as patient believes that there are people who are targeting him and causing him to be unable to swallow. Unfortunately, patient continues to intermittently refuse PO medications; however, it was recommended that aripiprazole be titrated to 25mg qHS, mirtazapine resumed at 15mg qHS, and a short-course of clonazepam 0.25mg TID before meals be initiated. At time of this encounter, patient has refused both scheduled doses of clonazepam but did reportedly eat 75% of his breakfast this morning. Pt is superficially cooperative with this morning's encounter. He reports "I ate breakfast today." When asked what allowed him to accomplish this task today, he states "I did it." Pt does admit that he continues to believe that he is being targeted and that people are causing him to be unable to swallow. Pt shares today that he has seen the individuals causing this, and that they are here in the hospital. He is unable to describe their appearance, states they do talk to him but is unable to recall what they say. Pt states "I don't even have the slighted idea" when asked if he believes others can also see these individuals. When reviewing ROS, patient admits to difficulty with urination, stating "it's like when I'm pushing, there are people pushing back against me." Pt clarifies that he means this in a literal sense, and that he believes the same people who are affecting his swallowing are also causing this concern with his urination. In addition, patient reports feeling as tough he is "about to go underwater", stating he feels as if his been is in water. Pt continues to be a limited historian and is brief in conversation. He denies other needs or con cerns from our service at this time. Procedures Performed Operation Date: 08/28/19 16:00 Actual Procedures p EGD Biopsy Dilatation - Irphan E [facility] Physical Exam Psychiatric Orientation: alert, oriented x 3 and + guarded (only superficially cooperative ) Apperance: appropriately dressed (wearing hospital gown), appropriately groomed and appeared stated age Eye Contact: + poor eye contact (looking away from this provider for majority of encounter) Motor Behavior: + tremor (observed in hands bilaterally) Speech: normal rate/rhythm/volume of speech (monotone, nonspontaneous, brief responses to questions) Affect: + flat affect Mood: no depressed mood ("fine") and no anxious mood Thought Process: + perseveration and + concrete thought process Thought Content: + preoccupation (with difficulty eating/swallowing), + paranoid, + delusions and + persecution Suicidal Thoughts: denies suicidal thoughts Homicidal Thoughts: denies homicidal thoughts Hallucinations: patient denies hallucinations when asked, but does state that he has seen the individuals who are affecting his swallowing here in the hospital and claims that they talk to him. He is unable to provide additional information and is not sure if he believes others can see these individuals. Cognition: attention grossly intact and language grossly intact Insight: + impaired insight Judgement: + impaired judgement Vital Signs (Past 24 Hours) Last Vital Signs Temp 37.1 C 08/30/19 06:59 Pulse 75 08/30/19 08:59 Resp 18 08/30/19 06:59 BP 148/94 H 08/30/19 08:59 Pulse Ox 92 08/30/19 06:59 Results & Data ([facility]) Laboratory Results Laboratory Results - last 24 hr 08/30/19 04:58 Sodium 141 Potassium 3.8 Chloride 109 H Carbon Dioxide 28 Anion Gap 4.0 BUN 6 L Creatinine 1.20 Est Cr Clr Drug Dosing 77.8 Est GFR ( Amer) 75.2 Est GFR (Non-Af Amer) 64.9 BUN/Creatinine Ratio 5.1 L Glucose 72 Calcium 8.5 Magnesium 2.1 Total Bilirubin 0.6 Direct Bilirubin 0.2 AST 34 ALT 59 Alkaline Phosphatase 100 Total Protein 6.7 Albumin 3.1 L Prealbumin 14.1 L Triglycerides 90 Current Inpatient Medications Current Inpatient Medications: Current Inpatient Medications Amlodipine Besylate (Norvasc) 10 mg PO QAM [facility] Stop: 09/28/19 08:59 Last Admin: 08/30/19 09:00 Dose: Not Given Documented by: Aripiprazole (Abilify) 25 mg PO PR[facility]EK Stop: 09/29/19 20:59 Atorvastatin Calcium (Lipitor) 40 mg PO QAM [facility] Stop: 09/28/19 08:59 Last Admin: 08/30/19 09:00 Dose: Not Given Documented by: Clonazepam (Klonopin) 0.25 mg PO AC [facility] Stop: 09/03/19 16:29 Last Admin: 08/30/19 07:48 Dose: Not Given Documented by: Heparin Sodium (Porcine) (Heparin Sodium (Porcine)) 5,000 units SQ Q12 [facility] Stop: 09/26/19 08:59 Last Admin: 08/28/19 21:24 Dose: 5,000 units Documented by: Hydralazine HCl (Hydralazine Hcl) 10 mg IV Q4H PRN PRN Reason: Hypertension Stop: 09/27/19 00:06 Last Admin: 08/28/19 00:27 Dose: 10 mg Documented by: Thiamine HCl 200 mg/ Sodium (Chloride) 52 mls @ 208 mls/hr IV BID [facility] Stop: 09/26/19 10:59 Last Infusion: 08/30/19 09:11 Dose: Infused Documented by: Lactulose (Chronulac) 30 gm PO TID PRN PRN Reason: CONSTIPATION Stop: 09/26/19 19:45 Levothyroxine Sodium (Synthroid) 50 mcg PO DAILYBB [facility] Stop: 09/27/19 06:29 Last Admin: 08/30/19 06:18 Dose: 50 mcg Documented by: Mirtazapine (Remeron) 15 mg PO HS [facility] Stop: 09/28/19 20:59 Last Admin: 08/29/19 21:37 Dose: 15 mg Documented by: Pantoprazole Sodium (Protonix) 40 mg PO BID [facility] Stop: 09/28/19 08:59 Last Admin: 08/30/19 09:01 Dose: Not Given Documented by:
--- NOTE | 2019-08-30 12:08 | Hospitalist Progress Note ---
Date of Service August 30, 2019 Assessment & Plan (1) Dysphagia: This pt is a 59 yo M PMHx HTN, hypothyroidism, Hepatitis C, paranoid schizophrenia here for continued dysphagia causing 4 days of poor to no PO intake following discharge 4 days prior. He was previously admitted for 11 days for significant lower extremity weakness and poor po intake. He had a fever then and had a very thorough workup for neurological disorders including multiple MRIs and LP, labs. Dysphagia and Malnutrition: - Ongoing issue for him. EGD in 04/2018 only showed esophagitis. - Gastric emptying study on 08/21 was normal without any evidence of delayed transit from the stomach. Barium swallow here with mild esophageal dysmotility but could not complete study after he felt like he couldn't swallow the barium -EGD with class A esophagitis, possible web and had esophagus dilatation, small nonbleeding duodenal ulcer -was improved right after esophageal dilation, tolerating easy to chew diet on eveing of 08/27---> then refusing all food and drink and pills intermittently Did discuss the possibility of placing a NGT if he continues to not be able to eat. Cannot force him to as a prisoner without a court mandate, but if he is willing to try, could do so. Will hold off on this today -strongly suspect a psychogenic component and [facility] Psych notes a dx of somatoform disorder--> Psych here says not likely a side effect of medication. Conazepam has been beneficial in the past for his anxiety with swallowing- encouraged him to try this today and later, he did take one dose Also with severe thiamine deficiency which may be contributing Appreciate GI and Speech Therapy evaluations -dc IVFs to see if will encourage po - GI recommends continuing on PPI bid x 8 weeks - ok to continue Abilify and Remeron as per Psych -trial of clonazepam with meals to help with swallowing--> he did take one dose -continue IV thiamine -consider NGT if continues to refuse to eat and nutritional status poor--> prealbumin low at 14 -appreciate Dietary recommendations for tube feeds if needed (2) Duodenal ulcer: small and nonbleeding, found on EGD -continue PPI bid x 8 weeks (3) Thiamine deficiency: B1 level undetectable from last admission could explain his significant weakness -started IV thiamine 200mg IV bid and then convert to po meds upon discharge (4) Hypokalemia: Improved with replacement; 2/2 poor po intake - dc IVFs as above - continue to follow BMP (5) Weakness: - Generalized weakness reported by patient on last admission, however able to walk now after several days of PT.Lyme serology negative, B12 & folic acid are appropriate, recent TSH is normal. MRIs of his cervical, thoracic, and lumbar spines all without acute stenosis or issues. TERRIE and ANCA were both negative. - LP on 08/15 was notable only for high protein which is non-specific. BioFire of CSF negative - Cryoglobulin and heavy metal levels negative / within normal limits, acetylcholine receptor anti-bodies (for myasthenia gravis) pending. -Vitamin B1 levels severely low and now being replaced Overall strength is much improved - Plan for neurology to perform an outpatient EMG. (6) Hypertension: refusing hs dose of amlodipine IV hydralazine prn BPs currently controlled to high at times (7) Paranoid schizophrenia: - in outpatient setting on aripiprzole 20mg daily, mirtazapine 15mg daily. -continue Abilify and Psych recommends increasing to 25mg, ok to restart Remeron -added clonazepam as above (8) Tremor: resting tremor, both hands x 9 months -possibly medication related -f/u with Neuro or Psych (9) Hypothyroid: - on levothyroxine 50 mcg daily in outpatient setting. - TSH elevated on admission to 5.5, T4 normal. - give po LT4-won't increase dose as this is likely secondary to refusing medication (10) Malnutrition: -encourage po intake today -as above, possible NGT (11) Gross hematuria: small amount noted by nursing coming from [facility] on evening of 08/27 None since then. no sign of UTI or stones, recent abd imaging of abd/pel ok. -observe -hold heparin SQ -repeat UA in 3 weeks to see if persistent Appreciate Urol consult (12) DVT prophylaxis: Code Status: FULL CODE DVT ppx: Heparin 5000u SQ q12h placed on hold for hematuria Dispo: med/surg Admission and Anticipated Discharge Date Admission Date: August 28, 2019 Subjective Pt ate all of his breakfast today but did refuse his medications. I discussed his care with [facility]. We discussed stopping his IVFs,the possibility of placing an NGT if pt continues to not be able to swallow. I discussed this with pt and again reiterated the importance of trying to take the clonazepam to help with his swallowing. I also discussed his case with Psych Dr. Fernandez and with the Biophysics Professor Jeremias in case of need for tube feeds. Pt understood about the possible need for NGT. Review of Systems Review of Systems: All systems reviewed & are unremarkable except as noted in HPI & below feels generally weak no further hematuria Physical Exam Constitutional: WD/WN, vitals as above Eyes: + anicteric sclerae Neck: trachea midline, no thyromegaly Respiratory: normal respiratory effort, lungs clear to auscultation Cardiovascular: RRR, no murmur, no edema Chest (Breasts): Chest: normal inspection of chest Gastrointestinal (Abdomen): normal bowel sounds, soft, nontender, no hepatosplenomegaly Musculoskeletal: Extremities: extremities normal to inspection; no cyanosis and no clubbing Skin: no rashes, warm and dry Neurologic: moves all extremities and awake; not confused Psychiatric: Orientation: alert, oriented to person and cooperative Eye Contact: + fair eye contact Speech: normal rate/rhythm/volume of speech Affect: + flat affect Lymphatic: no lymphedema Results & Data Results & Data ([facility]) Vital Signs (Past 12 Hours) Vital Signs Temp Pulse Resp BP BP Pulse Ox 08/30/19 08:59 75 148/94 H 08/30/19 06:59 37.1 C 67 18 162/104 H 92 PG Care Time/CCT Total # of Minutes Spent Total Time Spent with Patient: Total time spent is greater than 50% in coordination of care (as documented) at patient's floor/unit and/or counseling patient: Coding Level of Care Code 36868 Subseq Hosp Care Lvl 3 Diagnoses Dysphagia R13.10 Dysphagia type: unspecified Duodenal ulcer K26.9 Thiamine deficiency E51.9 Hypokalemia E87.6 Weakness R53.1 Hypertension I10 Paranoid schizophrenia F20.0 Tremor R25.1 Hypothyroid E03.9 Hypothyroidism type: unspecified Malnutrition E46 Gross hematuria R31.0 DVT prophylaxis Z29.9 (1) Dysphagia Dysphagia type: unspecified Qualified Code(s): R13.10 - Dysphagia, unspecified (2) Hypothyroid Hypothyroidism type: unspecified Qualified Code(s): E03.9 - Hypothyroidism, unspecified
[2019-08-30] MEDS: ARIPiprazole 5 MG TAB PO SCH (21:23)
[2019-08-30] MEDS: MIRTAZAPINE TAB 15 MG TAB PO SCH (21:24)
[2019-08-31] MEDS: LEVOTHYROXINE SODIUM 50 MCG TABLET PO SCH (05:57)
[2019-08-31 06:02] LABS: Basophils # (auto) 0.01 K/uL (0-0.2); Basophils % (auto) 0.2 %; Eosinophils # (auto) 0.11 K/uL (0-0.5); Hematocrit (blood only) 42.9 % (42-52); Immature Granulocytes # (auto) 0.01 K/uL (0.00-0.02); Immature Granulocytes % (auto) 0.2 %; Lymphocytes % (auto) 25.9 %; Mean Corpuscular Hemoglobin 27.3 pg (25-34); Mean Corpuscular Hgb Conc 32.6 g/dL (32-36); Mean Corpuscular Volume 83.8 fL (80-100); Mean Platelet Volume 12.9 fL (7.4-10.4); Monocytes # (auto) 0.46 K/uL (0.11-0.59); Monocytes % (auto) 8.5 %; Neutrophils # (auto) 3.42 K/uL (1.4-6.5); Neutrophils % (auto) 63.2 %; Platelet Count 154 K/uL (130-400); RDW Coefficient of Variation 15.2 % (11.5-14.5); RDW Standard Deviation 46.5 fL (36.4-46.3); Red Blood Count 5.12 M/uL (4.7-6.1); White Blood Count 5.41 K/uL (4.8-10.8)
[2019-08-31 06:39] LABS: Creatinine Clr Calc Pharmacy 78.4 ml/min; Est GFR (Non-African American) 65.5; Magnesium 2.1 mg/dl (1.8-2.4); Phosphorus 3.3 mg/dl (2.5-4.9); Potassium 3.6 mmol/L (3.5-5.1)
[2019-08-31] MEDS: ATORVASTATIN 40 MG TAB PO SCH (08:45)
[2019-08-31] MEDS: amLODIPine BESYLATE 5 MG TAB PO SCH (08:45)
[2019-08-31] MEDS: PANTOprazole 40 MG TAB PO SCH (08:46)
[2019-08-31] MEDS: clonazePAM 0.25 MG TAB PO SCH ×2 (08:48→11:55)
[2019-08-31] MEDS: THIAMINE HCL 200 MG in SODIUM CHLORIDE 0.9% 50 ML IV SCH (08:49)
[2019-08-31] MEDS: ARIPiprazole 5 MG TAB PO SCH (14:40)
--- NOTE | 2019-08-31 15:04 | Discharge Summary ---
Date of Service August 31, 2019 Admission HPI Per Admitting Provider 59 yo M PMHx hypothyroidism, HTN, Hepatitis C, schizophrenia presenting from [facility] with 4 days of poor PO intake due to difficulty swallowing. Recently discharged from [facility] 08/22 for weakness and difficulty swallowing with plan for outpatient follow up and PPI for presumed esophagitis. States that since then has been unable to tolerate PO intake because whenever he swallows anything he "feels like the food just sits there and gets stuck and he will choke". Has had issues swallowing for "over 20 years", in April 2018 was found to have esophagitis and started on BID PPI with relief. Patient notes that his current symptoms have been worsening over the last several months first with solids and now to the point that he has to spit his saliva as it "will not go down". In the ED was trialed on PO liquid and vomited. Reports no nausea, just a sense of "stuck fluid". No fevers or chills, no abdominal pain, diarrhea, constipation. No worsening of the weakness he reported last admission. No chest pain, SOB, dizziness, headaches. No visual changes, incontinence of bowels or bladder. Has been on antipsychotic medication for several years for a history of schizophrenia. No sick contacts at the correctional facility to his knowledge. Endorses increasing fatigue 2/2 not being able to tolerate food. Principal Diagnosis Dysphagia, hypokalemia, thiamine deficiency, esophagitis,duodenal ulcer Discharge Exam Constitutional WD/WN, vitals as above Eyes + anicteric sclerae Neck trachea midline, no thyromegaly Respiratory normal respiratory effort, lungs clear to auscultation Cardiovascular RRR, no murmur, no edema Chest (Breasts) Chest: normal inspection of chest Gastrointestinal (Abdomen) normal bowel sounds, soft, nontender, no hepatosplenomegaly Musculoskeletal Extremities: extremities normal to inspection; no cyanosis and no clubbing Skin no rashes, warm and dry Neurologic moves all extremities and awake; not confused Psychiatric Orientation: alert, oriented to person, oriented to place and cooperative Eye Contact: + fair eye contact Speech: normal rate/rhythm/volume of speech Affect: + flat affect Lymphatic no lymphedema Discharge Data Allergies Allergy/AdvReac Type Severity Reaction Status Date / Time No Known Allergies Allergy Verified 08/27/19 00:38 Consultations 08/27/19 02:33 ED Decision to Admit Stat 08/27/19 10:52 Consult Gastroenterology Routine 08/28/19 23:11 Consult Urology Routine 08/29/19 10:14 Consult Psychiatry Routine Procedures Performed Operation Date: 08/28/19 16:00 Actual Procedures p EGD Biopsy Dilatation - Yoselyn Cardona Ordered Studies 08/27/19 12:09 FL barium swallow Routine CXR Hospital Course (1) Dysphagia: This pt is a 59 yo M PMHx HTN, hypothyroidism, Hepatitis C, paranoid schizophrenia here for continued dysphagia causing 4 days of poor to no PO intake following discharge 4 days prior. He was previously admitted for 11 days for significant lower extremity weakness and poor po intake. He had a fever then and had a very thorough workup for neurological disorders including multiple MRIs and LP, labs. Dysphagia and Malnutrition: - Ongoing issue for him. EGD in 04/2018 only showed esophagitis. - Gastric emptying study on 08/21 was normal without any evidence of delayed transit from the stomach. Barium swallow here with mild esophageal dysmotility but could not complete study after he felt like he couldn't swallow the barium -EGD with class A esophagitis, possible web and had esophagus dilatation, small nonbleeding duodenal ulcer -was improved right after esophageal dilation, tolerating easy to chew diet on eveing of 08/27---> then refusing all food and drink and pills intermittently after that Did discuss the possibility of placing a NGT if he continues to not be able to eat. Cannot force him to as a prisoner without a court mandate, but if he is willing to try, could do so. After discussion regarding placing NGT, he began eating 100% of all meals and had no trouble with swallowing or spitting up. He was easily able to take all of his pills. -strongly suspect a psychogenic component and [facility] Psych notes a dx of somatoform disorder--> Psych here says not likely a side effect of medication. Clonazepam has been beneficial in the past for his anxiety with swallowing-cont inue 0.25mg po ac on discharge Also with severe thiamine deficiency which may be contributing Appreciate GI and Speech Therapy evaluations -discontinued IVFs and was not dehydrated afterwards as he is now taking po - GI recommends continuing on PPI bid x 8 weeks - ok to continue Abilify and Remeron as per Psych -trial of clonazepam with meals to help with swallowing-continue -continue po thiamine on discharge (2) Duodenal ulcer: small and nonbleeding, found on EGD -continue PPI bid x 8 weeks (3) Thiamine deficiency: B1 level undetectable from last admission could explain his significant weakness -started IV thiamine 200mg IV bid and then convert to po thiamine 200mg once daily upon discharge (4) Hypokalemia: Improved with replacement; 2/2 poor po intake - follow BMP as outpt (5) Weakness: - Generalized weakness reported by patient on last admission, however able to walk now after several days of PT.Lyme serology negative, B12 & folic acid are appropriate, recent TSH is normal. MRIs of his cervical, thoracic, and lumbar spines all without acute stenosis or issues. TERRIE and ANCA were both negative. - LP on 08/15 was notable only for high protein which is non-specific. BioFire of CSF negative - Cryoglobulin and heavy metal levels negative / within normal limits, acetylcholine receptor anti-bodies (for myasthenia gravis) pending. -Vitamin B1 levels severely low and now being replaced Overall strength is much improved - Plan for neurology to perform an outpatient EMG. (6) Hypertension: refusing dose of amlodipine throughout stay until the day of discharge BPs currently controlled to high at times (7) Paranoid schizophrenia: - in outpatient setting on aripiprzole 20mg daily, mirtazapine 15mg daily. -continue Abilify and Psych recommends increasing to 25mg, continue Remeron -added clonazepam as above F/u with Psychiatry at [facility] (8) Tremor: resting tremor, both hands x 9 months -possibly medication related -f/u with Neuro or Psych (9) Hypothyroid: - on levothyroxine 50 mcg daily in outpatient setting. - TSH elevated on admission to 5.5, T4 normal. - give po LT4-won't increase dose as this is likely secondary to refusing medication (10) Malnutrition: -encourage po intake today -as above, possible NGT if again refuses eating again in the future Prealbumin low here at 14, intermittently hypokalemic (11) Gross hematuria: small amount noted by nursing coming from meatus on evening of 08/27 None since then. no sign of UTI or stones, recent abd imaging of abd/pel ok. -held heparin SQ -repeat UA in 3 weeks to see if persistent and if so, refer to Urol as outpt Appreciate Urol consult (12) DVT prophylaxis: Heparin SQ but then held for hematuria Code Status: FULL Dispo-stable for dc back to [facility]. Discussed his care with [facility] PCP, Dr. Cueto, on the phone today Total Time Total Time Spent Total Time Spent (In Minutes): >30 min Total Time Includes: Examination of the Patient, Discharge Planning, Medication Reconciliation and Communication With Other Providers Discharge Plan Discharge Items [facility] Disposition: [facility] Reason For Visit: DYSPHAGIA, MALNUTRITION Discharge Diagnosis: Dysphagia, malnutrition, Thiamine deficiency Condition on Discharge: Good Activity: Resume your previous activity Non-emergency contact: Primary Care Provider and Psychiatrist Call non-emergency contact if: you have any medication questions and your symptoms worsen Follow-up/Referrals: Artur FLANAGAN [Primary Care Provider] - Diet: Regular Diet Texture: Easy to Chew Addtl Attending Provider Instructions: Continue clonazepam 0.25mg three times a day with meals to assist with anxiety related to swallowing. Continue protonix 40mg twice a day for small duodenal ulcer and esophagitis. Abilify dose was increased to 25mg once daily. Vitamin B1 levels (thiamine) were found to be undetectable and he should be continued on thiamine 200mg po once daily. He had one isolated episode of small amount of blood coming from the meatus of the penis. UA with microscopic hematuria. Please repeat UA in 3 weeks and refer to Urology if hematuria persists. Follow up with Psychiatry and Primary Care Physician. Pending Studies at Discharge: Yes Studies:: Myasthenia Gravis antibodies still pending from previous admission Stand-Alone Forms: [facility] Skilled Items Patient informed of condition?: Yes Discharge Level of Care: Other Communicable Disease: No Discharge Prognosis: Improving Lines: None Urinary Catheter: No Medications and DC Order Prescriptions: New clonazepam 0.5 mg Tablet 0.25 mg PO AC Qty: 10 RF: 0 aripiprazole [Abilify] 5 mg Tablet 25 mg PO DAILY Qty: 150 RF: 0 thiamine HCl (vitamin B1) 100 mg tablet 200 mg PO DAILY Qty: 60 RF: 0 Continued atorvastatin [Lipitor] 40 mg Tablet 40 mg PO HS RF: 0 aspirin 81 mg Tablet,Delayed Release (Dr/Ec) 81 mg PO HS RF: 0 amlodipine [Norvasc] 10 mg Tablet 10 mg PO HS RF: 0 levothyroxine [Synthroid] 50 mcg Tablet 50 mcg PO QAM RF: 0 mirtazapine [Remeron] 15 mg Tablet 15 mg PO HS RF: 0 pantoprazole 40 mg Tablet,Delayed Release (Dr/Ec) 40 mg PO BID Qty: 1 RF: 0 lactulose 10 gram/15 mL Solution 30 g PO TID PRN (Reason: Constipation) RF: 0 Discontinued aripiprazole 20 mg Tablet 20 mg PO DAILY RF: 0 Discharge Orders: Discharge Order (Routine); Ordered 08/31/19 Ordered By: Fabiola Lazar Admission Data Admit Date/Time: 08/28/19 16:10 Attending Provider: Fabiola Lazar Admit Provider: Alexia Munoz Primary Care Provider: Artur FLANAGAN Other Providers: Bayron Cazares ; Yoselyn Cardona ; Rafita Emerson ; Mela Fernandez Coding Level of Care Code D/C Day Management >30 mins Diagnoses Dysphagia R13.10 Dysphagia type: unspecified Duodenal ulcer K26.9 Thiamine deficiency E51.9 Hypokalemia E87.6 Weakness R53.1 Hypertension I10 Paranoid schizophrenia F20.0 Tremor R25.1 Hypothyroid E03.9 Hypothyroidism type: unspecified Malnutrition E46 Gross hematuria R31.0 DVT prophylaxis Z29.9
== END 2019-08-31 17:20 | DRG 391 ==
LOC: 3N 00:01 → ED 00:01 → SUATTDRO 03:29 → 3N 03:54

== ENCOUNTER 2019-09-08 09:09 | Observation (INO) ==
[2019-09-08] MEDS ORDERED: ONDANSETRON INJ 2 MG/ML 2 ML VIAL IV STA (09:33)
[2019-09-08] MEDS ORDERED: MoRPHine SULFATE 4 MG/ML 1 ML CARP\\VIAL IV STA (09:33)
--- NOTE | 2019-09-08 09:41 | Emergency Department Note ---
Impression & Plan Chest pain, VERONICA (acute kidney injury), Acute dehydration, Tachycardia ED Provider Note NAME: FALGUNI [id number] GARCIA AGE: 59 SEX: M : 1960 ARRIVES VIA: Ambulance INFORMANT: Patient, ED PROVIDER(S): Emanuel Barlow DO CHIEF COMPLAINT: Chest pain HPI: The patient is a 59-year-old male who presented to the emergency department for an evaluation of chest pain. The patient states that approximately 3:00 this morning he awoke with chest pain that he described as sharp. The pain is been constant but intermittently worsens. He describes it as a sharp stabbing pain into his back as well as a pressure around his chest. The pain is mostly located in the left side of the chest. He states that it is worsened with lying flat. The patient states he has difficulty eating but this is not new for him. He was seen here previously within the last few weeks for dysphasia and abnormal labs. [facility] The patient states his pain is moderate at this time. The patient refused any further aspirin at this time. He states his brother of heart related issues at age 60. He also complains of constipation and difficulty moving his bowels. ROS: See above HPI for pertinent positives & negatives. A total of 10 systems reviewed and were otherwise negative. PAST MEDICAL HISTORY: See Below PAST SURGICAL HISTORY: See Below FAMILY HISTORY: See Below SOCIAL HISTORY: See Below HOME MEDICATIONS: See Below ALLERGIES: See Below VITALS: See Below PHYSICAL EXAMINATION: GENERAL: Patient is awake alert in no acute distress patient is resting comfortably and showing no signs of anxiety EYES: The conjunctivae are clear. The pupils are round and reactive. EARS, NOSE, MOUTH AND THROAT: The nose is without any evidence of any deformity. Mucous membranes are moist. Tongue is midline. NECK: The neck is nontender and supple. RESPIRATORY: Normal respiratory effort is noted there is no evidence of wheezing rhonchi or rales CARDIOVASCULAR: Tachycardic rate with regular rhythm was noted. There is no definite murmur. GASTROINTESTINAL: The abdomen is moderately distended but nontender. There is no guarding or rigidity. MUSCULOSKELETAL/EXTREMITIES: There is no evidence of gross deformity full range of motion is noted in the hips and shoulders. SKIN: There is no obvious evidence of any rash. There are no petechiae, pallor or cyanosis noted. NEUROLOGIC: Patient is awake alert and oriented x3. MEDICAL DECISION MAKING: The patient is a 59-year-old male who presented to the emergency department from the senior living for an evaluation of chest pain. The patient describes left-sided chest pain. He was treated with aspirin previously but refused any further aspirin in the emergency department. The patient has a strong family history for coronary artery disease. I discussed the patient's laboratory and radiographic studies with him. I also discussed the limitations of the emergency department work-up for chest pain with him. He was initially very tachycardic so a d-dimer was sent which was positive. This led to a CT of the chest to rule out pulmonary venous thromboembolic disease. There was no signs of pulmonary embolism. He was treated with IV fluids in the emergency department. His creatinine was also elevated compared to baseline. Further reevaluation of the patient after IV hydration did reveal a significant improvement in his tachycardia. I discussed the patient's condition with the on-call [facility] hospitalist group. They have agreed to evaluate the patient in the emergency department for further management and disposition. Triage Nursing notes reviewed. Prior medical records reviewed Vital Signs: reviewed and remarkable for initial tachycardia Differential diagnosis: Cardiac ischemia, aortic dissection, pulmonary embolism, pneumothorax, pneumonia, pericarditis, myocarditis, esophageal rupture, GERD, cholecystitis, pancreatitis, musculoskeletal, as well as other pathologies. ER treatment provided: See below Diagnostics interpreted by me: ECG: EKG was obtained in the emergency department. My interpretation is sinus tachycardia at 127 bpm. There is no ectopy. There is no acute ST segment abnormalities noted. This was compared to a tracing from August 262019. There is an increase in the ventricular rate otherwise no significant changes were noted. Cardiac Monitoring: An order was placed for continuous cardiac monitoring. The monitor shows a rate of 115 with sinus tachycardia rhythm. Laboratory studies: As stated above and show below. Imaging studies: See below Consultation(s): 1245: I discussed this case with Dr. Tena with the [facility]ist group. He is agreed to evaluate the patient in the emergency department for further management and disposition. 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: No marital status: Single Current Living Situation: Other Current Living Situation Comment: Inmate artur Feels Safe at Home: Yes Smoking Status: Former smoker Second Hand Exposure: No ; Hx Alcohol Use: No Hx Substance Use: No Allergies Allergies Allergy/AdvReac Type Severity Reaction Status Date / Time No Known Allergies Allergy Verified 09/08/19 10:20 Home Meds Home Medications Medication Instructions Recorded Confirmed amlodipine [Norvasc] 10 mg PO HS 05/08/18 09/08/19 aspirin 81 mg PO HS 05/08/18 09/08/19 atorvastatin [Lipitor] 40 mg PO HS 05/08/18 09/08/19 levothyroxine [Synthroid] 50 mcg PO QAM 05/08/18 09/08/19 mirtazapine [Remeron] 15 mg PO HS 07/28/19 09/08/19 aripiprazole [Abilify] 20 mg PO HS 09/08/19 09/08/19 clonazepam 0.5 mg PO TID 09/08/19 09/08/19 Previous Rx's Medication Instructions Recorded pantoprazole 40 mg PO BID #1 tab 08/23/19 thiamine HCl (vitamin B1) 200 mg PO DAILY #60 tab 08/31/19 Results & Data (ED) Vital Signs Vital Signs - 24 hr 09/08/19 09:19 09/08/19 09:30 09/08/19 10:00 Temperature 37.5 C Temperature Source Oral Pulse Rate 122 H 117 H 110 H Pulse Rate from SpO2 Sensor 117 H 110 H Pulse Rhythm Regular Respiratory Rate 18 16 15 Respiratory Effort / Characteristics Non-Labored Spontaneous Respiratory Depth Normal Respiratory Pattern Regular Blood Pressure 129/97 122/91 103/77 Blood Pressure Mean 107 105 83 Pulse Oximetry 95 95 93 Oxygen Delivery Method Room Air Sepsis Recent Fever Within 48 Hours No Sepsis New/Unexplained Change in Mental Status No Sepsis Action Taken by Nursing No Action Required 09/08/19 10:30 09/08/19 11:00 09/08/19 11:30 Temperature Temperature Source Pulse Rate 103 H 111 H 101 H Pulse Rate from SpO2 Sensor 102 H 111 H 101 H Pulse Rhythm Respiratory Rate 20 18 17 Respiratory Effort / Characteristics Respiratory Depth Respiratory Pattern Blood Pressure 94/73 L 125/93 120/83 Blood Pressure Mean 78 98 92 Pulse Oximetry 93 94 96 Oxygen Delivery Method Sepsis Recent Fever Within 48 Hours Sepsis New/Unexplained Change in Mental Status Sepsis Action Taken by Nursing 09/08/19 12:00 09/08/19 12:30 09/08/19 13:30 Temperature Temperature Source Pulse Rate 89 85 87 Pulse Rate from SpO2 Sensor 93 H 88 88 Pulse Rhythm Respiratory Rate 15 17 15 Respiratory Effort / Characteristics Respiratory Depth Respiratory Pattern Blood Pressure 110/80 120/85 131/81 Blood Pressure Mean 93 94 98 Pulse Oximetry 95 95 95 Oxygen Delivery Method Sepsis Recent Fever Within 48 Hours Sepsis New/Unexplained Change in Mental Status Sepsis Action Taken by Prison Medications Current Medication List: was personally reviewed by me Laboratory Data Attestation: I reviewed the patient's lab results. Result diagrams: 09/08/19 09:20 09/08/19 09:20 Lab Results 09/08/19 09/08/19 09/08/19 Range/Units 09:20 09:20 09:20 WBC 6.96 (4.8-10.8) K/uL RBC 5.87 (4.7-6.1) M/uL Hgb 16.4 (14.0-18.0) g/dL Hct 49.9 (42-52) % MCV 85.0 (80-100) fL MCH 27.9 (25-34) pg MCHC 32.9 (32-36) g/dL RDW Std Deviation 48.0 H (36.4-46.3) fL RDW Coeff of Franck 15.3 H (11.5-14.5) % Plt Count 175 (130-400) K/uL Immature Gran % (Auto) 0.1 % Neut % (Auto) 77.3 % Lymph % (Auto) 15.8 % Sutter % (Auto) 6.3 % Eos % (Auto) 0.4 % Baso % (Auto) 0.1 % Neut # (Auto) 5.37 (1.4-6.5) K/uL Lymph # (Auto) 1.10 L (1.2-3.4) K/uL Sutter # (Auto) 0.44 (0.11-0.59) K/uL Eos # (Auto) 0.03 (0-0.5) K/uL Baso # (Auto) 0.01 (0-0.2) K/uL Immature Gran # (Auto) 0.01 (0.00-0.02) K/uL PT 11.2 (9.0-12.0) Seconds INR 1.1 (0.9-1.1) APTT 27.1 (21.0-31.0) Seconds PTT Ratio 1.0 D-Dimer 1140 H* (0-500) ug/L FEU Sodium 141 (136-145) mmol/L Potassium 4.3 (3.5-5.1) mmol/L Chloride 107 (98-107) mmol/L Carbon Dioxide 25 (21-32) mmol/L Anion Gap 9.0 (3-11) BUN 17 (7-18) mg/dl Creatinine 1.64 H (0.6-1.4) mg/dl Est Cr Clr Drug Dosing 56.3 ml/min Est GFR ( Amer) 51.5 Est GFR (Non-Af Amer) 44.5 BUN/Creatinine Ratio 10.4 (10-20) Glucose 108 H (70-99) mg/dl Calcium 9.6 (8.5-10.1) mg/dl Magnesium 2.1 (1.8-2.4) mg/dl Total Bilirubin 1.1 H (0.2-1) mg/dl AST 29 (15-37) U/L ALT 54 (12-78) U/L Alkaline Phosphatase 115 (45-117) U/L Total Creatine Kinase 99 (39-308) U/L CK-MB (CK-2) < 1.0 (0.5-3.6) ng/ml CK/CKMB % Calc TNP Troponin I < 0.015 (0-0.045) ng/ml Total Protein 8.0 (6.4-8.2) gm/dl Albumin 3.8 (3.4-5.0) gm/dl Globulin 4.2 H (2.5-4.0) gm/dl Albumin/Globulin Ratio 0.9 (0.9-2) Lipase 73 (73-393) U/L TSH 3.120 (0.300-4.500) uIu/ml Specimen Hemolysis Administered Medications Ioversol (Optiray 320 125ml) 118 ml IV ONCE PRN PRN Reason: Interaction Checking Stop: 09/12/19 10:11 Last Admin: 09/08/19 10:12 Dose: 118 ml Documented by: [id number] Discontinued Medications Sodium Chloride (Nss 1000ml) 1,000 mls @ 999 mls/hr IV .Q1H1M PRATEEK Stop: 09/08/19 10:45 Last Infusion: 09/08/19 10:41 Dose: 0 mls/hr Documented by: [id number] Admin: 09/08/19 09:38 Dose: 999 mls/hr Documented by: [id number] Sodium Chloride (Nss 1000ml) 1,000 mls @ 999 mls/hr IV .Q1H1M ONE Stop: 09/08/19 11:49 Last Infusion: 09/08/19 12:14 Dose: 0 mls/hr Documented by: [id number] Admin: 09/08/19 11:00 Dose: 999 mls/hr Documented by: [id number] Morphine Sulfate (Morphine Sulfate) 4 mg IV NOW STA Stop: 09/08/19 09:34 Last Admin: 09/08/19 09:38 Dose: 4 mg Documented by: [id number] Ondansetron HCl (Zofran) 4 mg IV NOW STA Stop: 09/08/19 09:34 Last Admin: 09/08/19 09:38 Dose: 4 mg Documented by: [id number] Imaging Data Radiologist's Impression: XR KUB/Abdomen 1 view CLINICAL HISTORY: pain pain COMPARISON STUDY: 08/22/2019 FINDINGS: The soft tissues, psoas shadows, renal outlines and intestinal gas pattern appear normal. There is no evidence for bowel obstruction. No abnormal abdominal calcifications are seen. Contrast identified throughout the colon as well as urinary tracts. IMPRESSION: No acute process. ACT 112: Negative or not required by law. The above report was generated using voice recognition software. It may contain grammatical, syntax or spelling errors. Electronically signed by: Ziggy Ferguson M.D. 09/08/2019 11:35 AM Dictated: 09/08/19 1135 Transcribed: 09/08/[address] angio chest PE protocol CT DOSE: 533.23 mGy.cm HISTORY: Dyspnea. Chest pain. PE TECHNIQUE: Multiaxial CT images of the chest were performed following the intravenous administration of contrast to evaluate the pulmonary arteries. Maximal intensity projection images were also obtained. A dose lowering technique was utilized adhering to the principles of ALARA. COMPARISON STUDY: None. FINDINGS: There is a normal caliber thoracic aorta with no evidence for dissection. There is no evidence for pulmonary embolus. No pleural effusions. No pneumothorax. The liver and spleen are unremarkable. No mediastinal or hilar lymphadenopathy. The central airways are patent. The lungs are clear. There is a suggestion of a small short segment filling defect distal right main pulmonary artery. This is best seen image 64. This is felt to be secondary to scatter artifact from the superior vena cava and associated contrast. Mild prominence of the proximal descending thoracic aorta with maximum diameter 3 cm. Lungs are considered clear. IMPRESSION: 1. No evidence for pulmonary embolus. 2. Lungs are considered clear. 3. Atherosclerotic change and ectasia of the descending thoracic aorta with a maximum diameter of 3 cm ACT 112: Negative or not required by law. The above report was generated using voice recognition software. It may contain grammatical, syntax or spelling errors. Electronically signed by: Ziggy Ferguson M.D. 09/08/2019 10:58 AM Dictated: 09/08/19 1053 Transcribed: 09/08/19 1053 Blood Pressure Blood Pressure Findings: Normal blood pressure Discharge Plan Visit Data Chief Complaint: Chest Pain ED Provider: Emanuel Barlow Discharge Problem: Chest pain, VERONICA (acute kidney injury), Acute dehydration, Tachycardia Patient Disposition: Being Evaluated by Hospitalist Condition: Good Forms Stand Alone Forms: My [facility] [employer] Prescriptions Prescriptions: No Action atorvastatin [Lipitor] 40 mg Tablet 40 mg PO HS RF: 0 aspirin 81 mg Tablet,Delayed Release (Dr/Ec) 81 mg PO HS RF: 0 amlodipine [Norvasc] 10 mg Tablet 10 mg PO HS RF: 0 levothyroxine [Synthroid] 50 mcg Tablet 50 mcg PO QAM RF: 0 aripiprazole [Abilify] 20 mg Tablet 20 mg PO HS RF: 0 clonazepam 0.5 mg tablet 0.5 mg PO TID RF: 0 mirtazapine [Remeron] 15 mg Tablet 15 mg PO HS RF: 0 pantoprazole 40 mg Tablet,Delayed Release (Dr/Ec) 40 mg PO BID Qty: 1 RF: 0 thiamine HCl (vitamin B1) 100 mg tablet 200 mg PO DAILY Qty: 60 RF: 0 Referrals Referrals: Artur FLANAGAN [Primary Care Provider] -
[2019-09-08] MEDS ORDERED: SODIUM CHLORIDE 0.9% 1000ML 1,000 ML IV SCH (09:45)
[2019-09-08 09:48] LABS: Basophils # (auto) 0.01 K/uL (0-0.2); Basophils % (auto) 0.1 %; Eosinophils # (auto) 0.03 K/uL (0-0.5); Eosinophils % (auto) 0.4 %; Hematocrit (blood only) 49.9 % (42-52); Hemoglobin 16.4 g/dL (14.0-18.0); Immature Granulocytes # (auto) 0.01 K/uL (0.00-0.02); Immature Granulocytes % (auto) 0.1 %; Lymphocytes % (auto) 15.8 %; Mean Corpuscular Hemoglobin 27.9 pg (25-34); Mean Corpuscular Hgb Conc 32.9 g/dL (32-36); Monocytes # (auto) 0.44 K/uL (0.11-0.59); Monocytes % (auto) 6.3 %; Neutrophils # (auto) 5.37 K/uL (1.4-6.5); Neutrophils % (auto) 77.3 %; Platelet Count 175 K/uL (130-400); RDW Coefficient of Variation 15.3 % (11.5-14.5); Red Blood Count 5.87 M/uL (4.7-6.1); White Blood Count 6.96 K/uL (4.8-10.8)
[2019-09-08 09:59] LABS: INR 1.1 (0.9-1.1); Partial Thromboplastin Time 27.1 Seconds (21.0-31.0); Prothrombin Time 11.2 Seconds (9.0-12.0)
[2019-09-08 10:01] LABS: Alanine Aminotransferase 54 U/L (12-78); Albumin Level 3.8 gm/dl (3.4-5.0); Aspartate Aminotransferase 29 U/L (15-37); BUN Creatinine Ratio 10.4 (10-20); Blood Urea Nitrogen 17 mg/dl (7-18); Calcium 9.6 mg/dl (8.5-10.1); Carbon Dioxide 25 mmol/L (21-32); Chloride 107 mmol/L (98-107); Creatinine Clr Calc Pharmacy 56.3 ml/min; Est GFR (African American) 51.5; Est GFR (Non-African American) 44.5; Glucose 108 mg/dl (70-99); Lipase 73 U/L (73-393); Magnesium 2.1 mg/dl (1.8-2.4); Potassium 4.3 mmol/L (3.5-5.1); Sodium 141 mmol/L (136-145)
[2019-09-08 10:04] LABS: D Dimer 1140 ug/L FEU (0-500)
[2019-09-08 10:09] LABS: Albumin Globulin Ratio 0.9 (0.9-2); Alkaline Phosphatase 115 U/L (45-117); Bilirubin,Total 1.1 mg/dl (0.2-1); Creatine Kinase 99 U/L (39-308); Creatine Kinase MB < 1.0 ng/ml (0.5-3.6); Globulin 4.2 gm/dl (2.5-4.0); Troponin I < 0.015 ng/ml (0-0.045)
[2019-09-08] MEDS ORDERED: OPTIRAY 320 125ml IV PRN (10:12)
[2019-09-08] MEDS ORDERED: SODIUM CHLORIDE 0.9% 1000ML 1,000 ML IV ONE (10:49)
--- NOTE | 2019-09-08 10:59 | Electrocardiogram Report ---
Test Reason : Blood Pressure : / mmHG Vent. Rate : 127 BPM Atrial Rate : 127 BPM P-R Int : 144 ms QRS Dur : 072 ms QT Int : 308 ms P-R-T Axes : 045 037 031 degrees QTc Int : 447 ms Poor data quality, interpretation may be adversely affected Sinus tachycardia Otherwise normal ECG When compared with ECG of 27-AUG-2019 00:12, Vent. rate has increased BY 48 BPM Confirmed by Fredi Abdul ([id number]) on 09/08/2019 10:59:28 AM Referred By: [facility] Confirmed By:Jim Abdul
--- NOTE | 2019-09-08 11:00 | CT Scan Report ---
CT angio chest PE protocol CT DOSE: 533.23 mGy.cm HISTORY: Dyspnea. Chest pain. PE TECHNIQUE: Multiaxial CT images of the chest were performed following the intravenous administration of contrast to evaluate the pulmonary arteries. Maximal intensity projection images were also obtaine d. A dose lowering technique was utilized adhering to the principles of ALARA. COMPARISON STUDY: None. FINDINGS: There is a normal caliber thoracic aorta with no evidence for dissection. There is no evide nce for pulmonary embolus. No pleural effusions. No pneumothorax. The liver and spleen are unremarkab le. No mediastinal or hilar lymphadenopathy. The central airways are patent. The lungs are clear. There is a suggestion of a small short segment filling defect distal right main pulmonary artery. Thi s is best seen image 64. This is felt to be secondary to scatter artifact from the superior vena cava and associated contrast. Mild prominence of the proximal descending thoracic aorta with maximum diam eter 3 cm. Lungs are considered clear. IMPRESSION: 1. No evidence for pulmonary embolus. 2. Lungs are considered clear. 3. Atherosclerotic change and ectasia of the descending thoracic aorta with a maximum diameter of 3 c m ACT 112: Negative or not required by law. The above report was generated using voice recognition software. It may contain grammatical, syntax or spelling errors. Electronically signed by: Ziggy Ferguson M.D. 09/08/2019 10:58 AM
--- NOTE | 2019-09-08 11:37 | XRay Report ---
XR KUB/Abdomen 1 view CLINICAL HISTORY: pain pain COMPARISON STUDY: 08/22/2019 FINDINGS: The soft tissues, psoas shadows, renal outlines and intestinal gas pattern appear normal. T here is no evidence for bowel obstruction. No abnormal abdominal calcifications are seen. Contrast id entified throughout the colon as well as urinary tracts. IMPRESSION: No acute process. ACT 112: Negative or not required by law. The above report was generated using voice recognition software. It may contain grammatical, syntax or spelling errors. Electronically signed by: Ziggy Ferguson M.D. 09/08/2019 11:35 AM
--- NOTE | 2019-09-08 13:16 | History & Physical Report ---
Date of Service September 08, 2019 Assessment & Plan (1) Chest pain: Left sided chest pain with cardiovascular risk factors. HEART score 3 - low. Although notable complex patient and history not always reliable. Trend troponins overnight TTE Observe on med/tele (2) Acute dehydration: Hemoconcentrated labs. Cr increased 1.19 -> 1.64. In setting of poor oral intake. 2L NSS bolus given in ER Continue IV hydration with 0.5NSS + 20 meq KCl @ 100 ml/hr Repeat CMP in AM (3) HTN (hypertension): Continue amlodipine 10mg PO HS (4) Paranoid schizophrenia: Abilify 20mg PO HS (noted previously on 25mg on last admission). No current visual/auditory hallucinations or paranoia. (5) Thiamine deficiency: Continue thiamine 100mg PO daily Repeat thiamine level due to ongoing ambulatory dysfunction (6) Constipation by delayed colonic transit: Contrast still present in colon. ?from barium swallow from . Suspect incontinence of stool noted on retirement HPI represents overflow diarrhea. MiraLAX 17g TID Sennakot 1 tab BID Hold once patient has had a large BM (7) Oropharyngeal dysphagia: Purree diet as per prior SLT assessment No prior video swallow, just incomplete barium swallow Repeat SLT assessment Aspiration precautions (8) Malnutrition: Continue thiamine supplementation Consult dietary (9) Nausea & vomiting: Unclear definitive diagnosis of this but extensive recent workup. Suspected to be from anxiety around meals and somatiform disorder. Currently listed as taking clonazepam 0.5mg TID before meals therefore will continue this. (10) Hypothyroid: TSH WNL Continue levothyroxine 50 mcg PO daily (11) DVT prophylaxis: Heparin 5000 units SQ Q8H Admission and Anticipated Discharge Date Admission Date: 09/08/2019 History of Present Illness Chief Complaint: Chest pain Primary Care Provider: MASHA Siddiqui Osmani Thompson is a 59 year old male who presents to the ER with left sided chest pain. The pain started at 3:30am this morning, 9/10 severity, sharp, came on while in bed but patient was awake, associated nausea and vomiting, no diaphoresis or shortness of breath. No radiation. Non positional, pleuritic, or change with eating. Lasted for hours but he cannot tell me about when it stopped or under what circumstances. He alerted the guards that he had chest pain when they came to get him for breakfast. The pain was 9/10 severity for hours. He has a notable recent history of hospitalizations for generalized weakness, i nability to move, ongoing nausea and vomiting with difficulty in eating. Extensive workup including lumbar puncture, MRI brain, c-spine, t-spine, EGD, barium swallow (mild esophageal dysmotility but couldn't complete this), myasthenia gravis screen (negative) with no clear cause for his symptoms. Planning on following up with neurology for outpatient EMG. Needs repeat UA for microscopic hematuria noted on last admission. Undetectable thiamine level detected and treated with IV thiamine on August 26. Allergies Allergy/AdvReac Type Severity Reaction Status Date / Time No Known Allergies Allergy Verified 09/08/19 10:20 Home Medications Home Medications Medication Instructions Recorded Confirmed Type amlodipine [Norvasc] 10 mg PO HS 05/08/18 09/08/19 History aspirin 81 mg PO HS 05/08/18 09/08/19 History atorvastatin [Lipitor] 40 mg PO HS 05/08/18 09/08/19 History levothyroxine [Synthroid] 50 mcg PO QAM 05/08/18 09/08/19 History mirtazapine [Remeron] 15 mg PO HS 07/28/19 09/08/19 History pantoprazole 40 mg PO BID #1 tab 08/23/19 09/08/19 Rx thiamine HCl (vitamin B1) 200 mg PO DAILY #60 tab 08/31/19 09/08/19 Rx aripiprazole [Abilify] 20 mg PO HS 09/08/19 09/08/19 History clonazepam 0.5 mg PO TID 09/08/19 09/08/19 History Past Med/Surg History Medical History (Updated 09/08/19 @ 14:20 by Hubert Tena MD) VERONICA (acute kidney injury) (Inactive 09/25/13) Duodenal ulcer Dysphagia (Acute) Gross hematuria Hepatitis C Treated HTN (hypertension) (Chronic) Hypomagnesemia (Inactive) Pancytopenia Paranoid schizophrenia (Chronic) Thiamine deficiency Tremor UTI (urinary tract infection) Surgical History History of shoulder surgery Family History Other Family history non-contributory Social History Preferred Language: [place] Communication Ability: Effective Hl7 Developer Required: No marital status: Single Current Living Situation: Other Current Living Situation Comment: Inmate princess Feels Safe at Home: Yes Smoking Status: Former smoker Second Hand Exposure: No ; Hx Alcohol Use: No Hx Substance Use: No Review of Systems Review of Systems: All systems reviewed & are unremarkable except as noted in HPI & below Constitutional: no fever, no chills, no fatigue, no weight loss, no weight gain and no increased appetite Gastrointestinal: + heartburn (started 25 minutes ago, different to his left chest pain), + nausea, + vomiting and + constipation (no BM in 2 weeks, pt reports eating very little in that time); no abdominal pain, no belching, no hematemesis and no blood in stools Physical Exam Constitutional: + disheveled; + not well nourished and no acute distress Eyes: + anicteric sclerae; normal pupil size ENMT: external ear and nose normal, oropharynx normal Neck: trachea midline Respiratory: normal respiratory effort, lungs clear to auscultation Cardiovascular: Rate/Rhythm: regular rate and regular rhythm Heart Sounds: no murmur Vessels: no JVD Extremities: normal capillary refill; no calf tenderness and no pedal edema Gastrointestinal (Abdomen): Inspection/Auscultation: + hypoactive bowel sounds; abdomen not distended Percussion/Palpation: abdomen soft; abdomen nontender, no guarding and abdomen not rigid Musculoskeletal: Generalized weakness lower extremities > upper extremities. Not lateralizing Skin: no rashes, warm and dry Neurologic: moves all extremities and awake; not confused Speech / Cognition: normal speech Motor/Sensory: + tremor (improved action tremor than when I previously admitted him on August 11); no pronator drift Psychiatric: Orientation: alert and oriented x 3 Apperance: + disheveled Eye Contact: + fair eye contact Motor Behavior: no abnormal motor movements Speech: normal rate/rhythm/volume of speech Affect: euthymic affect Thought Process: linear/logical thought process Thought Content: not paranoid and no delusions Hallucinations: no auditory hallucinations and no visual hallucinations Insight: + limited insight Genitourinary: no CVA tenderness Results & Data Results & Data ([facility]) Vital Signs (Past 12 Hours) Vital Signs Temp Pulse Resp BP Pulse Ox 06/27/20 12:30 85 17 120/85 95 09/08/19 12:00 89 15 110/80 95 09/08/19 11:30 101 H 17 120/83 96 09/08/19 11:00 111 H 18 125/93 94 09/08/19 10:30 103 H 20 94/73 L 93 09/08/19 10:00 110 H 15 103/77 93 09/08/19 09:30 117 H 16 122/91 95 09/08/19 09:19 37.5 C 122 H 18 129/[address] angio chest PE protocol IMPRESSION: 1. No evidence for pulmonary embolus. 2. Lungs are considered clear. 3. Atherosclerotic change and ectasia of the descending thoracic aorta with a maximum diameter of 3 cm ECG Indication: chest pain Rate (beats per minute): 127 Rhythm: sinus tachycardia Findings: no acute ischemic change Comparison ECG Date: from (August 27, 2019) Change: the following changes noted (ventricular rate increased by 8 bpm) Code Status & VTE Plan Code Status Full VTE Prophylaxis Plan VTE Prophylaxis will be ordered: Yes PG Care Time/CCT Total # of Minutes Spent Total Time Spent with Patient: Total time spent is greater than 50% in coordination of care (as documented) at patient's floor/unit and/or counseling patient: Coding Level of Care Code 90785 OBS Care - Level 3 Diagnoses Chest pain R07.9 Chest pain type: unspecified Acute dehydration E86.0 HTN (hypertension) I10 Hypertension type: essential hypertension Paranoid schizophrenia F20.0 Thiamine deficiency E51.9 Constipation by delayed colonic transit K59.01 Oropharyngeal dysphagia R13.12 Malnutrition E44.1 Malnutrition type: protein-calorie malnutrition Protein-calorie malnutrition severity: mild Nausea & vomiting R11.2 Hypothyroid E03.9 Hypothyroidism type: unspecified DVT prophylaxis Z29.9 (1) Chest pain Chest pain type: unspecified Qualified Code(s): R07.9 - Chest pain, unspecified (2) HTN (hypertension) Hypertension type: essential hypertension Qualified Code(s): I10 - Essential (primary) hypertension (3) Malnutrition Malnutrition type: protein-calorie malnutrition Protein-calorie malnutrition severity: mild Qualified Code(s): E44.1 - Mild protein-calorie malnutrition (4) Hypothyroid Hypothyroidism type: unspecified Qualified Code(s): E03.9 - Hypothyroidism, unspecified
[2019-09-08] MEDS ORDERED: ONDANSETRON INJ 2 MG/ML 2 ML VIAL IV PRN (15:40)
[2019-09-08] MEDS ORDERED: ALUMINUM/MAGNESIUM SUSP 30 ML UDC PO PRN (15:40)
[2019-09-08] MEDS ORDERED: MAGNESIUM HYDROXIDE SUSP 30 ML UDC PO PRN (15:40)
[2019-09-08] MEDS ORDERED: POLYETHYLENE (MIRALAX) 17 GM PACK PO PRN (15:40)
[2019-09-08] MEDS ORDERED: ACETAMINOPHEN 325 MG TAB PO PRN (15:40)
[2019-09-08] MEDS: SODIUM CHLOR 0.45% + 20MEQ KCL 20 MEQ/1,000 ML BAG IV SCH (16:24)
[2019-09-08] MEDS: POLYETHYLENE (MIRALAX) 17 GM PACK PO SCH ×2 (16:25→22:10)
[2019-09-08] MEDS: HEPARIN SOD 5,000 UNIT/0.5 ML VIAL SQ SCH ×2 (16:25→22:10)
[2019-09-08] MEDS: clonazePAM 0.5 MG TAB PO SCH (16:28)
[2019-09-08] MEDS: PANTOprazole 40 MG TAB PO SCH (22:12)
[2019-09-08] MEDS: DOCUSATE SODIUM/SENNA 50/8.6MG TAB PO SCH (22:13)
[2019-09-08] MEDS: ATORVASTATIN 40 MG TAB PO SCH (22:13)
[2019-09-08] MEDS: MIRTAZAPINE TAB 15 MG TAB PO SCH (22:14)
[2019-09-08] MEDS: ARIPiprazole 10 MG TAB PO SCH (22:15)
[2019-09-08] MEDS: ASPIRIN 81 MG ECTAB PO SCH (22:16)
[2019-09-08] MEDS: AMLODIPINE BESYLATE 5 MG TAB PO SCH (22:17)
[2019-09-09] MEDS: SODIUM CHLOR 0.45% + 20MEQ KCL 20 MEQ/1,000 ML BAG IV SCH (01:53)
[2019-09-09 04:34] LABS: Appearance Urine Clear (Clear); Bacteria Urine Automated Negative (Negative); Bilirubin Urine Negative (Negative); Blood Urine Negative (Negative); Color Urine Dark Yellow; Glucose Urine UA Negative (Negative); Ketones Urine 1+ (Negative); Leukocyte Esterase Urine Negative (Negative); Nitrite Urine Negative (Negative); Protein Urine Trace (Negative); Specific Gravity Urine > 1.045 (1.000-1.030); Urobilinogen Urine Negative (Negative); pH Urine 5.5 (4.5-7.5)
[2019-09-09] MEDS: LEVOTHYROXINE SODIUM 50 MCG TABLET PO SCH (06:35)
[2019-09-09] MEDS: HEPARIN SOD 5,000 UNIT/0.5 ML VIAL SQ SCH ×3 (06:35→21:50)
[2019-09-09 06:59] LABS: Hematocrit (blood only) 41.4 % (42-52); Hemoglobin 13.3 g/dL (14.0-18.0); Mean Corpuscular Hemoglobin 27.5 pg (25-34); Mean Corpuscular Hgb Conc 32.1 g/dL (32-36); Mean Corpuscular Volume 85.5 fL (80-100); Mean Platelet Volume 12.2 fL (7.4-10.4); Platelet Count 136 K/uL (130-400); RDW Coefficient of Variation 15.4 % (11.5-14.5); RDW Standard Deviation 48.9 fL (36.4-46.3); Red Blood Count 4.84 M/uL (4.7-6.1); White Blood Count 5.28 K/uL (4.8-10.8)
[2019-09-09 07:31] LABS: Albumin Level 2.8 gm/dl (3.4-5.0); Aspartate Aminotransferase 25 U/L (15-37); BUN Creatinine Ratio 11.6 (10-20); Bilirubin,Total 1.1 mg/dl (0.2-1); Blood Urea Nitrogen 16 mg/dl (7-18); Calcium 8.4 mg/dl (8.5-10.1); Carbon Dioxide 25 mmol/L (21-32); Chloride 112 mmol/L (98-107); Creatinine Clr Calc Pharmacy 68.8 ml/min; Est GFR (African American) 65.2; Est GFR (Non-African American) 56.3; Glucose 90 mg/dl (70-99); Potassium 3.8 mmol/L (3.5-5.1); Sodium 142 mmol/L (136-145)
[2019-09-09] MEDS: clonazePAM 0.5 MG TAB PO SCH ×3 (07:34→16:24)
[2019-09-09 07:40] LABS: Alanine Aminotransferase 41 U/L (12-78); Albumin Globulin Ratio 0.9 (0.9-2); Alkaline Phosphatase 91 U/L (45-117); Chol HDL Ratio 4; Cholesterol 103 mg/dl (0-200); Globulin 3.2 gm/dl (2.5-4.0); HDL Cholesterol 29 mg/dl; LDL Cholesterol Calculated 57 mg/dl; Triglycerides 86 mg/dl (0-150); Troponin I < 0.015 ng/ml (0-0.045); VLDL Cholesterol 17 mg/dl
[2019-09-09] MEDS: THIAMINE HCL 100 MG TAB PO SCH (09:03)
[2019-09-09] MEDS: POLYETHYLENE (MIRALAX) 17 GM PACK PO SCH ×3 (09:03→21:45)
[2019-09-09] MEDS: DOCUSATE SODIUM/SENNA 50/8.6MG TAB PO SCH ×2 (09:03→21:46)
[2019-09-09] MEDS: PANTOprazole 40 MG TAB PO SCH ×2 (09:03→21:48)
--- NOTE | 2019-09-09 12:13 | XCELERA ---
[id number]
--- NOTE | 2019-09-09 12:16 | Hospitalist Progress Note ---
Date of Service September 09, 2019 Assessment & Plan (1) Constipation by delayed colonic transit: Paola Thompson is a 59yo M inmate with a PMHx of chronic consitipation with delayed colonic transit, thiamine deficiency, malnutrition, paranoid schizophrenia, hypertension, hypothyroidism, HepC, and duodenal ulcer who presented from [facility] for several hous of 9/10 L sided chest pain. Chest Pain, suspect noncardiac - No associated diaphoresis/SOB - EKG sinus tach, no acute ST/T wave changes - Tropinin negative x3 - TTE EF 60-65%, no wall motion abnormality, borderline aortin root dilatation. No clinically significant valvular disease, - Pain resolved overnight Prerenal Azotemia 2/2 Volume depletion with inadequate PO intake - Cr elevated from bl~1-1.1 to 1.64 - 2L NSS given in ED, IVFM overnight - Cr downtrending to 1.35 - BMP daily - IVFM as below Constipation with delayed colonic transit - Last BM 2 weeks prior - Miralax TID + Senna/Docusate PO BID - Serial clinical exams - CT-Ab/Pelvis + contrast deferred as pt had improved BM - Fleet Enema as needed HTN - Amlodipine 10mg PO qHS Paranoid Schizophrenia - Ability 20mg PO qHS - No AH/VH on daily assessment - Pt affect flat, cooperative, answers questions appropriately today Thiamine Deficiency - Thiamine 100mg PO daily - Previously undetectable at last hospitalization, repeat level pending Oropharyngeal dysphagia: - Purree diet as per prior TECHNICAL INSTRUCTOR COURSE DEVELOPER assessment - No prior video swallow, incomplete barium swallow - Repeat TECHNICAL INSTRUCTOR COURSE DEVELOPER assessment - Aspiration precautions Hypothyroid: - TSH normal on admit - Continue levothyroxine 50 mcg PO daily IVFM: NSS+20KCL @ 100cc/hr DVT prophylaxis: Heparin 5000 units SQ Q8H (2) Oropharyngeal dysphagia: (3) Dehydration: (4) Chest pain: (5) Acute dehydration: (6) Tachycardia: (7) Tremor: (8) Thiamine deficiency: (9) Nausea & vomiting: (10) DVT prophylaxis: (11) Abdominal pain: (12) Hypothyroid: Admission and Anticipated Discharge Date Admission Date: September 08, 2019 Supervising Physician Co-Signing Physician Notes I personally examined the patient and verified all levine points of history and exam, discussed case, and agree with decision making with Dr Garcia. chest pain feeling better. was L upper chest, sharp, stabbing, worse w a deep breath. now ipmroved. also bowels starting to move some and belly feeling a little better vitals noted nad heent nc at mmm breathing unlabored no accessory muscles good effort skin no rashes no pallor or icterus neuro no focal deficits. abd soft mild distention nontender no guarding/rebound/rigidity. msk/ost - L upper chest wall area around L 4/5 rib high tone tender decreased ROM - direct myofascial - improved tissue texture changes - pt tolerated well chest pain - seems to have been rib related. OMT as above. voltaren gel. somatic dysfunction, ribcage region - OMT as above chronic constipation - fortunately starting to improve w current bowel regimen - continue for now, likely will need some degree of miralax dosing once ready for discharge dispo- anticipate dc probably tomorrow - but want to ensure CP is improving and bowel function improving more first. otherwise as above Subjective Mr. Thompson is seen at bedside this morning. He reports his chest pain has improved, and he does not have any chest pain, chest pressure, shortness of breath, or diaphoresis this morning. Denies fevers, chills, sweats overnight. Denies abdominal pain, endorses intermittent nausea without emesis. Review of Systems Review of Systems: Constitutional: Denies fever, chills Eyes: Denies vision change, visual hallucinations ENT: Denies cold like symptoms, Auditory hallucinations Cardiovascular: Denies chest pain, chest pressure, palpitations, extremity swelling Respiratory: Denies shortness of breath, cough, sputum production, difficulty breathing Gastrointestinal: Denies abdominal pain. Endorses constipation (last BM 2 weeks ago). Endorses nausea without emesis this AM. Genitourinary: Denies dysuria, urinary hesitancy, decreased UoP Musculoskeletal: Denies acute weakness, muscle aches/pain, joint aches/pain Integumentary:Denies acute rash, lesions, bruising Neurological: Denies headache, numbness, tingling, focal weakness Physical Exam Physical Exam: General: A&Ox3. NAD. Cooperative. HEENT: Atraumatic, normocephalic. Pulm: CTAB A&P. -wheezes, -rales, -rhonchi. Symmetrical chest rise. No increase work of breathing. No respiratory distress. Cardiac: RRR, -mrg. Radial pulses intact and symmetrical. Abdominal: Nontender, softly distended. BS present. Ext: No pedal edema. PT pulses intact bilaterally, moving all extremities equally. Results & Data Results & Data ([facility]) Vital Signs (Past 12 Hours) Vital Signs Temp Pulse Pulse Resp BP Pulse Ox 09/09/19 11:47 36.8 C 111 H 16 106/77 93 09/09/19 08:50 36.9 C 130 H 18 167/115 H 93 09/09/19 07:39 103 H 09/09/19 03:00 37 C 97 H 18 128/91 95 Resident Activity Tracking Resident Involvement: Resident Care Provided Care Provided: Adult Hospital Medicine (1) Hypothyroid Hypothyroidism type: unspecified Qualified Code(s): E03.9 - Hypothyroidism, unspecified (2) Abdominal pain Abdominal location: unspecified location Qualified Code(s): R10.9 - Unspecified abdominal pain (3) Chest pain Chest pain type: unspecified Qualified Code(s): R07.9 - Chest pain, unspec ified
[2019-09-09] MEDS ORDERED: SOD PHOSPHATE/SOD BIPHOSPHATE ENEMA 132 ML BTL PR ONE (16:00)
[2019-09-09] MEDS: DICLOFENAC SOD 1% GEL 100 GM TUBE EXT SCH ×2 (16:25→21:50)
--- NOTE | 2019-09-09 16:30 | Billing Data ---
Date of Service September 09, 2019 Coding Level of Care Code 87743 Subseq Obs Care Lvl 3
--- NOTE | 2019-09-09 16:30 | Hospitalist Progress Note ---
Date of Service September 09, 2019 Assessment & Plan Admission and Anticipated Discharge Date Admission Date: September 08, 2019 Results & Data Results & Data ([facility]) Vital Signs (Past 12 Hours) Vital Signs Temp Pulse Pulse Resp BP BP Pulse Ox 09/09/19 16:01 97.9 F 108 H 18 149/97 H 96 09/09/19 15:07 95 H 09/09/19 11:47 98.2 F 111 H 16 106/77 93 09/09/19 08:50 98.4 F 130 H 18 167/115 H 93 09/09/19 07:39 103 H PG Care Time/CCT Total # of Minutes Spent Total Time Spent with Patient: Total time spent is greater than 50% in coordination of care (as documented) at patient's floor/unit and/or counseling patient: Coding Level of Care Code None CPT Codes Musculoskeletal - Musculoskeletal: 30[address] Robbie Tr 1-2 Body regions ([id number])
[2019-09-09] MEDS: MIRTAZAPINE TAB 15 MG TAB PO SCH (21:46)
[2019-09-09] MEDS: ATORVASTATIN 40 MG TAB PO SCH (21:48)
[2019-09-09] MEDS: ASPIRIN 81 MG ECTAB PO SCH (21:49)
[2019-09-09] MEDS: ARIPiprazole 10 MG TAB PO SCH (21:49)
[2019-09-09] MEDS: AMLODIPINE BESYLATE 5 MG TAB PO SCH (21:49)
[2019-09-10] MEDS: HEPARIN SOD 5,000 UNIT/0.5 ML VIAL SQ SCH (06:16)
[2019-09-10] MEDS: LEVOTHYROXINE SODIUM 50 MCG TABLET PO SCH (06:16)
[2019-09-10 07:45] LABS: BUN Creatinine Ratio 5.3 (10-20); Calcium 8.7 mg/dl (8.5-10.1); Est GFR (African American) 66.4; Est GFR (Non-African American) 57.3; Potassium 3.6 mmol/L (3.5-5.1)
[2019-09-10] MEDS: DOCUSATE SODIUM/SENNA 50/8.6MG TAB PO SCH (08:12)
[2019-09-10] MEDS: DICLOFENAC SOD 1% GEL 100 GM TUBE EXT SCH (08:12)
[2019-09-10] MEDS: clonazePAM 0.5 MG TAB PO SCH ×2 (08:12→11:39)
[2019-09-10] MEDS: PANTOprazole 40 MG TAB PO SCH (08:12)
[2019-09-10] MEDS: POLYETHYLENE (MIRALAX) 17 GM PACK PO SCH (08:13)
--- NOTE | 2019-09-10 09:46 | Discharge Summary ---
Date of Service September 10, 2019 Admission HPI Per Admitting Provider Osmani Thompson is a 59 year old male who presents to the ER with left sided chest pain. The pain started at 3:30am this morning, 9/10 severity, sharp, came on while in bed but patient was awake, associated nausea and vomiting, no diaphoresis or shortness of breath. No radiation. Non positional, pleuritic, or change with eating. Lasted for hours but he cannot tell me about when it stopped or under what circumstances. He alerted the guards that he had chest pain when they came to get him for breakfast. The pain was 9/10 severity for hours. He has a notable recent history of hospitalizations for generalized weakness, inability to move, ongoing nausea and vomiting with difficulty in eating. Extensive workup including lumbar puncture, MRI brain, c-spine, t-spine, EGD, barium swallow (mild esophageal dysmotility but couldn't complete this), myasthenia gravis screen (negative) with no clear cause for his symptoms. Planning on following up with neurology for outpatient EMG. Needs repeat UA for microscopic hematuria noted on last admission. Undetectable thiamine level detected and treated with IV thiamine on August 26. Admission Exam Per Admitting Provider Constitutional: + disheveled; + not well nourished and no acute distress Eyes: + anicteric sclerae; normal pupil size ENMT: external ear and nose normal, oropharynx normal Neck: trachea midline Respiratory: normal respiratory effort, lungs clear to auscultation Cardiovascular: Rate/Rhythm: regular rate and regular rhythm Heart Sounds: no murmur Vessels: no JVD Extremities: normal capillary refill; no calf tenderness and no pedal edema Gastrointestinal (Abdomen): Inspection/Auscultation: + hypoactive bowel sounds; abdomen not distended Percussion/Palpation: abdomen soft; abdomen nontender, no guarding and abdomen not rigid Musculoskeletal: Generalized weakness lower extremities > upper extremities. Not lateralizing Skin: no rashes, warm and dry Neurologic: moves all extremities and awake; not confused Speech / Cognition: normal speech Motor/Sensory: + tremor (improved action tremor than when I previously admitted him on August 11); no pronator drift Psychiatric: Orientation: alert and oriented x 3 Apperance: + disheveled Eye Contact: + fair eye contact Motor Behavior: no abnormal motor movements Speech: normal rate/rhythm/volume of speech Affect: euthymic affect Thought Process: linear/logical thought process Thought Content: not paranoid and no delusions Hallucinations: no auditory hallucinations and no visual hallucinations Insight: + limited insight Genitourinary: no CVA tenderness Principal Diagnosis Chest pain Discharge Exam Constitutional WD/WN, vitals as above cooperative handcuffed to bed rail Eyes + anicteric sclerae ENMT external ear and nose normal, oropharynx normal Neck normal visual inspection and trachea midline Respiratory normal respiratory effort, lungs clear to auscultation Cardiovascular RRR, no murmur, no edema Heart Sounds: normal S1 and normal S2 Gastrointestinal (Abdomen) Inspection/Auscultation: + abdomen distended (mild) and normal bowel sounds Percussion/Palpation: abdomen soft; abdomen nontender, no guarding and no hepatosplenomegaly Skin no rashes, warm and dry Psychiatric A+Ox3, euthymic affect Discharge Data Allergies Allergy/AdvReac Type Severity Reaction Status Date / Time No Known Allergies Allergy Verified 09/08/19 10:20 Consultations 09/08/19 12:50 ED Decision to Admit Stat Ordered Studies 09/08/19 10:07 CT angio chest PE protocol Stat Hospital Course (1) Constipation by delayed colonic transit: Osmani Thompson is a 59yo M inmate with a PMHx of chronic constipation with delayed colonic transit, thiamine deficiency, malnutrition, paranoid schizophrenia, hypertension, hypothyroidism, HepC, and duodenal ulcer who presented from [facility] for several hours of 9/10 L sided chest pain. Chest Pain - No associated diaphoresis/SOB - EKG with sinus tach but no evidence of acute ST/T wave changes - Troponin negative x3 - TTE EF 60-65%, no wall motion abnormality, borderline aortic root dilatation. No clinically significant valvular disease. - Etiology likely GI origin due to dysmotility - resolved by discharge. - Continue home statin, ASA for primary prevention. Prerenal Azotemia 2/2 Volume depletion with inadequate PO intake - Cr elevated from baseline to 1.64 on admission - improved to 1.3 with IVF Constipation with delayed colonic transit - Last BM 2 weeks prior to admission - Patient had extensive work-up as an outpatient; etiology never elucidated. - Patient was treated with the following bowel regimen: Miralax TID + Senna/Docusate PO BID. Patient had 1 BM while in the hospital. We recommend continuing scheduled Miralax TID and Sennakot BID upon discharge. Titrate to 1 soft BM daily. Oropharyngeal dysphagia: - Patient reports difficulty swallowing. Speech therapy was consulted during his recent, prior admission who recommended a pureed diet. Speech was re-consulted during this admission and recommended pureed diet, advancing as tolerated and eating in a calm environment with minimal distractions. HTN - Continue Amlodipine 10mg PO qHS Paranoid Schizophrenia - Ability 20mg PO qHS - Patient without auditory or visual hallucinations on exam. Thiamine Deficiency - Thiamine 100mg PO daily - Previously undetectable at last hospitalization, repeat level pending; did not result by the time of discharge. Hypothyroid: - TSH normal on admission - Continue levothyroxine 50 mcg PO daily (2) Oropharyngeal dysphagia: (3) Dehydration: (4) Chest pain: (5) Acute dehydration: (6) Tachycardia: (7) Tremor: (8) Thiamine deficiency: (9) Nausea & vomiting: (10) DVT prophylaxis: (11) Abdominal pain: (12) Hypothyroid: Total Time Total Time Spent Total Time Spent (In Minutes): see attending attestation Discharge Plan Discharge Items [facility] Reason For Visit: CHEST PAIN RULE OUT [place] Discharge Diagnosis: Chest Pain Condition on Discharge: Good Activity: Resume your previous activity Non-emergency contact: Primary Care Provider Call non-emergency contact if: your symptoms worsen Follow-up/Referrals: Artur FLANAGAN [Primary Care Provider] - Diet: Heart Healthy Diet Texture: Pureed (blended smooth) Diet Comment: Advance as tolerated; Eat in quiet settings Addtl Attending Provider Instructions: You were hospitalized at [facility] for evaluation of chest pain. Testing showed no evidence of a heart attack. We recommend you continue to take your atorvastatin, aspirin, and amlodipine daily to minimize your chance of having a heart attack in the future. As for the cause of your chest, this was never determine, although it resolved by the time of discharge. You reported some abdominal discomfort that was thought to be related to constipation, as you had not had a BM in 2 weeks preceding this hospital admission. We treated your constipation with Miralax and Colace. Please continue to take Miralax 3 times daily and Colace twice daily until you are having 1 BM per day. After you bowel movements become regular, you may reduce the dose of both of the above (ie take each of the above once daily). If your bowel movements become more frequent (2-3 stools per day), you may stop both the Miralax and colace. As for your trouble with swallowing, this is thought to be related from your abilify medication (ie as a side effect). However, you need your Abilify for your schizophrenia. We had speech see you in the hospital, who recommended a pureed diet. You may advance your diet (to coarser textures) as tolerated. If you begin to have trouble swallowing with coarse foods, go back to smoother, or pureed foods. We also recommend you eat slowly (take you time) and in a quite area, if possible. Pending Studies at Discharge: Yes Studies:: Thiamine level Stand-Alone Forms: My [facility] Skilled Items Patient informed of condition?: Yes DNR: No Discharge Level of Care: Other Communicable Disease: No Discharge Prognosis: Stable Lines: None Urinary Catheter: No Medications and DC Order Prescriptions: New polyethylene glycol 3350 [Miralax] 17 gram Powder In Packet 17 g PO TID 30 Days RF: 0 sennosides-docusate sodium [Senokot-S] 8.6-50 mg Tablet 1 tab PO BID 30 Days Qty: 60 RF: 0 Continued atorvastatin [Lipitor] 40 mg Tablet 40 mg PO HS RF: 0 aspirin 81 mg Tablet,Delayed Release (Dr/Ec) 81 mg PO HS RF: 0 amlodipine [Norvasc] 10 mg Tablet 10 mg PO HS RF: 0 levothyroxine [Synthroid] 50 mcg Tablet 50 mcg PO QAM RF: 0 aripiprazole [Abilify] 20 mg Tablet 20 mg PO HS RF: 0 clonazepam 0.5 mg tablet 0.5 mg PO TID RF: 0 mirtazapine [Remeron] 15 mg Tablet 15 mg PO HS RF: 0 pantoprazole 40 mg Tablet,Delayed Release (Dr/Ec) 40 mg PO BID Qty: 1 RF: 0 thiamine HCl (vitamin B1) 100 mg tablet 200 mg PO DAILY Qty: 60 RF: 0 Admission Data Admit Date/Time: 09/08/19 13:22 Attending Provider: Jillian Hernandez Admit Provider: Hubert Tena Primary Care Provider: Artur FLANAGAN Other Providers: Hubert Tena ; Salazar Alexandre Other Interventions: Discharge Summary Assessment (RN) Last Done: 09/10/19 11:02 DC Date/Time DO NOT enter until pt leaves facility: 09/10/19 13:30 Supervising Physician Co-Signing Physician Notes Resident Physician Supervision Note: I independently interviewed and examined the patient and verified the levine history and physical, reviewed labs and image studies, discussed the case with the resident Dr. Noriega and agree with the findings and care plan. Resident Activity Tracking Resident Involvement: Resident Care Provided Care Provided: Adult Hospital Medicine
[2019-09-10] MEDS: THIAMINE HCL 100 MG TAB PO SCH (11:38)
== END 2019-09-10 13:30 ==
LOC: 2W 09:09 → ED 09:09 → SUATTDRO 13:22 → 2W 15:00

== ENCOUNTER 2021-05-24 16:54 | Inpatient (IN) ==
[2021-05-24] MEDS ORDERED: ACETAMINOPHEN 1,000 MG/100 ML VIAL IV STA (17:24)
[2021-05-24] MEDS ORDERED: ONDANSETRON INJ 2 MG/ML 2 ML VIAL IV STA (17:24)
[2021-05-24] MEDS ORDERED: SODIUM CHLORIDE 0.9% 1000ML 1,000 ML IV STA (17:24)
[2021-05-24] MEDS ORDERED: FAMOTIDINE 20MG IV PUSH 20 MG/5 ML SYR IV STA (17:28)
[2021-05-24 17:36] LABS: Mean Corpuscular Hgb Conc 32.6 g/dL (32-36)
[2021-05-24 17:46] LABS: Alanine Aminotransferase 30 U/L (7-52); Albumin Globulin Ratio 1.5 (0.9-2); Albumin Level 4.6 gm/dl (3.4-5.0); Alkaline Phosphatase 77 U/L (34-104); Anion Gap 8 (3-11); Aspartate Aminotransferase 29 U/L (13-39); Bilirubin,Total 1.4 mg/dl (0.2-1.0); Blood Urea Nitrogen 19 mg/dl (6-23); Calcium 9.5 mg/dl (8.5-10.1); Carbon Dioxide 27 mmol/L (21-32); Chloride 107 mmol/L (98-107); Est GFR (African American) 69.2 ml/min; Est GFR (Non-African American) 59.7 ml/min; Globulin 3.1 gm/dl (2.5-4.0); Glucose 85 mg/dl (70-99(Fasting)); Hematocrit (blood only) 47.9 % (42-52); Hemoglobin 15.6 g/dL (14.0-18.0); Lipase 9 U/L (11-82); Magnesium 2.3 mg/dl (1.7-2.4); Mean Corpuscular Hemoglobin 27.8 pg (25-34); Mean Corpuscular Volume 85.4 fL (80-100); Phosphorus 2.6 mg/dl (2.5-4.9); Potassium 3.7 mmol/L (3.5-5.1); RDW Coefficient of Variation 14.8 % (11.5-14.5); RDW Standard Deviation 46.2 fL (36.4-46.3); Red Blood Count 5.61 M/uL (4.7-6.1); Sodium 142 mmol/L (136-145); Total Protein 7.7 gm/dl (6.0-8.3); White Blood Count 7.48 K/uL (4.8-10.8)
[2021-05-24 17:48] LABS: Troponin I < 0.03 ng/ml (0-0.04)
[2021-05-24 17:56] LABS: Basophils # (auto) 0.01 K/uL (0-0.2); Basophils % (auto) 0.1 %; Eosinophils # (auto) 0.04 K/uL (0-0.5); Eosinophils % (auto) 0.5 %; Immature Granulocytes # (auto) 0.01 K/uL (0.00-0.02); Immature Granulocytes % (auto) 0.1 %; Lymphocytes # (auto) 1.48 K/uL (1.2-3.4); Lymphocytes % (auto) 19.8 %; Monocytes # (auto) 0.47 K/uL (0.11-0.59); Monocytes % (auto) 6.3 %; Neutrophils # (auto) 5.47 K/uL (1.4-6.5); Neutrophils % (auto) 73.2 %; Platelet Count 147 K/uL (130-400); Platelet Estimate Decreased (Normal)
--- NOTE | 2021-05-24 17:59 | XRay Report ---
XR chest 1V portable HISTORY: 61 years-old Male Chest Pain . Acute atypical chest pain COMPARISON: Chest radiograph 10/01/2019 TECHNIQUE: Portable AP view of the chest FINDINGS: Cardiac silhouette is enlarged. Pulmonary vascular congestion with interstitial coarsening. Small ple ural effusions with mild bibasilar densities. No pneumothorax. Degenerative changes of the shoulders and spine. IMPRESSION: 1. Cardiomegaly with pulmonary edema. 2. Small pleural effusions with mild bibasilar opacities. ACT 112: Negative or not required by law. The above report was generated using voice recognition software. It may contain grammatical, syntax o r spelling errors. Electronically signed by: Eliazar Kirby M.D. 05/24/2021 5:58 PM
[2021-05-24] MEDS ORDERED: OPTIRAY 320 100ml IV ONE (18:19)
--- NOTE | 2021-05-24 18:31 | CT Scan Report ---
CT head/brain wo con CLINICAL HISTORY: 61 years-old Male with n/v, ams. Acute nausea and vomiting with altered mental sta tus TECHNIQUE: Multiple axial CT images of the head were obtained without contrast. A dose lowering tech nique was utilized adhering to the principles of ALARA. COMPARISON: None. FINDINGS: No acute intracranial hemorrhage, midline shift, intracranial mass, hydrocephalus, territorial ischem ia or abnormal extra-axial collection. Minimal involutional changes. Unchanged prominent perivascular space in the region of the left basal ganglia. The calvarium is intact. The paranasal sinuses, mastoid air cells, and middle ear cavities are clear . IMPRESSION: No acute intracranial abnormality. ACT 112: Negative or not required by law. The above report was generated using voice recognition software. It may contain grammatical, syntax o r spelling errors. Electronically signed by: Eliazar Kirby M.D. 05/24/2021 6:30 PM
--- NOTE | 2021-05-24 18:40 | Emergency Department Note ---
Impression & Plan Aspiration pneumonia, Paranoid schizophrenia, Nausea and vomiting, Change in mental status ED Provider Note NAME: FALGUNI [id number] GARCIA AGE: 61 SEX: M ARRIVES VIA: Ambulance INFORMANT: Patient, EMS ED PROVIDER(S): Carlos Infante MD CHIEF COMPLAINT: n/v, change in mental status, hypoxia PLAN: Disposition: admit MEDICAL DECISION MAKING: The patient is a pleasant 61-year-old gentleman, current correction inmate at [facility] with a past medical history of schizophrenia, duodenal ulcer, thiamine deficiency, HTN who presents to the emergency department for evaluation of nausea and vomiting and concern for hypoxia after he was noted to be 70% on room air following his emesis per report. Patient is a poor historian in the setting of schizophrenia. He reports feeling nauseated and "sick" cannot be more specific. He has no focal weakness. He reports he has been taking his medications. On arrival the patient is fatigued/uncomfortable appearing but no acute distress, afebrile, BP 160s/100s and otherwise stable vital signs. O2 saturation mid 90s on RA. He appears clinically dry. His abdomen is benign. He has no focal neurologic deficits. EKG without overt acute ischemia. Chest x-ray with small bilateral pleural effusions and bibasilar opacities. Non-specific interstitial thickening is seen. WBC, H/H and platelets within normal limits. Chemistry without metabolic acidosis. Electrolytes are unremarkable. Total bilirubin 1.4, nonspecific and otherwise LFTs without significant abnormality. Troponin negative/undetectable. Lipase not elevated. Covid-19 RNA, NAAT negative. Suspected sx 2/2 pna, likley aspiration with worsening of patient's underlying schizophrenia. CT of the abd pelvis and CT head were negative for acute process. Case was reviewed with [facility]. Given the patient's mental status is changed from his baseline they prefer admission to stabilize. Case was discussed with Dr. Valenzuela, [facility] hospital[place], who will evaluate the patient for admission. Blood cultures order and Unasyn for treatment of suspected aspiration pna. Lactate wnl. Procalcitonin is not elevated. Triage Nursing notes reviewed and agree them. Prior medical records reviewed Vital Signs: reviewed and remarkable for hypertension. Differential diagnosis: Gastroenteritis, food borne illness, infections, appendicitis, diverticulitis, inflammatory bowel disease, obstruction, GI bleed, biliary pathology, volvulus, as well as other pathologies. ER treatment provided: See below. Diagnostics interpreted by me: ECG: Normal sinus rhythm, 84 bpm, no ectopy, nonspecific T wave abnormality, no overt ST elevation or depression, QTC 463, QRS 90 Cardiac Monitoring: An order for continuous cardiac monitoring was placed and demonstrated normal sinus rhythm, 84 bpm, no ectopy Laboratory studies: See below Imaging studies: See below Consultation(s): Case was discussed with Dr. Valenzuela, [facility] hospitalist, who will evaluate the patient for admission. HPI: The patient is a pleasant 61-year-old gentleman, current correction inmate at [facility] with a past medical history of schizophrenia, duodenal ulcer, thiamine deficiency, HTN who presents to the emergency department for evaluation of nausea and vomiting and concern for hypoxia after he was noted to be 70% on room air following his emesis per report. Patient is a poor historian in the setting of schizophrenia. He reports feeling nauseated and "sick" cannot be more specific. He has no focal weakness. He reports he has been taking his medications. ROS: See above HPI for pertinent positives & negatives. A total of 10 systems reviewed and were otherwise negative. VITALS:See Below PHYSICAL EXAMINATION: GENERAL: Awake, alert, fatigued-appearing, in no distress HENT: Normocephalic, atraumatic. Oropharynx with dry mucous membranes and otherwise unremarkable. EYES: Normal conjunctiva. Sclera non-icteric. NECK: Supple. No nuchal rigidity. FROM. No JVD. RESPIRATORY: Diminished BS at the bases and otherwise clear. Normal respiratory effort. CARDIAC: Regular rate, normal rhythm. Extremities warm and well perfused. Pulses equal. ABDOMEN: Soft, non-distended. No tenderness to palpation. No rebound or guarding. No masses. RECTAL: Deferred. MUSCULOSKELETAL: Chest examination reveals no tenderness. The back is symmetrical on inspection without obvious abnormality. There is no CVA tend erness to palpation. No joint edema. LOWER EXTREMITIES: Calves are equal size bilaterally and non-tender. No edema. No discoloration. NEURO: No focal sensory or motor deficits noted. Poverty of speech. Flat afffect. SKIN: No rash or jaundice noted. Carlos Infante MD Past Med/Surg History Medical History VERONICA (acute kidney injury) (09/25/13) Duodenal ulcer Dysphagia Gross hematuria Hepatitis C Treated HTN (hypertension) Hypomagnesemia Pancytopenia Paranoid schizophrenia Thiamine deficiency Tremor UTI (urinary tract infection) Surgical History History of shoulder surgery Family History Other Family history non-contributory Social History Smoking Status: Never smoker Second Hand Exposure: No; Hx Alcohol Use: No Hx Substance Use: No Preferred Language: Jordanian Communication Ability: Effective Predatory Game Hunter Required: No Beliefs That Will Affect Care: None marital status: Single Current Living Situation: Other Current Living Situation Comment: retirement Other Information That Helps Us Care for You: No Feels Safe at Home: Yes Safety Concerns: Feels Safe At This Time Assistive Devices: None Allergies Allergies Allergy/AdvReac Type Severity Reaction Status Date / Time No Known Allergies Allergy Verified 05/24/21 18:15 Home Meds Home Medications Medication Instructions Recorded Confirmed amlodipine 10 mg tablet (Norvasc) 10 mg PO HS 05/08/18 05/24/21 atorvastatin 40 mg tablet (Lipitor) 40 mg PO HS 05/08/18 05/24/21 levothyroxine 50 mcg tablet 50 mcg PO QAM 05/08/18 05/24/21 (Synthroid) mirtazapine 15 mg tablet (Remeron) 15 mg PO HS 07/28/19 05/24/21 aripiprazole 20 mg tablet (Abilify) 20 mg PO HS 09/08/19 05/24/21 Previous Rx's Medication Instructions Recorded pantoprazole 40 mg tablet,delayed 40 mg PO BID #1 tab 08/23/19 release thiamine HCl (vitamin B1) 100 mg 200 mg PO DAILY #60 tab 08/31/19 tablet Results & Data (ED) Vital Signs Vital Signs - 24 hr 05/24/21 17:02 05/24/21 18:33 05/24/21 18:35 Temperature 37.0 C Temperature Source Oral Pulse Rate 80 77 Pulse Rate [Finger] 79 Pulse Rhythm Regular Pulse Rhythm [Finger] Pulse Strength Normal Pulse Strength [Finger] Respiratory Rate 20 20 20 Respiratory Effort / Characteristics Non-Labored Spontaneous Respiratory Depth Normal Respiratory Pattern Regular Blood Pressure 168/121 H Blood Pressure [Left Arm] 162/107 H Blood Pressure Mean 136 Blood Pressure Mean [Left Arm] 125 Blood Pressure Position [Left Arm] Sitting Pulse Oximetry 94 98 98 Oxygen Delivery Method Room Air Room Air Room Air Sepsis Recent Fever Within 48 Hours No Sepsis New/Unexplained Change in Mental Status N/A Sepsis Action Taken by Nursing No Action Required 05/24/21 20:00 Temperature 37.2 C Temperature Source Oral Pulse Rate Pulse Rate [Finger] 77 Pulse Rhythm Pulse Rhythm [Finger] Regular Pulse Strength Pulse Strength [Finger] Normal Respiratory Rate 18 Respiratory Effort / Characteristics Non-Labored Spontaneous Respiratory Depth Normal Respiratory Pattern Regular Blood Pressure Blood Pressure [Left Arm] 164/98 H Blood Pressure Mean Blood Pressure Mean [Left Arm] 120 Blood Pressure Position [Left Arm] Lying Pulse Oximetry 96 Oxygen Delivery Method Room Air Sepsis Recent Fever Within 48 Hours Sepsis New/Unexplained Change in Mental Status Sepsis Action Taken by Nursing Laboratory Data Attestation: I reviewed the patient's lab results. Result diagrams: 05/24/21 17:10 05/24/21 17:10 Lab Results 05/24/21 05/24/21 05/24/21 Range/Units 17:10 17:10 17:48 WBC 7.48 (4.8-10.8) K/uL RBC 5.61 (4.7-6.1) M/uL Hgb 15.6 (14.0-18.0) g/dL Hct 47.9 (42-52) % MCV 85.4 (80-100) fL MCH 27.8 (25-34) pg MCHC 32.6 (32-36) g/dL RDW Std Deviation 46.2 (36.4-46.3) fL RDW Coeff of Franck 14.8 H (11.5-14.5) % Plt Count 147 (130-400) K/uL MPV 13.0 H (7.4-10.4) fL Immature Gran % (Auto) 0.1 % Neut % (Auto) 73.2 % Lymph % (Auto) 19.8 % [place] % (Auto) 6.3 % Eos % (Auto) 0.5 % Baso % (Auto) 0.1 % Neut # (Auto) 5.47 (1.4-6.5) K/uL Lymph # (Auto) 1.48 (1.2-3.4) K/uL [place] # (Auto) 0.47 (0.11-0.59) K/uL Eos # (Auto) 0.04 (0-0.5) K/uL Baso # (Auto) 0.01 (0-0.2) K/uL Immature Gran # (Auto) 0.01 (0.00-0.02) K/uL Platelet Estimate Decreased L (Normal) Sodium 142 (136-145) mmol/L Potassium 3.7 (3.5-5.1) mmol/L Chloride 107 (98-107) mmol/L Carbon Dioxide 27 (21-32) mmol/L Anion Gap 8 (3-11) BUN 19 (6-23) mg/dl Creatinine 1.27 (0.6-1.4) mg/dl Est Cr Clr Drug Dosing 78.0 ml/min Est GFR ( Amer) 69.2 ml/min Est GFR (Non-Af Amer) 59.7 ml/min BUN/Creatinine Ratio 15.0 (10-20) Glucose 85 (70-99(Fasting)) mg/dl Lactate (0.4-2.0) mmol/L Calcium 9.5 (8.5-10.1) mg/dl Phosphorus 2.6 (2.5-4.9) mg/dl Magnesium 2.3 (1.7-2.4) mg/dl Total Bilirubin 1.4 H (0.2-1.0) mg/dl AST 29 (13-39) U/L ALT 30 (7-52) U/L Alkaline Phosphatase 77 (34-104) U/L Troponin I < 0.03 (0-0.04) ng/ml Total Protein 7.7 (6.0-8.3) gm/dl Albumin 4.6 (3.4-5.0) gm/dl Globulin 3.1 (2.5-4.0) gm/dl Albumin/Globulin Ratio 1.5 (0.9-2) Lipase 9 L (11-82) U/L Procalcitonin (0-0.5) ng/ml Urine Color Urine Appearance (Clear) Urine pH (4.5-7.5) Ur Specific [place] (1.000-1.030) Urine Protein (Negative) Urine Glucose (UA) (Negative) Urine Ketones (Negative) Urine Blood (Negative) Urine Nitrite (Negative) Urine Bilirubin (Negative) Urine Urobilinogen (Negative) Ur Leukocyte Esterase (Negative) Urine WBC (Auto) (0-5) /hpf Urine RBC (Auto) (0-4) /hpf U Hyaline Cast (Auto) (0-5) /lpf U Epithel Cells (Auto) (0-5) /lpf Urine Bacteria (Auto) (Negative) SARS-CoV-2, RNA, NAAT NEGATIVE (NEGATIVE) 05/24/21 05/24/21 05/24/21 Range/Units 18:43 20:00 20:00 WBC (4.8-10.8) K/uL RBC (4.7-6.1) M/uL Hgb (14.0-18.0) g/dL Hct (42-52) % MCV (80-100) fL MCH (25-34) pg MCHC (32-36) g/dL RDW Std Deviation (36.4-46.3) fL RDW Coeff of Franck (11.5-14.5) % Plt Count (130-400) K/uL MPV (7.4-10.4) fL Immature Gran % (Auto) % Neut % (Auto) % Lymph % (Auto) % [place] % (Auto) % Eos % (Auto) % Baso % (Auto) % Neut # (Auto) (1.4-6.5) K/uL Lymph # (Auto) (1.2-3.4) K/uL [place] # (Auto) (0.11-0.59) K/uL Eos # (Auto) (0-0.5) K/uL Baso # (Auto) (0-0.2) K/uL Immature Gran # (Auto) (0.00-0.02) K/uL Platelet Estimate (Normal) Sodium (136-145) mmol/L Potassium (3.5-5.1) mmol/L Chloride (98-107) mmol/L Carbon Dioxide (21-32) mmol/L Anion Gap (3-11) BUN (6-23) mg/dl Creatinine (0.6-1.4) mg/dl Est Cr Clr Drug Dosing ml/min Est GFR ( Amer) ml/min Est GFR (Non-Af Amer) ml/min BUN/Creatinine Ratio (10-20) Glucose (70-99(Fasting)) mg/dl Lactate 0.8 (0.4-2.0) mmol/L Calcium (8.5-10.1) mg/dl Phosphorus (2.5-4.9) mg/dl Magnesium (1.7-2.4) mg/dl Total Bilirubin (0.2-1.0) mg/dl AST (13-39) U/L ALT (7-52) U/L Alkaline Phosphatase (34-104) U/L Troponin I (0-0.04) ng/ml Total Protein (6.0-8.3) gm/dl Albumin (3.4-5.0) gm/dl Globulin (2.5-4.0) gm/dl Albumin/Globulin Ratio (0.9-2) Lipase (11-82) U/L Procalcitonin < 0.05 (0-0.5) ng/ml Urine Color Dark Yellow Urine Appearance Clear (Clear) Urine pH 6.5 (4.5-7.5) Ur Specific [place] 1.028 (1.000-1.030) Urine Protein 2+ H (Negative) Urine Glucose (UA) Negative (Negative) Urine Ketones 2+ H (Negative) Urine Blood Negative (Negative) Urine Nitrite Negative (Negative) Urine Bilirubin Negative (Negative) Urine Urobilinogen Negative (Negative) Ur Leukocyte Esterase Negative (Negative) Urine WBC (Auto) 1-5 (0-5) /hpf Urine RBC (Auto) 0-4 (0-4) /hpf U Hyaline Cast (Auto) 1-5 (0-5) /lpf U Epithel Cells (Auto) 10-20 H (0-5) /lpf Urine Bacteria (Auto) Negative (Negative) SARS-CoV-2, RNA, NAAT (NEGATIVE) Administered Medications Amlodipine Besylate (Amlodipine Besylate 5 Mg Tab) 10 mg PO HS PRATEEK Stop: 06/23/21 22:25 Last Admin: 05/24/21 23:10 Dose: 10 mg Documented by: [id number] Aripiprazole (Aripiprazole 10 Mg Tab) 20 mg PO HS PRATEEK Stop: 06/23/21 22:25 Last Admin: 05/24/21 23:10 Dose: 20 mg Documented by: [id number] Atorvastatin Calcium (Atorvastatin 40 Mg Tab) 40 mg PO HS PRATEEK Stop: 06/23/21 22:25 Last Admin: 05/24/21 23:10 Dose: 40 mg Documented by: [id number] Mirtazapine (Mirtazapine Tab 15 Mg Tab) 15 mg PO HS PRATEEK Stop: 06/23/21 22:25 Last Admin: 05/24/21 23:10 Dose: 15 mg Documented by: [id number] Pantoprazole Sodium (Pantoprazole 40 Mg Tab) 40 mg PO BID PRATEEK Stop: 06/23/21 22:25 Last Admin: 05/24/21 23:11 Dose: 40 mg Documented by: [id number] Discontinued Medications Sodium Chloride (Nss 1000ml) 1,000 mls @ 999 mls/hr IV .Q1H1M STA Stop: 05/24/21 18:24 Last Infusion: 05/24/21 18:47 Dose: 0 mls/hr Documented by: [id number] Admin: 05/24/21 17:39 Dose: 999 mls/hr Documented by: [id number] Acetaminophen (Ofirmev) 1,000 mg in 100 mls @ 400 mls/hr IV NOW STA Stop: 05/24/21 17:38 Last Infusion: 05/24/21 18:08 Dose: 0 mls/hr Documented by: [id number] Admin: 05/24/21 17:39 Dose: 400 mls/hr Documented by: [id number] Famotidine (Pepcid 20mg Iv Push) 20 mg in 5 mls @ 2.5 mls/min IV NOW STA Stop: 05/24/21 17:29 Last Admin: 05/24/21 17:39 Dose: 2.5 mls/min Documented by: [id number] Ampicillin Sodium/Sulbactam Sodium 3,000 mg/ Sodium Chloride 108 mls @ 200 mls/hr IV NOW STA; Protocol Stop: 05/24/21 20:10 Last Infusion: 05/24/21 22:40 Dose: 0 mls/hr Documented by: [id number] Admin: 05/24/21 21:26 Dose: 200 mls/hr Documented by: [id number] Ioversol (Optiray 320 100ml) 94 ml IV ONCE ONE Stop: 05/24/21 18:20 Last Admin: 05/24/21 18:19 Dose: 94 ml Documented by: [id number] Ondansetron HCl (Ondansetron Inj 2 Mg/Ml 2 Ml Vial) 4 mg IV NOW STA Stop: 05/24/21 17:25 Last Admin: 05/24/21 17:39 Dose: 4 mg Documented by: [id number] Imaging Data Radiologist's Impression: Chest X-Ray 05/24/21 17:25 XR chest 1V portable HISTORY: 61 years-old Male Chest Pain . Acute atypical chest pain COMPARISON: Chest radiograph 10/01/2019 TECHNIQUE: Portable AP view of the chest FINDINGS: Cardiac silhouette is enlarged. Pulmonary vascular congestion with interstitial coarsening. Small pleural effusions with mild bibasilar densities. No pneumothorax. Degenerative changes of the shoulders and spine. IMPRESSION: 1. Cardiomegaly with pulmonary edema. 2. Small pleural effusions with mild bibasilar opacities. ACT 112: Negative or not required by law. The above report was generated using voice recognition software. It may contain grammatical, syntax or spelling errors. Electronically signed by: Eliazar Kirby M.D. 05/24/2021 5:58 PM Abdomen/Pelvis CT 05/24/21 17:[address] WITH IV CONTRAST CT DOSE: 2582.53 mGy.cm HISTORY: Acute nausea with vomiting n/v TECHNIQUE: Multiaxial CT images of the abdomen and pelvis were performed following the IV administration of 94 cc of Optiray, A dose lowering technique was utilized adhering to the principles of ALARA. COMPARISON STUDY: CT abdomen and pelvis 10/01/2019, 07/28/2019 FINDINGS: Limited study secondary to upper extremity positioning. Mild dependent right basilar atelectasis. No pneumatosis or pneumoperitoneum. Imaged inferior cardiac chambers are unremarkable. The spleen, pancreas and adrenal glands are un remarkable. The gallbladder and liver also within normal limits. Kidneys are within normal limits. 7 mm hypodensity of the interpolar right kidney is too small to characterize however suggestive of a probable cyst. Mild prostamegaly. Unremarkable urinary bladder. 2.1 x 1.2 cm hypodense structure of the inferior right hemipelvis is stable dating back to 07/28/2019. Aorta and IVC are unremarkable. 1.1 x 0.9 cm left inferior hemipelvis lymph node on image 364 is also unchanged. No bowel obstruction or bowel wall thickening. Terminal ileum and appendix are unremarkable. No ascites or mesenteric inflammation. Tiny fat filled periumbilical hernia. No suspicious lytic or blastic osseous lesions. Degenerative partial bony fusion of the SI joints. Chronic T11 and L4 superior endplate compression deformities. Moderate to severe L5-S1 intervertebral disc space narrowing. IMPRESSION: 1. No acute intra-abdominal or intrapelvic abnormality. 2. No bowel obstruction or bowel wall thickening. Normal appendix. 3. Incidental findings as above. ACT 112: Negative or not required by law. The above report was generated using voice recognition software. It may contain grammatical, syntax or spelling errors. Electronically signed by: Eliazar Kirby M.D. 05/24/2021 6:[address] 05/24/21 17:29 CT head/brain wo con CLINICAL HISTORY: 61 years-old Male with n/v, ams. Acute nausea and vomiting with altered mental status TECHNIQUE: Multiple axial CT images of the head were obtained without contrast. A dose lowering technique was utilized adhering to the principles of ALARA. COMPARISON: None. FINDINGS: No acute intracranial hemorrhage, midline shift, intracranial mass, hydrocephalus, territorial ischemia or abnormal extra-axial collection. Minimal involutional changes. Unchanged prominent perivascular space in the region of the left basal ganglia. The calvarium is intact. The paranasal sinuses, mastoid air cells, and middle ear cavities are clear. IMPRESSION: No acute intracranial abnormality. ACT 112: Negative or not required by law. The above report was generated using voice recognition software. It may contain grammatical, syntax or spelling errors. Electronically signed by: Eliazar Kirby M.D. 05/24/2021 6:30 PM Discharge Plan Visit Data Chief Complaint: Illness ED Provider: Carlos Infante Discharge Problem: Aspiration pneumonia, Paranoid schizophrenia, Nausea and vomiting, Change in mental status Patient Disposition: Admitted As Inpatient Discharge Instructions Interventions: ED Discharge Assessment Last Done: 05/24/21 21:47 Discharge Problem: Aspiration pneumonia Qualifiers: Aspiration pneumonia type: unspecified Laterality: unspecified laterality Lung location: unspecified part of lung Qualified Code(s): J69.0 - Pneumonitis due to inhalation of food and vomit Nausea and vomiting Qualifiers: Vomiting type: unspecified Qualified Code(s): R11.2 - Nausea with vomiting, unspecified Change in mental status Qualifiers: Altered mental status type: unspecified Qualified Code(s): R41.82 - Altered mental status, unspecified
--- NOTE | 2021-05-24 18:40 | CT Scan Report ---
ABDOMEN AND PELVIS CT WITH IV CONTRAST CT DOSE: 2582.53 mGy.cm HISTORY: Acute nausea with vomiting n/v TECHNIQUE: Multiaxial CT images of the abdomen and pelvis were performed following the IV administrat ion of 94 cc of Optiray, A dose lowering technique was utilized adhering to the principles of ALARA. COMPARISON STUDY: CT abdomen and pelvis 10/01/2019, 07/28/2019 FINDINGS: Limited study secondary to upper extremity positioning. Mild dependent right basilar atelectasis. No pneumatosis or pneumoperitoneum. Imaged inferior cardiac chambers are unremarkable. The spleen, pancr eas and adrenal glands are unremarkable. The gallbladder and liver also within normal limits. Kidneys are within normal limits. 7 mm hypodensity of the interpolar right kidney is too small to characteri ze however suggestive of a probable cyst. Mild prostamegaly. Unremarkable urinary bladder. 2.1 x 1.2 cm hypodense structure of the inferior right hemipelvis is stable dating back to 07/28/2019. Aorta and IVC are unremarkable. 1.1 x 0.9 cm left inferior hemipelvis lymph node on image 364 is also unchange d. No bowel obstruction or bowel wall thickening. Terminal ileum and appendix are unremarkable. No ascit es or mesenteric inflammation. Tiny fat filled periumbilical hernia. No suspicious lytic or blastic o sseous lesions. Degenerative partial bony fusion of the SI joints. Chronic T11 and L4 superior endpla te compression deformities. Moderate to severe L5-S1 intervertebral disc space narrowing. IMPRESSION: 1. No acute intra-abdominal or intrapelvic abnormality. 2. No bowel obstruction or bowel wall thickening. Normal appendix. 3. Incidental findings as above. ACT 112: Negative or not required by law. The above report was generated using voice recognition software. It may contain grammatical, syntax o r spelling errors. Electronically signed by: Eliazar Kirby M.D. 05/24/2021 6:39 PM
[2021-05-24 19:35] LABS: Appearance Urine Clear (Clear); Bacteria Urine Automated Negative (Negative); Bilirubin Urine Negative (Negative); Blood Urine Negative (Negative); Color Urine Dark Yellow; Glucose Urine UA Negative (Negative); Ketones Urine 2+ (Negative); Leukocyte Esterase Urine Negative (Negative); Nitrite Urine Negative (Negative); Protein Urine 2+ (Negative); RBC Urine Automated 0-4 /hpf (0-4); Specific Gravity Urine 1.028 (1.000-1.030); Urobilinogen Urine Negative (Negative); pH Urine 6.5 (4.5-7.5)
[2021-05-24] MEDS ORDERED: AMPICILLIN/SULBACTAM SOD 3,000 MG in 0.9 % SODIUM CHLORIDE 100 ML IV STA (19:38)
--- NOTE | 2021-05-24 20:25 | History & Physical Report ---
Date of Service May 24, 2021 Assessment & Plan (1) Aspiration pneumonia: Plan: Questionable diagnosis given no clear pneumonia on CXR. He was vomiting over last 24 hours. Procalcitonin pending. - Unasyn empirically started in ER; will continue for now. - Follow blood cultures obtained in the ER - Admit with pureed foods which is what prior PLATING AND POINT ASSEMBLY SUPERVISOR eval recommended. - Monitor SpO2. Per report, it was low at assisted (~60%). Here he is 96% on room air. His tremor does make readings difficult, so possibly the etiology of his hypoxemia at the assisted was a misreading. - Zofran PRN (2) Oropharyngeal dysphagia: Plan: Long-standing issue with prior GI work-up and PLATING AND POINT ASSEMBLY SUPERVISOR eval. - In 08/2019, PLATING AND POINT ASSEMBLY SUPERVISOR recommended pureed diet if it helped patient. - Aspiration precautions - Meds in carrier (3) Nausea and vomiting: Plan: Ongoing issue, presumed to be stemming from his long-standing psych medications. - Continue PPI - Zofran as above (4) Paranoid schizophrenia: Plan: With some negative symptoms at this point, but discussed with guard in the room. He reports that he is usually slightly more conversant, but not significantly far from his baseline. - Continue home aripiprazole & mirtazapine - Defer psychiatry consult for now, but if he does not return to baseline in nex t 24 - 48 hours, could consider. (5) HTN (hypertension): Plan: BP is 165/100 in the ER. - Continue home amlodipine (6) Hypothyroid: Plan: No recent TSH in our system. - Continue home levothyroxine 50 mcg PO daily. - Recheck TSH (7) Hepatitis C: Plan: Per notes, treat. He is Ab positive, but had no detectible viral RNA which would support this. - No inpatient needs (8) Tremor: Plan: Significant bilateral hand tremor. - Monitor (9) DVT prophylaxis: Plan: Lovenox 40 mg SQ daily History of Present Illness Chief Complaint: Hypoxemia, altered mental status Primary Care Provider: MASHA Siddiqui 61yo M w/ hx of paranoid schizophrenia who presents after aspiration and hypoxemia at his correctional facility. Per patient and guards, he has been throwing up for approx. 24 hours. Patient reports only 5-6 episodes of emesis. Reports only food and drink. Denies coffee ground emesis or hematemesis. Per report, his pulse ox was checked at the assisted and was in the 60% range, so he was sent in. Broadly positive ROS with the patient. He reports diffuse abdominal pain without radiation. Reports shortness of breath and cough (though guards deny any recent coughing). Reports fevers/chills, headache. Denies any chest pain. Does not have neck stiffness and has full ROM of neck, but does report some subjective pain when moving his neck. When speaking with the patient, he only gives 1-2 word answers to most questions, but is alert and oriented. He can give his recent medical status and responds appropriately. Per ED provider, the assisted was concerned about his lethargy and hypoxemia and requested admission. Allergies Allergy/AdvReac Type Severity Reaction Status Date / Time No Known Allergies Allergy Verified 05/24/21 18:15 Home Medications Medication Instructions Recorded Confirmed Type amlodipine 10 mg tablet (Norvasc) 10 mg PO HS 05/08/18 05/24/21 History atorvastatin 40 mg tablet (Lipitor) 40 mg PO HS 05/08/18 05/24/21 History levothyroxine 50 mcg tablet 50 mcg PO QAM 05/08/18 05/24/21 History (Synthroid) mirtazapine 15 mg tablet (Remeron) 15 mg PO HS 07/28/19 05/24/21 History pantoprazole 40 mg tablet,delayed 40 mg PO BID #1 tab 08/23/19 05/24/21 Rx release thiamine HCl (vitamin B1) 100 mg 200 mg PO DAILY #60 tab 08/31/19 05/24/21 Rx tablet aripiprazole 20 mg tablet (Abilify) 20 mg PO HS 09/08/19 05/24/21 History Past Med/Surg History Medical History VERONICA (acute kidney injury) (09/25/13) Duodenal ulcer Dysphagia Gross hematuria Hepatitis C Treated HTN (hypertension) Hypomagnesemia Pancytopenia Paranoid schizophrenia Thiamine deficiency Tremor UTI (urinary tract infection) Surgical History History of shoulder surgery Family History Other Family history non-contributory Social History Smoking Status: Former smoker Second Hand Exposure: No; Hx Alcohol Use: No Hx Substance Use: No Preferred Language: Persian Communication Ability: Effective Meat Stocker Required: No Beliefs That Will Affect Care: None marital status: Single Current Living Situation: Other Current Living Situation Comment: Inmate princess Feels Safe at Home: Yes Assistive Devices: None Review of Systems Review of Systems: All systems reviewed & are unremarkable except as noted in HPI & below Physical Exam Constitutional: WD/WN, vitals as above + acute distress Eyes: EOM intact bilaterally; no conjunctival abnormality ENMT: external ear and nose normal, oropharynx normal Neck: trachea midline, no thyromegaly normal visual inspection; negative Brudzinski's sign and no nuchal rigidity Respiratory: normal respiratory effort, lungs clear to auscultation no respiratory distress Cardiovascular: RRR, no murmur, no edema Gastrointestinal (Abdomen): Inspection/Auscultation: abdomen normal to inspection; abdomen not distended Percussion/Palpation: + abdomen tender (Diffusely, mild) and abdomen soft; no guarding and abdomen not rigid Musculoskeletal: no cyanosis or clubbing, extremities motor strength 5/5 Skin: no rashes, warm and dry Neurologic: moves all extremities and awake Speech / Cognition: + abnormal speech (Slow to respond, but sensible) Psychiatric: Orientation: alert, oriented to person, oriented to place and cooperative Results & Data Results & Data ([facility]) Vital Signs (Past 12 Hours) Vital Signs Temp Pulse Pulse Resp BP BP Pulse Ox 05/24/21 20:00 37.2 C 77 18 164/98 H 96 05/24/21 18:35 79 20 162/107 H 98 05/24/21 18:33 77 20 98 05/24/21 17:02 37.0 C 80 20 168/121 H 94 PG Care Time/CCT Total # of Minutes Spent Total Time Spent with Patient: Total time spent is greater than 50% in coordination of care (as documented) at patient's floor/unit and/or counseling patient: Coding Level of Care Code 34134 Initial Inpt Care Lvl 3 Diagnoses Aspiration pneumonia J69.0 Aspiration pneumonia type: unspecified Laterality: unspecified laterality Lung location: unspecified part of lung Oropharyngeal dysphagia R13.12 Nausea and vomiting R11.2 Vomiting type: unspecified Paranoid schizophrenia F20.0 HTN (hypertension) I10 Hypertension type: essential hypertension Hepatitis C B19.20 DVT prophylaxis Z29.9 Tremor R25.1 Hypothyroid E03.9 Hypothyroidism type: unspecified (1) Aspiration pneumonia Aspiration pneumonia type: unspecified Laterality: unspecified laterality Lung location: unspecified part of lung Qualified Code(s): J69.0 - Pneumonitis due to inhalation of food and vomit (2) Nausea and vomiting Vomiting type: unspecified Qualified Code(s): R11.2 - Nausea with vomiting, unspecified (3) HTN (hypertension) Hypertension type: essential hypertension Qualified Code(s): I10 - Essential (primary) hypertension (4) Hypothyroid Hypothyroidism type: unspecified Qualified Code(s): E03.9 - Hypothyroidism, unspecified
[2021-05-24] MEDS ORDERED: ACETAMINOPHEN 325 MG TAB PO PRN (22:26)
[2021-05-24] MEDS ORDERED: ONDANSETRON INJ 2 MG/ML 2 ML VIAL IV PRN (22:26)
[2021-05-24] MEDS: ARIPiprazole 10 MG TAB PO SCH (23:10)
[2021-05-24] MEDS: ATORVASTATIN 40 MG TAB PO SCH (23:10)
[2021-05-24] MEDS: amLODIPine BESYLATE 5 MG TAB PO SCH (23:10)
[2021-05-24] MEDS: MIRTAZAPINE TAB 15 MG TAB PO SCH (23:10)
[2021-05-24] MEDS: PANTOprazole 40 MG TAB PO SCH (23:11)
[2021-05-25] MEDS: AMPICILLIN/SULBACTAM SOD 3,000 MG in 0.9 % SODIUM CHLORIDE 100 ML IV SCH ×4 (02:08→20:07)
[2021-05-25] MEDS: LEVOTHYROXINE SODIUM 50 MCG TABLET PO SCH (05:44)
[2021-05-25 06:57] LABS: Mean Corpuscular Hgb Conc 32.4 g/dL (32-36)
[2021-05-25 07:16] LABS: BUN Creatinine Ratio 14.3 (10-20); Calcium 8.4 mg/dl (8.5-10.1); Creatinine Clr Calc Pharmacy 70.8 ml/min; Est GFR (African American) 61.5 ml/min; Est GFR (Non-African American) 53.1 ml/min; Magnesium 2.3 mg/dl (1.7-2.4); Potassium 3.7 mmol/L (3.5-5.1)
[2021-05-25 07:26] LABS: Hematocrit (blood only) 46.9 % (42-52); Hemoglobin 15.2 g/dL (14.0-18.0); Mean Corpuscular Hemoglobin 27.8 pg (25-34); Mean Corpuscular Volume 85.7 fL (80-100); RDW Standard Deviation 47.7 fL (36.4-46.3); Red Blood Count 5.47 M/uL (4.7-6.1)
[2021-05-25 07:50] LABS: Platelet Count 136 K/uL (130-400)
[2021-05-25 07:51] LABS: Platelet Estimate Decreased (Normal)
[2021-05-25] MEDS: ENOXAPARIN INJ 40 MG/0.4 ML SYR SQ SCH (08:26)
[2021-05-25] MEDS: THIAMINE HCL 100 MG TAB PO SCH (08:26)
[2021-05-25] MEDS: PANTOprazole 40 MG TAB PO SCH ×2 (08:26→20:11)
--- NOTE | 2021-05-25 09:18 | Electrocardiogram Report ---
Test Reason : Blood Pressure : / mmHG Vent. Rate : 084 BPM Atrial Rate : 084 BPM P-R Int : 164 ms QRS Dur : 090 ms QT Int : 392 ms P-R-T Axes : 065 021 030 degrees QTc Int : 463 ms Normal sinus rhythm Nonspecific T wave abnormality Abnormal ECG When compared with ECG of 01-OCT-2019 14:18, No significant change was found Confirmed by Yazan Duran ([id number]) on 05/25/2021 9:18:42 AM Referred By: [facility] Confirmed By:Yazan Duran
--- NOTE | 2021-05-25 15:13 | Hospitalist Progress Note ---
Date of Service May 25, 2021 Assessment & Plan (1) Aspiration pneumonia: Plan: Questionable diagnosis given no clear pneumonia on CXR. He was vomiting over last 24 hours. CThead negative CTabdomen/pelvis without acute findings CXR small pleural effusions, no overt pneumonia - Unasyn empirically started in ER; if no growth on blood cultures and clinically well sitter narrowing to Augmentin versus discontinue -Blood cultures pending - Admit with pureed foods per prior INSPECTOR OUTSIDE STEAM DISTRIBUTION recommendations - Monitor SpO2. Per report, it was low at [facility] (~60%). Here he is 96% on room air. His tremor does make readings difficult, so possibly the etiology of his hypoxemia at the [facility] was a misreading. Consistently greater than 95% 05/25 and overnight. - Zofran PRN (2) Oropharyngeal dysphagia: Plan: Long-standing issue with prior GI work-up and INSPECTOR [employer]IDE STEAM DISTRIBUTION eval. - In 08/2019, INSPECTOR OUTSIDE STEAM DISTRIBUTION recommended pureed diet if it helped patient. - Aspiration precautions - Meds in carrier (3) Nausea and vomiting: Plan: Ongoing issue, presumed to be stemming from his long-standing psych medications. - Continue PPI - Zofran as above CTabdomen/pelvis with no acute pathology. Pepcid (4) Paranoid schizophrenia: Plan: With some negative symptoms at this point, but discussed with guard in the room. He reports that he is usually slightly more conversant, but not significantly far from his baseline. - Continue home aripiprazole & mirtazapine - Defer psychiatry consult for now, appears near baseline. If worsened can consider psych consult at that time. (5) HTN (hypertension): Plan: Hypertensive in ER - Continue home amlodipine Adequate BP control 05/25 (6) Hypothyroid: Plan: No recent TSH in our system. - Continue home levothyroxine 50 mcg PO daily. -TSH within normal limits (7) Hepatitis C: Plan: Per notes, treat. He is Ab positive, but had no detectible viral RNA which would support this. - No inpatient needs (8) Tremor: Plan: Significant bilateral hand tremor. - Monitor (9) DVT prophylaxis: Plan: Lovenox 40 mg SQ daily Plan: DVT prophylaxis: Lovenox Disposition: Patient doing well, blood cultures remain pending. Pro-David negative.? Gastritis with pneumonitis event, no overt pathology on CT of the abdomen. Progressing towards discharge if doing well and at cognitive baseline may be able to return tomorrow+/- 5-day course of antibiotics for aspiration pneumonia Admission and Anticipated Discharge Date Admission Date: May 24, 2021 Subjective Patient seen at bedside. Flat affect. Answers questions appropriately, minimal spontaneous conversation. Reports he feels a little bit better than yesterday. Does endorse shortness of breath, cough, fevers, chills prior to last night but overnight denies chest pain, shortness of breath, difficulty breathing at bedside. Reports he did feel little bit sweaty through the night. No cough this morning, endorses intermittent nonproductive cough overnight. Review of Systems Review of Systems: All systems reviewed & are unremarkable except as noted in Subjective Physical Exam Physical Exam: General: Flat affect, answers questions appropriately. Oriented to name year and place. Nontoxic. HEENT: Atraumatic, normocephalic. Patient and hearing grossly intact. Not responding to internal stimuli. Pulm: CTAB A&P. -wheezes, -rales, -rhonchi. Symmetrical chest rise. No increase in work of breathing. No respiratory distress. Cardiac: RRR, -mrg. Radial pulses intact and symmetrical. Abdominal: Nontender, nondistended, soft. BS present. Results & Data Results & Data ([facility]) Vital Signs (Past 12 Hours) Vital Signs Temp Pulse Pulse Resp BP Pulse Ox 05/25/21 14:46 36.5 C 76 20 151/83 H 95 05/25/21 11:08 37.0 C 80 17 134/88 94 05/25/21 07:23 37.1 C 83 16 124/86 95 05/25/21 07:09 84 05/25/21 03:33 37.1 C 81 20 130/89 93 PG Care Time/CCT Total # of Minutes Spent Total Time Spent with Patient: Total time spent is greater than 50% in coordination of care (as documented) at patient's floor/unit and/or counseling patient: Coding Level of Care Code 27561 Subseq Hosp Care Lvl 2 Diagnoses Aspiration pneumonia J69.0 Aspiration pneumonia type: unspecified Laterality: unspecified laterality Lung location: unspecified part of lung Oropharyngeal dysphagia R13.12 Nausea and vomiting R11.2 Vomiting type: unspecified Paranoid schizophrenia F20.0 HTN (hypertension) I10 Hypertension type: essential hypertension Hypothyroid E03.9 Hypothyroidism type: unspecified Hepatitis C B19.20 Tremor R25.1 DVT prophylaxis Z29.9 (1) Aspiration pneumonia Aspiration pneumonia type: unspecified Laterality: unspecified laterality Lung location: unspecified part of lung Qualified Code(s): J69.0 - Pneumonitis due to inhalation of food and vomit (2) Nausea and vomiting Vomiting type: unspecified Qualified Code(s): R11.2 - Nausea with vomiting, unspecified (3) HTN (hypertension) Hypertension type: essential hypertension Qualified Code(s): I10 - Essential (primary) hypertension (4) Hypothyroid Hypothyroidism type: unspecified Qualified Code(s): E03.9 - Hypothyroidism, unspecified
[2021-05-25] MEDS: MIRTAZAPINE TAB 15 MG TAB PO SCH (20:11)
[2021-05-25] MEDS: amLODIPine BESYLATE 5 MG TAB PO SCH (20:11)
[2021-05-25] MEDS: ATORVASTATIN 40 MG TAB PO SCH (20:11)
[2021-05-25] MEDS: ARIPiprazole 10 MG TAB PO SCH (20:11)
[2021-05-26] MEDS: AMPICILLIN/SULBACTAM SOD 3,000 MG in 0.9 % SODIUM CHLORIDE 100 ML IV SCH ×4 (03:09→20:05)
[2021-05-26] MEDS: LEVOTHYROXINE SODIUM 50 MCG TABLET PO SCH (05:54)
[2021-05-26] MEDS: PANTOprazole 40 MG TAB PO SCH ×2 (08:06→21:55)
[2021-05-26] MEDS: THIAMINE HCL 100 MG TAB PO SCH (08:07)
[2021-05-26] MEDS: ENOXAPARIN INJ 40 MG/0.4 ML SYR SQ SCH (08:07)
--- NOTE | 2021-05-26 12:27 | Hospitalist Progress Note ---
Date of Service May 26, 2021 Assessment & Plan (1) Aspiration pneumonia: Plan: Questionable diagnosis given no clear pneumonia on CXR. He was vomiting over last 24 hours. Procalcitonin pending. - Unasyn empirically started in ER; will continue for now. - Continue pureed foods - Zofran PRN (2) Oropharyngeal dysphagia: Plan: Long-standing issue with prior GI work-up and MARGARINE MAKER eval. - In 08/2019, MARGARINE MAKER recommended pureed diet if it helped patient. - Aspiration precautions - Meds in carrier - Discussed with MARGARINE MAKER on 05/26 - Did have a prior web dilated in 08/2020. Will get barium swallow to evaluate any further structural or physiologic abnormality. Can consider GI consult depending on results. (3) Nausea and vomiting: Plan: Ongoing issue, presumed to be stemming from his long-standing psych medications. - Continue PPI - Zofran as above (4) Paranoid schizophrenia: Plan: With some negative symptoms at this point, but discussed with guard in the room. He reports that he is usually slightly more conversant, but not significantly far from his baseline. - Continue home aripiprazole & mirtazapine - Defer psychiatry consult for now as he is back to baseline. (5) HTN (hypertension): Plan: BP is 170/90 today. - Continue home amlodipine (6) Hypothyroid: Plan: TSH was 2.3 this admission. - Continue home levothyroxine 50 mcg PO daily. (7) Hepatitis C: Plan: Per notes, treat. He is Ab positive, but had no detectible viral RNA which would support this. - No inpatient needs (8) Tremor: Plan: Significant bilateral hand tremor. - Monitor -> Improved today. (9) DVT prophylaxis: Plan: Lovenox 40 mg SQ daily Admission and Anticipated Discharge Date Admission Date: May 24, 2021 Subjective Flat affect today, but more alert and talkative than on admission. He notes that he is not really having any shortness of breath. No cough. He did try to eat some pudding overnight per the guard and had immediate retching/regurgitation. Reports no fevers/chills, chest pain, abdominal pain. No MSK pain. Physical Exam Constitutional: WD/WN, vitals as above + acute distress Eyes: EOM intact bilaterally; no conjunctival abnormality ENMT: external ear and nose normal, oropharynx normal Neck: trachea midline, no thyromegaly normal visual inspection Respiratory: normal respiratory effort, lungs clear to auscultation no respiratory distress Cardiovascular: RRR, no murmur, no edema Gastrointestinal (Abdomen): Inspection/Auscultation: abdomen normal to inspection; abdomen not distended Percussion/Palpation: + abdomen tender (Diffusely, mild) and abdomen soft; no guarding and abdomen not rigid Musculoskeletal: no cyanosis or clubbing, extremities motor strength 5/5 Skin: no rashes, warm and dry Neurologic: moves all extremities and awake Speech / Cognition: + abnormal speech (Slow to respond, but sensible) Psychiatric: Orientation: alert, oriented to person, oriented to place and cooperative Results & Data Results & Data ([facility]) Vital Signs (Past 12 Hours) Vital Signs Temp Pulse Pulse Resp BP BP Pulse Ox 05/26/21 12:07 36.7 C 92 H 20 171/96 H 157/91 H 94 05/26/21 07:36 87 05/26/21 07:35 37.3 C 86 18 152/94 H 91 05/26/21 03:01 36.8 C 85 18 151/98 H 94 05/26/21 02:07 72 05/26/21 01:01 156/99 H PG Care Time/CCT Total # of Minutes Spent Total Time Spent with Patient: Total time spent is greater than 50% in coordination of care (as documented) at patient's floor/unit and/or counseling patient: Coding Level of Care Code 32176 Subseq Hosp Care Lvl 3 Diagnoses Aspiration pneumonia J69.0 Aspiration pneumonia type: unspecified Laterality: unspecified laterality Lung location: unspecified part of lung Oropharyngeal dysphagia R13.12 Nausea and vomiting R11.2 Vomiting type: unspecified Paranoid schizophrenia F20.0 HTN (hypertension) I10 Hypertension type: essential hypertension Hypothyroid E03.9 Hypothyroidism type: unspecified Hepatitis C B19.20 Tremor R25.1 DVT prophylaxis Z29.9 (1) Aspiration pneumonia Aspiration pneumonia type: unspecified Laterality: unspecified laterality Lung location: unspecified part of lung Qualified Code(s): J69.0 - Pneumonitis due to inhalation of food and vomit (2) Nausea and vomiting Vomiting type: unspecified Qualified Code(s): R11.2 - Nausea with vomiting, unspecified (3) HTN (hypertension) Hypertension type: essential hypertension Qualified Code(s): I10 - Essential (primary) hypertension (4) Hypothyroid Hypothyroidism type: unspecified Qualified Code(s): E03.9 - Hypothyroidism, unspecified
[2021-05-26] MEDS: POLYETHYLENE (MIRALAX) 17 GM PACK PO SCH (13:04)
[2021-05-26] MEDS: ATORVASTATIN 40 MG TAB PO SCH (20:01)
[2021-05-26] MEDS: amLODIPine BESYLATE 5 MG TAB PO SCH (20:01)
[2021-05-26] MEDS: MIRTAZAPINE TAB 15 MG TAB PO SCH (20:01)
[2021-05-26] MEDS: ARIPiprazole 10 MG TAB PO SCH (20:02)
[2021-05-27] MEDS: AMPICILLIN/SULBACTAM SOD 3,000 MG in 0.9 % SODIUM CHLORIDE 100 ML IV SCH ×4 (02:05→20:26)
[2021-05-27] MEDS: LEVOTHYROXINE SODIUM 50 MCG TABLET PO SCH (06:17)
[2021-05-27] MEDS: POLYETHYLENE (MIRALAX) 17 GM PACK PO SCH (09:00)
[2021-05-27] MEDS: PANTOprazole 40 MG TAB PO SCH ×2 (09:00→20:30)
--- NOTE | 2021-05-27 09:37 | Gastrointestinal Consultation ---
Date of Consultation May 27, 2021 Assessment & Plan (1) Nausea and vomitin61 year old male admitted w/ PNA, difficulty with PO intake x 2 weeks with regurgitation and dysphagia, unable to complete swallow studies - NPO - EGD tomorrow Thank you for allowing us to participate in the care of this patient. Please call with any acute changes, questions or concerns. Please see addendum below with additional recommendation from my supervising physician. Supervising Physician Co-Signing Physician Notes No acute distress Prior egd in reviewed Labs/imaging reviewed Agree with further plan of care as above. History of Present Illness Reason for Consultation: regurgitation and dysphagia Requesting Physician: Nicolas Attending Physician: Andrew Valenzuela MD History of Present Illness 61 year old male HTN, hypothyroidism, schizophrenia, HCV admitted through the ED w/ PNA - GI asked to evaluation for regurgitation. PT was seen and evaluated, chart reviewed. Notes he had similar symptoms 2 years ago. At that time underwent EGD/barium swallow. Was doing well - tolerating PO intake without issues util about 2 weeks ago. At that time noted difficulty swallowing, regurgitation and nausea/vomiting post-prandial. No lower GI symptoms. No fever, chills, CP, SOB. No weight loss. No family history of GI malignancy He denies any history of CVA, TIA or VT in himself CTAP 2021: . No acute intra-abdominal or intrapelvic abnormality. No bowel obstruction or bowel wall thickening. Normal appendix. Incidental findings as above. Barium swallow 2019: Limited esophagram secondary to patient unable to complete the exam. Mild esophageal dysmotility is noted with otherwise unremarkable study. KUB 2019: moderate stool GES 2020: normal EGD 2019: reflux esophagitis EGD 2019: Mucosal disruption proximal esophagus with passage of large bore dilator, suggesting a proximal web. Suspect that his report of dysphagia may be by a somatoform disorder; alternatively, he may have oropharyngeal dysphagia, related to Parkinsonism (med related?). It may be possible that he has esophageal dysfunction, related to reflux, contributing to his symptoms as well. Small clean based duodenal ulcer. Allergies Allergy/AdvReac Type Severity Reaction Status Date / Time No Known Allergies Allergy Verified 05/24/21 18:15 Home Medications Medication Instructions Recorded Confirmed Type amlodipine 10 mg tablet (Norvasc) 10 mg PO HS 05/08/18 05/24/21 History atorvastatin 40 mg tablet (Lipitor) 40 mg PO HS 05/08/18 05/24/21 History levothyroxine 50 mcg tablet 50 mcg PO QAM 05/08/18 05/24/21 History (Synthroid) mirtazapine 15 mg tablet (Remeron) 15 mg PO HS 07/28/19 05/24/21 History pantoprazole 40 mg tablet,delayed 40 mg PO BID #1 tab 08/23/19 05/24/21 Rx release thiamine HCl (vitamin B1) 100 mg 200 mg PO DAILY #60 tab 08/31/19 05/24/21 Rx tablet aripiprazole 20 mg tablet (Abilify) 20 mg PO HS 09/08/19 05/24/21 History Patient History Medical History VERONICA (acute kidney injury) (09/25/13) Duodenal ulcer Dysphagia Gross hematuria Hepatitis C Treated HTN (hypertension) Hypomagnesemia Pancytopenia Paranoid schizophrenia Thiamine deficiency Tremor UTI (urinary tract infection) Surgical History History of shoulder surgery Family History Other Family history non-contributory Social History Smoking Status: Never smoker Second Hand Exposure: No; Hx Alcohol Use: No Hx Substance Use: No Preferred Language: Ukrainian Communication Ability: Effective Housekeeping Room Inspector Required: No Beliefs That Will Affect Care: None marital status: Single Current Living Situation: Other Current Living Situation Comment: care home Other Information That Helps Us Care for You: No Feels Safe at Home: Yes Safety Concerns: Feels Safe At This Time Assistive Devices: None Review of Systems Review of Systems: All systems reviewed & are unremarkable except as noted in HPI & below Physical Exam Constitutional: WD/WN, vitals as above Respiratory: normal respiratory effort, lungs clear to auscultation Cardiovascular: RRR, no murmur, no edema Gastrointestinal (Abdomen): normal bowel sounds, soft, nontender, no hepatosplenomegaly Skin: no rashes, warm and dry Results & Data ([facility]) Vital Signs (Past 12 Hours) Vital Signs Temp Pulse Pulse Resp BP Pulse Ox 05/27/21 07:46 75 05/27/21 06:00 36.6 C 95 H 18 131/78 98 05/27/21 05:36 71 05/27/21 04:00 37.2 C 68 18 145/95 H 91 05/26/21 23:00 37.2 C 68 18 153/97 H 92 (1) Nausea and vomiting Vomiting type: unspecified Qualified Code(s): R11.2 - Nausea with vomiting, unspecified
[2021-05-27] MEDS: ENOXAPARIN INJ 40 MG/0.4 ML SYR SQ SCH (09:39)
--- NOTE | 2021-05-27 11:27 | XRay Report ---
KUB CLINICAL HISTORY: Regurgitation COMPARISON STUDY: CT of the abdomen and pelvis May 24, 2021. FINDINGS: Bowel gas pattern is normal. There is no evidence for a bowel obstruction. A small amount o f hyperdense material projects over the upper abdomen. This may be within the stomach. No urinary brayden culi are identified. Although sensitivity is diminished on this supine exam, there is no evidence for free air. IMPRESSION: 1. No evidence for a bowel obstruction. 2. Small amount of hyperdense material which projects over the upper abdomen. This is indeterminate b ut may be within the stomach. ACT 112: Negative or not required by law. Electronically signed by: Jovanni Hand M.D. 05/27/2021 11:25 AM
[2021-05-27] MEDS: THIAMINE HCL 100 MG TAB PO SCH (12:09)
[2021-05-27] MEDS ORDERED: LACTATED RINGER'S 1,000 ML IV ONE (13:59)
--- NOTE | 2021-05-27 14:50 | Hospitalist Progress Note ---
Date of Service May 27, 2021 Assessment & Plan (1) Oropharyngeal dysphagia: Plan: Long-standing issue with prior GI work-up and [facility] eval. - In 08/2019, [facility] recommended pureed diet if it helped patient. - Aspiration precautions - Meds in carrier - Discussed with [facility] on 05/26 - Did have a prior web dilated in 08/2020. Attempted barium swallow on 05/27. He could not even complete the test. He regurgitated the barium without any images able to be taken. -> GI consulted - Plan for EGD tomorrow. Given some gentle IV fluids in the meantime. (2) Aspiration pneumonia: Plan: Questionable diagnosis given no clear pneumonia on CXR. He was vomiting over last 24 hours. Procalcitonin negative. - Unasyn empirically started in ER; continued until 05/27. Stopped as no real signs of PNA. - Continue pureed foods as able; presently NPO for EGD. - Zofran PRN (3) Nausea and vomiting: Plan: Ongoing issue, presumed to be stemming from his long-standing psych medications. Also some concern for mechanical obstruction. - Continue PPI - Zofran as above - EGD as above (4) Paranoid schizophrenia: Plan: With some negative symptoms at this point, but discussed with guard in the room. He reports that he is usually slightly more conversant, but not significantly far from his baseline. - Continue home aripiprazole & mirtazapine as able - Defer psychiatry consult for now as he is back to baseline. (5) HTN (hypertension): Plan: BP is 140/90 today. - Continue home amlodipine (6) Hypothyroid: Plan: TSH was 2.3 this admission. - Continue home levothyroxine 50 mcg PO daily. (7) Hepatitis C: Plan: Per notes, treat. He is Ab positive, but had no detectible viral RNA which would support this. - No inpatient needs (8) Tremor: Plan: Significant bilateral hand tremor. - Monitor -> Improved today. (9) DVT prophylaxis: Plan: Lovenox 40 mg SQ daily Admission and Anticipated Discharge Date Admission Date: May 24, 2021 Subjective Pretty close to baseline from my recollections. He responds pretty quickly and speaks in full sentences. Plan for EGD tomorrow with GI as he could not even tolerate the barium of his barium swallow test. Physical Exam Constitutional: WD/WN, vitals as above Eyes: EOM intact bilaterally; no conjunctival abnormality ENMT: external ear and nose normal, oropharynx normal Neck: trachea midline, no thyromegaly normal visual inspection Respiratory: normal respiratory effort, lungs clear to auscultation no respiratory distress Cardiovascular: RRR, no murmur, no edema Gastrointestinal (Abdomen): Inspection/Auscultation: abdomen normal to inspection; abdomen not distended Percussion/Palpation: + abdomen tender (Diffusely, mild) and abdomen soft; no guarding and abdomen not rigid Musculoskeletal: no cyanosis or clubbing, extremities motor strength 5/5 Skin: no rashes, warm and dry Neurologic: moves all extremities and awake Speech / Cognition: + abnormal speech (Slow to respond, but sensible) Psychiatric: Orientation: alert, oriented to person, oriented to place and cooperative Results & Data Results & Data ([facility]) Vital Signs (Past 12 Hours) Vital Signs Temp Pulse Pulse Resp BP BP Pulse Ox 05/27/21 10:45 36.9 C 76 18 138/91 92 05/27/21 07:46 75 05/27/21 06:00 36.6 C 95 H 18 131/78 98 05/27/21 05:36 71 05/27/21 04:00 37.2 C 68 18 145/95 H 91 PG Care Time/CCT Total # of Minutes Spent Total Time Spent with Patient: Total time spent is greater than 50% in coordination of care (as documented) at patient's floor/unit and/or counseling patient: Coding Level of Care Code 64338 Subseq Hosp Care Lvl 2 Diagnoses Aspiration pneumonia J69.0 Aspiration pneumonia type: unspecified Laterality: unspecified laterality Lung location: unspecified part of lung Oropharyngeal dysphagia R13.12 Nausea and vomiting R11.2 Vomiting type: unspecified Paranoid schizophrenia F20.0 HTN (hypertension) I10 Hypertension type: essential hypertension Hypothyroid E03.9 Hypothyroidism type: unspecified Hepatitis C B19.20 Tremor R25.1 DVT prophylaxis Z29.9 (1) Aspiration pneumonia Aspiration pneumonia type: unspecified Laterality: unspecified laterality Lung location: unspecified part of lung Qualified Code(s): J69.0 - Pneumonitis due to inhalation of food and vomit (2) Nausea and vomiting Vomiting type: unspecified Qualified Code(s): R11.2 - Nausea with vomiting, unspecified (3) HTN (hypertension) Hypertension type: essential hypertension Qualified Code(s): I10 - Essential (primary) hypertension (4) Hypothyroid Hypothyroidism type: unspecified Qualified Code(s): E03.9 - Hypothyroidism, unspecified
[2021-05-27] MEDS: amLODIPine BESYLATE 5 MG TAB PO SCH (20:29)
[2021-05-27] MEDS: MIRTAZAPINE TAB 15 MG TAB PO SCH (20:29)
[2021-05-27] MEDS: ATORVASTATIN 40 MG TAB PO SCH (20:30)
[2021-05-27] MEDS: ARIPiprazole 10 MG TAB PO SCH (20:30)
[2021-05-28] MEDS: LEVOTHYROXINE SODIUM 50 MCG TABLET PO SCH (06:42)
[2021-05-28 07:31] LABS: Mean Corpuscular Hgb Conc 32.2 g/dL (32-36)
[2021-05-28 07:42] LABS: Hematocrit (blood only) 45.6 % (42-52); Hemoglobin 14.7 g/dL (14.0-18.0); Mean Corpuscular Hemoglobin 27.9 pg (25-34); Mean Corpuscular Volume 86.5 fL (80-100); RDW Coefficient of Variation 15.1 % (11.5-14.5); RDW Standard Deviation 48.1 fL (36.4-46.3); Red Blood Count 5.27 M/uL (4.7-6.1); White Blood Count 6.86 K/uL (4.8-10.8)
[2021-05-28 07:56] LABS: Mean Platelet Volume 11.5 fL (7.4-10.4); Platelet Count 136 K/uL (130-400); Platelet Estimate Decreased (Normal)
[2021-05-28 07:57] LABS: Calcium 9.2 mg/dl (8.5-10.1); Creatinine Clr Calc Pharmacy 70.1 ml/min; Est GFR (African American) 59.5 ml/min; Est GFR (Non-African American) 51.3 ml/min; Phosphorus 3.1 mg/dl (2.5-4.9); Potassium 3.8 mmol/L (3.5-5.1)
--- NOTE | 2021-05-28 09:28 | Anesthesiology Consultation ---
Date of Service May 28, 2021 History Surgery Operation Date: 05/28/21 16:00 Proposed Procedures p Esophagogastroduodenoscopy Dr. Panchito Flanagan MD Height/Weight Height: 6 ft Weight: 119.7 kg Allergies Allergy/AdvReac Type Severity Reaction Status Date / Time No Known Allergies Allergy Verified 05/28/21 09:26 Medications Home Medications Medication Instructions Recorded Confirmed Last Taken amlodipine 10 mg tablet (Norvasc) 10 mg PO HS 05/08/18 05/24/21 05/23/21 atorvastatin 40 mg tablet (Lipitor) 40 mg PO HS 05/08/18 05/24/21 05/23/21 levothyroxine 50 mcg tablet 50 mcg PO QAM 05/08/18 05/24/21 05/24/21 (Synthroid) mirtazapine 15 mg tablet (Remeron) 15 mg PO HS 07/28/19 05/24/21 05/23/21 pantoprazole 40 mg tablet,delayed 40 mg PO BID #1 tab 08/23/19 05/24/21 05/24/21 07:00 release thiamine HCl (vitamin B1) 100 mg 200 mg PO DAILY #60 tab 08/31/19 05/24/21 05/24/21 tablet aripiprazole 20 mg tablet (Abilify) 20 mg PO HS 09/08/19 05/24/21 05/23/21 Active Medications Generic Name Dose Route Start Last Admin Trade Name Roqueq PRN Reason Stop Dose Admin Amlodipine Besylate 10 mg 05/24/21 22:26 05/27/21 20:29 Amlodipine Besylate 5 Mg Tab PO 06/23/21 22:25 10 mg HS PRATEEK Administration Aripiprazole 20 mg 05/24/21 22:26 05/27/21 20:30 Aripiprazole 10 Mg Tab PO 06/23/21 22:25 20 mg HS PRATEEK Administration Atorvastatin Calcium 40 mg 05/24/21 22:26 05/27/21 20:30 Atorvastatin 40 Mg Tab PO 06/23/21 22:25 40 mg HS PRATEEK Administration Enoxaparin Sodium 40 mg 05/25/21 09:00 05/27/21 09:39 Enoxaparin Inj 40 Mg/0.4 Ml Syr SQ 06/24/21 08:59 Not Given Q24H PRATEEK Levothyroxine Sodium 50 mcg 05/25/21 06:30 05/28/21 06:42 Levothyroxine Sodium 50 Mcg Tablet PO 06/24/21 06:29 50 mcg DAILYBB PRATEEK Administration Mirtazapine 15 mg 05/24/21 22:26 05/27/21 20:29 Mirtazapine Tab 15 Mg Tab PO 06/23/21 22:25 15 mg HS PRATEEK Administration Pantoprazole Sodium 40 mg 05/24/21 22:26 05/27/21 20:30 Pantoprazole 40 Mg Tab PO 06/23/21 22:25 40 mg BID PRATEEK Administration Polyethylene Glycol 17 gm 05/26/21 12:30 05/27/21 09:00 Polyethylene (Miralax) 17 Gm Pack PO 06/25/21 12:29 Not Given DAILY PRATEEK Thiamine HCl 200 mg 05/25/21 09:00 05/27/21 12:09 Thiamine Hcl 100 Mg Tab PO 06/24/21 08:59 Not Given DAILY PRATEEK Past Medical History Medical History VERONICA (acute kidney injury) (09/25/13) Duodenal ulcer Dysphagia Gross hematuria Hepatitis C Treated HTN (hypertension) Hypomagnesemia Pancytopenia Paranoid schizophrenia Thiamine deficiency Tremor UTI (urinary tract infection) Past Family History Family History Other Family history non-contributory Past Surgical History Surgical History History of shoulder surgery Social History Smoking Status: Never smoker Hx Alcohol Use: No Hx Substance Use: No substance use type: does not use Physical Exam Vital Signs Last Vital Signs Temp 37.1 C 05/28/21 07:14 Pulse 65 05/28/21 07:34 Resp 18 05/28/21 07:14 BP 150/93 H 05/28/21 07:14 Pulse Ox 94 05/28/21 07:14 Testing Laboratory Results 05/28/21 07:06 05/28/21 07:06 Urine Color Dark Yellow 05/24/21 18:43 Urine Appearance Clear (Clear) 05/24/21 18:43 Urine pH 6.5 (4.5-7.5) 05/24/21 18:[address] 1.028 (1.000-1.030) 05/24/21 18:43 Urine Protein 2+ (Negative) H 05/24/21 18:43 Urine Glucose (UA) Negative (Negative) 05/24/21 18:43 Urine Ketones 2+ (Negative) H 05/24/21 18:43 Urine Nitrite Negative (Negative) 05/24/21 18:43 Ur Leukocyte Esterase Negative (Negative) 05/24/21 18:43 Urine WBC (Auto) 1-5 /hpf (0-5) 05/24/21 18:43 Urine RBC (Auto) 0-4 /hpf (0-4) 05/24/21 18:43 U Hyaline Cast (Auto) 1-5 /lpf (0-5) 05/24/21 18:43 U Epithel Cells (Auto) 10-20 /lpf (0-5) H 05/24/21 18:43 Urine Bacteria (Auto) Negative (Negative) 05/24/21 18:43 05/24/21 20:09 Aerobic Blood Culture - Preliminary Blood No growth in Aerobic bottle after 48 hours. Anaerobic Blood Culture - Preliminary No growth in Anaerobic bottle after 48 hours. 05/24/21 20:00 Aerobic Blood Culture - Preliminary Blood No growth in Aerobic bottle after 48 hours. Anaerobic Blood Culture - Preliminary No growth in Anaerobic bottle after 48 hours. Electrocardiogram Date: 05/24/21 Normal sinus rhythm Nonspecific T wave abnormality Abnormal ECG When compared with ECG of 01-OCT-2019 14:18, No significant change was found Confirmed by Yazan Duran ([id number]) on 05/25/2021 9:18:42 AM Chest X-Ray Date: 05/24/21 IMPRESSION: 1. Cardiomegaly with pulmonary edema. 2. Small pleural effusions with mild bibasilar opacities.
[2021-05-28] MEDS ORDERED: LIDOCAINE 2% 2 ML VIAL/AMP(20MG/ML) INFIL ONE (09:42)
[2021-05-28] MEDS ORDERED: PROPOFOL IV EMULSION 10 MG/ML 20 ML VIAL IV ONE (09:42)
--- NOTE | 2021-05-28 09:46 | History & Physical Bridge Note ---
Date of Service May 28, 2021 History & Physical Bridge Note I have examined the patient, reviewed the History & Physical and in the interval since the performance of the History & Physical I have noted the following changes of clinical significance: no changes noted except for red right eye
--- NOTE | 2021-05-28 10:02 | GI REPORT ---
Patient Name: Osmani Thompson Procedure Date: 05/28/2021 9:54 AM Date of : 1960 Admit Type: Inpatient Age: 61 Gender: Male Attending MD: Lucy Flanagan M.d. Procedure: Upper GI endoscopy Providers: Lucy Flanagan M.d. Referring MD: Salomon Quiles M.d. Indications: Regurgitation Medicines: See anesthesia record Complications: No immediate complications. Estimated Blood Loss: Estimated blood loss: none. Procedure: Pre-Anesthesia Assessment: - Patient identification and proposed procedure were verified prior to the procedure by the physician, the nurse and the anesthesiologist. The procedure was verified in the pre-procedure area. - Prior to the procedure, a History and Physical was performed, and patient medications, allergies and sensitivities were reviewed. The patient's tolerance of previous anesthesia was reviewed. - The risks and benefits of the procedure and the sedation options and risks were discussed with the patient. All questions were answered and informed consent was obtained. After obtaining informed consent, the endoscope was passed under direct vision. Throughout the procedure, the patient's blood pressure, pulse, and oxygen saturations were monitored continuously. The Endoscope was introduced through the mouth and advanced to the second part of duodenum. The upper GI endoscopy was accomplished without difficulty. The patient tolerated the procedure well. Findings: The examined esophagus appeared normal. Biopsies were taken from the distal esophagus with a cold forceps for histology. The pathology specimen was placed into Bottle B. The Z-line appeared regular. The examined stomach appeared normal. Localized mildly erythematous mucosa without bleeding was found in the gastric antrum. Biopsies were taken with a cold forceps for Helicobacter pylori testing. The pathology specimen was placed into Bottle A. The duodenal bulb and second portion of the duodenum appeared normal. Impression: - Normal esophagus. Biopsied. - Z-line regular. - Normal stomach. - Erythematous mucosa in the antrum. Biopsied. - Normal duodenal bulb and second portion of the duodenum. Recommendation: - Await pathology results. Jyoti Agustin M.d. 05/28/2021 10:01:55 AM This report has been signed electronically. Note Initiated On: 05/28/2021 9:54 AM Number of Addenda: 0 I attest to the content of the Intraoperative Record and orders documented therein, exceptions below {[id number]}
--- NOTE | 2021-05-28 10:05 | Communication Note ---
Date of Service: May 28, 2021 EGD complete. Examination unremarkable. Biopsies obtained to rule out H.Pylori. Would continue antireflux regimen. Advance diet as tolerated, GI to sign off. Can arrange OP GI follow up for any ongoing issues related to dysphagia. Thank you for allowing us to participate in the care of this patient. Please call with any acute changes, questions or concerns.
--- NOTE | 2021-05-28 12:38 | Anesthesiology Progress Note ---
Date of Service May 28, 2021 Anesthesia Post Procedure Vital Signs Vital Signs: Temp Pulse Pulse Resp BP BP Pulse Ox 05/28/21 11:22 37.0 C 76 18 144/94 H 90 05/28/21 10:35 66 16 140/92 96 05/28/21 10:20 69 16 140/99 95 05/28/21 10:05 80 16 108/79 92 05/28/21 09:31 36.6 C 72 18 141/93 H 93 05/28/21 07:34 65 05/28/21 07:14 37.1 C 71 18 150/93 H 94 05/28/21 05:24 77 05/28/21 03:39 36.8 C 78 16 151/98 H 93 05/27/21 23:26 36.9 C 85 18 137/87 94 05/27/21 19:35 36.7 C 73 18 139/95 93 05/27/21 16:26 78 05/27/21 15:04 37.2 C 80 20 127/80 93 Transfer of Care Handoff Completed per policy Notes Mental Status: alert / awake / arousable and participated in evaluation Patient Amnestic to Procedure: Yes Nausea / Vomiting: adequately controlled Pain: adequately controlled Airway Patency, RR, SpO2: stable & adequate BP & HR: stable & adequate Hydration State: stable & adequate Anesthetic Complications: no major complications apparent and Pt Satisfied with anesthetic care
[2021-05-28] MEDS: PANTOprazole 40 MG TAB PO SCH ×2 (15:18→19:58)
[2021-05-28] MEDS: THIAMINE HCL 100 MG TAB PO SCH (15:18)
[2021-05-28] MEDS: POLYETHYLENE (MIRALAX) 17 GM PACK PO SCH (15:19)
[2021-05-28] MEDS: ARIPiprazole 10 MG TAB PO SCH (19:57)
[2021-05-28] MEDS: amLODIPine BESYLATE 5 MG TAB PO SCH (19:58)
[2021-05-28] MEDS: MIRTAZAPINE TAB 15 MG TAB PO SCH (19:58)
[2021-05-28] MEDS: ATORVASTATIN 40 MG TAB PO SCH (19:58)
--- NOTE | 2021-05-28 20:11 | Hospitalist Progress Note ---
Date of Service May 28, 2021 Assessment & Plan (1) Oropharyngeal dysphagia: Plan: Long-standing issue with prior GI work-up and [facility] [facility] eval. - In 08/2019, [facility] [facility] recommended pureed diet if it helped patient. - Aspiration precautions - Meds in carrier - Discussed with [facility] [employer] [facility] on 05/26 - Did have a prior web dilated in 08/2020. Attempted barium swallow on 05/27. He could not even complete the test. He regurgitated the barium without any images able to be taken. -Will continue pureed diet at discharge. -Plan is to discharge in AM 18 if tolerating diet. -> GI consulted - Completed EGD today EGD Findings Below: The examined esophagus appeared normal. Biopsies were taken from the distal esophagus with a cold forceps for histology. The pathology specimen was placed into Bottle B. The Z-line appeared regular. The examined stomach appeared normal. Localized mildly erythematous mucosa without bleeding was found in the gastric antrum. Biopsies were taken with a cold forceps for Helicobacter pylori testing. The pathology specimen was placed into Bottle A. The duodenal bulb and second portion of the duodenum appeared normal. Impression: - Normal esophagus. Biopsied. - Z-line regular. - Normal stomach. - Erythematous mucosa in the antrum. Biopsied. - Normal duodenal bulb and second portion of the duodenum. (2) Aspiration pneumonia: Plan: Questionable diagnosis given no clear pneumonia on CXR. He was vomiting over last 24 hours. Procalcitonin negative. - Unasyn empirically started in ER; continued until 05/27. Stopped as no real signs of PNA. - Continue pureed foods as able;. - Zofran PRN (3) Nausea and vomiting: Plan: Ongoing issue, presumed to be stemming from his long-standing psych medications. Also some concern for mechanical obstruction. - Continue PPI - Zofran as above - EGD as above (4) Paranoid schizophrenia: Plan: With some negative symptoms at this point, but discussed with guard in the room. He reports that he is usually slightly more conversant, but not significantly far from his baseline. - Continue home aripiprazole & mirtazapine as able - Defer psychiatry consult for now as he is back to baseline. (5) HTN (hypertension): Plan: BP is 140/90 today. - Continue home amlodipine (6) Hypothyroid: Plan: TSH was 2.3 this admission. - Continue home levothyroxine 50 mcg PO daily. (7) Hepatitis C: Plan: Per notes, treat. He is Ab positive, but had no detectible viral RNA which would support this. - No inpatient needs (8) Tremor: Plan: Significant bilateral hand tremor. - Monitor -> Improved today. (9) DVT prophylaxis: Plan: Lovenox 40 mg SQ daily Admission and Anticipated Discharge Date Admission Date: May 24, 2021 Subjective Patient reports he is tolerating his diet after EGD. Patient has no new symptoms. Review of Systems Review of Systems: All systems reviewed & are unremarkable except as noted in HPI & below Physical Exam Constitutional: WD/WN, vitals as above + acute distress Eyes: EOM intact bilaterally; no conjunctival abnormality ENMT: external ear and nose normal, oropharynx normal Neck: trachea midline, no thyromegaly normal visual inspection Respiratory: normal respiratory effort, lungs clear to auscultation no respiratory distress Cardiovascular: RRR, no murmur, no edema Gastrointestinal (Abdomen): Inspection/Auscultation: abdomen normal to inspection; abdomen not distended Percussion/Palpation: + abdomen tender (Diffusely, mild) and abdomen soft; no guarding and abdomen not rigid Musculoskeletal: no cyanosis or clubbing, extremities motor strength 5/5 Skin: no rashes, warm and dry Neurologic: moves all extremities and awake Speech / Cognition: + abnormal speech (Slow to respond, but sensible) Psychiatric: Orientation: alert, oriented to person, oriented to place and cooperative Results & Data Results & Data ([facility]) Vital Signs (Past 12 Hours) Vital Signs Temp Pulse Pulse Resp BP BP Pulse Ox 05/28/21 18:29 37.1 C 72 18 163/109 H 162/107 H 93 05/28/21 17:17 70 05/28/21 14:37 37.0 C 72 18 155/99 H 93 05/28/21 11:22 37.0 C 76 18 144/94 H 90 05/28/21 10:35 66 16 140/92 96 05/28/21 10:20 69 16 140/99 95 05/28/21 10:05 80 16 108/79 92 05/28/21 09:31 36.6 C 72 18 141/93 H 93 PG Care Time/CCT Total # of Minutes Spent Total Time Spent with Patient: Total time spent is greater than 50% in coordination of care (as documented) at patient's floor/unit and/or counseling patient: Coding Level of Care Code 79913 Subseq Hosp Care Lvl 2 Diagnoses Oropharyngeal dysphagia R13.12 Aspiration pneumonia J69.0 Aspiration pneumonia type: unspecified Laterality: unspecified laterality Lung location: unspecified part of lung Nausea and vomiting R11.2 Vomiting type: unspecified Paranoid schizophrenia F20.0 HTN (hypertension) I10 Hypertension type: essential hypertension Hypothyroid E03.9 Hypothyroidism type: unspecified Hepatitis C B19.20 Tremor R25.1 DVT prophylaxis Z29.9 Time Spent (min) 25 (1) Hypothyroid Hypothyroidism type: unspecified Qualified Code(s): E03.9 - Hypothyroidism, unspecified (2) Aspiration pneumonia Aspiration pneumonia type: unspecified Laterality: unspecified laterality Lung location: unspecified part of lung Qualified Code(s): J69.0 - Pneumonitis due to inhalation of food and vomit (3) Nausea and vomiting Vomiting type: unspecified Qualified Code(s): R11.2 - Nausea with vomiting, unspecified (4) HTN (hypertension) Hypertension type: essential hypertension Qualified Code(s): I10 - Essential (primary) hypertension
[2021-05-29] MEDS: LEVOTHYROXINE SODIUM 50 MCG TABLET PO SCH (06:12)
[2021-05-29] MEDS: FAMOTIDINE 20 MG in SYRINGE 3 ML IV SCH ×2 (09:07→21:46)
[2021-05-29] MEDS: POLYETHYLENE (MIRALAX) 17 GM PACK PO SCH (09:07)
[2021-05-29] MEDS: PANTOprazole 40 MG TAB PO SCH ×2 (09:07→21:38)
[2021-05-29] MEDS: THIAMINE HCL 100 MG TAB PO SCH (09:49)
--- NOTE | 2021-05-29 17:23 | Hospitalist Progress Note ---
Date of Service May 29, 2021 Assessment & Plan (1) Oropharyngeal dysphagia: Plan: Long-standing issue with prior GI work-up and PANTRY STEWARD/STEWARDESS eval. - In 08/2019, PANTRY STEWARD/STEWARDESS recommended pureed diet if it helped patient. - Aspiration precautions - Meds in carrier - Discussed with PANTRY STEWARD/STEWARDESS on 05/26 - Did have a prior web dilated in 08/2020. Attempted barium swallow on 05/27. He could not even complete the test. He regurgitated the barium without any images able to be taken. -Will continue pureed diet at discharge. -05/29: Patient still unable to tolerate pured foods, is tolerating a small amount of milk today. Inadequate p.o. intake for discharge. Added H2 rosario twice daily, will continue PPI twice daily, and continue Remeron 15 mg p.o. nightly. EGD: Normal esophagus, Z-line regular, normal stomach, erythematous mucosa at antrum of the stomach which was biopsied, normal duodenal bulb and second portion of the duodenum Patient still has not had a bowel movement. Likely contributing to nausea/intolerance. Plus MiraLAX, docusate NM, milk of mag every 6 hours as needed. Repeat KUB in the morning (2) Aspiration pneumonia: Plan: Questionable diagnosis given no clear pneumonia on CXR. He was vomiting over last 24 hours. Procalcitonin negative. - Unasyn empirically started in ER; continued until 05/27. Stopped as no real signs of PNA. - Continue pureed foods as able;. - Zofran PRN (3) Nausea and vomiting: Plan: Ongoing issue, presumed to be stemming from his long-standing psych medications. Also some concern for mechanical obstruction. - Continue PPI - Zofran as above - EGD as above (4) Paranoid schizophrenia: Plan: With some negative symptoms at this point, but discussed with guard in the room. He reports that he is usually slightly more conversant, but not significantly far from his baseline. - Continue home aripiprazole & mirtazapine as able - Defer psychiatry consult for now as he is back to baseline. (5) HTN (hypertension): Plan: BP is 140/90 today. - Continue home amlodipine (6) Hypothyroid: Plan: TSH was 2.3 this admission. - Continue home levothyroxine 50 mcg PO daily. (7) Hepatitis C: Plan: Per notes, treat. He is Ab positive, but had no detectible viral RNA which would support this. - No inpatient needs (8) Tremor: Plan: Significant bilateral hand tremor. - Monitor -> Improved today. (9) DVT prophylaxis: Plan: Lovenox 40 mg SQ daily Admission and Anticipated Discharge Date Admission Date: May 24, 2021 Subjective Seen at bedside. Offers minimal small spontaneous conversation. Reports he does have worsened stomach upset today, is able to drink a small amount of milk but cannot tolerate any other liquids/meals. Has inadequate p.o. today. Reports he is not nauseous at rest at time of visit, but any food will make him nauseous. Denies fever, chills, sweats, chest pain, chest pressure. Still has not had a bowel movement in several days Review of Systems Review of Systems: All systems reviewed & are unremarkable except as noted in Subjective Physical Exam Physical Exam: General: Somnolent, oriented to name year and place. All his commands appropriately. HEENT: Atraumatic, normocephalic. Pulm: CTAB A&P. -wheezes, -rales, -rhonchi. Symmetrical chest rise. No increase in work of breathing. No respiratory distress. Cardiac: RRR, -mrg. Radial pulses intact and symmetrical. Abdominal: Soft, endorses slight mild tenderness without rebound. No guarding. Bowel sounds diminished. Extremities: Moves all extremities equally, sensation intact in hands and feet Results & Data Results & Data ([facility]) Vital Signs (Past 12 Hours) Vital Signs Temp Pulse Pulse Resp BP BP Pulse Ox 05/29/21 16:01 37.1 C 81 19 145/99 H 91 05/29/21 14:19 63 05/29/21 11:00 36.5 C 77 14 125/70 92 05/29/21 07:31 36.8 C 78 18 154/95 H 93 05/29/21 07:17 78 PG Care Time/CCT Total # of Minutes Spent Total Time Spent with Patient: Total time spent is greater than 50% in coordination of care (as documented) at patient's floor/unit and/or counseling patient: Coding Level of Care Code 23462 Subseq Hosp Care Lvl 2 Diagnoses Oropharyngeal dysphagia R13.12 Aspiration pneumonia J69.0 Aspiration pneumonia type: unspecified Laterality: unspecified laterality Lung location: unspecified part of lung Nausea and vomiting R11.2 Vomiting type: unspecified Paranoid schizophrenia F20.0 HTN (hypertension) I10 Hypertension type: essential hypertension Hypothyroid E03.9 Hypothyroidism type: unspecified Hepatitis C B19.20 Tremor R25.1 DVT prophylaxis Z29.9 (1) Aspiration pneumonia Aspiration pneumonia type: unspecified Laterality: unspecified laterality Lung location: unspecified part of lung Qualified Code(s): J69.0 - Pneumonitis due to inhalation of food and vomit (2) Nausea and vomiting Vomiting type: unspecified Qualified Code(s): R11.2 - Nausea with vomiting, unspecified (3) HTN (hypertension) Hypertension type: essential hypertension Qualified Code(s): I10 - Essential (primary) hypertension (4) Hypothyroid Hypothyroidism type: unspecified Qualified Code(s): E03.9 - Hypothyroidism, unspecified
[2021-05-29] MEDS ORDERED: bisacodyL 10 MG SUPP PR PRN (17:32)
[2021-05-29] MEDS: MAGNESIUM HYDROXIDE SUSP 30 ML UDC PO PRN (18:17)
[2021-05-29] MEDS: ARIPiprazole 10 MG TAB PO SCH (21:37)
[2021-05-29] MEDS: amLODIPine BESYLATE 5 MG TAB PO SCH (21:37)
[2021-05-29] MEDS: ATORVASTATIN 40 MG TAB PO SCH (21:38)
[2021-05-29] MEDS: MIRTAZAPINE TAB 15 MG TAB PO SCH (21:38)
[2021-05-30] MEDS: LEVOTHYROXINE SODIUM 50 MCG TABLET PO SCH ×2 (06:22→08:27)
[2021-05-30 06:35] LABS: Mean Corpuscular Hgb Conc 33.9 g/dL (32-36)
[2021-05-30 06:44] LABS: Hematocrit (blood only) 43.4 % (42-52); Hemoglobin 14.7 g/dL (14.0-18.0); Mean Corpuscular Hemoglobin 28.5 pg (25-34); Mean Corpuscular Volume 84.1 fL (80-100); RDW Coefficient of Variation 14.9 % (11.5-14.5); RDW Standard Deviation 45.7 fL (36.4-46.3); Red Blood Count 5.16 M/uL (4.7-6.1); White Blood Count 7.07 K/uL (4.8-10.8)
[2021-05-30 07:00] LABS: Albumin Globulin Ratio 1.6 (0.9-2); Albumin Level 4.1 gm/dl (3.4-5.0); BUN Creatinine Ratio 10.6 (10-20); Bilirubin,Total 1.1 mg/dl (0.2-1.0); Calcium 9.1 mg/dl (8.5-10.1); Creatinine Clr Calc Pharmacy 70.9 ml/min; Est GFR (African American) 60.5 ml/min; Est GFR (Non-African American) 52.2 ml/min; Globulin 2.6 gm/dl (2.5-4.0); Potassium 3.4 mmol/L (3.5-5.1); Total Protein 6.7 gm/dl (6.0-8.3)
[2021-05-30 07:09] LABS: Basophils # (auto) 0.01 K/uL (0-0.2); Basophils % (auto) 0.1 %; Eosinophils # (auto) 0.13 K/uL (0-0.5); Eosinophils % (auto) 1.8 %; Immature Granulocytes # (auto) 0.01 K/uL (0.00-0.02); Immature Granulocytes % (auto) 0.1 %; Lymphocytes # (auto) 1.61 K/uL (1.2-3.4); Lymphocytes % (auto) 22.8 %; Monocytes # (auto) 0.58 K/uL (0.11-0.59); Monocytes % (auto) 8.2 %; Neutrophils # (auto) 4.73 K/uL (1.4-6.5); Platelet Count 133 K/uL (130-400); Platelet Estimate Decreased (Normal)
[2021-05-30] MEDS: POLYETHYLENE (MIRALAX) 17 GM PACK PO SCH (08:28)
[2021-05-30] MEDS: THIAMINE HCL 100 MG TAB PO SCH (08:28)
[2021-05-30] MEDS: FAMOTIDINE 20 MG in SYRINGE 3 ML IV SCH ×2 (08:28→21:08)
[2021-05-30] MEDS: PANTOprazole 40 MG TAB PO SCH ×2 (08:28→21:08)
--- NOTE | 2021-05-30 08:52 | XRay Report ---
KUB CLINICAL HISTORY: ileus COMPARISON STUDY: CT of the abdomen and pelvis May 24, 2021. KUB May 27, 2021. FINDINGS: The bowel gas pattern is within normal limits. There is no evidence for a bowel obstruction . No urinary calculi are identified. IMPRESSION: No evidence for a bowel obstruction. ACT 112: Negative or not required by law. Electronically signed by: Jovanni Hand M.D. 05/30/2021 8:50 AM
[2021-05-30] MEDS ORDERED: ERYTHROMYCIN 500 MG in SODIUM CHLORIDE 0.9% 250 ML IV SCH (10:45)
--- NOTE | 2021-05-30 13:41 | Hospitalist Progress Note ---
Date of Service May 30, 2021 Assessment & Plan (1) Oropharyngeal dysphagia: Plan: Long-standing issue with prior GI work-up and AQUARIUM TANK ATTENDANT eval. - In 08/2019, AQUARIUM TANK ATTENDANT recommended pureed diet if it helped patient. - Aspiration precautions - Meds in carrier - Discussed with AQUARIUM TANK ATTENDANT on 05/26 - Did have a prior web dilated in 08/2020. Attempted barium swallow on 05/27. He could not even complete the test. He regurgitated the barium without any images able to be taken. -Will continue pureed diet at discharge. -05/29: Patient still unable to tolerate pured foods, is tolerating a small amount of milk today. Inadequate p.o. intake for discharge. Added H2 rosario twice daily, will continue PPI twice daily, and continue Remeron 15 mg p.o. nightly. EGD: Normal esophagus, Z-line regular, normal stomach, erythematous mucosa at antrum of the stomach which was biopsied, normal duodenal bulb and second portion of the duodenum Patient still has not had a bowel movement. Likely contributing to nausea/intolerance. Plus MiraLAX, docusate [place], milk of mag every 6 hours as needed. - Remains with inadequate PO intake for discharge. Boost BID -Patient reports he would not want nasogastric/feeding tube/PEG tube placed under any circumstances - KUB without signs of obstruction. Patient did have similar presentation 2 years ago which gradually improved, his current symptoms began about 2 weeks ago. Biopsies remain pending, suspected that he may have some dysphagia and dysmotility related to medication induced parkinsonism versus reflux. Did have a proximal web previously and rapid improvement of symptoms for after dilation of such, no web or functional obstruction was found on his EGD this admission trial of erythromycin for ?Gastroparesis today. Defer trial of Reglan due to interaction with psychotropics. EKG today no QT prolongation, follow carefully (2) Aspiration pneumonia: Plan: Questionable diagnosis given no clear pneumonia on CXR. 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 Procalcitonin negative. - Unasyn empirically started in ER; continued until 05/27. No signs of pneumonia, antibiotics discontinued - Continue pureed foods as able;. - Zofran PRN (3) Nausea and vomiting: Plan: Ongoing issue, presumed to be stemming from his long-standing psych medications. Also some concern for mechanical obstruction. - Continue PPI - Zofran as above - EGD as above (4) Paranoid schizophrenia: Plan: With some negative symptoms at this point, but discussed with guard in the room. He reports that he is usually slightly more conversant, but not significantly far from his baseline. - Continue home aripiprazole & mirtazapine as able - If not improving with above, can consider psychiatric consult for med adjustment to minimize potential for medinduced gastroparesis and maximize appetite. (5) HTN (hypertension): Plan: BP is 140/90 today. - Continue home amlodipine (6) Hypothyroid: Plan: TSH was 2.3 this admission. - Continue home levothyroxine 50 mcg PO daily. (7) Hepatitis C: Plan: Per notes, treat. He is Ab positive, but had no detectible viral RNA which would support this. - No inpatient needs (8) Tremor: Plan: Significant bilateral hand tremor. - Monitor -> Improved today. (9) DVT prophylaxis: Plan: Lovenox 40 mg SQ daily Admission and Anticipated Discharge Date Admission Date: May 24, 2021 Subjective Seen bedside this morning. Patient reports he is still not had any solid food intake has had some sips of milk intermittently. Reports he "just has no appetite "that he feels nauseous when he tries to eat. Antiemetics have not helped very much. Does not offer much spontaneous conversation, expresses frustration with being in the hospital and feels people are not trying to help him. Reports he feels being able to make phone calls would be helpful, discussed that unable to do so per present regulation but can help to make any accommodations that he thinks might help with his appetite including changing food, trying additional medications, and working his bowel regimen. Patient reports "well then you cannot help me ". KUB without signs of obstruction. Patient did have similar presentation 2 years ago which gradually improved, his current symptoms began about 2 weeks ago. Biopsies remain pending, suspected that he may have some dysphagia and dysmotility related to medication induced parkinsonism versus reflux. Did have a proximal web previously and rapid im provement of symptoms for after dilation of such, no web or functional obstruction was found on his EGD this admission Review of Systems Review of Systems: All systems reviewed & are unremarkable except as noted in Subjective Physical Exam Physical Exam: General: Somnolent, oriented to name year and place. Offers minimal spontaneous conversation, but is able to follow 1 and two-step commands. HEENT: Atraumatic, normocephalic. Hearing grossly intact. Pulm: CTAB A&P. -wheezes, -rales, -rhonchi. Symmetrical chest rise. No increase in work of breathing. No respiratory distress. Cardiac: RRR, -mrg. Radial pulses intact and symmetrical. Abdominal: Soft, does not endorse tenderness. No guarding. Bowel sounds diminished. Extremities: Moves all extremities equally, sensation intact in hands and feet Results & Data Results & Data ([facility]) Vital Signs (Past 12 Hours) Vital Signs Temp Pulse Pulse Resp BP BP Pulse Ox 05/30/21 12:59 154/92 H 05/30/21 11:26 37.1 C 87 19 163/106 H 92 05/30/21 07:38 84 05/30/21 07:28 36.6 C 80 19 132/100 95 05/30/21 03:00 37.1 C 83 16 139/77 96 PG Care Time/CCT Total # of Minutes Spent Total Time Spent with Patient: Total time spent is greater than 50% in coordination of care (as documented) at patient's floor/unit and/or counseling patient: Coding Level of Care Code 48782 Subseq Hosp Care Lvl 2 Diagnoses Oropharyngeal dysphagia R13.12 Aspiration pneumonia J69.0 Aspiration pneumonia type: unspecified Laterality: unspecified laterality Lung location: unspecified part of lung Nausea and vomiting R11.2 Vomiting type: unspecified Paranoid schizophrenia F20.0 HTN (hypertension) I10 Hypertension type: essential hypertension Hypothyroid E03.9 Hypothyroidism type: unspecified Hepatitis C B19.20 Tremor R25.1 DVT prophylaxis Z29.9 (1) Aspiration pneumonia Aspiration pneumonia type: unspecified Laterality: unspecified laterality Lung location: unspecified part of lung Qualified Code(s): J69.0 - Pneumonitis due to inhalation of food and vomit (2) Nausea and vomiting Vomiting type: unspecified Qualified Code(s): R11.2 - Nausea with vomiting, unspecified (3) HTN (hypertension) Hypertension type: essential hypertension Qualified Code(s): I10 - Essential (primary) hypertension (4) Hypothyroid Hypothyroidism type: unspecified Qualified Code(s): E03.9 - Hypothyroidism, unspecified
[2021-05-30] MEDS: SODIUM CHLORIDE 0.9% IV SCH (16:26)
[2021-05-30] MEDS: ERYTHROMYCIN IV SCH (16:26)
--- NOTE | 2021-05-30 16:27 | Electrocardiogram Report ---
Test Reason : Blood Pressure : / mmHG Vent. Rate : 080 BPM Atrial Rate : 080 BPM P-R Int : 158 ms QRS Dur : 084 ms QT Int : 386 ms P-R-T Axes : 048 014 027 degrees QTc Int : 445 ms Normal sinus rhythm Normal ECG When compared with ECG of 24-MAY-2021 17:00, No significant change was found Confirmed by Fredi Abdul ([id number]) on 05/30/2021 4:26:55 PM Referred By: [facility] Confirmed By:Jim Abdul
[2021-05-30] MEDS ORDERED: LORazepam 2 MG/1 ML VIAL IV ONE (16:28)
[2021-05-30] MEDS: amLODIPine BESYLATE 5 MG TAB PO SCH (21:08)
[2021-05-30] MEDS: ARIPiprazole 10 MG TAB PO SCH (21:08)
[2021-05-30] MEDS: ATORVASTATIN 40 MG TAB PO SCH (21:08)
[2021-05-30] MEDS: MIRTAZAPINE TAB 15 MG TAB PO SCH (21:08)
[2021-05-31] MEDS: LEVOTHYROXINE SODIUM 50 MCG TABLET PO SCH (05:58)
[2021-05-31 07:58] LABS: Mean Corpuscular Hgb Conc 32.7 g/dL (32-36)
[2021-05-31 08:07] LABS: Hematocrit (blood only) 46.5 % (42-52); Hemoglobin 15.2 g/dL (14.0-18.0); Mean Corpuscular Hemoglobin 28.2 pg (25-34); Mean Corpuscular Volume 86.3 fL (80-100); RDW Coefficient of Variation 15.2 % (11.5-14.5); Red Blood Count 5.39 M/uL (4.7-6.1); White Blood Count 7.45 K/uL (4.8-10.8)
[2021-05-31 08:28] LABS: Albumin Globulin Ratio 1.4 (0.9-2); Albumin Level 4.3 gm/dl (3.4-5.0); BUN Creatinine Ratio 11.1 (10-20); Bilirubin,Total 1.1 mg/dl (0.2-1.0); Calcium 9.1 mg/dl (8.5-10.1); Est GFR (African American) 59.5 ml/min; Est GFR (Non-African American) 51.3 ml/min; Globulin 3.1 gm/dl (2.5-4.0); Potassium 3.5 mmol/L (3.5-5.1); Total Protein 7.4 gm/dl (6.0-8.3)
[2021-05-31] MEDS: FAMOTIDINE 20 MG in SYRINGE 3 ML IV SCH ×2 (08:44→21:34)
[2021-05-31] MEDS: SODIUM CHLORIDE 0.9% IV SCH (08:46)
[2021-05-31] MEDS: ERYTHROMYCIN IV SCH (08:46)
[2021-05-31 08:47] LABS: Mean Platelet Volume 12.5 fL (7.4-10.4); Platelet Count 134 K/uL (130-400)
[2021-05-31 08:49] LABS: Eosinophils # (auto) 0.18 K/uL (0-0.5); Eosinophils % (auto) 2.4 %; Immature Granulocytes # (auto) 0.02 K/uL (0.00-0.02); Immature Granulocytes % (auto) 0.3 %; Lymphocytes # (auto) 1.85 K/uL (1.2-3.4); Lymphocytes % (auto) 24.8 %; Monocytes # (auto) 0.49 K/uL (0.11-0.59); Monocytes % (auto) 6.6 %; Neutrophils # (auto) 4.91 K/uL (1.4-6.5); Neutrophils % (auto) 65.9 %; Platelet Estimate Decreased (Normal)
[2021-05-31] MEDS: PANTOprazole 40 MG TAB PO SCH ×2 (10:24→21:37)
[2021-05-31] MEDS: POLYETHYLENE (MIRALAX) 17 GM PACK PO SCH (10:24)
[2021-05-31] MEDS: THIAMINE HCL 100 MG TAB PO SCH (10:24)
[2021-05-31] MEDS: BENZTROPINE MESYLATE 1 MG TAB PO SCH ×2 (12:06→21:37)
--- NOTE | 2021-05-31 14:39 | Psychiatric Consultation ---
Date of Consultation May 31, 2021 Impression / Recommendations Impression Diagnostically concern for potential acute dystonia or tardive dyskinesia impacting dysphagia versus behavioral manifestation resulting in poor oral intake. Abilify is fairly unlikely to cause EPS side effects though certainly can occur so will discontinue for now and try ODT zyprexa which can improve appetite and less likely to have EPS side effects. Adding cogentin to see if this helps with swallowing, if so would suggest possible dystonic component. No clear evidence for EPS on exam though limited due to his lack of participation. (1) Schizophrenia: -Cognetin 1mg po BID added -Disocntinue abilify -Start zyprexa 5 mg ODT qhs and 2.5 mg ODT qAM Psych History Identifying Data 61 yo man and inmate at [facility] with a history of schizophrenia and recent worsening dysphagia. Psychiatry consulted due to potential concern for tardive dyskinesia or other psychiatric symptoms impacting his oral intake/swallowing difficulties. Chief Complaint mute History of Present Illness Osmani has been dealing with swallowing difficulties with medical workup so far unrevealing for any specific causes. Osmani has been taking abilify and mirtazapine which are prescribed to him at [facility]. This morning he demonstrated more stuttering and had some odd posturing concerning for possible tardive dyskinesia versus dystonia side effects thought to be potentially playing a role in his swallowing issues. Has been irritable at times with care and refused bloodwork and medications today. This afternoon he initially has his eyes open but then shits them when I introduce myself and refuses to engage with further verbal prompts. Lying in bed appears comfortable. Allergies Allergy/AdvReac Type Severity Reaction Status Date / Time No Known Allergies Allergy Verified 05/28/21 09:26 Home Medications Medication Instructions Recorded Confirmed Type amlodipine 10 mg tablet (Norvasc) 10 mg PO HS 05/08/18 05/24/21 History atorvastatin 40 mg tablet (Lipitor) 40 mg PO HS 05/08/18 05/24/21 History levothyroxine 50 mcg tablet 50 mcg PO QAM 05/08/18 05/24/21 History (Synthroid) mirtazapine 15 mg tablet (Remeron) 15 mg PO HS 07/28/19 05/24/21 History pantoprazole 40 mg tablet,delayed 40 mg PO BID #1 tab 08/23/19 05/24/21 Rx release thiamine HCl (vitamin B1) 100 mg 200 mg PO DAILY #60 tab 08/31/19 05/24/21 Rx tablet aripiprazole 20 mg tablet (Abilify) 20 mg PO HS 09/08/19 05/24/21 History Personal History Living Arrangements: inmate at [facility] Beliefs That Will Affect Care: None Patient History Medical History (Updated 05/31/21 @ 14:47 by Emmy Negrete MD) VERONICA (acute kidney injury) (09/25/13) Duodenal ulcer Dysphagia Gross hematuria Hepatitis C Treated HTN (hypertension) Hypomagnesemia Pancytopenia Paranoid schizophrenia Thiamine deficiency Tremor UTI (urinary tract infection) Surgical History History of shoulder surgery Family History Other Family history non-contributory Social History Smoking Status: Never smoker Second Hand Exposure: No; Hx Alcohol Use: No Hx Substance Use: No Preferred Language: Danish Communication Ability: Effective Loan Inspector Required: No Beliefs That Will Affect Care: None marital status: Single Current Living Situation: Other Current Living Situation Comment: long term Other Information That Helps Us Care for You: No Feels Safe at Home: Yes Safety Concerns: Feels Safe At This Time Assistive Devices: None Physical Exam Psychiatric: Orientation: alert; + uncooperative Apperance: appropriately dressed and appropriately groomed Eye Contact: + poor eye contact Motor Behavior: no abnormal motor movements; no psychomotor agitation, n EPS, n akathisia and n tremor Speech: + mute Affect: + flat affect Judgement: + limited judgement Vital Signs (Past 24 Hours): Last Vital Signs Temp 37.0 C 05/31/21 11:04 Pulse 86 05/31/21 11:04 Resp 18 05/31/21 11:04 BP 161/103 H 05/31/21 11:04 Pulse Ox 93 05/31/21 11:04 Review of Systems Unobtainable due to mental health condition Results & Data (PSY) Medications Administered Amlodipine Besylate (Amlodipine Besylate 5 Mg Tab) 10 mg PO HS PRATEEK Stop: 06/23/21 22:25 Last Admin: 05/30/21 21:08 Dose: Not Given Documented by: [id number] Admin: 05/29/21 21:37 Dose: 10 mg Documented by: [id number] Admin: 05/28/21 19:58 Dose: 10 mg Documented by: [id number] Admin: 05/27/21 20:29 Dose: 10 mg Documented by: [id number] Admin: 05/26/21 20:01 Dose: 10 mg Documented by: [id number] Admin: 05/25/21 20:11 Dose: 10 mg Documented by: [id number] Admin: 05/24/21 23:10 Dose: 10 mg Documented by: [id number] Atorvastatin Calcium (Atorvastatin 40 Mg Tab) 40 mg PO HS PRATEEK Stop: 06/23/21 22:25 Last Admin: 05/30/21 21:08 Dose: Not Given Documented by: [id number] Admin: 05/29/21 21:38 Dose: 40 mg Documented by: [id number] Admin: 05/28/21 19:58 Dose: 40 mg Documented by: [id number] Admin: 05/27/21 20:30 Dose: 40 mg Documented by: [id number] Admin: 05/26/21 20:01 Dose: 40 mg Documented by: [id number] Admin: 05/25/21 20:11 Dose: 40 mg Documented by: [id number] Admin: 05/24/21 23:10 Dose: 40 mg Documented by: [id number] Benztropine Mesylate (Benztropine Mesylate 1 Mg Tab) 1 mg PO BID PRATEEK Stop: 06/30/21 11:29 Last Admin: 05/31/21 12:06 Dose: Not Given Documented by: [id number] Enoxaparin Sodium (Enoxaparin Inj 40 Mg/0.4 Ml Syr) 40 mg SQ Q24H PRATEEK Stop: 06/24/21 08:59 Last Admin: 05/27/21 09:39 Dose: Not Given Documented by: [id number] Admin: 05/26/21 08:07 Dose: 40 mg Documented by: [id number] Admin: 05/25/21 08:26 Dose: 40 mg Documented by: [id number] Famotidine 20 mg/ Syringe 5 mls @ 2.5 mls/min IV BID PRATEEK Stop: 06/28/21 08:59 Last Admin: 05/31/21 08:44 Dose: 2.5 mls/min Documented by: [id number] Admin: 05/30/21 21:08 Dose: Not Given Documented by: [id number] Admin: 05/30/21 08:28 Dose: 2.5 mls/min Documented by: [id number] Admin: 05/29/21 21:46 Dose: 2.5 mls/min Documented by: [id number] Admin: 05/29/21 09:07 Dose: 2.5 mls/min Documented by: [id number] Levothyroxine Sodium (Levothyroxine Sodium 50 Mcg Tablet) [facility] Stop: 06/24/21 06:29 Last Admin: 05/31/21 05:58 Dose: Not Given Documented by: [id number] Admin: 05/30/21 08:27 Dose: Not Given Documented by: [id number] Admin: 05/29/21 06:12 Dose: 50 mcg Documented by: [id number] Admin: 05/28/21 06:42 Dose: 50 mcg Documented by: [id number] Admin: 05/27/21 06:17 Dose: 50 mcg Documented by: [id number] Admin: 05/26/21 05:54 Dose: 50 mcg Documented by: [id number] Admin: 05/25/21 05:44 Dose: Not Given Documented by: [id number] Magnesium Hydroxide (Magnesium Hydroxide Susp 30 Ml Udc) 30 ml PO Q6H PRN PRN Reason: Constipation Stop: 06/28/21 17:31 Last Admin: 05/29/21 18:17 Dose: 30 ml Documented by: [id number] Mirtazapine (Mirtazapine Tab 15 Mg Tab) 15 mg PO [facility] Stop: 06/23/21 22:25 Last Admin: 05/30/21 21:08 Dose: Not Given Documented by: [id number] Admin: 05/29/21 21:38 Dose: 15 mg Documented by: [id number] Admin: 05/28/21 19:58 Dose: 15 mg Documented by: [id number] Admin: 05/27/21 20:29 Dose: 15 mg Documented by: [id number] Admin: 05/26/21 20:01 Dose: 15 mg Documented by: [id number] Admin: 05/25/21 20:11 Dose: 15 mg Documented by: [id number] Admin: 05/24/21 23:10 Dose: 15 mg Documented by: [id number] Pantoprazole Sodium (Pantoprazole 40 Mg Tab) 40 mg PO BID PRATEEK Stop: 06/23/21 22:25 Last Admin: 05/31/21 10:24 Dose: Not Given Documented by: [id number] Admin: 05/30/21 21:08 Dose: Not Given Documented by: [id number] Admin: 05/30/21 08:28 Dose: Not Given Documented by: [id number] Admin: 05/29/21 21:38 Dose: 40 mg Documented by: [id number] Admin: 05/29/21 09:07 Dose: 40 mg Documented by: [id number] Admin: 05/28/21 19:58 Dose: 40 mg Documented by: [id number] Admin: 05/28/21 15:18 Dose: 40 mg Documented by: [id number] Admin: 05/27/21 20:30 Dose: 40 mg Documented by: [id number] Admin: 05/27/21 09:00 Dose: Not Given Documented by: [id number] Admin: 05/26/21 21:55 Dose: 40 mg Documented by: [id number] Admin: 05/26/21 08:06 Dose: 40 mg Documented by: [id number] Admin: 05/25/21 20:11 Dose: 40 mg Documented by: [id number] Admin: 05/25/21 08:26 Dose: 40 mg Documented by: [id number] Admin: 05/24/21 23:11 Dose: 40 mg Documented by: [id number] Polyethylene Glycol (Polyethylene (Miralax) 17 Gm Pack) 17 gm PO DAILY PRATEEK Stop: 06/25/21 12:29 Last Admin: 05/31/21 10:24 Dose: Not Given Documented by: [id number] Admin: 05/30/21 08:28 Dose: Not Given Documented by: [id number] Admin: 05/29/21 09:07 Dose: Not Given Documented by: [id number] Admin: 05/28/21 15:19 Dose: 17 gm Documented by: [id number] Admin: 05/27/21 09:00 Dose: Not Given Documented by: [id number] Admin: 05/26/21 13:04 Dose: 17 gm Documented by: [id number] Thiamine HCl (Thiamine Hcl 100 Mg Tab) 200 mg PO DAILY PRATEEK Stop: 06/24/21 08:59 Last Admin: 05/31/21 10:24 Dose: Not Given Documented by: [id number] Admin: 05/30/21 08:28 Dose: Not Given Documented by: [id number] Admin: 05/29/21 09:49 Dose: 200 mg Documented by: [id number] Admin: 05/28/21 15:18 Dose: 200 mg Documented by: [id number] Admin: 05/27/21 12:09 Dose: Not Given Documented by: [id number] Admin: 05/26/21 08:07 Dose: 200 mg Documented by: [id number] Admin: 05/25/21 08:26 Dose: 200 mg Documented by: [id number] Coding Level of Care Code 02246 Inpt Consult Level 3 Diagnoses Schizophrenia F20.9
--- NOTE | 2021-05-31 15:15 | Hospitalist Progress Note ---
Date of Service May 31, 2021 Assessment & Plan (1) Oropharyngeal dysphagia: Plan: Long-standing issue with prior GI work-up and GROUNDS SUPERVISOR eval. - In 08/2019, GROUNDS SUPERVISOR recommended pureed diet if it helped patient. - Aspiration precautions - Meds in carrier - Discussed with GROUNDS SUPERVISOR on 05/26 - Did have a prior web dilated in 08/2020. Attempted barium swallow on 05/27. He could not even complete the test. He regurgitated the barium without any images able to be taken. -Will continue pureed diet at discharge. -05/29: Patient still unable to tolerate pured foods, is tolerating a small amount of milk today. Inadequate p.o. intake for discharge. Added H2 rosario twice daily, will continue PPI twice daily, and continue Remeron 15 mg p.o. nightly. EGD: Normal esophagus, Z-line regular, normal stomach, erythematous mucosa at antrum of the stomach which was biopsied, normal duodenal bulb and second portion of the duodenum Patient still has not had a bowel movement. Likely contributing to nausea/intolerance. Plus MiraLAX, docusate MT, milk of mag every 6 hours as needed. - Remains with inadequate PO intake for discharge. Boost BID -Patient reports he would not want nasogastric/feeding tube/PEG tube placed under any circumstances - KUB without signs of obstruction. Patient did have similar presentation 2 years ago which gradually improved, his current symptoms began about 2 weeks ago. Biopsies remain pending, suspected that he may have some dysphagia and dysmotility related to medication induced parkinsonism versus reflux. Did have a proximal web previously and rapid improvement of symptoms for after dilation of such, no web or functional obstruction was found on his EGD this admission No improvement with trial of erythromycin for gastroparesis. Concern for potential EPS symptoms on morning assessment 05/31. Did discuss with psych for potential of EPS/tardive symptoms versus behavioral elements, patient recommendations. Will trial Cogentin 1 mg p.o. twice daily, discontinue Abilify, start Zyprexa and follow symptoms. (2) Aspiration pneumonia: Plan: Questionable diagnosis given no clear pneumonia on CXR. 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 Procalcitonin negative. - Unasyn empirically started in ER; continued until 05/27. No signs of pneumonia, antibiotics discontinued - Continue pureed foods as able;. - Zofran PRN (3) Nausea and vomiting: Plan: Ongoing issue, presumed to be stemming from his long-standing psych medications. Also some concern for mechanical obstruction. - Continue PPI - Zofran as above - EGD as above (4) Paranoid schizophrenia: Plan: With some negative symptoms at this point, but discussed with guard in the room. He reports that he is usually slightly more conversant, but not significantly far from his baseline. -Psychiatric consultation as above, for concern of EPS symptoms Rosalva Cason as above (5) HTN (hypertension): Plan: BP is 140/90 today. - Continue home amlodipine (6) Hypothyroid: Plan: TSH was 2.3 this admission. - Continue home levothyroxine 50 mcg PO daily. (7) Hepatitis C: Plan: Per notes, treat. He is Ab positive, but had no detectible viral RNA which would support this. - No inpatient needs (8) Tremor: Plan: Significant bilateral hand tremor. - Monitor -> Improved today. (9) DVT prophylaxis: Plan: Lovenox 40 mg SQ daily Admission and Anticipated Discharge Date Admission Date: May 24, 2021 Subjective Patient seen at bedside. On morning assessment patient with recurrent single constant stammering,, some intermittent flexion contractions/tremor of the left hand, and reports of unusual repeated spinal flexion/extension while in bed overnight. Patient offers minimal conversation, somnolent but does open eyes and is oriented to place but again stammers repeatedly on morning conversation. Endorses he does not have abdominal pain at time of visit, gets pain when he tries to eat and still feels he cannot eat due to continued nausea/spit up/vomiting when he attempts to do so. No fever/chills/other pain at time of assessment. On afternoon reassessment patient speech is much more fluent, expresses concern as her machine is not in his room but is unsure of which machine there was. Patient possibly referring to IV pole or vitals/BP cuff, difficult to understand from conversation and patient with minimal spontaneous speech on attempted clarification. Review of Systems Review of Systems: All systems reviewed & are unremarkable except as noted in Subjective Physical Exam Physical Exam: General: Somnolent, oriented to name and place but stammers repeatedly on single consonant syllables on attempted speech in the morning. Offers minimal spontaneous conversation, repeatedly clenches eyes closed during visit although opens intermittently on direct questioning. HEENT: Atraumatic, normocephalic. Hearing grossly intact. Pulm: CTAB A&P. -wheezes, -rales, -rhonchi. Symmetrical chest rise. No increase in work of breathing. No respiratory distress. Cardiac: RRR, -mrg. Radial pulses intact and symmetrical. Abdominal: Soft, does not endorse tenderness. No guarding. Bowel sounds diminished. Extremities: On morning assessment intermittent 2-3 Hz tremor/contractions in left hand and elbow which improved on afternoon reassessment. No focal sensation deficits. No clonus, DTRs difficult to assess due to patient engagement. Results & Data Results & Data ([facility]) Vital Signs (Past 12 Hours) Vital Signs Temp Pulse Resp BP Pulse Ox 05/31/21 11:04 37.0 C 86 18 161/103 H 93 05/31/21 07:52 86 20 145/93 H PG Care Time/CCT Total # of Minutes Spent Total Time Spent with Patient: Total time spent is greater than 50% in coordination of care (as documented) at patient's floor/unit and/or counseling patient: Coding Level of Care Code 95063 Subseq Hosp Care Lvl 2 Diagnoses Oropharyngeal dysphagia R13.12 Aspiration pneumonia J69.0 Aspiration pneumonia type: unspecified Laterality: unspecified laterality Lung location: unspecified part of lung Nausea and vomiting R11.2 Vomiting type: unspecified Paranoid schizophrenia F20.0 HTN (hypertension) I10 Hypertension type: essential hypertension Hypothyroid E03.9 Hypothyroidism type: unspecified Hepatitis C B19.20 Tremor R25.1 DVT prophylaxis Z29.9 (1) Aspiration pneumonia Aspiration pneumonia type: unspecified Laterality: unspecified laterality Lung location: unspecified part of lung Qualified Code(s): J69.0 - Pneumonitis due to inhalation of food and vomit (2) Nausea and vomiting Vomiting type: unspecified Qualified Code(s): R11.2 - Nausea with vomiting, unspecified (3) HTN (hypertension) Hypertension type: essential hypertension Qualified Code(s): I10 - Essential (primary) hypertension (4) Hypothyroid Hypothyroidism type: unspecified Qualified Code(s): E03.9 - Hypothyroidism, unspecified
[2021-05-31] MEDS ORDERED: OLANZapine ZYDIS 5 MG ORALLY DIS. TAB PO SCH (21:00)
[2021-05-31] MEDS: ATORVASTATIN 40 MG TAB PO SCH (21:37)
[2021-05-31] MEDS: MIRTAZAPINE TAB 15 MG TAB PO SCH (21:37)
[2021-05-31] MEDS: amLODIPine BESYLATE 5 MG TAB PO SCH (21:37)
[2021-06-01] MEDS ORDERED: MELATONIN 3 MG TAB PO PRN (02:42)
[2021-06-01] MEDS: MAGNESIUM HYDROXIDE SUSP 30 ML UDC PO PRN (05:24)
[2021-06-01] MEDS: LEVOTHYROXINE SODIUM 50 MCG TABLET PO SCH (05:59)
[2021-06-01 06:22] LABS: Mean Corpuscular Hgb Conc 32.6 g/dL (32-36)
[2021-06-01 06:33] LABS: Hematocrit (blood only) 50.9 % (42-52); Hemoglobin 16.6 g/dL (14.0-18.0); Mean Corpuscular Hemoglobin 28.2 pg (25-34); Mean Corpuscular Volume 86.6 fL (80-100); RDW Coefficient of Variation 15.2 % (11.5-14.5); RDW Standard Deviation 48.4 fL (36.4-46.3); Red Blood Count 5.88 M/uL (4.7-6.1); White Blood Count 7.93 K/uL (4.8-10.8)
[2021-06-01 06:43] LABS: Albumin Globulin Ratio 1.4 (0.9-2); Albumin Level 4.5 gm/dl (3.4-5.0); BUN Creatinine Ratio 15.9 (10-20); Bilirubin,Total 1.2 mg/dl (0.2-1.0); Calcium 9.9 mg/dl (8.5-10.1); Creatinine Clr Calc Pharmacy 75.2 ml/min; Est GFR (African American) 66.1 ml/min; Globulin 3.3 gm/dl (2.5-4.0); Potassium 4.1 mmol/L (3.5-5.1); Total Protein 7.8 gm/dl (6.0-8.3)
[2021-06-01 06:47] LABS: Platelet Count 130 K/uL (130-400)
[2021-06-01 06:48] LABS: Basophils # (auto) 0.01 K/uL (0-0.2); Basophils % (auto) 0.1 %; Eosinophils # (auto) 0.14 K/uL (0-0.5); Eosinophils % (auto) 1.8 %; Immature Granulocytes # (auto) 0.03 K/uL (0.00-0.02); Immature Granulocytes % (auto) 0.4 %; Lymphocytes # (auto) 1.51 K/uL (1.2-3.4); Monocytes # (auto) 0.66 K/uL (0.11-0.59); Monocytes % (auto) 8.3 %; Neutrophils # (auto) 5.58 K/uL (1.4-6.5); Neutrophils % (auto) 70.4 %; Platelet Estimate Decreased (Normal)
[2021-06-01] MEDS: BENZTROPINE MESYLATE 1 MG TAB PO SCH (08:02)
[2021-06-01] MEDS: THIAMINE HCL 100 MG TAB PO SCH (08:02)
[2021-06-01] MEDS: POLYETHYLENE (MIRALAX) 17 GM PACK PO SCH (08:02)
[2021-06-01] MEDS: PANTOprazole 40 MG TAB PO SCH (08:02)
[2021-06-01] MEDS: ENOXAPARIN INJ 40 MG/0.4 ML SYR SQ SCH (08:03)
[2021-06-01] MEDS: FAMOTIDINE 20 MG in SYRINGE 3 ML IV SCH (08:09)
[2021-06-01] MEDS ORDERED: OLANZapine ZYDIS 5 MG ORALLY DIS. TAB PO SCH (09:00)
--- NOTE | 2021-06-01 10:46 | Discharge Summary ---
Date of Service June 01, 2021 Admission HPI Per Admitting Provider 61yo M w/ hx of paranoid schizophrenia who presents after aspiration and hypoxemia at his correctional facility. Per patient and guards, he has been throwing up for approx. 24 hours. Patient reports only 5-6 episodes of emesis. Reports only food and drink. Denies coffee ground emesis or hematemesis. Per report, his pulse ox was checked at the custodial and was in the 60% range, so he was sent in. Broadly positive ROS with the patient. He reports diffuse abdominal pain without radiation. Reports shortness of breath and cough (though guards deny any recent coughing). Reports fevers/chills, headache. Denies any chest pain. Does not have neck stiffness and has full ROM of neck, but does report some subjective pain when moving his neck. When speaking with the patient, he only gives 1-2 word answers to most questio ns, but is alert and oriented. He can give his recent medical status and responds appropriately. Per ED provider, the custodial was concerned about his lethargy and hypoxemia and requested admission. Principal Diagnosis Oropharyngeal dysphagia,? Extraparametal side effects of antipsychotics Discharge Exam General: Awake, alert, oriented to place and name today. Speech notably more fluent and clear. HEENT: Atraumatic, normocephalic. Hearing grossly intact. Vision intact. Pulm: CTAB A&P. -wheezes, -rales, -rhonchi. Symmetrical chest rise. No increase in work of breathing. No respiratory distress. Cardiac: RRR, -mrg. Radial pulses intact and symmetrical. Abdominal: Soft, does not endorse tenderness. No guarding. Bowel sounds diminished. Extremities: No tremor appreciated on morning exam, patient moving extremities equally. Sensation intact in hands and feet, PT and radial pulses intact bilaterally. Discharge Data Allergies Allergy/AdvReac Type Severity Reaction Status Date / Time No Known Allergies Allergy Verified 05/28/21 09:26 Consultations 05/24/21 19:38 ED Decision to Admit Stat 05/27/21 09:14 Consult Gastroenterology Routine 05/31/21 10:27 Consult Psychiatry Routine Procedures Performed Operation Date: 05/28/21 16:00 Actual Procedures p EGD Biopsy Cytology - Lucy Flanagan MD Ordered Studies 05/24/21 17:28 CT abd pelvis IV con only Stat 05/24/21 17:29 CT head/brain wo con Stat Hospital Course (1) Oropharyngeal dysphagia: To do as outpatient: 1. Stop aripiprazole nightly. This is been replaced by olanzapine as below. 2. Continue olanzapine 2.5 mg p.o. every morning, 5 mg nightly 3. Continue benztropine 1 mg p.o. twice daily for mitigation of EPS symptoms 4. Routine follow-up of biopsy results from endoscopy 5. Routine follow-up with facility PCP, may consider blood work for electrolyte stability within 1 week 6. Continued monitoring for EPS/tardive symptoms, adjust medications as needed. Suspect may have been affecting his ability to swallow Long-standing issue with prior GI work-up and BREASTER eval. - In 08/2019, BREASTER recommended pureed diet if it helped patient. - Aspiration precautions - Meds in carrier - Discussed with BREASTER on 05/26 - Did have a prior web dilated in 08/2020. Attempted barium swallow on 05/27. He could not even complete the test. He regurgitated the barium without any images able to be taken. -Will continue pureed diet at discharge. -05/29: Patient still unable to tolerate pured foods, is tolerating a small amount of milk today. Inadequate p.o. intake for discharge. Added H2 rosario twice daily, will continue PPI twice daily, and continue Remeron 15 mg p.o. nightly. EGD: Normal esophagus, Z-line regular, normal stomach, erythematous mucosa at antrum of the stomach which was biopsied, normal duodenal bulb and second portion of the duodenum Patient still has not had a bowel movement. Likely contributing to nausea/intolerance. Plus MiraLAX, docusate CT, milk of mag every 6 hours as needed. - Remains with inadequate PO intake for discharge. Boost BID -Patient reports he would not want nasogastric/feeding tube/PEG tube placed under any circumstances - KUB without signs of obstruction. Patient did have similar presentation 2 years ago which gradually improved, his current symptoms began about 2 weeks ago. Biopsies remain pending, suspected that he may have some dysphagia and dysmotility related to medication induced parkinsonism versus reflux. Did have a proximal web previously and rapid improvement of symptoms for after dilation of such, no web or functional obstruction was found on his EGD this admission No improvement with trial of erythromycin for gastroparesis. Concern for potential EPS symptoms on morning assessment 05/31. Did discuss with psych for potential of EPS/tardive symptoms versus behavioral elements, patient recommendations. Will trial Cogentin 1 mg p.o. twice daily, discontinue Abilify, start Zyprexa and follow symptoms. 06/01: On morning assessment patient tremor greatly improved, speech noticeably more clear without stammering. Patient was able to tolerate 2 boost drinks and some oatmeal this morning without vomiting/worsen nausea. Stable for discharge, tolerating p.o., will discharge and continue benztropine 1 mg p.o. twice daily, previous mirtazapine 15 mg p.o. at bedtime, and olanzapine 2.5 mg every morning/5 mg p.o. nightly which has replaced his aripiprazole. (2) Aspiration pneumonia: Questionable diagnosis given no clear pneumonia on CXR. 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 Procalcitonin negative. - Unasyn empirically started in ER; continued until 05/27. No signs of pneumonia, antibiotics discontinued - Continue pureed foods as able;. - Zofran PRN (3) Nausea and vomiting: Ongoing issue, presumed to be stemming from his long-standing psych medications. Also some concern for mechanical obstruction. - Continue PPI - Zofran as above - EGD as above (4) Paranoid schizophrenia: With some negative symptoms at this point, but discussed with guard in the room. He reports that he is usually slightly more conversant, but not significantly far from his baseline. -Psychiatric consultation as above, for concern of EPS symptoms Cogentin, Zyprexa as above (5) HTN (hypertension): BP is 140/90 today. - Continue home amlodipine (6) Hypothyroid: TSH was 2.3 this admission. - Continue home levothyroxine 50 mcg PO daily. (7) Hepatitis C: Per notes, treat. He is Ab positive, but had no detectible viral RNA which would support this. - No inpatient needs (8) Tremor: Significant bilateral hand tremor. - Monitor -> Improved today. (9) DVT prophylaxis: Lovenox 40 mg SQ daily Total Time Total Time Spent Total Time Spent (In Minutes): Time spend day of discharge 35 minutes including direct patient care, documentation, review of labs and images, and coordination of care. Discharge Plan Discharge Items [facility]position[facility] Reason For Visit: POSSIBLE ASPIRATION PNEUMONIA Discharge Diagnosis: Dysphagia Activity: Resume your previous activity Non-emergency contact: Primary Care Provider Call non-emergency contact if: you have any medication questions, your symptoms worsen, your pain is not controlled and your pain is worsening Follow-up/Referrals: Artur FLANAGAN [Primary Care Provider] - Diet: Regular and Full liquid Addtl Attending Provider Instructions: You are seen in the hospital for oropharyngeal dysphagia and concern for aspiration pneumonia. Your blood work did not suggest pneumonia, you are treated with empiric antibiotics initially and then these were discontinued when there were no additional signs of pneumonia. You did experience difficulty swallowing, and have had difficulty swallowing in the past. You had a GI evaluation and EGD which showed some erythematous mucosa at the stomach but otherwise normal, normal duodenum, and normal esophagus. Biopsies were taken for testing, these were pending at time of discharge. You are treated with antiacid medicines but did not clinically improve and had difficulty swallowing and nausea with any foods. You were trialed on some motility agents/treatments for gastroparesis including erythromycin without success. You were noted to have some hand tremors and voice tremors during admission which can be a side effect of your medications. For that reason your case was discussed with psychiatry, and your aripiprazole was switched to olanzapine and you are started on a medication called benztropine to prevent/mitigate side effects of these medicines. The next day you did have clinical improvement and were able to cans of boost and eat oatmeal. You are being discharged back to [facility], with medication changes as below. Your aripiprazole has been stopped. This is been replaced with olanzapine as below. Please do not take aripiprazole at this time. You have been started on a medication called olanzapine. Please take olanzapine 2.5 mg in the morning and 5 mg in the evening. This will replace your aripiprazole. You have been started on a medication to prevent side effects from your other psychiatric medications, benztropine (Cogentin). Please take benztropine 1 mg by mouth twice daily. You should have a follow-up within 1 week by the [facility] primary care provider. Please follow-up with GI as an outpatient as needed. If you develop any new or worsening symptoms including fever, chills, sweats, chest pain, chest pressure, difficulty breathing, uncontrolled nausea/vomiting, rash, wheezing, passing out or nearly passing out, bleeding, black/bloody bowel movements, or other new or concerning symptoms please call your primary care physician or have 911 called for re-evaluation in the emergency department if you are very concerned. Pending Studies at Discharge: No Stand-Alone Forms: My [facility] Skilled Items Patient informed of condition?: No Discharge Level of Care: Other Communicable Disease: No Discharge Prognosis: Stable Lines: None Urinary Catheter: No Medications and DC Order Prescriptions: New benztropine 1 mg Tablet 1 mg PO BID Qty: 30 RF: 0 olanzapine 5 mg Tablet,Disintegrating 5 mg PO HS Qty: 30 RF: 0 olanzapine 5 mg Tablet,Disintegrating 2.5 mg PO QAM Qty: 30 RF: 0 Continued atorvastatin [Lipitor] 40 mg Tablet 40 mg PO HS RF: 0 amlodipine [Norvasc] 10 mg Tablet 10 mg PO HS RF: 0 levothyroxine [Synthroid] 50 mcg Tablet 50 mcg PO QAM RF: 0 mirtazapine [Remeron] 15 mg Tablet 15 mg PO HS RF: 0 pantoprazole 40 mg Tablet,Delayed Release (Dr/Ec) 40 mg PO BID Qty: 1 RF: 0 thiamine HCl (vitamin B1) 100 mg tablet 200 mg PO DAILY Qty: 60 RF: 0 Discontinued aripiprazole [Abilify] 20 mg Tablet 20 mg PO HS RF: 0 Discharge Orders: Discharge Order (Routine); Ordered 06/01/21 Ordered By: Miguel Angel Garcia Admission Data Admit Date/Time: 05/24/21 20:29 Attending Provider: Miguel Angel Garcia Admit Provider: Andrew Valenzuela Primary Care Provider: Artur FLANAGAN Other Providers: Lucy Flaangan ; Emmy Negrete ; Karen Wright ; Sarita Brown Coding Level of Care Code D/C DAY MANAGEMENT >30 MINS Diagnoses Oropharyngeal dysphagia R13.12 Aspiration pneumonia J69.0 Aspiration pneumonia type: unspecified Laterality: unspecified laterality Lung location: unspecified part of lung Nausea and vomiting R11.2 Vomiting type: unspecified Paranoid schizophrenia F20.0 HTN (hypertension) I10 Hypertension type: essential hypertension Hypothyroid E03.9 Hypothyroidism type: unspecified Hepatitis C B19.20 Tremor R25.1 DVT prophylaxis Z29.9
== END 2021-06-01 13:34 | DRG 392 ==
LOC: ED 16:54 → SUATTDRO 20:29 → 2N 20:29